=== PATIENT | female | born 1950 | race Caucasian/White ===

== ENCOUNTER 2018-07-16 13:04 | Emergency (ER) | payer MEDICARE, OTHER ==
[2018-07-16] MEDS ORDERED: HYDROCODONE/APAP 10/325 TAB ONE (13:35)
--- NOTE | 2018-07-16 14:25 | RAD REPORT ---
EXAM DESCRIPTION: RAD - Chest Single View - 07/16/2018 2:10 pm CLINICAL HISTORY: fall Chest pain. COMPARISON: Chest Pa And Lat (2 Views) dated 12/30/2016; Chest Single View dated 01/11/2016; CHEST PA A ND LAT 2 VIEW dated 01/08/2008 FINDINGS: Portable technique limits examination quality. The lungs are grossly clear. The heart is normal in size. Spiral fracture of the left humeral shaft.
--- NOTE | 2018-07-16 14:26 | RAD REPORT ---
EXAM DESCRIPTION: RAD - Humerus Left - 07/16/2018 2:10 pm CLINICAL HISTORY: DEFORMITY COMPARISON: No comparisons FINDINGS: Spiral fracture of the midshaft of the left humerus is seen with moderate angulation. No d islocation evident.
[2018-07-16] MEDS ORDERED: NA CHLORIDE 0.9% 1,000 ML ONE (14:32)
[2018-07-16] MEDS ORDERED: PROPOFOL 200 MG/20 ML VIAL IV ONE ×3 (14:32→16:12)
[2018-07-16] MEDS ORDERED: FENTANYL CITR 100 MCG/2 ML ONE ×2 (14:32→15:47)
[2018-07-16] MEDS ORDERED: PROPOFOL 1,000 MG/100 ML VIAL IV ONE (14:45)
--- NOTE | 2018-07-16 15:49 | RAD REPORT ---
EXAM DESCRIPTION: RAD - Humerus Left - 07/16/2018 3:35 pm CLINICAL HISTORY: DEFORMITY Fracture COMPARISON: Humerus Left dated 07/16/2018 FINDINGS: Oblique fracture of the shaft of the left humerus is seen with moderate angulation. Degree of angulation is unchanged. Plaster splint is in place.
--- NOTE | 2018-07-16 16:37 | RAD REPORT ---
EXAM DESCRIPTION: RAD - Humerus Left - 07/16/2018 4:30 pm CLINICAL HISTORY: DEFORMITY COMPARISON: Humerus Left dated 07/16/2018 FINDINGS: Spiral fracture involving the shaft of the left humerus is again noted within a splint. Th e degree of angulation has been moderately reduced since the comparative study.
--- NOTE | 2018-07-16 17:09 | ER ---
Nurse's Notes [facility] Name: Jeny Barraza Age: 68 yrs Sex: Female : 1950 Arrival Date: 07/16/2018 Time: 13:09 Bed 2 Private MD: Diagnosis: Closed left Midshaft spiral fracture Presentation: 07/16 13:09 Presenting complaint: EMS states: " Pt tripped on rug and fell, hit L arm on a nearby chair and reports that when she stood up she heard a pop. C/O pain to upper L arm that radiates down, deformity noted to shoulder, denies head injury or LOC, GCS 15, pulses intact. Transition of care: patient was not received from another setting of care. Onset of symptoms was July 16, 2018. Risk Assessment: Do you want to hurt yourself or someone else? Patient reports no desire to harm self or others. Initial Sepsis Screen: Does the patient meet any 2 criteria? No. Patient's initial sepsis screen is negative. Does the patient have a suspected source of infection? No. Patient's initial sepsis screen is negative. Care prior to arrival: Medication(s) given: 100 mcg Fentanyl IVP IV initiated. 18 GA, in the right antecubital area. 13:09 Method Of Arrival: EMS: [facility] 13:09 Acuity: KESHA 3 ph Historical: - Allergies: 13:15 Celexa; ph - PMHx: 13:15 Cholelithiasis; high heart rate; ph - PSHx: 13:15 Knee surgery; Tubal ligation; polyps removed from colon; ph - Immunization history:: Adult Immunizations up to date. - Social history:: Smoking status: Patient/guardian denies using tobacco. - Ebola Screening: : No symptoms or risks identified at this time. Screenin:15 Abuse screen: Denies threats or abuse. Denies injuries from another. Nutritional ph screening: No deficits noted. Tuberculosis screening: No symptoms or risk factors identified. Fall Risk Fall in past 12 months (25 points). No secondary diagnosis (0 pts). IV access (20 points). Ambulatory Aid- None/Bed Rest/Nurse Assist (0 pts). Gait- Normal/Bed Rest/Wheelchair (0 pts) Mental Status- Oriented to own ability (0 pts). Total Tatum Fall Scale indicates High Risk Score (45 or more points). Fall prevention measures have been instituted. Side Rails Up X 2 Frequent Obs/Assessments Occuring As available patient and family educated on Fall Prevention Program and Strategies. Assessment: 13:15 General: Appears in no apparent distress. uncomfortable, well groomed, Behavior is ph calm, cooperative, appropriate for age. Pain: Complains of pain in left arm and left bicep. Neuro: Level of Consciousness is awake, alert, obeys commands, Oriented to person, place, time, situation. Cardiovascular: Capillary refill < 3 seconds in bilateral fingers Patient's skin is warm and dry. Pulses are palpable in right radial artery and left radial artery. Respiratory: Airway is patent Respiratory effort is even, unlabored. Derm: Skin is intact, is healthy with good turgor, Skin is pink, warm \\T\\ dry. Musculoskeletal: Circulation, motion, and sensation intact. Range of motion: limited in left shoulder Bony deformity noted of left bicep Swelling present in left bicep. 14:45 Reassessment: Patient appears in no apparent distress at this time. Patient and/or ph family updated on plan of care and expected duration. Pain level reassessed. Patient is alert, oriented x 3, equal unlabored respirations, skin warm/dry/pink. Pt resting quietly, preparing for conscious sedation. Vital Signs: 13:12 BP 116 / 54; Pulse 75; Resp 71; Temp 97.9; Pulse Ox 96% on R/A; Weight 77.11 kg; Height ph 5 ft. 4 in. (162.56 cm); 14:00 BP 127 / 58; Pulse 76; Resp 16; Pulse Ox 99% on R/A; ph 15:00 BP 109 / 86; Pulse 83; Resp 16; Pulse Ox 99% on 100% Non-rebreather mask; ph 16:00 BP 119 / 71; Pulse 76; Resp 16; Pulse Ox 100% on 100% Non-rebreather mask; ph 17:00 BP 119 / 65; Pulse 74; Resp 18; Temp 97.8; Pulse Ox 99% on R/A; ph 13:12 Body Mass Index 29.18 (77.11 kg, 162.56 cm) ph ED Course: 13:09 Patient arrived in ED. ph 13:10 Mingo Sofia MD is Attending Physician. ps1 13:12 Triage completed. ph 13:13 Arm band placed on. ph 13:15 Patient has correct armband on for positive identification. Bed in low position. Call ph light in reach. Side rails up X 1. Pulse ox on. NIBP on. Warm blanket given. 13:25 Eunice Cedeño, RN is Primary Nurse. ph 14:10 Humerus Left XRAY In Process Unspecified. EDMS 14:10 CXR XRAY In Process Unspecified. EDMS 14:30 Consent for conscious sedation explained by staff, explained by physician, signed by ph patient. 15:00 Assist provider with fracture care of left bicep Fracture is closed. Obvious deformity ph is noted. Circulation, motor and sensation is intact. Set up for procedure. Performed by Mingo Sofia MD Reduced with physical manipulation. Immobilized with OCL splint, Post immobilization, circulation, motor and sensation remain intact. Patient tolerated well. Pt moderately sedated for procedure, see chart for flow sheet. 15:30 Orthoglass splint: Coaptation splint applied on left arm. Sling \\T\\ swathe to left arm. em1 15:34 Humerus Left XRAY In Process Unspecified. EDMS 16:10 Assist provider with fracture care of left arm Fracture is closed. Obvious deformity is ph not noted. Circulation, motor and sensation is intact. Set up for procedure. Performed by Mingo Sofia MD Reduced with physical manipulation. Immobilized with OCL splint, Post immobilization, circulation, motor and sensation remain intact. Patient tolerated well. Pt moderately sedated for procedure, see chart for sedation flow sheet. 16:28 Humerus Left XRAY In Process Unspecified. EDMS 17:07 Dax Talbot MD is Referral Physician. ps1 17:35 IV discontinued, intact, bleeding controlled, No redness/swelling at site. Pressure ph dressing applied. 18:06 Dax Talbot MD is Referral Physician. ps1 Administered Medications: 13:30 Drug: [place] 10 mg-325 mg 1 tabs Route: PO; ph 14:00 Follow up: Response: No adverse reaction sv 14:55 Drug: fentaNYL (PF) 100 mcg Route: IVP; Site: right antecubital; ph 15:15 Follow up: Response: No adverse reaction sv 14:57 Drug: Propofol 50 mg {Note: given by Dr Sofia.} Route: IVP; Site: right antecubital; ph 15:10 Follow up: Response: No adverse reaction sv 14:59 Drug: Propofol 100 mg Route: IVP; Site: right antecubital; ph 15:10 Follow up: Response: No adverse reaction sv 15:03 Drug: Propofol 50 mg {Note: given by Dr Sofia.} Route: IVP; Site: right antecubital; ph 15:15 Follow up: Response: No adverse reaction sv 15:52 Drug: fentaNYL (PF) 100 mcg Route: IVP; Site: right antecubital; ph 16:00 Follow up: Response: No adverse reaction sv 15:54 Drug: Propofol 50 mg {Note: given by Dr Sofia.} Route: IVP; Site: right antecubital; ph 16:00 Follow up: Response: No adverse reaction sv 16:00 Drug: Propofol 150 mg {Note: given slow push over approx [address] Sofia.} Route: ph IVP; Site: right antecubital; 16:10 Follow up: Response: No adverse reaction sv 16:08 Drug: Propofol 50 mg {Note: given by Dr Sofia.} Route: IVP; Site: right antecubital; ph 16:10 Follow up: Response: No adverse reaction sv Outcome: 17:09 Discharge ordered by . ps1 17:32 Patient left the ED. ph 17:32 Discharged to home with family. ph 17:32 Condition: good 17:32 Discharge instructions given to patient, family, Instructed on discharge instructions, follow up and referral plans. medication usage, Demonstrated understanding of instructions, follow-up care, medications, splint care, Prescriptions given X 2. 18:07 Discharge ordered by MD. ps1 18:07 Patient left the ED. ph Signatures: Dispatcher [employer] EDMS Estefani Slade RN RN sv Martinez, Eric em1 Eunice Cedeño RN RN ph Singer, Phillip, MD MD ps1 Corrections: (The following items were deleted from the chart) 17:50 14:57 fentaNYL (PF) 100 mcg IVP in right antecubital ph ph 17:52 15:03 Propofol 50 mg IVP in right antecubital ph ph 18:29 15:00 Assist provider with fracture care of left bicep Fracture is closed. Obvious ph deformity is noted. Circulation, motor and sensation is intact. Set up for procedure. Performed by Mingo Sofia MD Reduced with physical manipulation. Immobilized with OCL splint, Post immobilization, circulation, motor and sensation remain intact. Patient tolerated well. ph 18:29 16:10 Assist provider with fracture care of left arm Fracture is closed. Obvious ph deformity is not noted. Circulation, motor and sensation is intact. Set up for procedure. Performed by Mingo Sofia MD Reduced with physical manipulation. Immobilized with OCL splint, Post immobilization, circulation, motor and sensation remain intact. Patient tolerated well. ph
--- NOTE | 2018-07-16 17:10 | EDPHYS ---
Physician Documentation [facility] Name: Jeny Barraza Age: 68 yrs Sex: Female : 1950 Arrival Date: 07/16/2018 Time: 13:09 Bed 2 Private MD: ED Physician Mingo Sofia HPI: 07/16 13:10 This 68 yrs old Female presents to ER via Unassigned with complaints of left ps1 arm pain fall. 13:10 The patient or guardian complains of decreased range of motion, pain. The complaints ps1 affect the left bicep. Context: The problem was sustained at home. Onset: The symptoms/episode began/occurred just prior to arrival. trip and fall. No LOC. No head injury. Not on blood thinners. Pain rated moderate, worse with movememt. . Historical: - Allergies: 13:15 Celexa; ph - PMHx: 13:15 Cholelithiasis; high heart rate; ph - PSHx: 13:15 Knee surgery; Tubal ligation; polyps removed from colon; ph - Immunization history:: Adult Immunizations up to date. - Social history:: Smoking status: Patient/guardian denies using tobacco. - Ebola Screening: : No symptoms or risks identified at this time. ROS: 13:10 Constitutional: Negative for fever, chills, and weight loss, Eyes: Negative for injury, ps1 pain, redness, and discharge, ENT: Negative for injury, pain, and discharge, Cardiovascular: Negative for chest pain, palpitations, and edema, Respiratory: Negative for shortness of breath, cough, wheezing, and pleuritic chest pain, Abdomen/GI: Negative for abdominal pain, nausea, vomiting, diarrhea, and constipation, Skin: Negative for injury, rash, and discoloration, Neuro: Negative for headache, weakness, numbness, tingling, and seizure. 13:10 MS/extremity: Positive for decreased range of motion, pain. Exam: 13:10 Constitutional: This is a well developed, well nourished patient who is awake, alert, ps1 and in no acute distress. Head/Face: Normocephalic, atraumatic. Eyes: Pupils equal round and reactive to light, extra-ocular motions intact. Lids and lashes normal. Conjunctiva and sclera are non-icteric and not injected. Chest/axilla: Normal chest wall appearance and motion. Nontender with no deformity. No lesions are appreciated. Cardiovascular: Regular rate and rhythm. No gallops, murmurs, or rubs. Normal PMI, no JVD. No pulse deficits. Respiratory: Lungs have equal breath sounds bilaterally, clear to auscultation and percussion. No rales, rhonchi or wheezes noted. No increased work of breathing, no retractions or nasal flaring. Abdomen/GI: Soft, non-tender, with normal bowel sounds. No distension or tympany. No guarding or rebound. No evidence of tenderness throughout. Skin: Warm, dry with normal turgor. Normal color with no rashes, no lesions, and no evidence of cellulitis. 13:10 Musculoskeletal/extremity: Extremities: grossly normal except: noted in the left bicep: decreased ROM, pain. Vital Signs: 13:12 BP 116 / 54; Pulse 75; Resp 71; Temp 97.9; Pulse Ox 96% on R/A; Weight 77.11 kg; Height ph 5 ft. 4 in. (162.56 cm); 14:00 BP 127 / 58; Pulse 76; Resp 16; Pulse Ox 99% on R/A; ph 15:00 BP 109 / 86; Pulse 83; Resp 16; Pulse Ox 99% on 100% Non-rebreather mask; ph 16:00 BP 119 / 71; Pulse 76; Resp 16; Pulse Ox 100% on 100% Non-rebreather mask; ph 17:00 BP 119 / 65; Pulse 74; Resp 18; Temp 97.8; Pulse Ox 99% on R/A; ph 13:12 Body Mass Index 29.18 (77.11 kg, 162.56 cm) ph Procedures: 17:15 Splinting: Splint applied to left arm using Orthoglass splint, applied by myself. post ps1 reduction film - reveals improved alignment, Examined by me, post splint application: neurovascular intact, 2+ distal pulses palpable, brisk capillary refill noted, Patient tolerated well, coaptation splint. Moderate sedation: Pre-procedure assessment: ASA physical classification: I - healthy, no underlying organic disease, Airway assessment: able to hyperextend neck, able to maintain airway, can open mouth without difficulty, Mallampati classification of tongue size: II - faucial pillars and soft palate can be visualized, but uvula is masked by the base of the tongue, Monitoring during procedure: traffic monitor specialist, continuous pulse oximetry, nurse at bedside at all times, Medications employed: Fentanyl, 100 mcg(s), Propofol. See Nursing note for dosing administration. , Post-procedure assessment: the patient is not sedated, Respiratory status: even and unlabored. MDM: 13:21 Patient medically screened. ps1 17:15 Data reviewed: vital signs, nurses notes, radiologic studies, and as a result, I will ps1 discharge patient, conscious sedate, apply coaptation splint. 07/16 13:22 Order name: Humerus Left XRAY; Complete Time: 14:36 ps1 07/16 13:22 Order name: CXR XRAY; Complete Time: 14:36 ps1 07/16 15:28 Order name: Humerus Left XRAY hb 07/16 16:18 Order name: Humerus Left XRAY eb Administered Medications: 13:30 Drug: [place] 10 mg-325 mg 1 tabs Route: PO; ph 14:00 Follow up: Response: No adverse reaction sv 14:55 Drug: fentaNYL (PF) 100 mcg Route: IVP; Site: right antecubital; ph 15:15 Follow up: Response: No adverse reaction sv 14:57 Drug: Propofol 50 mg {Note: given by Dr Sofia.} Route: IVP; Site: right antecubital; ph 15:10 Follow up: Response: No adverse reaction sv 14:59 Drug: Propofol 100 mg Route: IVP; Site: right antecubital; ph 15:10 Follow up: Response: No adverse reaction sv 15:03 Drug: Propofol 50 mg {Note: given by Dr Sofia.} Route: IVP; Site: right antecubital; ph 15:15 Follow up: Response: No adverse reaction sv 15:52 Drug: fentaNYL (PF) 100 mcg Route: IVP; Site: right antecubital; ph 16:00 Follow up: Response: No adverse reaction sv 15:54 Drug: Propofol 50 mg {Note: given by Dr Sofia.} Route: IVP; Site: right antecubital; ph 16:00 Follow up: Response: No adverse reaction sv 16:00 Drug: Propofol 150 mg {Note: given slow push over approx [address] Sofia.} Route: ph IVP; Site: right antecubital; 16:10 Follow up: Response: No adverse reaction sv 16:08 Drug: Propofol 50 mg {Note: given by Dr Sofia.} Route: IVP; Site: right antecubital; ph 16:10 Follow up: Response: No adverse reaction sv Disposition: 07/16/18 18:07 Discharged to Home. Impression: Closed left Midshaft spiral fracture. - Condition is Stable. - Medication Reconciliation Form, Thank You Letter, Antibiotic Education, Prescription Opioid Use form. - Follow up: Dax Talbot MD; When: 1 week; Reason: Further diagnostic work-up, Recheck today's complaints, Re-evaluation by your physician. Follow up: Emergency Department; When: As needed; Reason: Worsening of condition, unbearable pain, cold, blue extremity. Critical care time excluding procedures: 17:54 Critical care time: Bedside Care: 30 minutes, Family Intervention: 10 minutes. Total ps1 time: 40 minutes Signatures: Dispatcher [employer] Eunice Conte RN RN Mingo Sofia MD MD [facility] Estefani Slade RN Corrections: (The following items were deleted from the chart) 17:32 17:09 07/16/2018 17:09 Discharged to Home. Impression: closed left midshaft spiral ph fracture.. Condition is Stable. Forms are Medication Reconciliation Form, Thank You Letter, Antibiotic Education, Prescription Opioid Use. Follow up: Dr. Dax Talbot; When: As needed; Reason: Further diagnostic work-up, Recheck today's complaints, Re-evaluation by your physician. Follow up: Emergency Department; When: As needed; Reason: Worsening of condition, cast pain that seems unreasonable. Discoloration of hands. Numbness. . Problem is new. Symptoms have improved. ps1 17:54 17:32 07/16/2018 17:09 Discharged to Home. Impression: closed left midshaft spiral ps1 fracture.. Condition is Stable. Discharge Instructions: Humerus Fracture Treated With Immobilization. Prescriptions for Zofran 4 mg Oral Tablet - take 1 tablet by ORAL route every 12 hours As needed; 20 tablet. and Forms are Medication Reconciliation Form, Thank You Letter, Antibiotic Education, Prescription Opioid Use. Follow up: Dr. Dax Talbot; When: As needed; Reason: Further diagnostic work-up, Recheck today's complaints, Re-evaluation by your physician. Follow up: Emergency Department; When: As needed; Reason: Worsening of condition, cast pain that seems unreasonable. Discoloration of hands. Numbness. . Problem is new. Symptoms have improved. ph 18:07 18:07 07/16/2018 18:07 Discharged to Home. Impression: Closed left Midshaft spiral ph fracture. Condition is Stable. Prescriptions for Zofran 4 mg Oral Tablet - take 1 tablet by ORAL route every 12 hours As needed; 20 tablet. and Forms are Medication Reconciliation Form, Thank You Letter, Antibiotic Education, Prescription Opioid Use. Follow up: Dr. Dax Talbot; When: 1 week; Reason: Further diagnostic work-up, Recheck today's complaints, Re-evaluation by your physician. Follow up: Emergency Department; When: As needed; Reason: Worsening of condition, unbearable pain, cold, blue extremity. ps1
[2018-07-16 17:38] VITALS: BP 116/54; TEMP 97.9; O2SAT 96
== END 2018-07-16 18:07 | disposition home or self-care (01) ==
LOC: ER 13:04
DX: S42.342A Displaced spiral fracture of shaft of humerus, left arm, initial encounter for closed fracture (principal); W01.0XXA Fall on same level from slipping, tripping and stumbling without subsequent striking against object, initial encounter; Y93.9 Activity, unspecified; Y92.019 Unspecified place in single-family (private) house as the place of occurrence of the external cause
CPT/HCPCS: 71045; 73060 ×3; 96374; 96375; 99285; J3010 ×2; J7030

== ENCOUNTER 2018-07-17 13:26 | Emergency (ER) | payer MEDICARE, OTHER ==
--- NOTE | 2018-07-17 13:48 | ER ---
Nurse's Notes [facility] Name: Jeny Barraza Age: 68 yrs Sex: Female : 1950 Arrival Date: 07/17/2018 Time: 13:31 Bed 2 Private MD: Diagnosis: Displaced oblique fracture of shaft of humerus, unspecified arm-left Presentation: 07/17 13:42 Presenting complaint: Patient states: had splint placed to left arm yesterday and iw splint is now digging into her left axilla. Transition of care: patient was not received from another setting of care. Onset of symptoms was July 16, 2018. Risk Assessment: Do you want to hurt yourself or someone else? Patient reports no desire to harm self or others. Initial Sepsis Screen: Does the patient meet any 2 criteria? No. Patient's initial sepsis screen is negative. Does the patient have a suspected source of infection? No. Patient's initial sepsis screen is negative. Care prior to arrival: Splint applied. 13:42 Method Of Arrival: Ambulatory iw 13:42 Acuity: KESHA 4 iw Triage Assessment: 16:30 Injury Description: Deformity sustained to left arm. bp Historical: - Allergies: 13:45 Celexa; iw - PMHx: 13:45 Cholelithiasis; high heart rate; iw - PSHx: 13:45 Knee surgery; Tubal ligation; polyps removed from colon; iw - Immunization history:: Adult Immunizations up to date. - Social history:: Smoking status: Patient/guardian denies using tobacco. - Family history:: not pertinent. - Ebola Screening: : Patient negative for fever greater than or equal to 101.5 degrees Fahrenheit, and additional compatible Ebola Virus Disease symptoms Patient denies exposure to infectious person Patient denies travel to an Ebola-affected area in the 21 days before illness onset No symptoms or risks identified at this time. Screenin:49 Abuse screen: Denies threats or abuse. Denies injuries from another. Nutritional bp screening: No deficits noted. Tuberculosis screening: No symptoms or risk factors identified. Fall Risk Fall in past 12 months (25 points). No secondary diagnosis (0 pts). No IV (0 pts). Ambulatory Aid- None/Bed Rest/Nurse Assist (0 pts). Assessment: 13:45 General: Appears in no apparent distress. comfortable, Behavior is calm, cooperative, bp appropriate for age. Pain: Complains of pain in left arm. Neuro: Level of Consciousness is awake, alert, obeys commands, Oriented to person, place, time, situation, Appropriate for age. Cardiovascular: No deficits noted. Respiratory: Airway is patent is compromised Respiratory effort is even, unlabored, Respiratory pattern is regular, symmetrical. GI: No signs and/or symptoms were reported involving the gastrointestinal system. : No signs and/or symptoms were reported regarding the genitourinary system. EENT: No deficits noted. Derm: No deficits noted. Musculoskeletal: LUE SPLINT IN PLACE. 15:00 Reassessment: LUE SPLINT REPLACEMENT PENDING FOR MD. bp 16:10 Reassessment: MD AT B/S FOR SPLINT PLACEMENT. bp 16:42 Reassessment: PT D/C HOME AMBULATORY WITH FAMILY, DX WITH DISPLACED HUMERUS SHAFT FX. bp Vital Signs: 13:49 BP 119 / 69; Pulse 84; Resp 14; Temp 98.1; Pulse Ox 96% ; Weight 74.84 kg; Height 5 ft. bp 4 in. (162.56 cm); 15:00 BP 106 / 63; Pulse 80; Resp 14; Pulse Ox 99% ; bp 16:31 BP 127 / 75; Pulse 85; Resp 14; Pulse Ox 100% ; bp 13:49 Body Mass Index 28.32 (74.84 kg, 162.56 cm) bp ED Course: 13:31 Patient arrived in ED. mr 13:37 Ean Hernandez MD is Attending Physician. axel 13:41 Yong Monzon, RN is Primary Nurse. bp 13:43 Triage completed. iw 13:45 Arm band placed on. iw 13:49 Patient has correct armband on for positive identification. Bed in low position. Call bp light in reach. Side rails up X2. Adult w/ patient. 16:30 Patient did not have IV access during this emergency room visit. Orthoglass splint: bp Coaptation splint applied on left arm. Sling applied to left arm. 16:30 No provider procedures requiring assistance completed. bp Administered Medications: 15:18 Drug: Demerol 75 mg Route: IM; Site: right gluteus; bp 16:29 Follow up: Response: Pain is decreased bp 15:18 Drug: Phenergan 25 mg Route: IM; Site: right deltoid; bp 16:29 Follow up: Response: Pain is decreased bp Outcome: 13:47 Discharge ordered by . axel 16:42 Discharged to home ambulatory, with family. bp 16:42 Condition: stable 16:42 Discharge instructions given to patient, Instructed on discharge instructions, follow up and referral plans. medication usage, Demonstrated understanding of instructions, follow-up care, medications, splint care, Prescriptions given X 2. 16:43 Patient left the ED. bp Signatures: Ean Hernandez MD MD cha Rivera, Mary mr Williams, Irene, ROLANDO RN Yong Heath RN RN bp
--- NOTE | 2018-07-17 13:48 | EDPHYS ---
Physician Documentation [facility] Name: Jeny Barraza Age: 68 yrs Sex: Female : 1950 Arrival Date: 07/17/2018 Time: 13:31 Bed 2 Private MD: ED Physician Ean Hernandez HPI: 07/17 13:41 This 68 yrs old Female presents to ER via Unassigned with complaints of Arm axel Injury, Splint check. 13:41 Trauma demographics: County: The injury occurred in [place]. Mechanism of injury: axel Fall:. Associated injuries: The patient sustained left bicep and left tricep, decreased range of motion. Onset: The symptoms/episode began/occurred 2 day(s) ago. The patient or guardian complains of decreased range of motion, pain. The complaints affect the left bicep and left tricep. Historical: - Allergies: 13:45 Celexa; iw - PMHx: 13:45 Cholelithiasis; high heart rate; iw - PSHx: 13:45 Knee surgery; Tubal ligation; polyps removed from colon; iw - Immunization history:: Adult Immunizations up to date. - Social history:: Smoking status: Patient/guardian denies using tobacco. - Family history:: not pertinent. - Ebola Screening: : Patient negative for fever greater than or equal to 101.5 degrees Fahrenheit, and additional compatible Ebola Virus Disease symptoms Patient denies exposure to infectious person Patient denies travel to an Ebola-affected area in the 21 days before illness onset No symptoms or risks identified at this time. ROS: 13:44 Constitutional: Negative for fever, chills, and weight loss, Eyes: Negative for injury, axel pain, redness, and discharge, ENT: Negative for injury, pain, and discharge, Neck: Negative for injury, pain, and swelling, Cardiovascular: Negative for chest pain, palpitations, and edema, Respiratory: Negative for shortness of breath, cough, wheezing, and pleuritic chest pain, Abdomen/GI: Negative for abdominal pain, nausea, vomiting, diarrhea, and constipation, Back: Negative for injury and pain, : Negative for injury, bleeding, discharge, and swelling, Skin: Negative for injury, rash, and discoloration, Neuro: Negative for headache, weakness, numbness, tingling, and seizure, Psych: Negative for depression, anxiety, suicide ideation, homicidal ideation, and hallucinations, Allergy/Immunology: Negative for hives, rash, and allergies, Endocrine: Negative for neck swelling, polydipsia, polyuria, polyphagia, and marked weight changes, Hematologic/Lymphatic: Negative for swollen nodes, abnormal bleeding, and unusual bruising. 13:44 MS/extremity: Positive for injury or acute deformity, decreased range of motion, pain, swelling, tenderness. Exam: 13:44 Constitutional: This is a well developed, well nourished patient who is awake, alert, axel and in no acute distress. Head/Face: Normocephalic, atraumatic. Eyes: Pupils equal round and reactive to light, extra-ocular motions intact. Lids and lashes normal. Conjunctiva and sclera are non-icteric and not injected. Cornea within normal limits. Periorbital areas with no swelling, redness, or edema. ENT: Nares patent. No nasal discharge, no septal abnormalities noted. Tympanic membranes are normal and external auditory canals are clear. Oropharynx with no redness, swelling, or masses, exudates, or evidence of obstruction, uvula midline. Mucous membranes moist. Neck: Trachea midline, no thyromegaly or masses palpated, and no cervical lymphadenopathy. Supple, full range of motion without nuchal rigidity, or vertebral point tenderness. No Meningismus. Chest/axilla: Normal chest wall appearance and motion. Nontender with no deformity. No lesions are appreciated. Cardiovascular: Regular rate and rhythm with a normal S1 and S2. No gallops, murmurs, or rubs. Normal PMI, no JVD. No pulse deficits. Respiratory: Lungs have equal breath sounds bilaterally, clear to auscultation and percussion. No rales, rhonchi or wheezes noted. No increased work of breathing, no retractions or nasal flaring. Abdomen/GI: Soft, non-tender, with normal bowel sounds. No distension or tympany. No guarding or rebound. No evidence of tenderness throughout. Back: No spinal tenderness. No costovertebral tenderness. Full range of motion. Skin: Warm, dry with normal turgor. Normal color with no rashes, no lesions, and no evidence of cellulitis. Neuro: Awake and alert, GCS 15, oriented to person, place, time, and situation. Cranial nerves II-XII grossly intact. Motor strength 5/5 in all extremities. Sensory grossly intact. Cerebellar exam normal. Normal gait. Psych: Awake, alert, with orientation to person, place and time. Behavior, mood, and affect are within normal limits. 13:44 Musculoskeletal/extremity: Extremities: grossly normal except: noted in the left bicep and left tricep: decreased ROM, pain. Vital Signs: 13:49 BP 119 / 69; Pulse 84; Resp 14; Temp 98.1; Pulse Ox 96% ; Weight 74.84 kg; Height 5 ft. bp 4 in. (162.56 cm); 15:00 BP 106 / 63; Pulse 80; Resp 14; Pulse Ox 99% ; bp 16:31 BP 127 / 75; Pulse 85; Resp 14; Pulse Ox 100% ; bp 13:49 Body Mass Index 28.32 (74.84 kg, 162.56 cm) bp MDM: 13:37 Patient medically screened. [facility] 07/17 13:40 Order name: Splint: coaptation; Complete Time: 16:35 [facility] 07/17 13:41 Order name: Sling; Complete Time: 16:35 [facility] Administered Medications: 15:18 Drug: Demerol 75 mg Route: IM; Site: right gluteus; bp 16:29 Follow up: Response: Pain is decreased bp 15:18 Drug: Phenergan 25 mg Route: IM; Site: right deltoid; bp 16:29 Follow up: Response: Pain is decreased bp Disposition: 07/17/18 13:47 Discharged to Home. Impression: Displaced oblique fracture of shaft of humerus, unspecified arm - left. - Condition is Stable. - Discharge Instructions: Fall Prevention in the Home, Humerus Fracture Treated With Immobilization, Humerus Fracture Treated With Immobilization, [id number], Fall Prevention in Hospitals, Adult. - Prescriptions for Tylenol- Codeine #3 300-30 mg Oral Tablet - take 2 tablet by ORAL route every 6 hours As needed; 30 tablet. Valium 2 mg Oral Tablet - take 1 tablet by ORAL route every 8 hours As needed; 20 tablet. - Medication Reconciliation Form, Thank You Letter, Antibiotic Education, Prescription Opioid Use form. - Follow up: Private Physician; When: 2 - 3 days; Reason: Recheck today's complaints, Continuance of care, Re-evaluation by your physician. - Problem is new. - Symptoms have improved. Signatures: Ean Hernandez MD MD cha Williams, Irene, RN RN iw Yong Monzon, RN RN bp Corrections: (The following items were deleted from the chart) 16:43 13:47 07/17/2018 13:47 Discharged to Home. Impression: Displaced oblique fracture of bp shaft of humerus, unspecified arm - left. Condition is Stable. Forms are Medication Reconciliation Form, Thank You Letter, Antibiotic Education, Prescription Opioid Use. Follow up: Private Physician; When: 2 - 3 days; Reason: Recheck today's complaints, Continuance of care, Re-evaluation by your physician. Problem is new. Symptoms have improved. axel
[2018-07-17] MEDS ORDERED: MEPERIDINE HCL 50 MG/ML AMP ONE (15:18)
[2018-07-17] MEDS ORDERED: PROMETHAZINE 25 MG/ML VIAL ONE (15:18)
[2018-07-17 17:14] VITALS: TEMP 98.1
[2018-07-17 17:16] VITALS: BP 127/75; O2SAT 100
== END 2018-07-17 16:43 | disposition home or self-care (01) ==
LOC: ER 13:26
DX: S42.332G Displaced oblique fracture of shaft of humerus, left arm, subsequent encounter for fracture with delayed healing (principal); W19.XXXD Unspecified fall, subsequent encounter; Z88.8 Allergy status to other drugs, medicaments and biological substances
CPT/HCPCS: 96372; 99283; J2175; J2550

== ENCOUNTER 2018-08-23 15:31 | Observation (INO) | payer OTHER ==
[2018-08-23] MEDS ORDERED: MORPHINE 4 MG/ML SYR ONE ×2 (17:27→20:30)
[2018-08-23] MEDS ORDERED: ONDANSETRON 4 MG/2 ML VIAL ONE (17:27)
[2018-08-23 18:13] LABS: Absolute Lymphocytes (CBC) 2.4 K/uL (0.7-4.9); Absolute Monocytes 1.1 K/uL (0.1-1.3); Absolute Neutrophil 10.6 K/uL (1.8-8.0); Basophils % 0.3 % (0-1.3); Eosinophils % 0.1 % (0-4.4); Hematocrit 38.8 % (36.0-45.0); Lymphocytes % 16.8 % (15.3-44.8); MCH 30.2 pg (27.0-35.0); MCV 89.5 fL (80-100); MPV 8.7 fL (7.6-11.3); Monocytes % 7.9 % (3.3-12.3); RBC Red Blood Cell Count 4.34 M/uL (3.86-4.86)
[2018-08-23 18:34] LABS: Bilirubin Direct 0.1 mg/dL (0-0.2); Bilirubin Total 0.6 mg/dL (0.2-1.0); Potassium 3.3 mmol/L (3.5-5.1); Protein, Total 7.6 g/dL (6.4-8.2)
--- NOTE | 2018-08-23 19:30 | RAD REPORT ---
EXAM DESCRIPTION: RAD - Forearm Left - 08/23/2018 7:17 pm CLINICAL HISTORY: Left forearm pain status post injury FINDINGS: No acute fracture is seen. Sideplate and screws affix an old distal radial fracture
--- NOTE | 2018-08-23 19:40 | RAD REPORT ---
EXAM DESCRIPTION: CT - Abdomen Pelvis W Contrast - 08/23/2018 7:16 pm CLINICAL HISTORY: Abdominal pain with hematochezia COMPARISON: January 2018 TECHNIQUE: Computed axial tomography of the abdomen pelvis was obtained. 100 cc Isovue-300 was admin istered intravenously. Oral contrast was not requested which limits evaluation of bowel. All CT scans are performed using dose optimization technique as appropriate and may include automated exposure control or mA/KV adjustment according to patient size. FINDINGS: The liver, spleen, pancreas, adrenal and kidneys appear unremarkable. The appendix is normal. Marked thickening of the wall of the descending colon. Moderate thickening of the wall of the sigmoid colon. Pneumatosis intestinalis is not seen IMPRESSION: Marked left colitis
[2018-08-23] MEDS ORDERED: METRONIDAZOLE 500mg IVPB 500 MG/100 ML BAG IV ONE (20:17)
[2018-08-23] MEDS ORDERED: CIPROFLOXACIN 400mg IV 400 MG/200 ML BAG IV ONE (20:17)
--- NOTE | 2018-08-23 20:21 | ER ---
Nurse's Notes [facility] Name: Jeny Barraza Age: 68 yrs Sex: Female : 1950 Arrival Date: 08/23/2018 Time: 15:37 Bed 27 Private MD: Mayur Castillo E Diagnosis: Left sided colitis Presentation: 08/23 16:02 Presenting complaint: Patient states: Bright red blood in stool since yesterday. aj Patient reports hx of colitis. Reports syncopal episode yesterday. Transition of care: patient was not received from another setting of care. Onset of symptoms was August 22, 2018. Risk Assessment: Do you want to hurt yourself or someone else? Patient reports no desire to harm self or others. Initial Sepsis Screen: Does the patient meet any 2 criteria? No. Patient's initial sepsis screen is negative. Does the patient have a suspected source of infection? No. Patient's initial sepsis screen is negative. Care prior to arrival: None. 16:02 Method Of Arrival: Ambulatory 16:02 Acuity: KESHA 3 aj Triage Assessment: 16:04 General: Appears in no apparent distress. comfortable, Behavior is calm, cooperative, aj appropriate for age. Pain: Complains of pain in right lower quadrant, left lower quadrant and left arm. Neuro: Level of Consciousness is awake, alert, obeys commands, Oriented to person, place, time, situation, Appropriate for age. Respiratory: Airway is patent Respiratory effort is even, unlabored, Respiratory pattern is regular, symmetrical. GI: Reports bloody stool. Derm: Skin is intact, is healthy with good turgor, Skin is pink, warm \T\ dry. normal. Historical: - Allergies: 16:04 Celexa; aj - Home Meds: 16:04 Lisinopril Oral [Active]; ranitidine Oral [Active]; hydrocodone-acetaminophen 7.5-325 aj mg Oral tab 1 tab every 4 hours [Active]; Atenolol Oral [Active]; Flexeril Oral [Active]; Klonopin Oral [Active]; - PMHx: 16:04 Cholelithiasis; high heart rate; colitis; aj - PSHx: 16:04 Knee surgery; Tubal ligation; polyps removed from colon; aj - Immunization history:: Adult Immunizations up to date. - Social history:: Smoking status: Patient/guardian denies using tobacco. - Ebola Screening: : Patient negative for fever greater than or equal to 101.5 degrees Fahrenheit, and additional compatible Ebola Virus Disease symptoms Patient denies exposure to infectious person Patient denies travel to an Ebola-affected area in the 21 days before illness onset No symptoms or risks identified at this time. Screenin:13 Abuse screen: Denies threats or abuse. Denies injuries from another. Nutritional mg2 screening: No deficits noted. Tuberculosis screening: No symptoms or risk factors identified. Fall Risk IV access (20 points). Assessment: 17:14 General: Appears uncomfortable. Pain: Complains of pain in left arm and abdomen and mg2 left lower quadrant and right lower quadrant Pain currently is 8 out of 10 on a pain scale. Is intermittent. Neuro: Level of Consciousness is awake, alert, obeys commands, Oriented to person, place, time, situation. Cardiovascular: Capillary refill < 3 seconds Patient's skin is warm and dry. Respiratory: Airway is patent Respiratory effort is even, unlabored, Respiratory pattern is regular, symmetrical. GI: Abdomen is non-distended, Reports lower abdominal pain. EENT: No deficits noted. Derm: Skin is intact, is healthy with good turgor, Skin is pink, warm \T\ dry. normal. Musculoskeletal: Circulation, motion, and sensation intact. Capillary refill < 3 seconds, Reports pain in left arm. 18:24 Reassessment: Patient appears in no apparent distress at this time. Patient and/or mg2 family updated on plan of care and expected duration. Pain level reassessed. Patient is alert, oriented x 3, equal unlabored respirations, skin warm/dry/pink. 21:36 Reassessment: patient agreed for admission. mg2 Vital Signs: 16:04 BP 104 / 73; Pulse 99; Resp 20; Temp 97.9; Pulse Ox 100% on R/A; Weight 72.12 kg; aj Height 5 ft. 4 in. (162.56 cm); 17:13 BP 108 / 70; Pulse 100; Resp 18; Pulse Ox 100% on R/A; Pain 8/10; mg2 18:23 BP 121 / 62; Pulse 86; Resp 18; Pulse Ox 99% on R/A; mg2 19:31 Pulse 84; Resp 18; Pulse Ox 100% on R/A; Pain 0/10; mg2 21:20 BP 110 / 59; Pulse 85; Resp 18; Temp 98.8; Pulse Ox 100% on R/A; Pain 3/10; mg2 16:04 Body Mass Index 27.29 (72.12 kg, 162.56 cm) ED Course: 15:37 Patient arrived in ED. mr 15:37 Mayur Castillo MD is Private Physician. mr 16:02 Triage completed. aj 16:04 Arm band placed on right wrist. Patient placed in waiting room. aj 16:31 Tony Russo PA is PHCP. [facility] 16:31 Oren Vidales MD is Attending Physician. jmm 16:44 Musa Haque, ROLANDO is Primary Nurse. mg2 17:13 No provider procedures requiring assistance completed. Inserted saline lock: 22 gauge mg2 in right forearm, using aseptic technique. Blood collected. 17:15 Patient has correct armband on for positive identification. Pulse ox on. NIBP on. Door mg2 closed. Warm blanket given. 18:19 Radiology exam delayed due to lab results not completed at this time. (BUN/Creatinine). 19:[address] via stretcher. nj 19:17 CT Abd/Pelvis - W/Contrast In Process Unspecified. EDMS 19:18 Forearm Left XRAY In Process Unspecified. EDMS 20:20 Lashanda Dorado MD is Hospitalizing Provider. m 21:35 Patient admitted, IV remains in place. mg2 Administered Medications: 17:25 Drug: morphine 4 mg Route: IVP; Site: right forearm; mg2 19:31 Follow up: Response: No adverse reaction; Marked relief of symptoms mg2 17:25 Drug: Zofran 4 mg Route: IVP; Site: right forearm; mg2 19:31 Follow up: Response: No adverse reaction; Marked relief of symptoms mg2 20:34 Drug: morphine 4 mg Route: IVP; Site: right forearm; mg2 21:53 Follow up: Response: No adverse reaction; Marked relief of symptoms mg2 20:35 Drug: Lactated Ringers Solution 1000 ml Route: IV; Rate: 150 ml/hr; Site: right forearm;mg2 22:08 Follow up: Response: No adverse reaction; IV Status: Completed infusion mg2 20:36 Drug: Flagyl 500 mg Volume: 100 ml; Route: IVPB; Rate: 200 ml/hr; Infused Over: 30 mg2 mins; Site: right forearm; 22:09 Follow up: Response: No adverse reaction; IV Status: Completed infusion mg2 21:22 Drug: Cipro 400 mg Volume: 200 ml; Route: IVPB; Infused Over: 60 mins; Site: right mg2 antecubital; 22:09 Follow up: Response: No adverse reaction; IV Status: Infusion continued upon admission mg2 Outcome: 20:20 Decision to Hospitalize by Provider. camryn 21:36 Admitted to Tele accompanied by nurse, family with patient, via wheelchair, room 410, mg2 with chart, Report called to ROLANDO Marcial 21:36 Condition: stable 21:36 Instructed on the need for admit, Demonstrated understanding of instructions. 22:10 Patient left the ED. mg2 Signatures: Dispatcher [employer] Amparo Murguia RN RN aj Mickail, Joel, PA PA jmm Rivera, Mary mr Pardo, Ang Russell, Musa Starr RN RN mg2 Corrections: (The following items were deleted from the chart) 16:06 16:04 Arm band placed on right wrist. Patient placed in an exam room, sarah smith
--- NOTE | 2018-08-23 20:21 | EDPHYS ---
Physician Documentation [facility] Name: Jeny Barraza Age: 68 yrs Sex: Female : 1950 Arrival Date: 08/23/2018 Time: 15:37 Bed 27 Private MD: Mayur Castillo E ED Physician Oren Vidales HPI: 08/23 17:09 This 68 yrs old Female presents to ER via Ambulatory with complaints of jmm Rectal Bleeding. 17:09 The patient presents to the emergency department with bleeding from the rectum/anus. jmm Onset: The symptoms/episode began/occurred gradually, yesterday. Context: the patient has no known special context relating to the rectal area complaint(s). Modifying factors:. This is a 68 year old female with a history of hemorrhoids, colitis, that presents to the ED with blood bowel movments beginning last night. Complains of lower abdominal pain. Patient states she collapsed last night while in the restroom landing on her left side. Patient complains of pain to her left forearm which she had fractured previously. Patient states she has had a similar episode previously. . Historical: - Allergies: 16:04 Celexa; aj - Home Meds: 16:04 Lisinopril Oral [Active]; ranitidine Oral [Active]; hydrocodone-acetaminophen 7.5-325 aj mg Oral tab 1 tab every 4 hours [Active]; Atenolol Oral [Active]; Flexeril Oral [Active]; Klonopin Oral [Active]; - PMHx: 16:04 Cholelithiasis; high heart rate; colitis; aj - PSHx: 16:04 Knee surgery; Tubal ligation; polyps removed from colon; aj - Immunization history:: Adult Immunizations up to date. - Social history:: Smoking status: Patient/guardian denies using tobacco. - Ebola Screening: : Patient negative for fever greater than or equal to 101.5 degrees Fahrenheit, and additional compatible Ebola Virus Disease symptoms Patient denies exposure to infectious person Patient denies travel to an Ebola-affected area in the 21 days before illness onset No symptoms or risks identified at this time. ROS: 17:09 Eyes: Negative for injury, pain, redness, and discharge, Cardiovascular: Negative for jmm chest pain, palpitations, and edema, Respiratory: Negative for shortness of breath, cough, wheezing, and pleuritic chest pain. 17:09 Back: Negative for injury and pain, MS/Extremity: Negative for injury and deformity, Skin: Negative for injury, rash, and discoloration, Neuro: Negative for headache, weakness, numbness, tingling, and seizure. 17:09 Constitutional: Positive for fatigue, malaise. 17:09 Abdomen/GI: Positive for abdominal pain, rectal bleeding. 17:09 All other systems are negative. Exam: 17:09 Head/Face: atraumatic. Chest/axilla: Normal chest wall appearance and motion. camryn Cardiovascular: Regular rate and rhythm. No edema appreciated 17:09 Constitutional: The patient appears in no acute distress, alert, awake. 17:09 Abdomen/GI: Inspection: abdomen appears normal, Bowel sounds: normal, Palpation: soft, moderate abdominal tenderness, in the left lower quadrant. 17:09 Back: ROM is normal. 17:09 Musculoskeletal/extremity: ROM: intact in all extremities, no deformity appreciated to the left forearm, compartments are soft, full radial pulse, NVI. 17:09 Skin: Appearance: Color: normal in color. 17:09 Neuro: Orientation: is normal, Mentation: is normal, Memory: is normal. 17:09 Psych: Behavior/mood is pleasant, cooperative. Vital Signs: 16:04 BP 104 / 73; Pulse 99; Resp 20; Temp 97.9; Pulse Ox 100% on R/A; Weight 72.12 kg; aj Height 5 ft. 4 in. (162.56 cm); 17:13 BP 108 / 70; Pulse 100; Resp 18; Pulse Ox 100% on R/A; Pain 8/10; mg2 18:23 BP 121 / 62; Pulse 86; Resp 18; Pulse Ox 99% on R/A; mg2 19:31 Pulse 84; Resp 18; Pulse Ox 100% on R/A; Pain 0/10; mg2 21:20 BP 110 / 59; Pulse 85; Resp 18; Temp 98.8; Pulse Ox 100% on R/A; Pain 3/10; mg2 16:04 Body Mass Index 27.29 (72.12 kg, 162.56 cm) aj MDM: 17:06 Patient medically screened. camryn 20:19 Data reviewed: vital signs, nurses notes. Counseling: I had a detailed discussion with camryn the patient and/or guardian regarding: the historical points, exam findings, and any diagnostic results supporting the discharge/admit diagnosis, lab results, radiology results, the need for further work-up and treatment in the hospital. ED course: i discussed the patient with Dr. Dorado and Dr. Negrete whom accepted admission and will consult. . 08/23 17:14 Order name: Type And Screen; Complete Time: 19:15 [facility] 08/23 17:58 Order name: Basic Metabolic Panel; Complete Time: 18:55 [facility] 08/23 17:58 Order name: Liver (Hepatic) Function; Complete Time: 18:55 [facility] 08/23 17:58 Order name: Lipase; Complete Time: 18:55 [facility] 08/23 17:58 Order name: Creatinine (Radiology Only); Complete Time: 18:55 [facility] 08/23 17:58 Order name: CBC with Automated Diff; Complete Time: 18:20 [facility] 08/23 18:56 Order name: Troponin (emerg Dept Use Only); Complete Time: 19:42 [facility] 08/23 20:10 Order name: Stool Culture [facility] 08/23 20:10 Order name: Rotavirus Antigen [facility] 08/23 17:14 Order name: IV Saline Lock; Complete Time: 17:16 [facility] 08/23 17:14 Order name: Labs collected and sent; Complete Time: 17:16 [facility] 08/23 17:14 Order name: CT Abd/Pelvis - W/Contrast; Complete Time: 19:42 [facility] 08/23 17:14 Order name: Forearm Left XRAY; Complete Time: 19:38 [facility] 08/23 18:56 Order name: EKG - Nurse/Tech; Complete Time: 19:31 [facility] 08/23 20:10 Order name: Ova And Parasites [facility] 08/23 20:10 Order name: Fecal Leukocyte Stain [facility] 08/23 20:10 Order name: CDIFF [facility] Administered Medications: 17:25 Drug: morphine 4 mg Route: IVP; Site: right forearm; mg2 19:31 Follow up: Response: No adverse reaction; Marked relief of symptoms mg2 17:25 Drug: Zofran 4 mg Route: IVP; Site: right forearm; mg2 19:31 Follow up: Response: No adverse reaction; Marked relief of symptoms mg2 20:34 Drug: morphine 4 mg Route: IVP; Site: right forearm; mg2 21:53 Follow up: Response: No adverse reaction; Marked relief of symptoms mg2 20:35 Drug: Lactated Ringers Solution 1000 ml Route: IV; Rate: 150 ml/hr; Site: right forearm;mg2 22:08 Follow up: Response: No adverse reaction; IV Status: Completed infusion mg2 20:36 Drug: Flagyl 500 mg Volume: 100 ml; Route: IVPB; Rate: 200 ml/hr; Infused Over: 30 mg2 mins; Site: right forearm; 22:09 Follow up: Response: No adverse reaction; IV Status: Completed infusion mg2 21:22 Drug: Cipro 400 mg Volume: 200 ml; Route: IVPB; Infused Over: 60 mins; Site: right mg2 antecubital; 22:09 Follow up: Response: No adverse reaction; IV Status: Infusion continued upon admission mg2 Disposition: 08/24 13:57 Co-signature as Attending Physician, Oren Vidales MD I agree with the assessment and kdr plan of care. Disposition: 08/23/18 20:20 Hospitalization ordered by Lashanda Dorado for Inpatient Admission. Preliminary diagnosis is Left sided colitis. - Bed requested for Telemetry/MedSurg (Inpatient). - Status is Inpatient Admission. mg2 - Condition is Stable. - Problem is an acute exacerbation. - Symptoms are unchanged. UTI on Admission? No Signatures: Dispatcher [employer] EDAmparo Lemos RN RN aj Rittger, Kevin, MD MD [facility] Tony Russo PA PA jmm Garcia, Cindy, RN RN Musa Haque RN RN mg2 Corrections: (The following items were deleted from the chart) 08/23 18:19 18:15 CBC+H.LAB.BRZ ordered. [facility] EDMS 18:21 18:15 BASIC METABOLIC PANEL+C.LAB.BRZ ordered. [facility] EDMS 18:21 18:15 Creatinine for Radiology+C.LAB.BRZ ordered. [facility] EDMS 18:21 18:15 HEPATIC FUNCTION+C.LAB.BRZ ordered. [facility] EDMS 18:21 18:15 LIPASE+C.LAB.BRZ ordered. [facility] EDMS 20:46 20:20 Hospitalization Ordered by Lashanda Dorado MD for Inpatient Admission. Preliminary cg diagnosis is Left sided colitis. Bed requested for Telemetry/MedSurg (Inpatient). Status is Inpatient Admission. Condition is Stable. Problem is an acute exacerbation. Symptoms are unchanged. UTI on Admission? No. jmm 22:10 20:46 08/23/2018 20:20 Hospitalization Ordered by Lashanda Dorado MD for Inpatient mg2 Admission. Preliminary diagnosis is Left sided colitis. Bed requested for Telemetry/MedSurg (Inpatient). Status is Inpatient Admission. Condition is Stable. Problem is an acute exacerbation. Symptoms are unchanged. UTI on Admission? No. cg
[2018-08-23] MEDS ORDERED: Ringers Lactate 1,000 ML IV ONE (20:25)
--- NOTE | 2018-08-23 20:50 | P.HP ---
Certification for Inpatient Patient admitted to: Inpatient With expected LOS: >2 Midnights Practitioner: I am a practitioner with admitting privileges, knowledge of patient current condition, hospital course, and medical plan of care. Services: Services provided to patient in accordance with Admission requirements found in Title 42 Section 412.3 of the Code of Federal Regulations Patient History Date of Service: 08/23/18 Reason for admission: Colitis History of Present Illness: Ms Barraza is a 68-year-old woman with history of hypertension, who start feeling progressively weak about 2 weeks ago. She was having poor appetite and nausea. Yesterday she start having abdominal pain, localized in left lower quadrant, constant, 10/10 of intensity, associated with bright red blood per rectum. She was also feeling dizzy, and actually had a syncopal episode last night at home. Lab work shows leukocytosis 14.2 K, no fever, CT abdomen and pelvis remarkable for sigmoid colitis. 2 years ago she had similar presentation. She had a colonoscopy done on was suspected ischemic colitis. However, subsequent CT scan of abdomen and pelvis showed diverticulosis. At my encounter the patient was in no distress. Allergies citalopram [From Celexa] Adverse Reaction (Verified 01/11/16 04:53) Itching/Hives/Rash Home medications list reviewed: Yes Home Medications: Atenolol 25 mg PO DAILY 01/11/16 Cetirizine HCl [Zyrtec] 10 mg PO DAILY 01/11/16 Cyclobenzaprine HCl [Flexeril] 10 mg PO BEDTIME 01/11/16 Furosemide [Lasix] 20 mg PO PRN PRN 01/11/16 Hydrocodone Bit/Acetaminophen [Hydrocodon-Acetaminophn 10-325] 1 tab PO TIDP PRN 01/11/16 Lidocaine 5% Patch [Lidoderm 5% Patch*] 1 patch TD DAILY 01/11/16 Lisinopril/Hydrochlorothiazide [Zestoretic 20-12.5 mg Tablet] 1 tab PO DAILY 12/23 Phentermine HCl 37.5 mg PO DAILY 01/11/16 Pregabalin [Lyrica*] 75 mg PO TID 01/11/16 Venlafaxine HCl [Effexor*] 75 mg PO DAILY 01/11/16 Amox/Clavulanate [Augmentin 875-125 Tab] 1 each PO BID #14 tab 01/15/16 Metronidazole 500 mg PO TID #21 tablet 01/15/16 - Past Medical/Surgical History Diabetic: No -: Cholelithiasis -: HTN -: Diverticulosis -: KNEE SX- RIGHT -: TUBAL LIGATION -: POLYPS REMOVED FROM COLON -: Endoscopy - Family History Father -: Heart disease, Hypertension, Diabetes, Cancer Notes: skin cancer Mother -: Heart disease, Hypertension, Diabetes - Social History Smoking Status: Former smoker Alcohol use: No CD- Drugs: No Caffeine use: Yes Place of Residence: Home Review of Systems 10-point ROS is otherwise unremarkable Physical Examination - Physical Exam General: Alert, In no apparent distress HEENT: Atraumatic, PERRLA, Mucous membr. moist/pink, EOMI, Sclerae nonicteric Neck: Supple, 2+ carotid pulse no bruit, No LAD, Without JVD or thyroid abnormality Respiratory: Clear to auscultation bilaterally, Normal air movement Cardiovascular: Regular rate/rhythm, Normal S1 S2 Gastrointestinal: Normal bowel sounds, Tenderness (Left lower quadrant) Musculoskeletal: No tenderness Integumentary: No rashes Neurological: Normal speech, Normal strength at 5/5 x4 extr, Normal tone, Normal affect Lymphatics: No axilla or inguinal lymphadenopathy - Studies Laboratory Data (last 24 hrs) 08/23/18 17:14: Creatinine Cancelled 08/23/18 17:14: WBC Cancelled, Hgb Cancelled, Hct Cancelled, Plt Count Cancelled 08/23/18 17:14: Sodium Cancelled, Potassium Cancelled, BUN Cancelled, Creatinine Cancelled, Glucose Cancelled, Total Bilirubin Cancelled, AST Cancelled, ALT Cancelled, Alkaline Phosphatase Cancelled, Lipase Cancelled 08/23/18 17:00: Creatinine 0.70 08/23/18 17:00: WBC 14.2 H, Hgb 13.1, Hct 38.8, Plt Count 352 08/23/18 17:00: Sodium 138, Potassium 3.3 L, BUN 18, Creatinine 0.80, Glucose 106, Total Bilirubin 0.6, AST 19, ALT 26, Alkaline Phosphatase 113, Lipase 112 Assessment and Plan - Problems (Diagnosis) (1) Colitis Onset Date: 01/12/16 Current Visit: No Status: Acute (2) Diverticulosis Onset Date: 01/12/16 Current Visit: No Status: Acute Qualifiers: Diverticulosis site: diverticulosis of large intestine Diverticulosis bleeding: diverticulosis with bleeding Qualified Code(s): K57.31 - Diverticulosis of large intestine without perforation or abscess with bleeding (3) Hematochezia Current Visit: No Status: Acute (4) Hypertension Onset Date: 01/12/16 Current Visit: No Status: Acute Qualifiers: Hypertension type: essential hypertension Qualified Code(s): I10 - Essential (primary) hypertension (5) Syncope Onset Date: 01/12/16 Current Visit: No Status: Acute Qualifiers: Syncope type: unspecified Qualified Code(s): R55 - Syncope and collapse - Plan The patient will be admitted to the hospital due to colitis. Differential diagnosis includes diverticulitis, ischemic colitis, inflammatory bowel disease , Infectious like C diff. Will continue with empiric treatment with Cipro and Flagyl, keep her NPO, order IV fluids, consult Dr. Negrete. The patient is hemodynamically stable, hemoglobin 13.8. - Advance Directives Does patient have a Living Will: No Does patient have a Durable POA for Healthcare: No - Code Status/Comfort Care Code Status Assessed: Yes Code Status: Full Code
[2018-08-23] MEDS ORDERED: ONDANSETRON 4 MG/2 ML VIAL IV PRN (21:58)
[2018-08-23] MEDS: CIPROFLOXACIN 400mg IV 400 MG/200 ML BAG IV SCH (21:58)
[2018-08-23] MEDS: NA CHLORIDE 0.9% 1,000 ML IV SCH (23:01)
[2018-08-24] MEDS ORDERED: POTASSIUM CL SA 10 MEQ TAB PO ONE ×2 (00:22→06:36)
[2018-08-24] MEDS: CYCLOBENZAPRINE 10 MG TAB PO SCH ×2 (00:23→20:42)
[2018-08-24] MEDS: MORPHINE 2 MG/ML SYR IV PRN ×4 (00:26→22:29)
[2018-08-24 00:52] VITALS: BMI 27.1
[2018-08-24] MEDS ORDERED: KCL 20 MEQ/100 mL IVPB 20 MEQ/100 ML BAG IV SCH (01:00)
[2018-08-24] MEDS: METRONIDAZOLE 500mg IVPB 500 MG/100 ML BAG IV SCH ×3 (02:29→17:21)
[2018-08-24 02:47] LABS: Urine Appearance CLEAR; Urine Bilirubin NEGATIVE (NEG); Urine Blood TRACE (NEG); Urine Color YELLOW; Urine Glucose NEGATIVE (NEG); Urine Microscopic Reflex ORDER UMIC; Urine Protein NEGATIVE (NEG); Urine Specific Gravity >=1.030 (1.005-1.030); Urine Urobilinogen 0.2 mg/dL (0.2-1.0)
[2018-08-24 03:00] LABS: Urine Bacteria <20 /HPF (<20); Urine Culture Reflex Order REFLEXED; Urine RBC <5 /HPF (NONE SEEN)
[2018-08-24 06:03] LABS: Absolute Lymphocytes (CBC) 3.3 K/uL (0.7-4.9); Absolute Monocytes 1.3 K/uL (0.1-1.3); Absolute Neutrophil 9.8 K/uL (1.8-8.0); Basophils % 0.3 % (0-1.3); Eosinophils % 0.7 % (0-4.4); Hematocrit 33.7 % (36.0-45.0); Lymphocytes % 22.7 % (15.3-44.8); MCH 30.7 pg (27.0-35.0); MCV 90.3 fL (80-100); MPV 7.8 fL (7.6-11.3); Monocytes % 8.9 % (3.3-12.3); RBC Red Blood Cell Count 3.74 M/uL (3.86-4.86)
[2018-08-24 06:14] LABS: Potassium 3.8 mmol/L (3.5-5.1)
[2018-08-24] MEDS: CIPROFLOXACIN 400mg IV 400 MG/200 ML BAG IV SCH ×2 (08:50→20:42)
[2018-08-24] MEDS ORDERED: FUROSEMIDE 40 MG TABLET PO PRN (10:57)
[2018-08-24] MEDS: NA CHLORIDE 0.9% 1,000 ML IV SCH ×2 (12:17→17:24)
--- NOTE | 2018-08-24 12:35 | EKG ---
Test Date: 2018-08-23 Test Time: 19:27:06 Web Development Director: MEASUREMENT RESULTS: Intervals: Rate: 89 MA: 130 QRSD: 62 QT: 330 QTc: 401 [place]: P: 72 MA: 130 QRS: 48 T: 74 INTERPRETIVE STATEMENTS: Normal sinus rhythm Normal ECG Compared to ECG 01/11/2016 00:51:45 No significant changes Electronically Signed On 08-24-18 12:32:56 WORD PROCESSING MACHINE OPERATOR by Jone Urbina
--- NOTE | 2018-08-24 14:36 | P.PN ---
Subjective Date of Service: 08/24/18 Chief Complaint: Colitis Patient seen and examined at bedside with RN. Chart reviewed. Case discussed with patient at bedside with Artemio santos. Currently patient has no complaints to offer. Abdominal pain is getting better than before Review of Systems 10-point ROS is otherwise unremarkable Physical Examination - Vital Signs Temperature: 98.3 F Blood Pressure: 109/61 Pulse: 81 Respirations: 18 Pulse Ox (%): 100 - Physical Exam General: Alert, In no apparent distress HEENT: Atraumatic, PERRLA, EOMI Neck: Supple, JVD not distended Respiratory: Clear to auscultation bilaterally, Normal air movement Cardiovascular: Regular rate/rhythm, Normal S1 S2 Gastrointestinal: Normal bowel sounds, No tenderness Musculoskeletal: No tenderness Integumentary: No rashes Neurological: Normal speech, Normal tone, Normal affect Lymphatics: No axilla or inguinal lymphadenopathy - Studies Laboratory Data (last 24 hrs) 08/23/18 17:14: Creatinine Cancelled 08/23/18 17:14: WBC Cancelled, Hgb Cancelled, Hct Cancelled, Plt Count Cancelled 08/23/18 17:14: Sodium Cancelled, Potassium Cancelled, BUN Cancelled, Creatinine Cancelled, Glucose Cancelled, Total Bilirubin Cancelled, AST Cancelled, ALT Cancelled, Alkaline Phosphatase Cancelled, Lipase Cancelled 08/23/18 17:00: Creatinine 0.70 08/23/18 17:00: WBC 14.2 H, Hgb 13.1, Hct 38.8, Plt Count 352 08/23/18 17:00: Sodium 138, Potassium 3.3 L, BUN 18, Creatinine 0.80, Glucose 106, Total Bilirubin 0.6, AST 19, ALT 26, Alkaline Phosphatase 113, Lipase 112 Medications List Reviewed: Yes Assessment And Plan - Current Problems (Diagnosis) (1) Colitis Onset Date: 08/24/18 Current Visit: Yes Status: Acute Plan: Abnormal CT scan with Colitis -IV cipro and flagyl for now -Advance diet to CLD today -GI consulted. (2) Nausea & vomiting Current Visit: No Status: Resolved Qualifiers: Vomiting type: unspecified Vomiting Intractability: non-intractable Qualified Code(s): R11.2 - Nausea with vomiting, unspecified (3) Hypertension Onset Date: 01/12/16 Current Visit: No Status: Chronic Qualifiers: Hypertension type: essential hypertension Qualified Code(s): I10 - Essential (primary) hypertension Discharge Plan: Home Plan to discharge in: 48 Hours - Code Status/Comfort Care Code Status Assessed: Yes Critical Care: No
[2018-08-25] MEDS: METRONIDAZOLE 500mg IVPB 500 MG/100 ML BAG IV SCH ×3 (00:23→17:00)
[2018-08-25] MEDS: NA CHLORIDE 0.9% 1,000 ML IV SCH ×3 (00:23→13:58)
[2018-08-25] MEDS: MORPHINE 2 MG/ML SYR IV PRN (06:02)
[2018-08-25 06:24] LABS: BUN Blood Urea Nitrogen 9 mg/dL (7-18); Bicarbonate 28 mmol/L (21-32); Glucose Level 93 mg/dL (74-106); Potassium 4.2 mmol/L (3.5-5.1); Sodium Level 144 mmol/L (136-145)
[2018-08-25] MEDS ORDERED: LISINOPRIL PO SCH (09:00)
[2018-08-25] MEDS ORDERED: HYDROCHLOROTHIAZIDE PO SCH (09:00)
[2018-08-25] MEDS: hydroCHLOROthiazide 12.5 MG CAP PO SCH (09:06)
[2018-08-25] MEDS: CIPROFLOXACIN 400mg IV 400 MG/200 ML BAG IV SCH (09:06)
[2018-08-25] MEDS: LISINOPRIL 20 MG TAB PO SCH (09:07)
[2018-08-25] MEDS: ATENOLOL 25 MG TAB PO SCH (09:31)
[2018-08-25 09:54] VITALS: O2SAT 100
--- NOTE | 2018-08-25 15:25 | P.PN ---
Subjective Date of Service: 08/25/18 Chief Complaint: Colitis Patient seen and examined at bedside with RN. Chart reviewed. Case discussed with patient at bedside. Abdominal pain is getting better but having cramps intermittently. On CLD. Review of Systems 10-point ROS is otherwise unremarkable Physical Examination - Vital Signs Temperature: 97.4 F Blood Pressure: 95/54 Pulse: 66 Respirations: 16 Pulse Ox (%): 97 - Physical Exam General: Alert, In no apparent distress HEENT: Atraumatic, PERRLA, EOMI Neck: Supple, JVD not distended Respiratory: Clear to auscultation bilaterally, Normal air movement Cardiovascular: Regular rate/rhythm, Normal S1 S2 Gastrointestinal: Normal bowel sounds, No tenderness Musculoskeletal: No tenderness Integumentary: No rashes Neurological: Normal speech, Normal tone, Normal affect Lymphatics: No axilla or inguinal lymphadenopathy - Studies Medications List Reviewed: Yes Assessment And Plan - Current Problems (Diagnosis) (1) Colitis Onset Date: 08/24/18 Current Visit: Yes Status: Acute Plan: Abnormal CT scan with Colitis -IV cipro and flagyl for now -Advance diet to GI soft today -GI consulted. Appreciate Reccs (2) Nausea & vomiting Current Visit: No Status: Resolved Qualifiers: Vomiting type: unspecified Vomiting Intractability: non-intractable Qualified Code(s): R11.2 - Nausea with vomiting, unspecified (3) Hypertension Onset Date: 01/12/16 Current Visit: No Status: Chronic Qualifiers: Hypertension type: essential hypertension Qualified Code(s): I10 - Essential (primary) hypertension Discharge Plan: Home Plan to discharge in: 48 Hours - Code Status/Comfort Care Code Status Assessed: Yes Critical Care: No
[2018-08-25] MEDS ORDERED: TRAMADOL HCL 50 MG TAB PO PRN (18:26)
[2018-08-25] MEDS: CYCLOBENZAPRINE 10 MG TAB PO SCH (21:17)
[2018-08-25] MEDS: CIPROFLOXACIN HCL 500 MG TAB PO SCH (21:23)
[2018-08-26] MEDS: metroNIDAZOLE 500 MG TABLET PO SCH ×2 (00:45→09:26)
[2018-08-26] MEDS: LISINOPRIL 20 MG TAB PO SCH (09:24)
[2018-08-26] MEDS: ATENOLOL 25 MG TAB PO SCH (09:25)
[2018-08-26] MEDS: hydroCHLOROthiazide 12.5 MG CAP PO SCH (09:25)
[2018-08-26] MEDS: CIPROFLOXACIN HCL 500 MG TAB PO SCH (09:28)
[2018-08-26 09:29] VITALS: BP 128/73
--- NOTE | 2018-08-26 10:02 | P.DS ---
Admission Date: 08/23/18 Discharge Date: 08/26/18 Disposition: ROUTINE DISCHARGE Discharge Condition: GOOD Reason for Admission: Colitis - Problems (1) Colitis Onset Date: 08/24/18 Current Visit: Yes Status: Acute (2) Nausea & vomiting Current Visit: No Status: Resolved Qualifiers: Vomiting type: unspecified Vomiting Intractability: non-intractable Qualified Code(s): R11.2 - Nausea with vomiting, unspecified (3) Hypertension Onset Date: 01/12/16 Current Visit: No Status: Chronic Qualifiers: Hypertension type: essential hypertension Qualified Code(s): I10 - Essential (primary) hypertension Brief History of Present Illness: Ms Barraza is a 68-year-old woman with history of hypertension, who start feeling progressively weak about 2 weeks ago. She was having poor appetite and nausea. Yesterday she start having abdominal pain, localized in left lower quadrant, constant, 10/10 of intensity, associated with bright red blood per rectum. She was also feeling dizzy, and actually had a syncopal episode last night at home. Lab work shows leukocytosis 14.2 K, no fever, CT abdomen and pelvis remarkable for sigmoid colitis. 2 years ago she had similar presentation. She had a colonoscopy done on was suspected ischemic colitis. However, subsequent CT scan of abdomen and pelvis showed diverticulosis. At my encounter the patient was in no distress Hospital Course: Overall during hospital stay patient stable Patient. Abdominal pain was found to have diverticulosis of the CT scan of the abdomen along with colitis. Patient had a recent colonoscopy done with the GI doctor and was found to have a possibility of ischemic colitis. Patient does have intermittent paroxysmal AFib that she is getting worked up with her landing gear mechanic. The might be the reason for her ischemic colitis. Patient was kept NPO here in the hospital with IV fluids. Patient had marked resolution in her symptoms. Patient then was discharged home under stable condition was asked to continue taking the antibiotics. She was asked to follow up with the primary care provider along with the GI doctor. She was also asked to follow up with the landing gear mechanic to assess her paroxysmal AFib with a Holter monitor. Patient at this time will be considered for he looked ashen. Right now she was not like to take a baby aspirin until she is seen in the cardiology office with GI doctors office. Patient then was discharged home under stable condition. Vital Signs/Physical Exam: Temp Pulse Resp BP Pulse Ox 98.4 F 82 16 128/73 98 08/26/18 04:00 08/26/18 09:25 08/26/18 04:00 08/26/18 09:25 08/25/18 16:00 General: Alert, In no apparent distress HEENT: Atraumatic, PERRLA, EOMI Neck: Supple, JVD not distended Respiratory: Clear to auscultation bilaterally, Normal air movement Cardiovascular: Regular rate/rhythm, Normal S1 S2 Gastrointestinal: Normal bowel sounds, No tenderness Musculoskeletal: No tenderness Integumentary: No rashes Neurological: Normal speech, Normal tone, Normal affect Lymphatics: No axilla or inguinal lymphadenopathy Laboratory Data at Discharge: WBC 14.6 K/uL (4.3-10.9) H 08/24/18 05:45 Hgb 11.5 g/dL (12.0-15.0) L 08/24/18 05:45 Hct 33.7 % (36.0-45.0) L 08/24/18 05:45 Plt Count 307 K/uL (152-406) 08/24/18 05:45 Sodium 144 mmol/L (136-145) 08/25/18 05:23 Potassium 4.2 mmol/L (3.5-5.1) 08/25/18 05:23 BUN 9 mg/dL (7-18) 08/25/18 05:23 Creatinine 0.60 mg/dL (0.55-1.3) 08/25/18 05:23 Glucose 93 mg/dL (74-106) 08/25/18 05:23 Magnesium 2.0 mg/dL (1.8-2.4) 08/24/18 05:45 Total Bilirubin Cancelled 08/23/18 17:14 AST Cancelled 08/23/18 17:14 ALT Cancelled 08/23/18 17:14 Alkaline Phosphatase Cancelled 08/23/18 17:14 Lipase Cancelled 08/23/18 17:14 Home Medications: RX: Atenolol 25 mg PO DAILY 01/11/16 RX: Cyclobenzaprine HCl [Flexeril] 10 mg PO BEDTIME 01/11/16 RX: Furosemide [Lasix] 40 mg PO DAILY PRN 01/11/16 RX: Lidocaine 5% Patch [Lidoderm 5% Patch*] 1 patch TD DAILY PRN 01/11/16 RX: Lisinopril/Hydrochlorothiazide [Zestoretic 20-12.5 mg Tablet] 1 tab PO DAILY 01/11/16 RX: Hydrocodone/Acetaminophen [Hydrocodone-Acetamin 7.5-325] 1 tab PO TID PRN Ciprofloxacin HCl [Cipro 500 MG Tablet] 500 mg PO BID #20 tab 08/26/18 RX: metroNIDAZOLE [Flagyl*] 500 mg PO Q8HR #30 tablet 08/26/18 New Medications: RX: metroNIDAZOLE [Flagyl*] 500 mg PO Q8HR #30 tablet Ciprofloxacin HCl [Cipro 500 MG Tablet] 500 mg PO BID #20 tab Patient Discharge Instructions: Please f.u with PCP and GI in 1 to 2 days post discharge. Please f.u with Cards in 1 to 2 days post discharge. New medication. Ciprofloxacin and Flagyl. You were admitted to the hospital for Ischemic colitis and are advise to take medication mentioned above and f.u with GI and cards Diet: Regular Activity: Ad anamaria Followup: Jone Urbina MD [ACTIVE - CAN ADMIT] - 1 Week Mayur Negrete MD [ASSOCIATE-ACTIVE - CAN ADMIT] - 1 Week
[2018-08-26 10:14] VITALS: TEMP 97.4
== END 2018-08-26 11:34 | disposition home or self-care (01) ==
LOC: ER 15:31 → ERHOLD 21:00 → 4TH 21:46
PROVIDERS: ADMIT Internal Medicine; ATTEND Internal Medicine
DX: K52.89 Other specified noninfective gastroenteritis and colitis (principal); I10 Essential (primary) hypertension; K57.90 Diverticulosis of intestine, part unspecified, without perforation or abscess without bleeding; I48.0 Paroxysmal atrial fibrillation
CPT/HCPCS: 36415 ×2; 73090; 74177; 80048 ×3; 80076; 83605; 83690; 83735; 84484; 85025 ×2; 86850; 86900; 86901; 87040 ×2; 87045; 87046; 87086; 87088; 87425; 87493; 89055; 93005; 99285; G0378 ×2; J0744 ×4; J2270 ×4; J2405; J7030 ×4; Q9967; 81003; 81015; 96361; 96365; 96368; 96375

== ENCOUNTER 2021-08-15 16:57 | Emergency (ER) | payer OTHER ==
--- NOTE | 2021-08-15 18:49 | RAD REPORT ---
EXAM DESCRIPTION: CT - CTFB CLINICAL HISTORY: PAIN COMPARISON: No comparisons TECHNIQUE: Axial 2 mm thick images of the face were obtained with sagittal and coronal reconstructio n images. All CT scans are performed using dose optimization technique as appropriate and may include automated exposure control or mA/KV adjustment according to patient size. FINDINGS: Bilateral nasal bone fractures identified. The right nasal bone fracture is comminuted and has some outward bowing.The mandible is intact. The globes and orbital contents are grossly unremarkable.The paranasal sinuses and mastoids are clear . IMPRESSION: Nasal bone fractures bilaterally.
--- NOTE | 2021-08-15 18:50 | RAD REPORT ---
EXAM DESCRIPTION: CT - [id number] - 08/15/2021 6:33 pm CLINICAL HISTORY: Trauma, head and neck injury. PAIN COMPARISON: Thyroid Para Parotid Gland dated 09/09/2016 TECHNIQUE: Axial 5 mm thick images of the head were obtained. Axial 2 mm thick images of the cervical spine were obtained with sagittal and coronal reconstruction images generated and reviewed. All CT scans are performed using dose optimization technique as appropriate and may include automated exposure control or mA/KV adjustment according to patient size. FINDINGS: CT HEAD WITHOUT CONTRAST: No acute hemorrhage, hydrocephalus or extra-axial collection is identified.No areas of brain edema or midline shift. The paranasal sinuses and mastoids are clear.The calvarium is intact. Nasal bone fractures. CT CERVICAL SPINE WITHOUT CONTRAST: No fracture or subluxation.No prevertebral soft tissues swelling is identified. Mild multilevel cervi aretha spondylosis including neural foraminal narrowing on the left at C5-6. Left thyroid nodule measuri ng 2.4 cm which appears cystic and solid. This nodule was previously evaluated on ultrasound from 10/2015. IMPRESSION: No acute intracranial or cervical spine findings.
--- NOTE | 2021-08-15 19:06 | ER ---
Nurse's Notes [facility] Name: Jeny Barraza Age: 71 yrs Sex: Female : 1950 Arrival Date: 08/15/2021 Time: 17:04 Bed 17 Private MD: Diagnosis: Fracture of nasal bones Presentation: 08/15 17:36 Chief complaint: Patient states: Pt states had a colitis flare up while on the toilet vg1 and states bent over and felt self fall and hit nose on tiled floor. Pt appears to have swelling to nasal bridge. States had 'a large amount of blood, it was pouring out'. States bleeding has subside and is starting to feel nauseated and headache. Coronavirus screen: Vaccine status: Patient reports receiving the 2nd dose of the covid vaccine. Client denies travel out of the [place] in the last 14 days. Ebola Screen: Patient negative for fever greater than or equal to 101.5 degrees Fahrenheit, and additional compatible Ebola Virus Disease symptoms. Initial Sepsis Screen: Does the patient meet any 2 criteria? No. Patient's initial sepsis screen is negative. Does the patient have a suspected source of infection? No. Patient's initial sepsis screen is negative. Risk Assessment: Do you want to hurt yourself or someone else? Patient reports no desire to harm self or others. Onset of symptoms was August 15, 2021. 17:36 Method Of Arrival: Ambulatory vg1 17:36 Acuity: KESHA 3 vg1 Triage Assessment: 17:44 General: Appears in no apparent distress. uncomfortable, Behavior is calm, cooperative. vg1 Pain: Complains of pain in nose Pain currently is 6 out of 10 on a pain scale. Pain began 4 hours ago. EENT: Nares are clear with deformity noted. Historical: - Allergies: 17:44 Celexa; vg1 - Home Meds: 17:44 lisinopril Oral [Active]; Flexeril Oral [Active]; hydrocodone-acetaminophen 7.5-325 mg vg1 Oral tab 1 tab every 4 hours [Active]; - PMHx: 17:44 high heart rate; Colitis; vg1 - Immunization history:: Adult Immunizations up to date, Client reports receiving the 2nd dose of the Covid vaccine. - Social history:: Smoking status: Patient denies any tobacco usage or history of. Screenin:00 Abuse screen: Denies threats or abuse. Nutritional screening: No deficits noted. sl2 Tuberculosis screening: Fall Risk Fall in past 12 months (25 points). No secondary diagnosis (0 pts). No IV (0 pts). Ambulatory Aid- None/Bed Rest/Nurse Assist (0 pts). Gait- Normal/Bed Rest/Wheelchair (0 pts) Mental Status- Oriented to own ability (0 pts). Total Tatum Fall Scale indicates Low Risk Score (25-44 pts). Fall prevention measures have been instituted. Side Rails Up X 2 Placed close to Nursing Station Frequent Obs/Assesments occuring. Assessment: 17:51 General: Appears uncomfortable, well groomed, well developed, Behavior is calm, sl2 cooperative, appropriate for age, Reports headache, facial \T\ nose pain 6 of 10. Pain: Complains of pain in face, nose, head Pain does not radiate. Pain currently is 6 out of 10 on a pain scale. Quality of pain is described as aching, Pain began suddenly, 5 hours ago Is continuous. Neuro: Level of Consciousness is awake, alert, obeys commands, Oriented to person, place, time, situation, Appropriate for age Helicopter Technician are equal bilaterally Moves all extremities. Gait is steady, Speech is normal, Facial symmetry appears normal, Pupils are PERRLA, Reports Denies weakness blurred vision paresthesias numbness photophobia. Cardiovascular: No deficits noted. Capillary refill < 3 seconds Rhythm is regular. Cardiovascular: Reports syncope. Respiratory: No deficits noted. Airway is patent Trachea midline Respiratory effort is even, unlabored, Respiratory pattern is regular, symmetrical, Breath sounds are clear. GI: Reports lower abdominal pain, upper abdominal pain, cramping, diarrhea. : No deficits noted. No signs and/or symptoms were reported regarding the genitourinary system. EENT: nasal swelling, bruising . Reports nasal pain with swelling - states fell hitting her face on the tiled floor . Derm: No deficits noted. No signs and/or symptoms reported regarding the dermatologic system. Musculoskeletal: No deficits noted. No signs and/or symptoms reported regarding the musculoskeletal system. Vital Signs: 17:36 BP 114 / 70; Pulse 94; Resp 16; Temp 99.1(TE); Pulse Ox 100% ; Weight 78.93 kg; Height vg1 5 ft. 4 in. (162.56 cm); Pain 7/10; 18:00 BP 116 / 72; Pulse 91; Resp 16; Temp 99.0(O); Pulse Ox 100% on R/A; sl2 19:10 BP 128 / 81; Pulse 81; Resp 18; Pulse Ox 98% ; Pain 3/10; dc2 17:36 Body Mass Index 29.87 (78.93 kg, 162.56 cm) vg1 Nichols Coma Score: 18:00 Eye Response: spontaneous(4). Verbal Response: oriented(5). Motor Response: obeys cp commands(6). Total: 15. ED Course: 17:04 Patient arrived in ED. ds1 17:42 Ean Pretty PA is PHCP. cp 17:42 Walter Davis MD is Attending Physician. cp 17:43 Triage completed. vg1 17:44 Arm band placed on. vg1 17:50 Anny Woo, ROLANDO is Primary Nurse. sl2 18:00 Patient has correct armband on for positive identification. Fall risk band placed. sl2 Placed in gown. Bed in low position. Call light in reach. Side rails up X 1. Side rails up X2. 18:33 CT Head C Spine In Process Unspecified. EDMS 18:33 CT Facial Bones W/O Con In Process Unspecified. EDMS 19:04 Estefani Newton MD is Referral Physician. cp 19:21 Patient did not have IV access during this emergency room visit. dc2 19:21 No provider procedures requiring assistance completed. dc2 Administered Medications: No medications were administered Outcome: 19:05 Discharge ordered by MD. cp 19:18 Discharged to home ambulatory. dc2 19:18 Condition: stable 19:18 Discharge instructions given to patient, Instructed on discharge instructions, follow up and referral plans. Demonstrated understanding of instructions, follow-up care. 19:22 Patient left the ED. dc2 Signatures: Dispatcher [employer] [facility] Mitch Aliza ds1 Ean Pretty PA PA cp Garcia, Victoria, RN RN vg1 Michaelle Avendaño RN RN dc2 Anny Woo, ROLANDO RN sl2 Corrections: (The following items were deleted from the chart) 17:46 17:44 Home Meds: Atenolol Oral; vg1 vg1 :44 Home Meds: Ranitidine Oral; vg1 vg1 :44 Home Meds: Klonopin Oral; vg1 vg1 :44 PMHx: Cholelithiasis; vg1 vg1
--- NOTE | 2021-08-15 19:06 | EDPHYS ---
Physician Documentation [facility] Name: Jeny Barraza Age: 71 yrs Sex: Female : 1950 Arrival Date: 08/15/2021 Time: 17:04 Bed 17 Private MD: ED Physician Walter Davis HPI: 08/15 18:00 This 71 yrs old Female presents to ER via Ambulatory with complaints of Nose cp Injury. 18:00 The patient or guardian reports injury, pain, swelling, tenderness. cp 18:00 The complaints affect the nose. Context of injury: resulted from a direct blow. Onset: cp The symptoms/episode began/occurred today. Patient reports she has been dealing with exacerbation of colitis and had increased pain today causing her to pass out and fall to floor striking face on ground. Patient reports history of colitis and that she is having an exacerbation. Patient declines evaluation of abdominal pain and requests evaluation for possible broken nose. Historical: - Allergies: 17:44 Celexa; vg1 - Home Meds: 17:44 lisinopril Oral [Active]; Flexeril Oral [Active]; hydrocodone-acetaminophen 7.5-325 mg vg1 Oral tab 1 tab every 4 hours [Active]; - PMHx: 17:44 high heart rate; Colitis; vg1 - Immunization history:: Adult Immunizations up to date, Client reports receiving the 2nd dose of the Covid vaccine. - Social history:: Smoking status: Patient denies any tobacco usage or history of. ROS: 18:10 ENT: Positive for of the nose, injury. cp 18:10 Eyes: Negative for injury, pain, redness, and discharge. cp 18:10 Constitutional: Negative for fever. 18:10 Neck: Negative for pain with movement, pain at rest. 18:10 Cardiovascular: Negative for chest pain. 18:10 Respiratory: Negative for cough, shortness of breath, wheezing. 18:10 Abdomen/GI: Positive for abdominal pain, diarrhea, Negative for vomiting, constipation, black/tarry stool, rectal bleeding. 18:10 Back: Negative for pain at rest, pain with movement. 18:10 Neuro: Positive for loss of consciousness, Negative for altered mental status, seizure activity, weakness. 18:10 All other systems are negative. Exam: 18:15 Constitutional: The patient appears in no acute distress, alert, awake, cp non-diaphoretic, non-toxic, well developed, well nourished. 18:15 Head/face: Noted is swelling, that is moderate, of the nose, Sinus tenderness, that is cp mild, is located over the right maxillary sinus and left maxillary sinus. 18:15 Eyes: Periorbital structures: appear normal, Pupils: equal, round, and reactive to light and accomodation, Extraocular movements: intact throughout, Conjunctiva: normal, no exudate, no injection, Sclera: no appreciated abnormality, Lids and lashes: appear normal, bilaterally. 18:15 ENT: External ear(s): are unremarkable, Ear canal(s): are normal, clear, TM's: bulging, is not appreciated, bilaterally, dullness, bilaterally, erythema, is not appreciated, bilaterally, Nose: External nose: swelling is noted, nose, Nasal septum: deviates to the right, no septal hematoma appreciated, bleeding, is not appreciated, Mouth: Lips: moist, Oral mucosa: pink and intact, moist, Posterior pharynx: Airway: no evidence of obstruction, patent, Voice: is normal. 18:15 Neck: C-spine: vertebral tenderness, is not appreciated, crepitus, is not appreciated, ROM/movement: pain, is not appreciated, limited range of motion, is not appreciated. 18:15 Chest/axilla: Inspection: normal. 18:15 Cardiovascular: Rate: normal. 18:15 Respiratory: the patient does not display signs of respiratory distress, Respirations: normal, no use of accessory muscles, no retractions, labored breathing, is not present. 18:15 Abdomen/GI: Inspection: abdomen appears normal, Bowel sounds: active, all quadrants, Palpation: soft, in all quadrants, mild abdominal tenderness, in all quadrants. 18:15 Back: pain, is absent, ROM is normal. 18:15 Neuro: Orientation: to person, place \T\ time. Mentation: is normal, Gait: is steady, at a normal pace, without difficulty. Vital Signs: 17:36 BP 114 / 70; Pulse 94; Resp 16; Temp 99.1(TE); Pulse Ox 100% ; Weight 78.93 kg; Height vg1 5 ft. 4 in. (162.56 cm); Pain 7/10; 18:00 BP 116 / 72; Pulse 91; Resp 16; Temp 99.0(O); Pulse Ox 100% on R/A; sl2 19:10 BP 128 / 81; Pulse 81; Resp 18; Pulse Ox 98% ; Pain 3/10; dc2 17:36 Body Mass Index 29.87 (78.93 kg, 162.56 cm) vg1 Ulysses Coma Score: 18:00 Eye Response: spontaneous(4). Verbal Response: oriented(5). Motor Response: obeys cp commands(6). Total: 15. MDM: 17:50 Patient medically screened. cp 18:00 Differential diagnosis: Contusion of Hematoma on Laceration of Intracranial bleed- cp Concussion cerebral contusion. 19:05 Data reviewed: vital signs, nurses notes, radiologic studies, CT scan, and as a result, cp I will discharge patient. 19:05 Counseling: I had a detailed discussion with the patient and/or guardian regarding: the cp historical points, exam findings, and any diagnostic results supporting the discharge/admit diagnosis, radiology results, the need for outpatient follow up, an ENT specialist, to return to the emergency department if symptoms worsen or persist or if there are any questions or concerns that arise at home. 19:05 Special discussion: Based on the patient's history, exam and DX evaluation, there is no cp indication for emergent intervention or inpatient TX. It is understood by the patient/guardian that if the SXs persist or worsen they need to return immediately for re-evaluation. 19:05 ED course: VSS. Will discharge to home for continued monitoring. Recommend OTC tylenol cp for pain and f/u with ENT. 08/15 17:49 Order name: CT Head C Spine; Complete Time: 18:56 cp 08/15 17:49 Order name: CT Facial Bones W/O Con; Complete Time: 18:56 cp Administered Medications: No medications were administered Disposition: 19:15 Chart complete. cp Disposition Summary: 08/15/21 19:05 Discharge Ordered Location: Home cp Problem: new cp Symptoms: have improved cp Condition: Stable cp Diagnosis - Fracture of nasal bones cp Followup: cp - With: Estefani Newton MD - When: 2 - 3 days - Reason: nasal bone fracture Discharge Instructions: - Discharge Summary Sheet cp - Nasal Fracture cp Forms: - Medication Reconciliation Form cp - Thank You Letter cp - Antibiotic Education cp - Prescription Opioid Use cp Addendum: 08/24/2021 05:27 Co-signature as Attending Physician, Walter Davis MD. m a2 Signatures: Dispatcher [employer] Ean Mcdowell PA PA cp Alzahri, Mohammad, MD MD ma2 Silvia Richardson RN RN vg1 Corrections: (The following items were deleted from the chart) 08/15 17:46 17:44 Home Meds: Atenolol Oral; vg1 vg1 17:46 17:44 Home Meds: Ranitidine Oral; vg1 vg1 17:46 17:44 Home Meds: Klonopin Oral; vg1 vg1 17:46 17:44 PMHx: Cholelithiasis; vg1 vg1
[2021-08-15 19:28] VITALS: TEMP 99
[2021-08-15 19:30] VITALS: BP 128/81; O2SAT 98
--- OUTSIDE RECORDS SUMMARY | 2021-08-22 14:41 | XMS REPORT | Continuity of Care Document ---
:1950 Author Organization [facility] t Address [address] [place] [address] Care Team Providers Name Role Phone LUIS Attending Clinician Unavailable Lance AVILA Attending Clinician Unavailable Doctor Unassigned, Name Attending Clinician Unavailable Lance Avila MD Attending Clinician Luis MATHUR Attending Clinician Eduard Lakhani DO Attending Clinician MAGDI ELMORE Attending Clinician Unavailable Dillon MATHUR Attending Clinician Rachel MATHUR, S Attending Clinician Gayatri WEATHERS S Attending Clinician Ricardo MENDIETA Attending Clinician Unavailable Brendan PRAKASH Attending Clinician Unavailable Kaitlin Gorman MD Attending Clinician Jeevan Farris MD Attending Clinician Marcello JAMES Attending Clinician Unavailable Magdi Elmore MD Attending Clinician Devi LOPEZ Attending Clinician Unavailable Gato Og DO Attending Clinician Karon Saravia MD Attending Clinician Jacey MATHUR Attending Clinician Vls-Lab Attending Clinician Unavailable , Lab Attending Clinician Unavailable Brendan PRAKASH Admitting Clinician Unavailable Magdi Elmore MD Admitting Clinician MAGDI ELMORE Admitting Clinician Unavailable Payers Payer Name Policy Type Policy Number Effective Date Expiration Date S ource MEDICARE PART A [id number] 2016 \\T\\ B 00:00:00 [place] [id number] 2015 00:00:00 [facility] [id number] 2019 PLUS 00:00:00 Problems Condition Condition Condition Status Onset Resolution Last Treating Co mments Source Name Details Category Date Date Treatment Clinician Date Arthritis Arthritis Disease Active Uni vers of right of right 07-09 ity of knee knee 00:00: [place] [id number] Medical Branch Multiple Multiple Disease Active Unive rs thyroid thyroid 03-15 ity of nodules nodules 00:00: [place] [facility] Osteoporos Osteoporos Disease Active Overview : Univers is is Formattin ity of g of this [place] note Medical might be Branch different from the original. ICD10 Diagnosis Term Marker Maker Utility Rheumatoid Rheumatoid Disease Active Overview : Univers arthritis arthritis Formattin i ty of g of this [place] note Medical might be Branch different from the original. ICD10 Diagnosis Term Marker Maker Utility Symptomati Symptomati Disease Active U nivers c c ity of [place] or female or female [facility] climacteri climacteri Br anch c states c states Headache Headache Disease Active Overview: Un anayeli Formattin ity of g of this [place] note Medical might be Branch different from the original. ICD10 Diagnosis Term Marker Maker Utility Essential Essential Disease Active Overview: Univers hypertensi hypertensi Formattin ity of on on g of this [place] note Medical might be Branch different from the original. ICD10 Diagnosis Term Marker Maker Utility Allergies, Adverse Reactions, Alerts Allergy Allergy Status Severity Reaction(s) Onset Inactive Treating Comm ents Source Name Type Date Date Clinician CITALOPR DRUG Active Other-Cmnt Univ ers AM INGREDI - ity of 00:00: Medical Branch Citalopr Propensi Active Other - See Patient Univers am ty to comments 12-07 states ity of adverse 00:00: she felt [place] reaction 00 like she Medica l s was going Branch to pass out Social History Social Habit Start Date Stop Date Quantity Comments Source Exposure to Not sure [facility] SARS-CoV-2 [place] [facility] (event) Branch Alcohol intake 2021-04-15 2021-04-15 Current University of 00:00:00 00:00:00 non-drinker of [facility] alcohol Branch (finding) Tobacco use and 2021-04-15 2021-04-15 Never used Universit y of exposure 00:00:00 00:00:00 [facility] Sex Ass[birth year] Universit y of 00:00:00 00:00:00 [facility] Smoking Status Start Date Stop Date Source Never smoker [facility] Medications Ordered Filled Start Stop Current Ordering Indication Dosage Frequency Signature Comments Components Source Medication Medication Date Date Medication? Clinician (SIG) Name Name methylPREDN 2020- No [id number] 80mg U nivers ISolone 01-14 ity of acetate 21:15: 20:08 [place] (DEPO-MEDRO 00 :00 Medical L) 80 mg/mL Branch 80 mg in lidocaine 1% (XYLOCAINE) 9 mL injection methylPREDN 2020- No [id number] 80mg 80 mg, Univers ISolone 01-14 Intramuscu ity o f acetate 21:15: 20:08 lar, ONCE, Arun as (DEPO-MEDRO 00 :00 1 dose, Medic al L) 80 mg/mL Tue01/14/21 Br anch 80 mg in at 1615, 9 lidocaine mL 1% (XYLOCAINE) 9 mL injection methylPREDN 2020- No [id number] 80mg U nivers ISolone 01-14 ity of acetate 21:15: 20:08 [place] (DEPO-MEDRO 00 :00 Medical L) 80 mg/mL Branch 80 mg in lidocaine 1% (XYLOCAINE) 9 mL injection methylPREDN 2020- No [id number] 80mg 80 mg, Univers ISolone 01-14 Intramuscu ity o f acetate 21:15: 20:08 lar, ONCE, [place]un as (DEPO-MEDRO 00 :00 1 dose, Medic al L) 80 mg/mL 01/14/21 Br anch 80 mg in at 1615, 9 lidocaine mL 1% (XYLOCAINE) 9 mL injection methylPREDN 2020- No [id number] 80mg U nivers ISolone 01-14 ity of acetate 21:15: 20:08 [place] (DEPO-MEDRO 00 :00 Medical L) 80 mg/mL Branch 80 mg in lidocaine 1% (XYLOCAINE) 9 mL injection methylPREDN 2020- No [id number] 80mg 80 mg, Univers ISolone 01-14 Intramuscu ity o f acetate 21:15: 20:08 lar, ONCE, [place] (DEPO-MEDRO 00 :00 1 dose, Medic al L) 80 mg/mL 01/14/21 Br anch 80 mg in at 1615, 9 lidocaine mL 1% (XYLOCAINE) 9 mL injection methylPREDN 2020- No [id number] 80mg U nivers ISolone 01-14 ity of acetate 21:15: 20:08 [place] (DEPO-MEDRO 00 :00 Medical L) 80 mg/mL Branch 80 mg in lidocaine 1% (XYLOCAINE) 9 mL injection methylPREDN 2020- No [id number] 80mg 80 mg, Univers ISolone 01-14 Intramuscu ity o f acetate 21:15: 20:08 lar, ONCE, [place]un as (DEPO-MEDRO 00 :00 1 dose, Medic al L) 80 mg/mL Tue01/14/21 Br anch 80 mg in at 1615, 9 lidocaine mL 1% (XYLOCAINE) 9 mL injection methylPREDN 2020- No [id number] 80mg U nivers ISolone 01-14 ity of acetate 21:15: 20:08 [place] (DEPO-MEDRO 00 :00 Medical L) 80 mg/mL Branch 80 mg in lidocaine 1% (XYLOCAINE) 9 mL injection methylPREDN 2020- No [id number] 80mg 80 mg, [facility] ISolone 01-14 Intramuscu ity o f acetate 21:15: 20:08 lar, ONCE, Arnu as (DEPO-MEDRO 00 :00 1 dose, Medic al L) 80 mg/mL Tue01/14/21 Br anch 80 mg in at 1615, 9 lidocaine mL 1% (XYLOCAINE) 9 mL injection HYDROcodone 0 Yes 1{tbl} Take 1 Un anayeli -acetaminop 3-11 tablet by ity of hen 7.5-325 17:13: mouth [place] mg per 44 every 6 Medical tablet (six) Branch hours as needed for Pain. HYDROcodone Yes 1{tbl} Take 1 Un anayeli -acetaminop 3-11 tablet by ity of hen 7.5-325 17:13: mouth [place] mg per 44 every 6 Medical tablet (six) Branch hours as needed for Pain. HYDROcodone 0 Yes 1{tbl} Take 1 Un anayeli -acetaminop 3-11 tablet by ity of hen 7.5-325 17:13: mouth [place] mg per 44 every 6 Medical tablet (six) Branch hours as needed for Pain. HYDROcodone 0 Yes 1{tbl} Take 1 Un anayeli -acetaminop 3-11 tablet by ity of hen 7.5-325 17:13: mouth [place] mg per 44 every 6 Medical tablet (six) Branch hours as needed for Pain. HYDROcodone 0 Yes 1{tbl} Take 1 Un anayeli -acetaminop 3-11 tablet by ity of hen 7.5-325 17:13: mouth [place] mg per 44 every 6 Medical tablet (six) Branch hours as needed for Pain. HYDROcodone 0 Yes 1{tbl} Take 1 Un anayeli -acetaminop 3-11 tablet by ity of hen 7.5-325 17:13: mouth [place] mg per 44 every 6 Medical tablet (six) Branch hours as needed for Pain. HYDROcodone Yes 1{tbl} Take 1 Un anayeli -acetaminop 3-11 tablet by ity of hen 7.5-325 17:13: mouth [place] mg per 44 every 6 Medical tablet (six) Branch hours as needed for Pain. HYDROcodone 0 Yes 1{tbl} Take 1 Un anayeli -acetaminop 3-11 tablet by ity of hen 7.5-325 17:13: mouth [place] mg per 44 every 6 Medical tablet (six) Branch hours as needed for Pain. HYDROcodone 2020-0 Yes 1{tbl} Take 1 Un anayeli -acetaminop 3-11 tablet by ity of hen 7.5-325 17:13: mouth [place] mg per 44 every 6 Medical tablet (six) Branch hours as needed for Pain. HYDROcodone 0 Yes 1{tbl} Take 1 Un anayeli -acetaminop 3-11 tablet by ity of hen 7.5-325 17:13: mouth [place] mg per 44 every 6 Medical tablet (six) Branch hours as needed for Pain. HYDROcodone 2020-0 Yes 1{tbl} Take 1 Un anayeli -acetaminop 3-11 tablet by ity of hen 7.5-325 17:13: mouth [place] mg per 44 every 6 Medical tablet (six) Branch hours as needed for Pain. HYDROcodone 2020-0 Yes 1{tbl} Take 1 Un anayeli -acetaminop 3-11 tablet by ity of hen 7.5-325 17:13: mouth [place] mg per 44 every 6 Medical tablet (six) Branch hours as needed for Pain. HYDROcodone 2020-0 Yes 1{tbl} Take 1 Un anayeli -acetaminop 3-11 tablet by ity of hen 7.5-325 17:13: mouth [place] mg per 44 every 6 Medical tablet (six) Branch hours as needed for Pain. HYDROcodone 2020-0 Yes 1{tbl} Take 1 Un anayeli -acetaminop 3-11 tablet by ity of hen 7.5-325 17:13: mouth [place] mg per 44 every 6 Medical tablet (six) Branch hours as needed for Pain. HYDROcodone 0 Yes 1{tbl} Take 1 Un anayeli -acetaminop 3-11 tablet by ity of hen 7.5-325 17:13: mouth [place] mg per 44 every 6 Medical tablet (six) Branch hours as needed for Pain. HYDROcodone 0 Yes 1{tbl} Take 1 Un anayeli -acetaminop 3-11 tablet by ity of hen 7.5-325 17:13: mouth [place] mg per 44 every 6 Medical tablet (six) Branch hours as needed for Pain. HYDROcodone 0 Yes 1{tbl} Take 1 Un anayeli -acetaminop 3-11 tablet by ity of hen 7.5-325 17:13: mouth [place] mg per 44 every 6 Medical tablet (six) Branch hours as needed for Pain. HYDROcodone 2020-0 Yes 1{tbl} Take 1 Un anayeli -acetaminop 3-11 tablet by ity of hen 7.5-325 17:13: mouth [place] mg per 44 every 6 Medical tablet (six) Branch hours as needed for Pain. HYDROcodone 2020-0 Yes 1{tbl} Take 1 Un anayeli -acetaminop 3-11 tablet by ity of hen 7.5-325 17:13: mouth [place] mg per 44 every 6 Medical tablet (six) Branch hours as needed for Pain. HYDROcodone Yes 1{tbl} Take 1 Un anayeli -acetaminop 3-11 tablet by ity of hen 7.5-325 17:13: mouth [place] mg per 44 every 6 Medical tablet (six) Branch hours as needed for Pain. tc 2020- No [id number] 43.1mCi 43.1 Unive rs 99m-tetrofo 3-11 -11 millicurie i ty of smin 16:30: 16:25 , [place] ([facility]) 00 :00 Intravenou Medi aretha injection s, ONCE, 1 Bran ch 43.1 dose, Katie millicurie 12/18/20 at 1030, Routine tc 2020- No [id number] 16.1mCi 16.1 Unive rs 99m-tetrofo 3-11 - millicurie i ty of smin 15:00: 14:57 , [place] ([facility]) 00 :00 Intravenou Medi aretha injection s, ONCE, 1 Bran ch 16.1 dose, Katie millicurie 12/18/20 at 0900, Routine potassium Yes Univers chloride 10 2-24 ity of mEq CR 21:21: [place] tablet [facility] potassium Yes Univers chloride 10 2-24 ity of mEq CR 21:21: [place] tablet 02 [facility] potassium Yes Univers chloride 10 2-24 ity of mEq CR 21:21: [place] tablet [facility] potassium Yes Univers chloride 10 2-24 ity of mEq CR 21:21: [place] tablet [facility] potassium Yes Univers chloride 10 2-24 ity of mEq CR 21:21: [place] tablet [facility] Branch potassium Yes Univers chloride 10 2-24 ity of mEq CR 21:21: [place] tablet [facility] Branch potassium Yes Univers chloride 10 2-24 ity of mEq CR 21:21: [place] tablet 02 [facility] potassium Yes Univers chloride 10 2-24 ity of mEq CR 21:21: [place] tablet [facility] potassium Yes Univers chloride 10 2-24 ity of mEq CR 21:21: [place] tablet 02 [facility] Branch potassium Yes Univers chloride 10 2-24 ity of mEq CR 21:21: [place] tablet 02 [facility] Branch potassium Yes Univers chloride 10 2-24 ity of mEq CR 21:21: [place] tablet 02 [facility] Branch potassium Yes Univers chloride 10 2-24 ity of mEq CR 21:21: [place] tablet 02 [facility] Branch potassium Yes Univers chloride 10 2-24 ity of mEq CR 21:21: [place] tablet 02 [facility] Branch potassium Yes Univers chloride 10 2-24 ity of mEq CR 21:21: [place] tablet 02 [facility] Branch potassium Yes Univers chloride 10 2-24 ity of mEq CR 21:21: [place] tablet 02 [facility] Branch potassium Yes Univers chloride 10 2-24 ity of mEq CR 21:21: [place] tablet 02 [facility] potassium Yes Univers chloride 10 2-24 ity of mEq CR 21:21: [place] tablet 02 [facility] potassium Yes Univers chloride 10 2-24 ity of mEq CR 21:21: [place] tablet 02 [facility] potassium Yes Univers chloride 10 2-24 ity of mEq CR 21:21: [place] tablet 02 [facility] Branch potassium Yes Univers chloride 10 2-24 ity of mEq CR 21:21: [place] tablet 02 [facility] Branch potassium Yes Univers chloride 10 2-24 ity of mEq CR 21:21: [place] tablet 02 [facility] potassium Yes Univers chloride 10 2-24 ity of mEq CR 21:21: [place] tablet 02 [facility] Branch potassium Yes Univers chloride 10 2-24 ity of mEq CR 21:21: [place] tablet 02 [facility] Branch ibuprofen Yes 800mg Take 800 Uni vers 800 mg 2-24 mg by ity of tablet 21:19: mouth [place] 47 every 6 Medical (six) Branch hours as needed. ibuprofen Yes 800mg Take 800 Uni vers 800 mg 2-24 mg by ity of tablet 21:19: mouth [place] 47 every 6 Medical (six) Branch hours as needed. ibuprofen Yes 800mg Take 800 Uni vers 800 mg 2-24 mg by ity of tablet 21:19: mouth [place] 47 every 6 Medical (six) Branch hours as needed. ibuprofen 2021-0 Yes 800mg Take 800 Uni vers 800 mg 2-24 mg by ity of tablet 21:19: mouth [place] 47 every 6 Medical (six) Branch hours as needed. ibuprofen 2021-0 Yes 800mg Take 800 Uni vers 800 mg 2-24 mg by ity of tablet 21:19: mouth [place] 47 every 6 Medical (six) Branch hours as needed. ibuprofen 2021-0 Yes 800mg Take 800 Uni vers 800 mg 2-24 mg by ity of tablet 21:19: mouth [place] 47 every 6 Medical (six) Branch hours as needed. ibuprofen 2021-0 Yes 800mg Take 800 Uni vers 800 mg 2-24 mg by ity of tablet 21:19: mouth [place] 47 every 6 Medical (six) Branch hours as needed. ibuprofen 2021-0 Yes 800mg Take 800 Uni vers 800 mg 2-24 mg by ity of tablet 21:19: mouth [place] 47 every 6 Medical (six) Branch hours as needed. ibuprofen 2021-0 Yes 800mg Take 800 Uni vers 800 mg 2-24 mg by ity of tablet 21:19: mouth [place] 47 every 6 Medical (six) Branch hours as needed. ibuprofen 2021-0 Yes 800mg Take 800 Uni vers 800 mg 2-24 mg by ity of tablet 21:19: mouth [place] 47 every 6 Medical (six) Branch hours as needed. ibuprofen 2021-0 Yes 800mg Take 800 Uni vers 800 mg 2-24 mg by ity of tablet 21:19: mouth [place] 47 every 6 Medical (six) Branch hours as needed. ibuprofen 2021-0 Yes 800mg Take 800 Uni vers 800 mg 2-24 mg by ity of tablet 21:19: mouth [place] 47 every 6 Medical (six) Branch hours as needed. ibuprofen 2021-0 Yes 800mg Take 800 Uni vers 800 mg 2-24 mg by ity of tablet 21:19: mouth [place] 47 every 6 Medical (six) Branch hours as needed. ibuprofen 2021-0 Yes 800mg Take 800 Uni vers 800 mg 2-24 mg by ity of tablet 21:19: mouth [place] 47 every 6 Medical (six) Branch hours as needed. ibuprofen 2021-0 Yes 800mg Take 800 Uni vers 800 mg 2-24 mg by ity of tablet 21:19: mouth [place] 47 every 6 Medical (six) Branch hours as needed. ibuprofen 2021-0 Yes 800mg Take 800 Uni vers 800 mg 2-24 mg by ity of tablet 21:19: mouth [place] 47 every 6 Medical (six) Branch hours as needed. ibuprofen 2021-0 Yes 800mg Take 800 Uni vers 800 mg 2-24 mg by ity of tablet 21:19: mouth [place] 47 every 6 Medical (six) Branch hours as needed. ibuprofen 2021-0 Yes 800mg Take 800 Uni vers 800 mg 2-24 mg by ity of tablet 21:19: mouth [place] 47 every 6 Medical (six) Branch hours as needed. ibuprofen 2021-0 Yes 800mg Take 800 Uni vers 800 mg 2-24 mg by ity of tablet 21:19: mouth [place] 47 every 6 Medical (six) Branch hours as needed. ibuprofen 2021-0 Yes 800mg Take 800 Uni vers 800 mg 2-24 mg by ity of tablet 21:19: mouth [place] 47 every 6 Medical (six) Branch hours as needed. ibuprofen 2021-0 Yes 800mg Take 800 Uni vers 800 mg 2-24 mg by ity of tablet 21:19: mouth [place] 47 every 6 Medical (six) Branch hours as needed. ibuprofen 2021-0 Yes 800mg Take 800 Uni vers 800 mg 2-24 mg by ity of tablet 21:19: mouth [place] 47 every 6 Medical (six) Branch hours as needed. ibuprofen 2021-0 Yes 800mg Take 800 Uni vers 800 mg 2-24 mg by ity of tablet 21:19: mouth [place] 47 every 6 Medical (six) Branch hours as needed. HYDROcodone 2021-0 Yes 1{tbl} Take 1 Un anayeli -acetaminop 2-24 tablet by ity of hen 7.5-325 21:18: mouth [place] mg per 15 every 6 Medical tablet (six) Branch hours as needed for Pain. HYDROcodone 2021-0 Yes 1{tbl} Take 1 Un anayeli -acetaminop 2-24 tablet by ity of hen 7.5-325 21:18: mouth [place] mg per 15 every 6 Medical tablet (six) Branch hours as needed for Pain. HYDROcodone 2021-0 Yes 1{tbl} Take 1 Un anayeli -acetaminop 2-24 tablet by ity of hen 7.5-325 21:18: mouth [place] mg per 15 every 6 Medical tablet (six) Branch hours as needed for Pain. docosahexan 2021-0 Yes Take by Un anayeli oic 2-24 mouth. ity of acid/epa 21:07: [place] (FISH OIL 16 Medical ORAL) Branch Ascorbic 0 Yes Take by Unive rs Acid 2-24 mouth. ity of (VITAMIN C) 21:07: [place] 1,000 mg 16 Medical TbSR Branch MULTIVITAMI 0 Yes Take by Un anayeli N ORAL 2-24 mouth. ity of 21:07: [place] 16 Medical Branch docosahexan 0 Yes Take by Un anayeli oic 2-24 mouth. ity of acid/epa 21:07: [place] (FISH OIL 16 Medical ORAL) Branch Ascorbic 0 Yes Take by Unive rs Acid 2-24 mouth. ity of (VITAMIN C) 21:07: [place] 1,000 mg 16 Medical TbSR Branch MULTIVITAMI 0 Yes Take by Un anayeli N ORAL 2-24 mouth. ity of 21:07: [place] 16 Medical Branch docosahexan 0 Yes Take by Un anayeli oic 2-24 mouth. ity of acid/epa 21:07: [place] (FISH OIL 16 Medical ORAL) Branch Ascorbic 0 Yes Take by Unive rs Acid 2-24 mouth. ity of (VITAMIN C) 21:07: [place] 1,000 mg 16 Medical TbSR Branch MULTIVITAMI 0 Yes Take by Un anayeli N ORAL 2-24 mouth. ity of 21:07: [place] 16 Medical Branch docosahexan 0 Yes Take by Un anayeli oic 2-24 mouth. ity of acid/epa 21:07: [place] (FISH OIL 16 Medical ORAL) Branch Ascorbic 0 Yes Take by Unive rs Acid 2-24 mouth. ity of (VITAMIN C) 21:07: [place] 1,000 mg 16 Medical TbSR Branch MULTIVITAMI 0 Yes Take by Un anayeli N ORAL 2-24 mouth. ity of 21:07: [place] 16 Medical Branch docosahexan 0 Yes Take by Un anayeli oic 2-24 mouth. ity of acid/epa 21:07: [place] (FISH OIL 16 Medical ORAL) Branch Ascorbic 0 Yes Take by Unive rs Acid 2-24 mouth. ity of (VITAMIN C) 21:07: [place] 1,000 mg 16 Medical TbSR Branch MULTIVITAMI Yes Take by Un anayeli N ORAL 2-24 mouth. ity of 21:07: [place] 16 Medical Branch docosahexan Yes Take by Un anayeli oic 2-24 mouth. ity of acid/epa 21:07: [place] (FISH OIL 16 Medical ORAL) Branch Ascorbic Yes Take by Unive rs Acid 2-24 mouth. ity of (VITAMIN C) 21:07: [place] 1,000 mg 16 Medical TbSR Branch MULTIVITAMI Yes Take by Un anayeli N ORAL 2-24 mouth. ity of 21:07: [place] 16 Medical Branch docosahexan Yes Take by Un anayeli oic 2-24 mouth. ity of acid/epa 21:07: [place] (FISH OIL 16 Medical ORAL) Branch Ascorbic Yes Take by Unive rs Acid 2-24 mouth. ity of (VITAMIN C) 21:07: [place] 1,000 mg 16 Medical TbSR Branch MULTIVITAMI Yes Take by Un anayeli N ORAL 2-24 mouth. ity of 21:07: [place] 16 Medical Branch docosahexan Yes Take by Un anayeli oic 2-24 mouth. ity of acid/epa 21:07: [place] (FISH OIL 16 Medical ORAL) Branch Ascorbic Yes Take by Unive rs Acid 2-24 mouth. ity of (VITAMIN C) 21:07: [place] 1,000 mg 16 Medical TbSR Branch MULTIVITAMI Yes Take by Un anayeli N ORAL 2-24 mouth. ity of 21:07: [place] 16 Medical Branch docosahexan Yes Take by Un anayeli oic 2-24 mouth. ity of acid/epa 21:07: [place] (FISH OIL 16 Medical ORAL) Branch Ascorbic Yes Take by Unive rs Acid 2-24 mouth. ity of (VITAMIN C) 21:07: [place] 1,000 mg 16 Medical TbSR Branch MULTIVITAMI Yes Take by Un anayeli N ORAL 2-24 mouth. ity of 21:07: [place] 16 Medical Branch docosahexan Yes Take by Un anayeli oic 2-24 mouth. ity of acid/epa 21:07: [place] (FISH OIL 16 Medical ORAL) Branch Ascorbic Yes Take by Unive rs Acid 2-24 mouth. ity of (VITAMIN C) 21:07: [place] 1,000 mg 16 Medical TbSR Branch MULTIVITAMI Yes Take by Un anayeli N ORAL 2-24 mouth. ity of 21:07: [place] 16 Medical Branch docosahexan Yes Take by Un anayeli oic 2-24 mouth. ity of acid/epa 21:07: [place] (FISH OIL 16 Medical ORAL) Branch Ascorbic Yes Take by Unive rs Acid 2-24 mouth. ity of (VITAMIN C) 21:07: [place] 1,000 mg 16 Medical TbSR Branch MULTIVITAMI Yes Take by Un anayeli N ORAL 2-24 mouth. ity of 21:07: [place] 16 Medical Branch docosahexan Yes Take by Un anayeli oic 2-24 mouth. ity of acid/epa 21:07: [place] (FISH OIL 16 Medical ORAL) Branch Ascorbic Yes Take by Unive rs Acid 2-24 mouth. ity of (VITAMIN C) 21:07: [place] 1,000 mg 16 Medical TbSR Branch MULTIVITAMI Yes Take by Un anayeli N ORAL 2-24 mouth. ity of 21:07: [place] 16 Medical Branch docosahexan Yes Take by Un anayeli oic 2-24 mouth. ity of acid/epa 21:07: [place] (FISH OIL 16 Medical ORAL) Branch Ascorbic Yes Take by Unive rs Acid 2-24 mouth. ity of (VITAMIN C) 21:07: [place] 1,000 mg 16 Medical TbSR Branch MULTIVITAMI Yes Take by Un anayeli N ORAL 2-24 mouth. ity of 21:07: [place] 16 Medical Branch docosahexan Yes Take by Un anayeli oic 2-24 mouth. ity of acid/epa 21:07: [place] (FISH OIL 16 Medical ORAL) Branch Ascorbic Yes Take by Unive rs Acid 2-24 mouth. ity of (VITAMIN C) 21:07: [place] 1,000 mg 16 Medical TbSR Branch MULTIVITAMI Yes Take by Un anayeli N ORAL 2-24 mouth. ity of 21:07: [place] 16 Medical Branch docosahexan 0 Yes Take by Un anayeli oic 2-24 mouth. ity of acid/epa 21:07: [place] (FISH OIL 16 Medical ORAL) Branch Ascorbic 0 Yes Take by Unive rs Acid 2-24 mouth. ity of (VITAMIN C) 21:07: [place] 1,000 mg 16 Medical TbSR Branch MULTIVITAMI 0 Yes Take by Un anayeli N ORAL 2-24 mouth. ity of 21:07: [place] 16 Medical Branch docosahexan 0 Yes Take by Un anayeli oic 2-24 mouth. ity of acid/epa 21:07: [place] (FISH OIL 16 Medical ORAL) Branch Ascorbic Yes Take by Unive rs Acid 2-24 mouth. ity of (VITAMIN C) 21:07: [place] 1,000 mg 16 Medical TbSR Branch MULTIVITAMI Yes Take by Un anayeli N ORAL 2-24 mouth. ity of 21:07: [place] 16 Medical Branch docosahexan 0 Yes Take by Un anayeli oic 2-24 mouth. ity of acid/epa 21:07: [place] (FISH OIL 16 Medical ORAL) Branch Ascorbic Yes Take by Unive rs Acid 2-24 mouth. ity of (VITAMIN C) 21:07: [place] 1,000 mg 16 Medical TbSR Branch MULTIVITAMI 0 Yes Take by Un anayeli N ORAL 2-24 mouth. ity of 21:07: [place] 16 Medical Branch docosahexan 0 Yes Take by Un anayeli oic 2-24 mouth. ity of acid/epa 21:07: [place] (FISH OIL 16 Medical ORAL) Branch Ascorbic Yes Take by Unive rs Acid 2-24 mouth. ity of (VITAMIN C) 21:07: [place] 1,000 mg 16 Medical TbSR Branch MULTIVITAMI 0 Yes Take by Un anayeli N ORAL 2-24 mouth. ity of 21:07: [place] 16 Medical Branch docosahexan 0 Yes Take by Un anayeli oic 2-24 mouth. ity of acid/epa 21:07: [place] (FISH OIL 16 Medical ORAL) Branch Ascorbic 0 Yes Take by Unive rs Acid 2-24 mouth. ity of (VITAMIN C) 21:07: [place] 1,000 mg 16 Medical TbSR Branch MULTIVITAMI 0 Yes Take by Un anayeli N ORAL 2-24 mouth. ity of 21:07: [place] 16 Medical Branch docosahexan 0 Yes Take by Un anayeli oic 2-24 mouth. ity of acid/epa 21:07: [place] (FISH OIL 16 Medical ORAL) Branch Ascorbic Yes Take by Unive rs Acid 2-24 mouth. ity of (VITAMIN C) 21:07: [place] 1,000 mg 16 Medical TbSR Branch MULTIVITAMI 0 Yes Take by Un anayeli N ORAL 2-24 mouth. ity of 21:07: [place] 16 Medical Branch docosahexan Yes Take by Un anayeli oic 2-24 mouth. ity of acid/epa 21:07: [place] (FISH OIL 16 Medical ORAL) Branch Ascorbic Yes Take by Unive rs Acid 2-24 mouth. ity of (VITAMIN C) 21:07: [place] 1,000 mg 16 Medical TbSR Branch MULTIVITAMI 0 Yes Take by Un anayeli N ORAL 2-24 mouth. ity of 21:07: [place] [address] Medical Branch docosahexan Yes Take by Un anayeli oic 2-24 mouth. ity of acid/epa 21:07: [place] (FISH OIL 16 Medical ORAL) Branch Ascorbic Yes Take by Unive rs Acid 2-24 mouth. ity of (VITAMIN C) 21:07: [place] 1,000 mg 16 Medical TbSR Branch MULTIVITAMI 0 Yes Take by Un anayeli N ORAL 2-24 mouth. ity of 21:07: [place] 16 Medical Branch docosahexan 0 Yes Take by Un anayeli oic 2-24 mouth. ity of acid/epa 21:07: [place] (FISH OIL 16 Medical ORAL) Branch Ascorbic 0 Yes Take by Unive rs Acid 2-24 mouth. ity of (VITAMIN C) 21:07: [place] 1,000 mg 16 Medical TbSR Branch MULTIVITAMI 0 Yes Take by Un anayeli N ORAL 2-24 mouth. ity of 21:07: [place] 16 Medical Branch methylPREDN 2020-0 No 80mg Unive rs [facility] 10-16 ity of acetate 03:15: 02:07 [place] (DEPO-MEDRO 00 :00 Medical L) 80 mg/mL Branch 80 mg, lidocaine 1% (PF) (XYLOCAINE) 9 mL 10 mL injection methylPREDN 2021-0 2021- No 80mg [facility] [facility] 10-16 cular, ity of acetate 03:15: 02:07 ONCE, 1 [place] (DEPO-MEDRO 00 :00 dose, Wed Med ical L) 80 mg/mL 10/15/20 at [facility] 80 mg, 2114, 10 lidocaine mL 1% (PF) (XYLOCAINE) 9 mL 10 mL injection methylPREDN 2021-0 2021- No 80mg Unive [facility] 10-16 ity of acetate 03:15: 02:07 [place] (DEPO-MEDRO 00 :00 Medical L) 80 mg/mL Branch 80 mg, lidocaine 1% (PF) (XYLOCAINE) 9 mL 10 mL injection methylPREDN 2021-0 2021- No 80mg [facility] [facility]:15: 02:07 ONCE, 1 [place] (DEPO-MEDRO 00 :00 dose, Wed Med ical L) 80 mg/mL 10/15/20 at [facility] 80 mg, 2114, 10 lidocaine mL 1% (PF) (XYLOCAINE) 9 mL 10 mL injection methylPREDN 2021-0 2021- No 80mg Unive [facility] 10-16 ity of acetate 03:15: 02:07 [place] (DEPO-MEDRO 00 :00 Medical L) 80 mg/mL Branch 80 mg, lidocaine 1% (PF) (XYLOCAINE) 9 mL 10 mL injection methylPREDN 2021-0 2021- No 80mg [facility] [facility] 10-16 cular, ity of acetate 03:15: 02:07 ONCE, 1 [place] (DEPO-MEDRO 00 :00 dose, Wed Med ical L) 80 mg/mL 10/15/20 at [facility] 80 mg, 2114, 10 lidocaine mL 1% (PF) (XYLOCAINE) 9 mL 10 mL injection methylPREDN 2021-0 2021- No 80mg Unive ISolone 10-16 ity of acetate 03:15: 02:07 [place] (DEPO-MEDRO 00 :00 Medical L) 80 mg/mL Branch 80 mg, lidocaine 1% (PF) (XYLOCAINE) 9 mL 10 mL injection methylPREDN 2021-0 2021- [facility], ity of acetate 03:15: 02:07 ONCE, 1 [place] (DEPO-MEDRO 00 :00 dose, Wed Med ical L) 80 mg/mL 10/15/20 at [facility] 80 mg, 2115, 10 lidocaine mL 1% (PF) (XYLOCAINE) 9 mL 10 mL injection methylPREDN 2021-0 2021- No 80mg Unive [facility] 10-15 ity of acetate 21:00: 02:07 [place] (DEPO-MEDRO 00 :00 Medical L) 80 mg/mL Branch 80 mg, lidocaine 1% (PF) (XYLOCAINE) 9 mL 10 mL injection methylPREDN 2021-0 2021- No 80mg [facility] [facility] 10-15 cular, ity of acetate 21:00: 02:07 ONCE, 1 [place] (DEPO-MEDRO 00 :00 dose, Wed Med ical L) 80 mg/mL 10/15/20 at [facility] 80 mg, 1500, 10 lidocaine mL 1% (PF) (XYLOCAINE) 9 mL 10 mL injection methylPREDN 2021-0 2021- No 80mg Unive [facility] 10-15 ity of acetate 21:00: 02:07 [place] (DEPO-MEDRO 00 :00 Medical L) 80 mg/mL Branch 80 mg, lidocaine 1% (PF) (XYLOCAINE) 9 mL 10 mL injection methylPREDN 2021-0 2021- No 80mg [facility] [facility] 10-15 cular, ity of acetate 21:00: 02:07 ONCE, 1 [place] (DEPO-MEDRO 00 :00 dose, Wed Med ical L) 80 mg/mL 10/15/20 at [facility] 80 mg, 1500, 10 lidocaine mL 1% (PF) (XYLOCAINE) 9 mL 10 mL injection methylPREDN 2021-0 2021- No 80mg Unive rs ISolone 10-15 ity of acetate 21:00: 02:07 [place] (DEPO-MEDRO 00 :00 Medical L) 80 mg/mL Branch 80 mg, lidocaine 1% (PF) (XYLOCAINE) 9 mL 10 mL injection methylPREDN 2021-0 2021- No 80mg [facility] ISolone 10-15 cular, ity of acetate 21:00: 02:07 ONCE, 1 [place] (DEPO-MEDRO 00 :00 dose, Wed Med ical L) 80 mg/mL 10/15/20 at [facility] 80 mg, 1500, 10 lidocaine mL 1% (PF) (XYLOCAINE) 9 mL 10 mL injection methylPREDN 2021-0 2021- No 80mg Unive rs ISolone 10-15 ity of acetate 21:00: 02:07 [place] (DEPO-MEDRO 00 :00 Medical L) 80 mg/mL Branch 80 mg, lidocaine 1% (PF) (XYLOCAINE) 9 mL 10 mL injection methylPREDN 2021-0 2021- No 80mg Intra-[facility] ISolone 10-15 cular, ity of acetate 21:00: 02:07 ONCE, 1 [place] (DEPO-MEDRO 00 :00 dose, Wed Med ical L) 80 mg/mL 10/15/20 at [facility] 80 mg, 1500, 10 lidocaine mL 1% (PF) (XYLOCAINE) 9 mL 10 mL injection methylPREDN 2020-0 2020- No 80mg Unive rs ISolone 07-09 ity of acetate 20:30: 19:32 [place] (DEPO-MEDRO 00 :00 Medical L) 80 mg/mL Branch 80 mg in lidocaine 1% (XYLOCAINE) 9 mL injection methylPREDN 2020-0 2020- No 80mg 80 mg, Uni vers ISolone 07-09 Intramuscu ity o f acetate 20:30: 19:32 lar, ONCE, [place] (DEPO-MEDRO 00 :00 1 dose, Medic al L) 80 mg/mL Wed Branch 80 mg in 07/09/20 at lidocaine 1530, 9 mL 1% (XYLOCAINE) 9 mL injection methylPREDN 2020-0 2020- No 80mg Unive rs ISolone 07-09 ity of acetate 20:30: 19:32 [place] (DEPO-MEDRO 00 :00 Medical L) 80 mg/mL Branch 80 mg in lidocaine 1% (XYLOCAINE) 9 mL injection methylPREDN 2020-0 2020- No 80mg 80 mg, Uni vers ISolone 07-09 Intramuscu ity o f acetate 20:30: 19:32 [place], ONCE, [place] (DEPO-MEDRO 00 :00 1 dose, Medic al L) 80 mg/mL Wed Branch 80 mg in 07/09/20 at lidocaine 1530, 9 mL 1% (XYLOCAINE) 9 mL injection methylPREDN 2020-0 2020- No 80mg Unive rs ISolone 07-09 ity of acetate 20:30: 19:32 [place] (DEPO-MEDRO 00 :00 Medical L) 80 mg/mL Branch 80 mg in lidocaine 1% (XYLOCAINE) 9 mL injection methylPREDN 2020-0 2020- No 80mg 80 mg, Uni vers ISolone 07-09 Intramuscu ity o f acetate 20:30: 19:32 [place], ONCE, [place] (DEPO-MEDRO 00 :00 1 dose, Medic al L) 80 mg/mL Wed Branch 80 mg in 07/09/20 at lidocaine 1530, 9 mL 1% (XYLOCAINE) 9 mL injection iohexol 2020-0 2020- No 120mL 120 mL, Unive rs (OMNIPAQUE 8-10 08-10 Intravenou it y of 350 20:00: 19:36 s, ONCE, 1 [place] BULK-150 00 :00 dose, Mon Medica l mL) 05/19/20 at Branch injection 1500, 120 mL Routine ondansetron 2020-0 Yes [id number] 4mg Take 1 [facility] (ZOFRAN) 4 8-10 tablet by ity of mg tablet 00:00: mouth 00 every 8 Medical (eight) Branch hours as needed for Nausea and Vomiting (N/V). ondansetron 2020-0 Yes [id number] 4mg Take 1 [facility] (ZOFRAN) 4 8-10 tablet by ity of mg tablet 00:00: mouth 00 every 8 Medical (eight) Branch hours as needed for Nausea and Vomiting (N/V). ondansetron 2020-0 Yes [id number] 4mg Take 1 [facility] (ZOFRAN) 4 8-10 tablet by ity of mg tablet 00:00: mouth [place] 00 every 8 Medical (eight) Branch hours as needed for Nausea and Vomiting (N/V). ondansetron 2020-0 Yes [id number] 4mg Take 1 [facility] (ZOFRAN) 4 8-10 tablet by ity of mg tablet 00:00: mouth [place] 00 every 8 Medical (eight) Branch hours as needed for Nausea and Vomiting (N/V). ondansetron 2020-0 Yes [id number] 4mg Take 1 [facility] (ZOFRAN) 4 8-10 tablet by ity of mg tablet 00:00: mouth [place] 00 every 8 Medical (eight) Branch hours as needed for Nausea and Vomiting (N/V). ondansetron 2020-0 Yes [id number] 4mg Take 1 [facility] (ZOFRAN) 4 8-10 tablet by ity of mg tablet 00:00: mouth [place] 00 every 8 Medical (eight) Branch hours as needed for Nausea and Vomiting (N/V). ondansetron 2020-0 Yes [id number] 4mg Take 1 [facility] (ZOFRAN) 4 8-10 tablet by ity of mg tablet 00:00: mouth [place] 00 every 8 Medical (eight) Branch hours as needed for Nausea and Vomiting (N/V). ondansetron 2020-0 Yes [id number] 4mg Take 1 [facility] (ZOFRAN) 4 8-10 tablet by ity of mg tablet 00:00: mouth [place] 00 every 8 Medical (eight) Branch hours as needed for Nausea and Vomiting (N/V). ondansetron 2020-0 Yes [id number] 4mg Take 1 [facility] (ZOFRAN) 4 8-10 tablet by ity of mg tablet 00:00: mouth [place] 00 every 8 Medical (eight) Branch hours as needed for Nausea and Vomiting (N/V). ondansetron 2020-0 Yes [id number] 4mg Take 1 [facility] (ZOFRAN) 4 8-10 tablet by ity of mg tablet 00:00: mouth [place] 00 every 8 Medical (eight) Branch hours as needed for Nausea and Vomiting (N/V). ondansetron 2020-0 Yes [id number] 4mg Take 1 [facility] (ZOFRAN) 4 8-10 tablet by ity of mg tablet 00:00: mouth [place] 00 every 8 Medical (eight) Branch hours as needed for Nausea and Vomiting (N/V). ondansetron 2020-0 Yes [id number] 4mg Take 1 [facility] (ZOFRAN) 4 8-10 tablet by ity of mg tablet 00:00: mouth [place] 00 every 8 Medical (eight) Branch hours as needed for Nausea and Vomiting (N/V). ondansetron 2020-0 Yes [id number] 4mg Take 1 Univers (ZOFRAN) 4 8-10 tablet by ity of mg tablet 00:00: mouth [place] 00 every 8 Medical (eight) Branch hours as needed for Nausea and Vomiting (N/V). ondansetron 2020-0 Yes [id number] 4mg Take 1 [facility] (ZOFRAN) 4 8-10 tablet by ity of mg tablet 00:00: mouth [place] 00 every 8 Medical (eight) Branch hours as needed for Nausea and Vomiting (N/V). ondansetron 2020-0 Yes [id number] 4mg Take 1 [facility] (ZOFRAN) 4 8-10 tablet by ity of mg tablet 00:00: mouth [place] 00 every 8 Medical (eight) Branch hours as needed for Nausea and Vomiting (N/V). ondansetron 2020-0 Yes [id number] 4mg Take 1 [facility] (ZOFRAN) 4 8-10 tablet by ity of mg tablet 00:00: mouth [place] 00 every 8 Medical (eight) Branch hours as needed for Nausea and Vomiting (N/V). ondansetron 2020-0 Yes [id number] 4mg Take 1 [facility] (ZOFRAN) 4 8-10 tablet by ity of mg tablet 00:00: mouth [place] 00 every 8 Medical (eight) Branch hours as needed for Nausea and Vomiting (N/V). ondansetron 2020-0 Yes [id number] 4mg Take 1 [facility] (ZOFRAN) 4 8-10 tablet by ity of mg tablet 00:00: mouth [place] 00 every 8 Medical (eight) Branch hours as needed for Nausea and Vomiting (N/V). ondansetron 2020-0 Yes [id number] 4mg Take 1 [facility] (ZOFRAN) 4 8-10 tablet by ity of mg tablet 00:00: mouth [place] 00 every 8 Medical (eight) Branch hours as needed for Nausea and Vomiting (N/V). ondansetron 2020-0 Yes [id number] 4mg Take 1 [facility] (ZOFRAN) 4 8-10 tablet by ity of mg tablet 00:00: mouth [place] 00 every 8 Medical (eight) Branch hours as needed for Nausea and Vomiting (N/V). ondansetron 2020-0 Yes [id number] 4mg Take 1 Univers (ZOFRAN) 4 8-10 tablet by ity of mg tablet 00:00: mouth [place] 00 every 8 Medical (eight) Branch hours as needed for Nausea and Vomiting (N/V). ondansetron 2020-0 Yes [id number] 4mg Take 1 [facility] (ZOFRAN) 4 8-10 tablet by ity of mg tablet 00:00: mouth [place] 00 every 8 Medical (eight) Branch hours as needed for Nausea and Vomiting (N/V). ondansetron 2020-0 Yes [id number] 4mg Take 1 [facility] (ZOFRAN) 4 8-10 tablet by ity of mg tablet 00:00: mouth [place] 00 every 8 Medical (eight) Branch hours as needed for Nausea and Vomiting (N/V). ondansetron 2020-0 Yes [id number] 4mg Take 1 [facility] (ZOFRAN) 4 8-10 tablet by ity of mg tablet 00:00: mouth [place] 00 every 8 Medical (eight) Branch hours as needed for Nausea and Vomiting (N/V). ondansetron 2020-0 Yes [id number] 4mg Take 1 [facility] (ZOFRAN) 4 8-10 tablet by ity of mg tablet 00:00: mouth [place] 00 every 8 Medical (eight) Branch hours as needed for Nausea and Vomiting (N/V). ondansetron 2020-0 Yes [id number] 4mg Take 1 [facility] (ZOFRAN) 4 8-10 tablet by ity of mg tablet 00:00: mouth [place] 00 every 8 Medical (eight) Branch hours as needed for Nausea and Vomiting (N/V). ondansetron 2020-0 Yes [id number] 4mg Take 1 Univers (ZOFRAN) 4 8-10 tablet by ity of mg tablet 00:00: mouth [place] 00 every 8 Medical (eight) Branch hours as needed for Nausea and Vomiting (N/V). ondansetron 2020-0 Yes [id number] 4mg Take 1 [facility] (ZOFRAN) 4 8-10 tablet by ity of mg tablet 00:00: mouth [place] 00 every 8 Medical (eight) Branch hours as needed for Nausea and Vomiting (N/V). ondansetron 2020-0 Yes [id number] 4mg Take 1 [facility] (ZOFRAN) 4 8-10 tablet by ity of mg tablet 00:00: mouth [place] 00 every 8 Medical (eight) Branch hours as needed for Nausea and Vomiting (N/V). ondansetron 2020-0 Yes [id number] 4mg Take 1 [facility] (ZOFRAN) 4 8-10 tablet by ity of mg tablet 00:00: mouth [place] 00 every 8 Medical (eight) Branch hours as needed for Nausea and Vomiting (N/V). ondansetron 2020-0 Yes [id number] 4mg Take 1 [facility] (ZOFRAN) 4 8-10 tablet by ity of mg tablet 00:00: mouth [place] 00 every 8 Medical (eight) Branch hours as needed for Nausea and Vomiting (N/V). ondansetron 2020-0 Yes [id number] 4mg Take 1 [facility] (ZOFRAN) 4 8-10 tablet by ity of mg tablet 00:00: mouth [place] 00 every 8 Medical (eight) Branch hours as needed for Nausea and Vomiting (N/V). ondansetron 2020-0 Yes [id number] 4mg Take 1 [facility] (ZOFRAN) 4 8-10 tablet by ity of mg tablet 00:00: mouth [place] 00 every 8 Medical (eight) Branch hours as needed for Nausea and Vomiting (N/V). triamcinolo 2020-0 2020- No 80mg Unive rs ne 02-12 ity of acetonide 20:30: 19:28 [place] (KENALOG) 00 :00 Medical injection Branch 80 mg triamcinolo 2020-0 2020- No 80mg 80 mg, Uni vers ne 02-12 Intra-[facility] ity of acetonide 20:30: 19:28 [facility] [place] [facility] :00 ONCE, 1 Medical injection dose, Wed Bran h 80 mg 02/13/20 at 1530, Routine triamcinolo 2020-0 2020- No 80mg Unive rs ne 5-06 05-06 ity of acetonide 20:30: 19:28 [place] (KENALOG) 00 :00 Medical injection Branch 80 mg triamcinolo 2020-0 2020- No 80mg 80 mg, Uni vers ne 02-12 05-06 Intra-[facility] ity of acetonide 20:30: 19:28 [place] (KENALOG) 00 :00 ONCE, 1 Medical injection dose, Wed Branc h 80 mg 02/13/20 at 1530, Routine docosahexan 2020-0 Yes Take by Un anayeli oic 1-06 mouth. ity of acid/epa 19:07: [place] (FISH OIL 59 Medical ORAL) Branch Ascorbic 2020-0 Yes Take by Unive rs Acid 1-06 mouth. ity of (VITAMIN C) 19:07: [place] 1,000 mg 59 Medical TbSR Branch MULTIVITAMI 2020-0 Yes Take by Un anayeli N ORAL 1-06 mouth. ity of 19:07: [place] 59 Medical Branch docosahexan 2020-0 Yes Take by Un anayeli oic 1-06 mouth. ity of acid/epa 19:07: [place] (FISH OIL 59 Medical ORAL) Branch Ascorbic 2020-0 Yes Take by Unive rs Acid 1-06 mouth. ity of (VITAMIN C) 19:07: [place] 1,000 mg 59 Medical TbSR Branch MULTIVITAMI 2020-0 Yes Take by Un anayeli N ORAL 1-06 mouth. ity of 19:07: [place] 59 Medical Branch docosahexan 2020-0 Yes Take by Un anayeli oic 1-06 mouth. ity of acid/epa 19:07: [place] (FISH OIL 59 Medical ORAL) Branch Ascorbic 2020-0 Yes Take by Unive rs Acid 1-06 mouth. ity of (VITAMIN C) 19:07: [place] 1,000 mg 59 Medical TbSR Branch MULTIVITAMI 2020-0 Yes Take by Un anayeli N ORAL 1-06 mouth. ity of 19:07: [place] 59 Medical Branch docosahexan 2020-0 Yes Take by Un anayeli oic 1-06 mouth. ity of acid/epa 19:07: [place] (FISH OIL 59 Medical ORAL) Branch Ascorbic 2020-0 Yes Take by Unive rs Acid 1-06 mouth. ity of (VITAMIN C) 19:07: [place] 1,000 mg 59 Medical TbSR Branch MULTIVITAMI 2020-0 Yes Take by Un anayeli N ORAL 1-06 mouth. ity of 19:07: [place] 59 Medical Branch docosahexan 2020-0 Yes Take by Un anayeli oic 1-06 mouth. ity of acid/epa 19:07: [place] (FISH OIL 59 Medical ORAL) Branch Ascorbic 2020-0 Yes Take by Unive rs Acid 1-06 mouth. ity of (VITAMIN C) 19:07: [place] 1,000 mg 59 Medical TbSR Branch MULTIVITAMI 2020-0 Yes Take by Un anayeli N ORAL 1-06 mouth. ity of 19:07: [place] 59 Medical Branch docosahexan 2020-0 Yes Take by Un anayeli oic 1-06 mouth. ity of acid/epa 19:07: [place] (FISH OIL 59 Medical ORAL) Branch Ascorbic 2020-0 Yes Take by Unive rs Acid 1-06 mouth. ity of (VITAMIN C) 19:07: [place] 1,000 mg 59 Medical TbSR Branch MULTIVITAMI 2020-0 Yes Take by Un anayeli N ORAL 1-06 mouth. ity of 19:07: [place] 59 Medical Branch docosahexan 2020-0 Yes Take by Un anayeli oic 1-06 mouth. ity of acid/epa 19:07: [place] (FISH OIL 59 Medical ORAL) Branch Ascorbic 2020-0 Yes Take by Unive rs Acid 1-06 mouth. ity of (VITAMIN C) 19:07: [place] 1,000 mg 59 Medical TbSR Branch MULTIVITAMI 2020-0 Yes Take by Un anayeli N ORAL 1-06 mouth. ity of 19:07: [place] 59 Medical Branch docosahexan 2020-0 Yes Take by Un anayeli oic 1-06 mouth. ity of acid/epa 19:07: [place] (FISH OIL 59 Medical ORAL) Branch Ascorbic 2020-0 Yes Take by Unive rs Acid 1-06 mouth. ity of (VITAMIN C) 19:07: [place] 1,000 mg 59 Medical TbSR Branch MULTIVITAMI 2020-0 Yes Take by Un anayeli N ORAL 1-06 mouth. ity of 19:07: [place] 59 Medical Branch docosahexan 2020-0 Yes Take by Un anayeli oic 1-06 mouth. ity of acid/epa 19:07: [place] (FISH OIL 59 Medical ORAL) Branch Ascorbic 2020-0 Yes Take by Unive rs Acid 1-06 mouth. ity of (VITAMIN C) 19:07: [place] 1,000 mg 59 Medical TbSR Branch MULTIVITAMI 2020-0 Yes Take by Un anayeli N ORAL 1-06 mouth. ity of 19:07: [place] 59 Medical Branch docosahexan 2020-0 Yes Take by Un anayeli oic 1-06 mouth. ity of acid/epa 19:07: [place] (FISH OIL 59 Medical ORAL) Branch Ascorbic 2020-0 Yes Take by Unive rs Acid 1-06 mouth. ity of (VITAMIN C) 19:07: [place] 1,000 mg 59 Medical TbSR Branch MULTIVITAMI 2020-0 Yes Take by Un anayeli N ORAL 1-06 mouth. ity of 19:07: [place] 59 Medical Branch docosahexan 2020-0 Yes Take by Un anayeli oic 1-06 mouth. ity of acid/epa 19:07: [place] (FISH OIL 59 Medical ORAL) Branch Ascorbic 2020-0 Yes Take by Unive rs Acid 1-06 mouth. ity of (VITAMIN C) 19:07: [place] 1,000 mg 59 Medical TbSR Branch MULTIVITAMI 2020-0 Yes Take by Un anayeli N ORAL 1-06 mouth. ity of 19:07: [place] 59 Medical Branch docosahexan 2020-0 Yes Take by Un anayeli oic 1-06 mouth. ity of acid/epa 19:07: [place] (FISH OIL 59 Medical ORAL) Branch Ascorbic 2020-0 Yes Take by Unive rs Acid 1-06 mouth. ity of (VITAMIN C) 19:07: [place] 1,000 mg 59 Medical TbSR Branch MULTIVITAMI 2020-0 Yes Take by Un anayeli N ORAL 1-06 mouth. ity of 19:07: [place] 59 Medical Branch docosahexan 2020-0 Yes Take by Un anayeli oic 1-06 mouth. ity of acid/epa 19:07: [place] (FISH OIL 59 Medical ORAL) Branch Ascorbic 2020-0 Yes Take by Unive rs Acid 1-06 mouth. ity of (VITAMIN C) 19:07: [place] 1,000 mg 59 Medical TbSR Branch MULTIVITAMI 2020-0 Yes Take by Un anayeli N ORAL 1-06 mouth. ity of 19:07: [place] 59 Medical Branch docosahexan 2020-0 Yes Take by Un anayeli oic 1-06 mouth. ity of acid/epa 19:07: [place] (FISH OIL 59 Medical ORAL) Branch Ascorbic 2020-0 Yes Take by Unive rs Acid 1-06 mouth. ity of (VITAMIN C) 19:07: [place] 1,000 mg 59 Medical TbSR Branch MULTIVITAMI 2020-0 Yes Take by Un anayeli N ORAL 1-06 mouth. ity of 19:07: [place] 59 Medical Branch docosahexan 2020-0 Yes Take by Un anayeli oic 1-06 mouth. ity of acid/epa 19:07: [place] (FISH OIL 59 Medical ORAL) Branch Ascorbic 2020-0 Yes Take by Unive rs Acid 1-06 mouth. ity of (VITAMIN C) 19:07: [place] 1,000 mg 59 Medical TbSR Branch MULTIVITAMI 2020-0 Yes Take by Un anayeli N ORAL 1-06 mouth. ity of 19:07: [place] 59 Medical Branch docosahexan 2020-0 Yes Take by Un anayeli oic 1-06 mouth. ity of acid/epa 19:07: [place] (FISH OIL 59 Medical ORAL) Branch Ascorbic 2020-0 Yes Take by Unive rs Acid 1-06 mouth. ity of (VITAMIN C) 19:07: [place] 1,000 mg 59 Medical TbSR Branch MULTIVITAMI 2020-0 Yes Take by Un anayeli N ORAL 1-06 mouth. ity of 19:07: [place] 59 Medical Branch docosahexan 2019-0 Yes Take by Un anayeli oic 9-05 mouth. ity of acid/epa 00:18: [place] (FISH OIL 16 Medical ORAL) Branch Ascorbic 2019-0 Yes Take by Unive rs Acid 9-05 mouth. ity of (VITAMIN C) 00:18: [place] 1,000 mg 16 Medical TbSR Branch MULTIVITAMI 2019-0 Yes Take by Un anayeli N ORAL 9-05 mouth. ity of 00:18: [place] 16 Medical Branch docosahexan 2019-0 Yes Take by Un anayeli oic 9-05 mouth. ity of acid/epa 00:18: [place] (FISH OIL 16 Medical ORAL) Branch Ascorbic 2019-0 Yes Take by Unive rs Acid 9-05 mouth. ity of (VITAMIN C) 00:18: [place] 1,000 mg 16 Medical TbSR Branch MULTIVITAMI 2019-0 Yes Take by Un anayeli N ORAL 9-05 mouth. ity of 00:18: [place] 16 Medical Branch docosahexan Yes Take by Un anayeli oic 9-05 mouth. ity of acid/epa 00:18: [place] (FISH OIL 16 Medical ORAL) Branch Ascorbic Yes [facility] by [facility] rs Acid 9-05 mouth. ity of (VITAMIN C) 00:18: [place] 1,000 mg 16 Medical TbSR Branch MULTIVITAMI Yes Take by Un anayeli N ORAL 9-05 mouth. ity of 00:18: [place] [address] Medical Branch docosahexan Yes Take by Un anayeli oic 9-05 mouth. ity of acid/epa 00:18: [place] (FISH OIL 16 Medical ORAL) Branch Ascorbic Yes Take by [facility] rs Acid 9-05 mouth. ity of (VITAMIN C) 00:18: [place] 1,000 mg 16 Medical TbSR Branch MULTIVITAMI Yes Take by Un anayeli N ORAL 9-05 mouth. ity of 00:18: [place] [address] Medical Branch lidocaine-e Yes PRN, [facility] pinephrine 06-13 Starting ity o f (XYLOCAINE 21:49: Tue06/13/19 [place] 00 at 1649, Medical EPINEPHRINE Until Branch ) 1 Discontinu %-1:100,000 ed, injection Routine, Intra-op bupivacaine Yes Incisional [facility] 0.125% 06-13 Site ity of Infiltratio 20:00: Infiltrati [place] n for On-Q 00 on, Medical Painbuster CONTINUOUS [facility] , Starting 550 mL Tue06/13/19 at 1500, Until Discontinu ed, 550 mL, at 4 mL/hr, Routine HYDROcodone Yes [id number] 1{tbl} Take 1 Univers -acetaminop 9-04 tablet by ity of hen 5-325 00:00: mouth [place] mg tablet 00 every 6 Medical (six) Branch hours as needed for Pain (scale 4-6) or Pain (scale 7-10). HYDROcodone Yes [id number] 1{tbl} Take 1 Univers -acetaminop 9-04 tablet by ity of hen 5-325 00:00: mouth [place] mg tablet 00 every 6 Medical (six) Branch hours as needed for Pain (scale 4-6) or Pain (scale 7-10). HYDROcodone Yes [id number] 1{tbl} Take 1 Univers -acetaminop 9-04 tablet by ity of hen 5-325 00:00: mouth [place] mg tablet 00 every 6 Medical (six) Branch hours as needed for Pain (scale 4-6) or Pain (scale 7-10). HYDROcodone Yes [id number] 1{tbl} Take 1 Univers -acetaminop 9-04 tablet by ity of hen 5-325 00:00: mouth [place] mg tablet 00 every 6 Medical (six) Branch hours as needed for Pain (scale 4-6) or Pain (scale 7-10). HYDROcodone Yes [id number] 1{tbl} Take 1 Univers -acetaminop 9-04 tablet by ity of hen 5-325 00:00: mouth [place] mg tablet 00 every 6 Medical (six) Branch hours as needed for Pain (scale 4-6) or Pain (scale 7-10). HYDROcodone Yes [id number] 1{tbl} Take 1 Univers -acetaminop 9-04 tablet by ity of hen 5-325 00:00: mouth [place] mg tablet 00 every 6 Medical (six) Branch hours as needed for Pain (scale 4-6) or Pain (scale 7-10). HYDROcodone Yes [id number] 1{tbl} Take 1 Univers -acetaminop 9-04 tablet by ity of hen 5-325 00:00: mouth [place] mg tablet 00 every 6 Medical (six) Branch hours as needed for Pain (scale 4-6) or Pain (scale 7-10). HYDROcodone Yes [id number] 1{tbl} Take 1 [facility] -acetaminop 9-04 tablet by ity of hen 5-325 00:00: mouth [place] mg tablet 00 every 6 Medical (six) Branch hours as needed for Pain (scale 4-6) or Pain (scale 7-10). HYDROcodone Yes [id number] 1{tbl} Take 1 Univers -acetaminop 9-04 tablet by ity of hen 5-325 00:00: mouth [place] mg tablet 00 every 6 Medical (six) Branch hours as needed for Pain (scale 4-6) or Pain (scale 7-10). HYDROcodone Yes [id number] 1{tbl} Take 1 Univers -acetaminop 9-04 tablet by ity of hen 5-325 00:00: mouth [place] mg tablet 00 every 6 Medical (six) Branch hours as needed for Pain (scale 4-6) or Pain (scale 7-10). HYDROcodone Yes [id number] 1{tbl} Take 1 Univers -acetaminop 9-04 tablet by ity of hen 5-325 00:00: mouth [place] mg tablet 00 every 6 Medical (six) Branch hours as needed for Pain (scale 4-6) or Pain (scale 7-10). HYDROcodone Yes [id number] 1{tbl} Take 1 Univers -acetaminop 9-04 tablet by ity of hen 5-325 00:00: mouth [place] mg tablet 00 every 6 Medical (six) Branch hours as needed for Pain (scale 4-6) or Pain (scale 7-10). HYDROcodone Yes [id number] 1{tbl} Take 1 Univers -acetaminop 9-04 tablet by ity of hen 5-325 00:00: mouth [place] mg tablet 00 every 6 Medical (six) Branch hours as needed for Pain (scale 4-6) or Pain (scale 7-10). HYDROcodone Yes [id number] 1{tbl} Take 1 Univers -acetaminop 9-04 tablet by ity of hen 5-325 00:00: mouth [place] mg tablet 00 every 6 Medical (six) Branch hours as needed for Pain (scale 4-6) or Pain (scale 7-10). HYDROcodone Yes [id number] 1{tbl} Take 1 Univers -acetaminop 9-04 tablet by ity of hen 5-325 00:00: mouth [place] mg tablet 00 every 6 Medical (six) Branch hours as needed for Pain (scale 4-6) or Pain (scale 7-10). HYDROcodone Yes [id number] 1{tbl} Take 1 Univers -acetaminop 9-04 tablet by ity of hen 5-325 00:00: mouth [place] mg tablet 00 every 6 Medical (six) Branch hours as needed for Pain (scale 4-6) or Pain (scale 7-10). HYDROcodone Yes [id number] 1{tbl} Take 1 [facility] -acetaminop 9-04 tablet by ity of hen 5-325 00:00: mouth [place] mg tablet 00 every 6 Medical (six) Branch hours as needed for Pain (scale 4-6) or Pain (scale 7-10). HYDROcodone Yes [id number] 1{tbl} Take 1 Univers -acetaminop 9-04 tablet by ity of hen 5-325 00:00: mouth [place] mg tablet 00 every 6 Medical (six) Branch hours as needed for Pain (scale 4-6) or Pain (scale 7-10). HYDROcodone Yes [id number] 1{tbl} Take 1 [facility] -acetaminop 9-04 tablet by ity of hen 5-325 00:00: mouth [place] mg tablet 00 every 6 Medical (six) Branch hours as needed for Pain (scale 4-6) or Pain (scale 7-10). HYDROcodone Yes [id number] 1{tbl} Take 1 [facility] -acetaminop 9-04 tablet by ity of hen 5-325 00:00: mouth [place] mg tablet 00 every 6 Medical (six) Branch hours as needed for Pain (scale 4-6) or Pain (scale 7-10). HYDROcodone 2020- No [id number] 1{tbl} Take 1 [facility] -acetaminop 9-04 02-24 tablet by it y of hen 5-325 00:00: 00:00 mouth [place] mg tablet 00 :00 every 6 Medical (six) Branch hours as needed for Pain (scale 4-6) or Pain (scale 7-10). HYDROcodone 2020- No [id number] 1{tbl} Take 1 [facility] -acetaminop 9-04 02-24 tablet by it y of hen 5-325 00:00: 00:00 mouth [place] mg tablet 00 :00 every 6 Medical (six) Branch hours as needed for Pain (scale 4-6) or Pain (scale 7-10). HYDROcodone 2020- No [id number] 1{tbl} Take 1 [facility] -acetaminop 9-04 02-24 tablet by it y of hen 5-325 00:00: 00:00 mouth [place] mg tablet 00 :00 every 6 Medical (six) Branch hours as needed for Pain (scale 4-6) or Pain (scale 7-10). MULTIVITAMI Yes Take by [facility]ay[facility] N ORAL 8-28 mouth. ity of 19:05: [address] Branch MULTIVITAMI Yes Take by [facility] N ORAL 8-28 mouth. ity of 19:05: [address] Branch docosahexan Yes Take by Un anayeli oic 8-28 mouth. ity of acid/epa 19:05: [place] (FISH OIL 37 Medical ORAL) Branch Ascorbic Yes Take by Unive rs Acid 8- mouth. ity of (VITAMIN C) 19:05: [place] 1,000 mg 37 Medical TbSR Branch docosahexan Yes Take by Un anayeli oic 8- mouth. ity of acid/epa 19:05: [place] (FISH OIL 37 Medical ORAL) Branch Ascorbic Yes Take by Unive rs Acid 8- mouth. ity of (VITAMIN C) 19:05: [place] 1,000 mg 37 Medical TbSR Branch gadobenate 2019- No .2mL/kg 0.2 mL/kg, [facility] dimeglumine 05-24 Intravenou i ty of (MULTIHANCE 20:30: 20:30 s, ONCE, 1 [place] -20 mL) 00 :00 dose, [facility] injection 05/24/19 at Bran ch 0.2 mL/kg 1530, Routine iohexol 2019- No 150mL 150 mL, Unive rs (OMNIPAQUE 05-16 Intravenou it y of 350 17:15: 17:02 s, ONCE, 1 [place] BULK-150 00 :00 dose, Wed Medica l mL) 05/16/19 at Branch injection 1215, 150 mL Routine clonazePAM 2017-10 Yes TAKE ONE [facility] vers 1 mg tablet - (1) ity of 00:00: TABLET(S) BY MOUTH Medical TWICE A Branch DAY NEEDED FOR ANXIETY. clonazePAM 2017-10 Yes TAKE ONE [facility] vers 1 mg tablet 2- (1) ity of 00:00: TABLET(S) BY MOUTH Medical TWICE A Branch DAY NEEDED FOR ANXIETY. clonazePAM 2017-10 Yes TAKE ONE [facility] vers 1 mg tablet 2-11 (1) ity of 00:00: TABLET(S) BY MOUTH Medical TWICE A Branch DAY NEEDED FOR ANXIETY. clonazePAM 2017-10 Yes TAKE ONE [facility] vers 1 mg tablet 2-11 (1) ity of 00:00: TABLET(S) [place] 00 BY MOUTH Medical TWICE A Branch DAY NEEDED FOR ANXIETY. clonazePAM 2017-10 Yes TAKE ONE [facility] vers 1 mg tablet 2-11 (1) ity of 00:00: TABLET(S) [place] 00 BY MOUTH Medical TWICE A Branch DAY NEEDED FOR ANXIETY. clonazePAM 2017-10 Yes TAKE ONE [facility] vers 1 mg tablet 2-11 (1) ity of 00:00: TABLET(S) [place] 00 BY MOUTH Medical TWICE A Branch DAY NEEDED FOR ANXIETY. clonazePAM 2017-10 Yes TAKE ONE [facility] vers 1 mg tablet 2-11 (1) ity of 00:00: TABLET(S) [place] 00 BY MOUTH Medical TWICE A Branch DAY NEEDED FOR ANXIETY. clonazePAM 2017-10 Yes TAKE ONE [facility] vers 1 mg tablet 2-11 (1) ity of 00:00: TABLET(S) [place] 00 BY MOUTH Medical TWICE A Branch DAY NEEDED FOR ANXIETY. clonazePAM 2017-10 Yes TAKE ONE [facility] vers 1 mg tablet 2-11 (1) ity of 00:00: TABLET(S) [place] 00 BY MOUTH Medical TWICE A Branch DAY NEEDED FOR ANXIETY. clonazePAM 2017-10 Yes TAKE ONE [facility] vers 1 mg tablet 2-11 (1) ity of 00:00: TABLET(S) [place] 00 BY MOUTH Medical TWICE A Branch DAY NEEDED FOR ANXIETY. clonazePAM 2017-10 Yes TAKE ONE [facility] vers 1 mg tablet 2-11 (1) ity of 00:00: TABLET(S) [place] 00 BY MOUTH Medical TWICE A Branch DAY NEEDED FOR ANXIETY. clonazePAM 2017-10 Yes TAKE ONE [facility] vers 1 mg tablet 2-11 (1) ity of 00:00: TABLET(S) [place] 00 BY MOUTH Medical TWICE A Branch DAY NEEDED FOR ANXIETY. clonazePAM 2017-10 Yes TAKE ONE [facility] vers 1 mg tablet 2-11 (1) ity of 00:00: TABLET(S) [place] 00 BY MOUTH Medical TWICE A Branch DAY NEEDED FOR ANXIETY. clonazePAM 2017-10 Yes TAKE ONE [facility] vers 1 mg tablet 2-11 (1) ity of 00:00: TABLET(S) [place] 00 BY MOUTH Medical TWICE A Branch DAY NEEDED FOR ANXIETY. clonazePAM 2017-10 Yes TAKE ONE [facility] vers 1 mg tablet 2-11 (1) ity of 00:00: TABLET(S) [place] 00 BY MOUTH Medical TWICE A Branch DAY NEEDED FOR ANXIETY. clonazePAM 2017-10 Yes TAKE ONE [facility] vers 1 mg tablet 2-11 (1) ity of 00:00: TABLET(S) [place] 00 BY MOUTH Medical TWICE A Branch DAY NEEDED FOR ANXIETY. clonazePAM 2017-10 Yes TAKE ONE [facility] vers 1 mg tablet 2-11 (1) ity of 00:00: TABLET(S) [place] 00 BY MOUTH Medical TWICE A Branch DAY NEEDED FOR ANXIETY. clonazePAM 2017-10 Yes TAKE ONE [facility] vers 1 mg tablet 2-11 (1) ity of 00:00: TABLET(S) [place] 00 BY MOUTH Medical TWICE A Branch DAY NEEDED FOR ANXIETY. clonazePAM 2017-10 Yes TAKE ONE [facility] vers 1 mg tablet 2-11 (1) ity of 00:00: TABLET(S) [place] 00 BY MOUTH Medical TWICE A Branch DAY NEEDED FOR ANXIETY. clonazePAM 2017-10 Yes TAKE ONE [facility] vers 1 mg tablet 2-11 (1) ity of 00:00: TABLET(S) [place] 00 BY MOUTH Medical TWICE A Branch DAY NEEDED FOR ANXIETY. clonazePAM 2017-10 Yes TAKE ONE [facility] vers 1 mg tablet 2-11 (1) ity of 00:00: TABLET(S) [place] 00 BY MOUTH Medical TWICE A Branch DAY NEEDED FOR ANXIETY. clonazePAM 2017-10 Yes TAKE ONE [facility] vers 1 mg tablet 2-11 (1) ity of 00:00: TABLET(S) [place] 00 BY MOUTH Medical TWICE A Branch DAY NEEDED FOR ANXIETY. clonazePAM 2017-10 Yes TAKE ONE [facility] vers 1 mg tablet 2-11 (1) ity of 00:00: TABLET(S) [place] 00 BY MOUTH Medical TWICE A Branch DAY NEEDED FOR ANXIETY. clonazePAM 2017-10 Yes TAKE ONE [facility] vers 1 mg tablet 2-11 (1) ity of 00:00: TABLET(S) [place] 00 BY MOUTH Medical TWICE A Branch DAY NEEDED FOR ANXIETY. clonazePAM 2017-10 Yes TAKE ONE [facility] vers 1 mg tablet 2-11 (1) ity of 00:00: TABLET(S) [place] 00 BY MOUTH Medical TWICE A Branch DAY NEEDED FOR ANXIETY. clonazePAM 2017-10 Yes TAKE ONE [facility] vers 1 mg tablet 2-11 (1) ity of 00:00: TABLET(S) [place] 00 BY MOUTH Medical TWICE A Branch DAY NEEDED FOR ANXIETY. clonazePAM 2017-10 Yes TAKE ONE [facility] vers 1 mg tablet 2-11 (1) ity of 00:00: TABLET(S) [place] 00 BY MOUTH Medical TWICE A Branch DAY NEEDED FOR ANXIETY. clonazePAM 2017-10 Yes TAKE ONE [facility] vers 1 mg tablet 2-11 (1) ity of 00:00: TABLET(S) [place] 00 BY MOUTH Medical TWICE A Branch DAY NEEDED FOR ANXIETY. clonazePAM 2017-10 Yes TAKE ONE [facility] vers 1 mg tablet 2-11 (1) ity of 00:00: TABLET(S) [place] 00 BY MOUTH Medical TWICE A Branch DAY NEEDED FOR ANXIETY. clonazePAM 2017-10 Yes TAKE ONE [facility] vers 1 mg tablet 2-11 (1) ity of 00:00: TABLET(S) [place] 00 BY MOUTH Medical TWICE A Branch DAY NEEDED FOR ANXIETY. clonazePAM 2017-10 Yes TAKE ONE [facility] vers 1 mg tablet 2-11 (1) ity of 00:00: TABLET(S) [place] 00 BY MOUTH Medical TWICE A Branch DAY NEEDED FOR ANXIETY. clonazePAM 2017-10 Yes TAKE ONE [facility] vers 1 mg tablet 2-11 (1) ity of 00:00: TABLET(S) [place] 00 BY MOUTH Medical TWICE A Branch DAY NEEDED FOR ANXIETY. clonazePAM 2017-10 Yes TAKE ONE [facility] vers 1 mg tablet 2-11 (1) ity of 00:00: TABLET(S) [place] 00 BY MOUTH Medical TWICE A Branch DAY NEEDED FOR ANXIETY. clonazePAM 2017-10 Yes TAKE ONE [facility] vers 1 mg tablet 2-11 (1) ity of 00:00: TABLET(S) [place] 00 BY MOUTH Medical TWICE A Branch DAY NEEDED FOR ANXIETY. clonazePAM 2017-10 Yes TAKE ONE [facility] vers 1 mg tablet 2-11 (1) ity of 00:00: TABLET(S) [place] 00 BY MOUTH Medical TWICE A Branch DAY NEEDED FOR ANXIETY. clonazePAM 2017-10 Yes TAKE ONE [facility] vers 1 mg tablet 2-11 (1) ity of 00:00: TABLET(S) [place] 00 BY MOUTH Medical TWICE A Branch DAY NEEDED FOR ANXIETY. clonazePAM 2017-10 Yes TAKE ONE [facility] vers 1 mg tablet 2-11 (1) ity of 00:00: TABLET(S) [place] 00 BY MOUTH Medical TWICE A Branch DAY NEEDED FOR ANXIETY. clonazePAM 2017-10 Yes TAKE ONE [facility] vers 1 mg tablet 2-11 (1) ity of 00:00: TABLET(S) [place] 00 BY MOUTH Medical TWICE A Branch DAY NEEDED FOR ANXIETY. clonazePAM 2017-10 Yes TAKE ONE [facility] vers 1 mg tablet 2-11 (1) ity of 00:00: TABLET(S) [place] 00 BY MOUTH Medical TWICE A Branch DAY NEEDED FOR ANXIETY. clonazePAM 2017-10 Yes TAKE ONE [facility] vers 1 mg tablet 2-11 (1) ity of 00:00: TABLET(S) [place] 00 BY MOUTH Medical TWICE A Branch DAY NEEDED FOR ANXIETY. clonazePAM 2017-10 Yes TAKE ONE [facility] vers 1 mg tablet 2-11 (1) ity of 00:00: TABLET(S) [place] 00 BY MOUTH Medical TWICE A Branch DAY NEEDED FOR ANXIETY. clonazePAM 2017-10 Yes TAKE ONE [facility] vers 1 mg tablet 2-11 (1) ity of 00:00: TABLET(S) [place] 00 BY MOUTH Medical TWICE A Branch DAY NEEDED FOR ANXIETY. clonazePAM 2017-10 Yes TAKE ONE [facility] vers 1 mg tablet 2-11 (1) ity of 00:00: TABLET(S) [place] 00 BY MOUTH Medical TWICE A Branch DAY NEEDED FOR ANXIETY. clonazePAM 2017-10 Yes TAKE ONE [facility] vers 1 mg tablet 2-11 (1) ity of 00:00: TABLET(S) [place] 00 BY MOUTH Medical TWICE A Branch DAY NEEDED FOR ANXIETY. clonazePAM 2017-10 Yes TAKE ONE [facility] vers 1 mg tablet 2-11 (1) ity of 00:00: TABLET(S) [place] 00 BY MOUTH Medical TWICE A Branch DAY NEEDED FOR ANXIETY. clonazePAM 2017-10 Yes TAKE ONE [facility] vers 1 mg tablet 2-11 (1) ity of 00:00: TABLET(S) [place] 00 BY MOUTH Medical TWICE A Branch DAY NEEDED FOR ANXIETY. clonazePAM 2017-10 Yes TAKE ONE [facility] vers 1 mg tablet 2-11 (1) ity of 00:00: TABLET(S) [place] 00 BY MOUTH Medical TWICE A Branch DAY NEEDED FOR ANXIETY. clonazePAM 2017-10 Yes TAKE ONE [facility] vers 1 mg tablet 2-11 (1) ity of 00:00: TABLET(S) [place] 00 BY MOUTH Medical TWICE A Branch DAY NEEDED FOR ANXIETY. clonazePAM 2017-10 Yes TAKE ONE [facility] vers 1 mg tablet 2-11 (1) ity of 00:00: TABLET(S) [place] 00 BY MOUTH Medical TWICE A Branch DAY NEEDED FOR ANXIETY. clonazePAM 2017-10 Yes TAKE ONE [facility] vers 1 mg tablet 2-11 (1) ity of 00:00: TABLET(S) [place] 00 BY MOUTH Medical TWICE A Branch DAY NEEDED FOR ANXIETY. clonazePAM 2017-10 Yes TAKE ONE [facility] vers 1 mg tablet 2-11 (1) ity of 00:00: TABLET(S) [place] 00 BY MOUTH Medical TWICE A Branch DAY NEEDED FOR ANXIETY. clonazePAM 2017-10 Yes TAKE ONE [facility] vers 1 mg tablet 2-11 (1) ity of 00:00: TABLET(S) [place] 00 BY MOUTH Medical TWICE A Branch DAY NEEDED FOR ANXIETY. clonazePAM 2017-10 Yes TAKE ONE [facility] vers 1 mg tablet 2-11 (1) ity of 00:00: TABLET(S) [place] 00 BY MOUTH Medical TWICE A Branch DAY NEEDED FOR ANXIETY. clonazePAM 2017-10 Yes TAKE ONE [facility] vers 1 mg tablet 2-11 (1) ity of 00:00: TABLET(S) [place] 00 BY MOUTH Medical TWICE A Branch DAY NEEDED FOR ANXIETY. clonazePAM 2017-10 Yes TAKE ONE [facility] vers 1 mg tablet 2-11 (1) ity of 00:00: TABLET(S) [place] 00 BY MOUTH Medical TWICE A Branch DAY NEEDED FOR ANXIETY. clonazePAM 2017-10 Yes TAKE ONE [facility] vers 1 mg tablet 2-11 (1) ity of 00:00: TABLET(S) [place] 00 BY MOUTH Medical TWICE A Branch DAY NEEDED FOR ANXIETY. clonazePAM 2017-10 Yes TAKE ONE [facility] vers 1 mg tablet 2-11 (1) ity of 00:00: TABLET(S) [place] 00 BY MOUTH Medical TWICE A Branch DAY NEEDED FOR ANXIETY. clonazePAM 2017-10 Yes TAKE ONE [facility] vers 1 mg tablet 2-11 (1) ity of 00:00: TABLET(S) [place] 00 BY MOUTH Medical TWICE A Branch DAY NEEDED FOR ANXIETY. clonazePAM 2017-10 Yes TAKE ONE [facility] vers 1 mg tablet 2-11 (1) ity of 00:00: TABLET(S) [place] 00 BY MOUTH Medical TWICE A Branch DAY NEEDED FOR ANXIETY. clonazePAM 2017-10 Yes TAKE ONE [facility] vers 1 mg tablet 2-11 (1) ity of 00:00: TABLET(S) [place] 00 BY MOUTH Medical TWICE A Branch DAY NEEDED FOR ANXIETY. clonazePAM 2017-10 Yes TAKE ONE [facility] vers 1 mg tablet 2-11 (1) ity of 00:00: TABLET(S) [place] 00 BY MOUTH Medical TWICE A Branch DAY NEEDED FOR ANXIETY. clonazePAM 2017-10 Yes TAKE ONE [facility] vers 1 mg tablet 2-11 (1) ity of 00:00: TABLET(S) [place] 00 BY MOUTH Medical TWICE A Branch DAY NEEDED FOR ANXIETY. clonazePAM 2017-10 Yes TAKE ONE [facility] vers 1 mg tablet 2-11 (1) ity of 00:00: TABLET(S) [place] 00 BY MOUTH Medical TWICE A Branch DAY NEEDED FOR ANXIETY. clonazePAM 2017-10 Yes TAKE ONE [facility] vers 1 mg tablet 2-11 (1) ity of 00:00: TABLET(S) [place] 00 BY MOUTH Medical TWICE A Branch DAY NEEDED FOR ANXIETY. clonazePAM 2017-10 Yes TAKE ONE [facility] vers 1 mg tablet 2-11 (1) ity of 00:00: TABLET(S) [place] 00 BY MOUTH Medical TWICE A Branch DAY NEEDED FOR ANXIETY. ranitidine 2017-10 Yes TAKE ONE [facility] vers 150 mg 1-28 (1) ity of tablet 00:00: CAPSULE(S) [place] 00 BY MOUTH Medical TWICE A Branch DAY FOR 30 DAYS. ranitidine 2017-10 Yes TAKE ONE [facility] vers 150 mg 1-28 (1) ity of tablet 00:00: CAPSULE(S) [place] 00 BY MOUTH Medical TWICE A Branch DAY FOR 30 DAYS. ranitidine 2017-10 Yes TAKE ONE [facility] vers 150 mg 1-28 (1) ity of tablet 00:00: CAPSULE(S) [place] 00 BY MOUTH Medical TWICE A Branch DAY FOR 30 DAYS. ranitidine 2017-10 Yes TAKE ONE [facility] vers 150 mg 1-28 (1) ity of tablet 00:00: CAPSULE(S) [place] 00 BY MOUTH Medical TWICE A Branch DAY FOR 30 DAYS. ranitidine 2017-10 Yes TAKE ONE [facility] vers 150 mg 1-28 (1) ity of tablet 00:00: CAPSULE(S) [place] 00 BY MOUTH Medical TWICE A Branch DAY FOR 30 DAYS. ranitidine 2017-10 Yes TAKE ONE [facility] vers 150 mg 1-28 (1) ity of tablet 00:00: CAPSULE(S) [place] 00 BY MOUTH Medical TWICE A Branch DAY FOR 30 DAYS. ranitidine 2017-10 Yes TAKE ONE [facility] vers 150 mg 1-28 (1) ity of tablet 00:00: CAPSULE(S) [place] 00 BY MOUTH Medical TWICE A Branch DAY FOR 30 DAYS. ranitidine 2017-10 Yes TAKE ONE [facility] vers 150 mg 1-28 (1) ity of tablet 00:00: CAPSULE(S) [place] 00 BY MOUTH Medical TWICE A Branch DAY FOR 30 DAYS. ranitidine 2017-10 Yes TAKE ONE [facility] vers 150 mg 1-28 (1) ity of tablet 00:00: CAPSULE(S) [place] 00 BY MOUTH Medical TWICE A Branch DAY FOR 30 DAYS. ranitidine 2017-10 Yes TAKE ONE [facility] vers 150 mg 1-28 (1) ity of tablet 00:00: CAPSULE(S) [place] 00 BY MOUTH Medical TWICE A Branch DAY FOR 30 DAYS. ranitidine 2017-10 Yes TAKE ONE [facility] vers 150 mg 1-28 (1) ity of tablet 00:00: CAPSULE(S) [place] 00 BY MOUTH Medical TWICE A Branch DAY FOR 30 DAYS. ranitidine 2017-10 Yes TAKE ONE [facility] vers 150 mg 1-28 (1) ity of tablet 00:00: CAPSULE(S) [place] 00 BY MOUTH Medical TWICE A Branch DAY FOR 30 DAYS. ranitidine 2017-10 Yes TAKE ONE [facility] vers 150 mg 1-28 (1) ity of tablet 00:00: CAPSULE(S) [place] 00 BY MOUTH Medical TWICE A Branch DAY FOR 30 DAYS. ranitidine 2017-10 Yes TAKE ONE [facility] vers 150 mg 1-28 (1) ity of tablet 00:00: CAPSULE(S) [place] 00 BY MOUTH Medical TWICE A Branch DAY FOR 30 DAYS. ranitidine 2017-10 Yes TAKE ONE [facility] vers 150 mg 1-28 (1) ity of tablet 00:00: CAPSULE(S) [place] 00 BY MOUTH Medical TWICE A Branch DAY FOR 30 DAYS. ranitidine 2017-10 Yes TAKE ONE [facility] vers 150 mg 1-28 (1) ity of tablet 00:00: CAPSULE(S) [place] 00 BY MOUTH Medical TWICE A Branch DAY FOR 30 DAYS. ranitidine 2017-10 Yes TAKE ONE [facility] vers 150 mg 1-28 (1) ity of tablet 00:00: CAPSULE(S) [place] 00 BY MOUTH Medical TWICE A Branch DAY FOR 30 DAYS. ranitidine 2017-10 Yes TAKE ONE [facility] vers 150 mg 1-28 (1) ity of tablet 00:00: CAPSULE(S) [place] 00 BY MOUTH Medical TWICE A Branch DAY FOR 30 DAYS. ranitidine 2017-10 Yes TAKE ONE [facility] vers 150 mg 1-28 (1) ity of tablet 00:00: CAPSULE(S) [place] 00 BY MOUTH Medical TWICE A Branch DAY FOR 30 DAYS. ranitidine 2017-10 Yes TAKE ONE [facility] vers 150 mg 1-28 (1) ity of tablet 00:00: CAPSULE(S) [place] 00 BY MOUTH Medical TWICE A Branch DAY FOR 30 DAYS. ranitidine 2017-10 Yes TAKE ONE [facility] vers 150 mg 1-28 (1) ity of tablet 00:00: CAPSULE(S) [place] 00 BY MOUTH Medical TWICE A Branch DAY FOR 30 DAYS. ranitidine 2017-10 Yes TAKE ONE [facility] vers 150 mg 1-28 (1) ity of tablet 00:00: CAPSULE(S) [place] 00 BY MOUTH Medical TWICE A Branch DAY FOR 30 DAYS. ranitidine 2017-10 Yes TAKE ONE [facility] vers 150 mg 1-28 (1) ity of tablet 00:00: CAPSULE(S) [place] 00 BY MOUTH Medical TWICE A Branch DAY FOR 30 DAYS. ranitidine 2017-10 Yes TAKE ONE [facility] vers 150 mg 1-28 (1) ity of tablet 00:00: CAPSULE(S) [place] 00 BY MOUTH Medical TWICE A Branch DAY FOR 30 DAYS. ranitidine 2017-10 Yes TAKE ONE [facility] vers 150 mg 1-28 (1) ity of tablet 00:00: CAPSULE(S) [place] 00 BY MOUTH Medical TWICE A Branch DAY FOR 30 DAYS. ranitidine 2017-10 Yes TAKE ONE [facility] vers 150 mg 1-28 (1) ity of tablet 00:00: CAPSULE(S) [place] 00 BY MOUTH Medical TWICE A Branch DAY FOR 30 DAYS. HYDROcodone 2017-10 Yes TAKE 1 [facility] -acetaminop 1-27 TABLET BY ity of hen 7.5-325 00:00: MOUTH 3 [place] mg per 00 TIMES Medical tablet DAILY Branch HYDROcodone 2017-10 Yes TAKE 1 [facility] -acetaminop 1-27 TABLET BY ity of hen 7.5-325 00:00: MOUTH 3 [place] mg per 00 TIMES Medical tablet DAILY Branch HYDROcodone 2017-10 Yes TAKE 1 [facility] -acetaminop 1-27 TABLET BY ity of hen 7.5-325 00:00: MOUTH 3 [place] mg per 00 TIMES Medical tablet DAILY Branch HYDROcodone 2017-10 Yes TAKE 1 [facility] -acetaminop 1-27 TABLET BY ity of hen 7.5-325 00:00: MOUTH 3 [place] mg per 00 TIMES Medical tablet DAILY Branch HYDROcodone 2017-10 Yes TAKE 1 [facility] -acetaminop 1-27 TABLET BY ity of hen 7.5-325 00:00: MOUTH 3 [place] mg per 00 TIMES Medical tablet DAILY Branch HYDROcodone 2017-10 Yes TAKE 1 [facility] -acetaminop 1-27 TABLET BY ity of hen 7.5-325 00:00: MOUTH 3 [place] mg per 00 TIMES Medical tablet DAILY Branch HYDROcodone 2017-10 Yes TAKE 1 [facility] -acetaminop 1-27 TABLET BY ity of hen 7.5-325 00:00: MOUTH 3 [place] mg per 00 TIMES Medical tablet DAILY Branch HYDROcodone 2017-10 Yes TAKE 1 [facility] -acetaminop 1-27 TABLET BY ity of hen 7.5-325 00:00: MOUTH 3 [place] mg per 00 TIMES Medical tablet DAILY Branch HYDROcodone 2017-10 Yes TAKE 1 [facility] -acetaminop 1-27 TABLET BY ity of hen 7.5-325 00:00: MOUTH 3 [place] mg per 00 TIMES Medical tablet DAILY Branch HYDROcodone 2017-10 Yes TAKE 1 [facility] -acetaminop 1-27 TABLET BY ity of hen 7.5-325 00:00: MOUTH 3 [place] mg per 00 TIMES Medical tablet DAILY Branch HYDROcodone 2017-10 Yes TAKE 1 [facility] -acetaminop 1-27 TABLET BY ity of hen 7.5-325 00:00: MOUTH 3 [place] mg per 00 TIMES Medical tablet DAILY Branch HYDROcodone 2017-10 Yes TAKE 1 [facility] -acetaminop 1-27 TABLET BY ity of hen 7.5-325 00:00: MOUTH 3 [place] mg per 00 TIMES Medical tablet DAILY Branch HYDROcodone 2017-10 Yes TAKE 1 [facility] -acetaminop 1-27 TABLET BY ity of hen 7.5-325 00:00: MOUTH 3 [place] mg per 00 TIMES Medical tablet DAILY Branch HYDROcodone 2017-10 Yes TAKE 1 [facility] -acetaminop 1-27 TABLET BY ity of hen 7.5-325 00:00: MOUTH 3 [place] mg per 00 TIMES Medical tablet DAILY Branch HYDROcodone 2017-10 Yes TAKE 1 [facility] -acetaminop 1-27 TABLET BY ity of hen 7.5-325 00:00: MOUTH 3 [place] mg per 00 TIMES Medical tablet DAILY Branch HYDROcodone 2017-10 Yes TAKE 1 [facility] -acetaminop 1-27 TABLET BY ity of hen 7.5-325 00:00: MOUTH 3 [place] mg per 00 TIMES Medical tablet DAILY Branch HYDROcodone 2017-10 Yes TAKE 1 [facility] -acetaminop 1-27 TABLET BY ity of hen 7.5-325 00:00: MOUTH 3 [place] mg per 00 TIMES Medical tablet DAILY Branch HYDROcodone 2017-10 Yes TAKE 1 [facility] -acetaminop 1-27 TABLET BY ity of hen 7.5-325 00:00: MOUTH 3 [place] mg per 00 TIMES Medical tablet DAILY Branch HYDROcodone 2017-10 Yes TAKE 1 [facility] -acetaminop 1-27 TABLET BY ity of hen 7.5-325 00:00: MOUTH 3 [place] mg per 00 TIMES Medical tablet DAILY Branch HYDROcodone 2017-10 Yes TAKE 1 [facility] -acetaminop 1-27 TABLET BY ity of hen 7.5-325 00:00: MOUTH 3 [place] mg per 00 TIMES Medical tablet DAILY Branch HYDROcodone 2017-10 Yes TAKE 1 [facility] -acetaminop 1-27 TABLET BY ity of hen 7.5-325 00:00: MOUTH 3 [place] mg per 00 TIMES Medical tablet DAILY Branch HYDROcodone 2017-10 Yes TAKE 1 [facility] -acetaminop 1-27 TABLET BY ity of hen 7.5-325 00:00: MOUTH 3 [place] mg per 00 TIMES Medical tablet DAILY Branch HYDROcodone 2017-10 2019- No TAKE 1 [facility] -acetaminop 1-27 -04 TABLET BY it y of hen 7.5-325 00:00: 00:00 MOUTH 3 [place] per 00 :00 TIMES Medical tablet DAILY Branch furosemide 2017-10 Yes TAKE ONE [facility] 40 mg 0-23 (1) ity of tablet 00:00: TABLET(S) BY MOUTH Medical ONCE A Branch DAY. furosemide 2017-10 Yes TAKE ONE [facility] 40 mg 0-23 (1) ity of tablet 00:00: TABLET(S) BY MOUTH Medical ONCE A Branch DAY. furosemide 2017-10 Yes TAKE ONE [facility] 40 mg 0-23 (1) ity of tablet 00:00: TABLET(S) BY MOUTH Medical ONCE A Branch DAY. furosemide 2017-10 Yes TAKE ONE [facility] 40 mg 0-23 (1) ity of tablet 00:00: TABLET(S) [place] 00 BY MOUTH Medical ONCE A Branch DAY. furosemide 2017-10 Yes TAKE ONE [facility] 40 mg 0-23 (1) ity of tablet 00:00: TABLET(S) [place] 00 BY MOUTH Medical ONCE A Branch DAY. furosemide 2017-10 Yes TAKE ONE [facility] 40 mg 0-23 (1) ity of tablet 00:00: TABLET(S) [place] 00 BY MOUTH Medical ONCE A Branch DAY. furosemide 2017-10 Yes TAKE ONE [facility] 40 mg 0-23 (1) ity of tablet 00:00: TABLET(S) [place] 00 BY MOUTH Medical ONCE A Branch DAY. furosemide 2017-10 Yes TAKE ONE [facility] 40 mg 0-23 (1) ity of tablet 00:00: TABLET(S) [place] 00 BY MOUTH Medical ONCE A Branch DAY. furosemide 2017-10 Yes TAKE ONE [facility] 40 mg 0-23 (1) ity of tablet 00:00: TABLET(S) [place] 00 BY MOUTH Medical ONCE A Branch DAY. furosemide 2017-10 Yes TAKE ONE [facility] 40 mg 0-23 (1) ity of tablet 00:00: TABLET(S) [place] 00 BY MOUTH Medical ONCE A Branch DAY. furosemide 2017-10 Yes TAKE ONE [facility] 40 mg 0-23 (1) ity of tablet 00:00: TABLET(S) [place] 00 BY MOUTH Medical ONCE A Branch DAY. furosemide 2017-10 Yes TAKE ONE [facility] 40 mg 0-23 (1) ity of tablet 00:00: TABLET(S) [place] 00 BY MOUTH Medical ONCE A Branch DAY. furosemide 2017-10 Yes TAKE ONE [facility] 40 mg 0-23 (1) ity of tablet 00:00: TABLET(S) [place] 00 BY MOUTH Medical ONCE A Branch DAY. furosemide 2017-10 Yes TAKE ONE [facility] 40 mg 0-23 (1) ity of tablet 00:00: TABLET(S) [place] 00 BY MOUTH Medical ONCE A Branch DAY. furosemide 2017-10 Yes TAKE ONE [facility] 40 mg 0-23 (1) ity of tablet 00:00: TABLET(S) [place] 00 BY MOUTH Medical ONCE A Branch DAY. furosemide 2017-10 Yes TAKE ONE [facility] 40 mg 0-23 (1) ity of tablet 00:00: TABLET(S) [place] 00 BY MOUTH Medical ONCE A Branch DAY. furosemide 2017-10 Yes TAKE ONE [facility] 40 mg 0-23 (1) ity of tablet 00:00: TABLET(S) [place] 00 BY MOUTH Medical ONCE A Branch DAY. furosemide 2017-10 Yes TAKE ONE [facility] 40 mg 0-23 (1) ity of tablet 00:00: TABLET(S) [place] 00 BY MOUTH Medical ONCE A Branch DAY. furosemide 2017-10 Yes TAKE ONE [facility] 40 mg 0-23 (1) ity of tablet 00:00: TABLET(S) [place] 00 BY MOUTH Medical ONCE A Branch DAY. furosemide 2017-10 Yes TAKE ONE [facility] 40 mg 0-23 (1) ity of tablet 00:00: TABLET(S) [place] 00 BY MOUTH Medical ONCE A Branch DAY. furosemide 2017-10 Yes TAKE ONE [facility] 40 mg 0-23 (1) ity of tablet 00:00: TABLET(S) [place] 00 BY MOUTH Medical ONCE A Branch DAY. furosemide 2017-10 Yes TAKE ONE [facility] 40 mg 0-23 (1) ity of tablet 00:00: TABLET(S) [place] 00 BY MOUTH Medical ONCE A Branch DAY. furosemide 2017-10 Yes TAKE ONE [facility] 40 mg 0-23 (1) ity of tablet 00:00: TABLET(S) [place] 00 BY MOUTH Medical ONCE A Branch DAY. furosemide 2017-10 Yes TAKE ONE [facility] 40 mg 0-23 (1) ity of tablet 00:00: TABLET(S) [place] 00 BY MOUTH Medical ONCE A Branch DAY. furosemide 2017-10 Yes TAKE ONE [facility] 40 mg 0-23 (1) ity of tablet 00:00: TABLET(S) [place] 00 BY MOUTH Medical ONCE A Branch DAY. furosemide 2017-10 Yes TAKE ONE [facility] 40 mg 0-23 (1) ity of tablet 00:00: TABLET(S) [place] 00 BY MOUTH [facility] ONCE A Branch DAY. furosemide 2017-10 Yes TAKE ONE [facility] 40 mg 0-23 (1) ity of tablet 00:00: TABLET(S) [place] 00 BY MOUTH [facility] ONCE A Branch DAY. furosemide 2017-10 Yes TAKE ONE [facility] 40 mg 0-23 (1) ity of tablet 00:00: TABLET(S) [place] 00 BY MOUTH [facility] ONCE A Branch DAY. furosemide 2017-10 Yes TAKE ONE [facility] 40 mg 0-23 (1) ity of tablet 00:00: TABLET(S) [place] 00 BY MOUTH [facility] ONCE A Branch DAY. furosemide 2017-10 Yes TAKE ONE [facility] vers 40 mg 0-23 (1) ity of tablet 00:00: TABLET(S) [place] 00 BY MOUTH [facility] ONCE A Branch DAY. furosemide 2017-10 Yes TAKE ONE [facility] 40 mg 0-23 (1) ity of tablet 00:00: TABLET(S) [place] 00 BY MOUTH [facility] ONCE A Branch DAY. furosemide 2017-10 Yes TAKE ONE [facility] vers 40 mg 0-23 (1) ity of tablet 00:00: TABLET(S) [place] 00 BY MOUTH [facility] ONCE A Branch DAY. furosemide 2017-10 Yes TAKE ONE [facility] vers 40 mg 0-23 (1) ity of tablet 00:00: TABLET(S) [place] 00 BY MOUTH [facility] ONCE A Branch DAY. furosemide 2017-10 Yes TAKE ONE [facility] vers 40 mg 0-23 (1) ity of tablet 00:00: TABLET(S) [place] 00 BY MOUTH [facility] ONCE A Branch DAY. furosemide 2017-10 Yes TAKE ONE [facility] 40 mg 0-23 (1) ity of tablet 00:00: TABLET(S) [place] 00 BY MOUTH Medical ONCE A Branch DAY. furosemide 2017-10 Yes TAKE ONE [facility] 40 mg 0-23 (1) ity of tablet 00:00: TABLET(S) [place] 00 BY MOUTH Medical ONCE A Branch DAY. furosemide 2017-10 Yes TAKE ONE [facility] 40 mg 0-23 (1) ity of tablet 00:00: TABLET(S) [place] 00 BY MOUTH Medical ONCE A Branch DAY. furosemide 2017-10 Yes TAKE ONE [facility] 40 mg 0-23 (1) ity of tablet 00:00: TABLET(S) [place] 00 BY MOUTH Medical ONCE A Branch DAY. furosemide 2017-10 Yes TAKE ONE [facility] 40 mg 0-23 (1) ity of tablet 00:00: TABLET(S) [place] 00 BY MOUTH Medical ONCE A Branch DAY. furosemide 2017-10 Yes TAKE ONE [facility] 40 mg 0-23 (1) ity of tablet 00:00: TABLET(S) [place] 00 BY MOUTH Medical ONCE A Branch DAY. furosemide 2017-10 Yes TAKE ONE [facility] 40 mg 0-23 (1) ity of tablet 00:00: TABLET(S) [place] 00 BY MOUTH Medical ONCE A Branch DAY. furosemide 2017-10 Yes TAKE ONE [facility] 40 mg 0-23 (1) ity of tablet 00:00: TABLET(S) [place] 00 BY MOUTH Medical ONCE A Branch DAY. furosemide 2017-10 Yes TAKE ONE [facility] 40 mg 0-23 (1) ity of tablet 00:00: TABLET(S) [place] 00 BY MOUTH Medical ONCE A Branch DAY. furosemide 2017-10 Yes TAKE ONE [facility] vers 40 mg 0-23 (1) ity of tablet 00:00: TABLET(S) [place] 00 BY MOUTH Medical ONCE A Branch DAY. furosemide 2017-10 Yes TAKE ONE [facility] 40 mg 0-23 (1) ity of tablet 00:00: TABLET(S) [place] 00 BY MOUTH Medical ONCE A Branch DAY. furosemide 2017-10 Yes TAKE ONE [facility] 40 mg 0-23 (1) ity of tablet 00:00: TABLET(S) [place] 00 BY MOUTH Medical ONCE A Branch DAY. furosemide 2017-10 Yes TAKE ONE [facility] 40 mg 0-23 (1) ity of tablet 00:00: TABLET(S) [place] 00 BY MOUTH Medical ONCE A Branch DAY. furosemide 2017-10 Yes TAKE ONE [facility] 40 mg 0-23 (1) ity of tablet 00:00: TABLET(S) [place] 00 BY MOUTH Medical ONCE A Branch DAY. furosemide 2017-10 Yes TAKE ONE [facility] 40 mg 0-23 (1) ity of tablet 00:00: TABLET(S) [place] 00 BY MOUTH Medical ONCE A Branch DAY. furosemide 2017-10 Yes TAKE ONE [facility] 40 mg 0-23 (1) ity of tablet 00:00: TABLET(S) [place] 00 BY MOUTH Medical ONCE A Branch DAY. furosemide 2017-10 Yes TAKE ONE [facility] 40 mg 0-23 (1) ity of tablet 00:00: TABLET(S) [place] 00 BY MOUTH Medical ONCE A Branch DAY. furosemide 2017-10 Yes TAKE ONE [facility] 40 mg 0-23 (1) ity of tablet 00:00: TABLET(S) [place] 00 BY MOUTH Medical ONCE A Branch DAY. furosemide 2017-10 Yes TAKE ONE [facility] vers 40 mg 0-23 (1) ity of tablet 00:00: TABLET(S) [place] 00 BY MOUTH Medical ONCE A Branch DAY. furosemide 2017-10 Yes TAKE ONE [facility] 40 mg 0-23 (1) ity of tablet 00:00: TABLET(S) [place] 00 BY MOUTH Medical ONCE A Branch DAY. furosemide 2017-10 Yes TAKE ONE [facility] 40 mg 0-23 (1) ity of tablet 00:00: TABLET(S) [place] 00 BY MOUTH Medical ONCE A Branch DAY. furosemide 2017-10 Yes TAKE ONE [facility] 40 mg 0-23 (1) ity of tablet 00:00: TABLET(S) [place] 00 BY MOUTH Medical ONCE A Branch DAY. furosemide 2017-10 Yes TAKE ONE [facility] 40 mg 0-23 (1) ity of tablet 00:00: TABLET(S) [place] 00 BY MOUTH Medical ONCE A Branch DAY. furosemide 2017-10 Yes TAKE ONE [facility] 40 mg 0-23 (1) ity of tablet 00:00: TABLET(S) [place] 00 BY MOUTH Medical ONCE A Branch DAY. furosemide 2017-10 Yes TAKE ONE [facility] 40 mg 0-23 (1) ity of tablet 00:00: TABLET(S) [place] 00 BY MOUTH Medical ONCE A Branch DAY. furosemide 2017-10 Yes TAKE ONE [facility] 40 mg 0-23 (1) ity of tablet 00:00: TABLET(S) [place] 00 BY MOUTH Medical ONCE A Branch DAY. furosemide 2017-10 Yes TAKE ONE [facility] 40 mg 0-23 (1) ity of tablet 00:00: TABLET(S) [place] 00 BY MOUTH Medical ONCE A Branch DAY. furosemide 2017-10 Yes TAKE ONE [facility] 40 mg 0-23 (1) ity of tablet 00:00: TABLET(S) [place] 00 BY MOUTH Medical ONCE A Branch DAY. furosemide 2017-10 Yes TAKE ONE [facility] 40 mg 0-23 (1) ity of tablet 00:00: TABLET(S) [place] 00 BY MOUTH Medical ONCE A Branch DAY. furosemide 2017-10 Yes TAKE ONE [facility] 40 mg 0-23 (1) ity of tablet 00:00: TABLET(S) [place] 00 BY MOUTH Medical ONCE A Branch DAY. furosemide 2017-10 Yes TAKE ONE [facility] 40 mg 0-23 (1) ity of tablet 00:00: TABLET(S) [place] 00 BY MOUTH Medical ONCE A Branch DAY. lidocaine 5 Yes APPLY 1 [facility] % (700 2-14 PATCH D. ity of mg/patch) 00:00: LEAVE ON [place] patch 00 FOR 12 H Medical AND OFF Branch FOR 12 H. lidocaine 5 Yes APPLY 1 [facility] % (700 2-14 PATCH D. ity of mg/patch) 00:00: LEAVE ON [place] patch 00 FOR 12 H [facility] AND OFF Branch FOR 12 H. lidocaine 5 Yes APPLY 1 [facility] % (700 2-14 PATCH D. ity of mg/patch) 00:00: LEAVE ON [place] patch 00 FOR 12 H Medical AND OFF Branch FOR 12 H. lidocaine 5 Yes APPLY 1 [facility] % (700 2-14 PATCH D. ity of mg/patch) 00:00: LEAVE ON [place] patch 00 FOR 12 H Medical AND OFF Branch FOR 12 H. lidocaine 5 Yes APPLY 1 [facility] % (700 2-14 PATCH D. ity of mg/patch) 00:00: LEAVE ON [place] patch 00 FOR 12 H Medical AND OFF Branch FOR 12 H. lidocaine 5 Yes APPLY 1 [facility] % (700 2-14 PATCH D. ity of mg/patch) 00:00: LEAVE ON [place] patch 00 FOR 12 H Medical AND OFF Branch FOR 12 H. lidocaine 5 Yes APPLY 1 [facility] % (700 2-14 PATCH D. ity of mg/patch) 00:00: LEAVE ON [place] patch 00 FOR 12 H Medical AND OFF Branch FOR 12 H. lidocaine 5 Yes APPLY 1 [facility] % (700 2-14 PATCH D. ity of mg/patch) 00:00: LEAVE ON [place] patch 00 FOR 12 H Medical AND OFF Branch FOR 12 H. lidocaine 5 Yes APPLY 1 [facility] % (700 2-14 PATCH D. ity of mg/patch) 00:00: LEAVE ON [place] patch 00 FOR 12 H Medical AND OFF Branch FOR 12 H. lidocaine 5 Yes APPLY 1 [facility] % (700 2-14 PATCH D. ity of mg/patch) 00:00: LEAVE ON [place] patch 00 FOR 12 H Medical AND OFF Branch FOR 12 H. lidocaine 5 Yes APPLY 1 [facility] % (700 2-14 PATCH D. ity of mg/patch) 00:00: LEAVE ON [place] patch 00 FOR 12 H Medical AND OFF Branch FOR 12 H. lidocaine 5 Yes APPLY 1 [facility] % (700 2-14 PATCH D. ity of mg/patch) 00:00: LEAVE ON [place] patch 00 FOR 12 H Medical AND OFF Branch FOR 12 H. lidocaine 5 Yes APPLY 1 [facility] % (700 2-14 PATCH D. ity of mg/patch) 00:00: LEAVE ON [place] patch 00 FOR 12 H Medical AND OFF Branch FOR 12 H. lidocaine 5 Yes APPLY 1 [facility] % (700 2-14 PATCH D. ity of mg/patch) 00:00: LEAVE ON [place] patch 00 FOR 12 H Medical AND OFF Branch FOR 12 H. lidocaine 5 Yes APPLY 1 [facility] % (700 2-14 PATCH D. ity of mg/patch) 00:00: LEAVE ON [place] patch 00 FOR 12 H Medical AND OFF Branch FOR 12 H. lidocaine 5 Yes APPLY 1 [facility] % (700 2-14 PATCH D. ity of mg/patch) 00:00: LEAVE ON [place] patch 00 FOR 12 H [facility] AND OFF Branch FOR 12 H. lidocaine 5 Yes APPLY 1 [facility] % (700 2-14 PATCH D. ity of mg/patch) 00:00: LEAVE ON [place] patch 00 FOR 12 H Medical AND OFF Branch FOR 12 H. lidocaine 5 Yes APPLY 1 [facility] % (700 2-14 PATCH D. ity of mg/patch) 00:00: LEAVE ON [place] patch 00 FOR 12 H Medical AND OFF Branch FOR 12 H. lidocaine 5 Yes APPLY 1 [facility] % (700 2-14 PATCH D. ity of mg/patch) 00:00: LEAVE ON [place] patch 00 FOR 12 H Medical AND OFF Branch FOR 12 H. lidocaine 5 Yes APPLY 1 [facility] % (700 2-14 PATCH D. ity of mg/patch) 00:00: LEAVE ON [place] patch 00 FOR 12 H Medical AND OFF Branch FOR 12 H. lidocaine 5 Yes APPLY 1 [facility] % (700 2-14 PATCH D. ity of mg/patch) 00:00: LEAVE ON [place] patch 00 FOR 12 H Medical AND OFF Branch FOR 12 H. lidocaine 5 Yes APPLY 1 [facility] % (700 2-14 PATCH D. ity of mg/patch) 00:00: LEAVE ON [place] patch 00 FOR 12 H Medical AND OFF Branch FOR 12 H. lidocaine 5 Yes APPLY 1 [facility] % (700 2-14 PATCH D. ity of mg/patch) 00:00: LEAVE ON [place] patch 00 FOR 12 H Medical AND OFF Branch FOR 12 H. lidocaine 5 Yes APPLY 1 [facility] % (700 2-14 PATCH D. ity of mg/patch) 00:00: LEAVE ON [place] patch 00 FOR 12 H Medical AND OFF Branch FOR 12 H. lidocaine 5 Yes APPLY 1 [facility] % (700 2-14 PATCH D. ity of mg/patch) 00:00: LEAVE ON [place] patch 00 FOR 12 H Medical AND OFF Branch FOR 12 H. lidocaine 5 Yes APPLY 1 [facility] % (700 2-14 PATCH D. ity of mg/patch) 00:00: LEAVE ON [place] patch 00 FOR 12 H Medical AND OFF Branch FOR 12 H. lidocaine 5 Yes APPLY 1 [facility] % (700 2-14 PATCH D. ity of mg/patch) 00:00: LEAVE ON [place] patch 00 FOR 12 H Medical AND OFF Branch FOR 12 H. lidocaine 5 Yes APPLY 1 [facility] % (700 2-14 PATCH D. ity of mg/patch) 00:00: LEAVE ON [place] patch 00 FOR 12 H Medical AND OFF Branch FOR 12 H. lidocaine 5 Yes APPLY 1 [facility] % (700 2-14 PATCH D. ity of mg/patch) 00:00: LEAVE ON [place] patch 00 FOR 12 H Medical AND OFF Branch FOR 12 H. lidocaine 5 Yes APPLY 1 [facility] % (700 2-14 PATCH D. ity of mg/patch) 00:00: LEAVE ON [place] patch 00 FOR 12 H Medical AND OFF Branch FOR 12 H. lidocaine 5 Yes APPLY 1 [facility] % (700 2-14 PATCH D. ity of mg/patch) 00:00: LEAVE ON [place] patch 00 FOR 12 H Medical AND OFF Branch FOR 12 H. lidocaine 5 Yes APPLY 1 [facility] % (700 2-14 PATCH D. ity of mg/patch) 00:00: LEAVE ON [place] patch 00 FOR 12 H Medical AND OFF Branch FOR 12 H. lidocaine 5 Yes APPLY 1 [facility] % (700 2-14 PATCH D. ity of mg/patch) 00:00: LEAVE ON [place] patch 00 FOR 12 H Medical AND OFF Branch FOR 12 H. lidocaine 5 Yes APPLY 1 [facility] % (700 2-14 PATCH D. ity of mg/patch) 00:00: LEAVE ON [place] patch 00 FOR 12 H Medical AND OFF Branch FOR 12 H. lidocaine 5 Yes APPLY 1 [facility] % (700 2-14 PATCH D. ity of mg/patch) 00:00: LEAVE ON [place] patch 00 FOR 12 H Medical AND OFF Branch FOR 12 H. lidocaine 5 Yes APPLY 1 [facility] % (700 2-14 PATCH D. ity of mg/patch) 00:00: LEAVE ON [place] patch 00 FOR 12 H Medical AND OFF Branch FOR 12 H. lidocaine 5 Yes APPLY 1 [facility] % (700 2-14 PATCH D. ity of mg/patch) 00:00: LEAVE ON [place] patch 00 FOR 12 H Medical AND OFF Branch FOR 12 H. lidocaine 5 Yes APPLY 1 [facility] % (700 2-14 PATCH D. ity of mg/patch) 00:00: LEAVE ON [place] patch 00 FOR 12 H Medical AND OFF Branch FOR 12 H. lidocaine 5 Yes APPLY 1 [facility] % (700 2-14 PATCH D. ity of mg/patch) 00:00: LEAVE ON [place] patch 00 FOR 12 H Medical AND OFF Branch FOR 12 H. lidocaine 5 Yes APPLY 1 [facility] % (700 2-14 PATCH D. ity of mg/patch) 00:00: LEAVE ON [place] patch 00 FOR 12 H Medical AND OFF Branch FOR 12 H. lidocaine 5 Yes APPLY 1 [facility] % (700 2-14 PATCH D. ity of mg/patch) 00:00: LEAVE ON [place] patch 00 FOR 12 H Medical AND OFF Branch FOR 12 H. lidocaine 5 Yes APPLY 1 [facility] % (700 2-14 PATCH D. ity of mg/patch) 00:00: LEAVE ON [place] patch 00 FOR 12 H Medical AND OFF Branch FOR 12 H. lidocaine 5 Yes APPLY 1 [facility] % (700 2-14 PATCH D. ity of mg/patch) 00:00: LEAVE ON [place] patch 00 FOR 12 H Medical AND OFF Branch FOR 12 H. lidocaine 5 Yes APPLY 1 [facility] % (700 2-14 PATCH D. ity of mg/patch) 00:00: LEAVE ON [place] patch 00 FOR 12 H Medical AND OFF Branch FOR 12 H. lidocaine 5 Yes APPLY 1 [facility] % (700 2-14 PATCH D. ity of mg/patch) 00:00: LEAVE ON [place] patch 00 FOR 12 H Medical AND OFF Branch FOR 12 H. lidocaine 5 Yes APPLY 1 [facility] % (700 2-14 PATCH D. ity of mg/patch) 00:00: LEAVE ON [place] patch 00 FOR 12 H Medical AND OFF Branch FOR 12 H. lidocaine 5 Yes APPLY 1 [facility] % (700 2-14 PATCH D. ity of mg/patch) 00:00: LEAVE ON [place] patch 00 FOR 12 H Medical AND OFF Branch FOR 12 H. lidocaine 5 Yes APPLY 1 [facility] % (700 2-14 PATCH D. ity of mg/patch) 00:00: LEAVE ON [place] patch 00 FOR 12 H Medical AND OFF Branch FOR 12 H. lidocaine 5 Yes APPLY 1 [facility] % (700 2-14 PATCH D. ity of mg/patch) 00:00: LEAVE ON [place] patch 00 FOR 12 H Medical AND OFF Branch FOR 12 H. lidocaine 5 Yes APPLY 1 [facility] % (700 2-14 PATCH D. ity of mg/patch) 00:00: LEAVE ON [place] patch 00 FOR 12 H Medical AND OFF Branch FOR 12 H. lidocaine 5 Yes APPLY 1 [facility] % (700 2-14 PATCH D. ity of mg/patch) 00:00: LEAVE ON [place] patch 00 FOR 12 H Medical AND OFF Branch FOR 12 H. lidocaine 5 Yes APPLY 1 [facility] % (700 2-14 PATCH D. ity of mg/patch) 00:00: LEAVE ON [place] patch 00 FOR 12 H Medical AND OFF Branch FOR 12 H. lidocaine 5 Yes APPLY 1 [facility] % (700 2-14 PATCH D. ity of mg/patch) 00:00: LEAVE ON [place] patch 00 FOR 12 H Medical AND OFF Branch FOR 12 H. lidocaine 5 Yes APPLY 1 [facility] % (700 2-14 PATCH D. ity of mg/patch) 00:00: LEAVE ON [place] patch 00 FOR 12 H Medical AND OFF Branch FOR 12 H. lidocaine 5 Yes APPLY 1 [facility] % (700 2-14 PATCH D. ity of mg/patch) 00:00: LEAVE ON [place] patch 00 FOR 12 H Medical AND OFF Branch FOR 12 H. lidocaine 5 Yes APPLY 1 [facility] % (700 2-14 PATCH D. ity of mg/patch) 00:00: LEAVE ON [place] patch 00 FOR 12 H Medical AND OFF Branch FOR 12 H. lidocaine 5 Yes APPLY 1 [facility] % (700 2-14 PATCH D. ity of mg/patch) 00:00: LEAVE ON [place] patch 00 FOR 12 H Medical AND OFF Branch FOR 12 H. lidocaine 5 Yes APPLY 1 [facility] % (700 2-14 PATCH D. ity of mg/patch) 00:00: LEAVE ON [place] patch 00 FOR 12 H Medical AND OFF Branch FOR 12 H. lidocaine 5 Yes APPLY 1 [facility] % (700 2-14 PATCH D. ity of mg/patch) 00:00: LEAVE ON [place] patch 00 FOR 12 H Medical AND OFF Branch FOR 12 H. lidocaine 5 Yes APPLY 1 [facility] % (700 2-14 PATCH D. ity of mg/patch) 00:00: LEAVE ON [place] patch 00 FOR 12 H Medical AND OFF Branch FOR 12 H. lidocaine 5 Yes APPLY 1 [facility] % (700 2-14 PATCH D. ity of mg/patch) 00:00: LEAVE ON [place] patch 00 FOR 12 H Medical AND OFF Branch FOR 12 H. lidocaine 5 Yes APPLY 1 [facility] % (700 2-14 PATCH D. ity of mg/patch) 00:00: LEAVE ON [place] patch 00 FOR 12 H Medical AND OFF Branch FOR 12 H. lidocaine 5 Yes APPLY 1 [facility] % (700 2-14 PATCH D. ity of mg/patch) 00:00: LEAVE ON [place] patch 00 FOR 12 H Medical AND OFF Branch FOR 12 H. lidocaine 5 Yes APPLY 1 [facility] % (700 2-14 PATCH D. ity of mg/patch) 00:00: LEAVE ON [place] patch 00 FOR 12 H Medical AND OFF Branch FOR 12 H. lidocaine 5 Yes APPLY 1 [facility] % (700 2-14 PATCH D. ity of mg/patch) 00:00: LEAVE ON [place] patch 00 FOR 12 H Medical AND OFF Branch FOR 12 H. lidocaine 5 2017-0 Yes APPLY 1 [facility] % (700 2-14 PATCH D. ity of mg/patch) 00:00: LEAVE ON [place] patch 00 FOR 12 H Medical AND OFF Branch FOR 12 H. KCL 10 mEq Yes TK 1 T PO [facility] tablet 2-01 D ity of 00:00: [place] [facility] KCL 10 mEq Yes TK 1 T PO Un [facility] tablet 2-01 D ity of 00:00: [place] [facility] KCL 10 mEq Yes TK 1 T PO Un [facility] tablet 2-01 D ity of 00:00: [place] [facility] KCL 10 mEq Yes TK 1 T PO Un [facility] tablet 2-01 D ity of 00:00: [place] [facility] KCL 10 mEq Yes TK 1 T PO Un [facility] tablet 2-01 D ity of 00:00: [place] [facility] KCL 10 mEq Yes TK 1 T PO Un [facility] tablet 2-01 D ity of 00:00: [place] [facility] KCL 10 mEq Yes TK 1 T PO Un [facility] tablet 2-01 D ity of 00:00: [place] [facility] KCL 10 mEq 2016- Yes TK 1 T PO Un [facility] tablet 2-01 D ity of 00:00: [place] [facility] KCL 10 mEq 2016- Yes TK 1 T PO Un [facility] tablet 2-01 D ity of 00:00: [place] [facility] KCL 10 mEq Yes TK 1 T PO Un [facility] tablet 2-01 D ity of 00:00: [place] [facility] KCL 10 mEq Yes TK 1 T PO Un [facility] tablet 2-01 D ity of 00:00: [place] [facility] KCL 10 mEq Yes TK 1 T PO Un [facility] tablet 2-01 D ity of 00:00: [place] [facility] KCL 10 mEq Yes TK 1 T PO Un [facility] tablet 2-01 D ity of 00:00: [place] [facility] KCL 10 mEq Yes TK 1 T PO Un [facility] tablet 2-01 D ity of 00:00: [place] [facility] KCL 10 mEq Yes TK 1 T PO Un [facility] tablet 2-01 D ity of 00:00: [place] [facility] KCL 10 mEq Yes TK 1 T PO Un [facility] tablet 2- D ity of 00:00: [place] [facility] KCL 10 mEq Yes TK 1 T PO Un [facility] tablet 2- D ity of 00:00: [place] [facility] KCL 10 mEq Yes TK 1 T PO Un [facility] tablet 2- D ity of 00:00: [place] [facility] KCL 10 mEq Yes TK 1 T PO Un [facility] tablet 2- D ity of 00:00: [place] [facility] KCL 10 mEq Yes TK 1 T PO Un [facility] tablet 2- D ity of 00:00: [place] [facility] KCL 10 mEq Yes TK 1 T PO Un [facility] tablet 2- D ity of 00:00: [place] [facility] KCL 10 mEq 2019- No TK 1 T PO U nivers tablet 2 08- D ity of 00:00: 00:00 [place] 00 :00 [facility] Branch lisinopril- Yes TK 1 T PO U nivers hydrochloro 1-27 QAM. ity of thiazide 00:00: [place] 20-12.5 mg 00 Medical per tablet Branch lisinopril- Yes TK 1 T PO U nivers hydrochloro 1-27 QAM. ity of thiazide 00:00: [place] 20-12.5 mg 00 Medical per tablet Branch lisinopril- Yes TK 1 T PO U nivers hydrochloro 1-27 QAM. ity of thiazide 00:00: [place] 20-12.5 mg 00 Medical per tablet Branch lisinopril- Yes TK 1 T PO U nivers hydrochloro 1-27 QAM. ity of thiazide 00:00: [place] 20-12.5 mg 00 Medical per tablet Branch lisinopril- Yes TK 1 T PO U nivers hydrochloro 1-27 QAM. ity of thiazide 00:00: [place] 20-12.5 mg 00 Medical per tablet Branch lisinopril- Yes TK 1 T PO U nivers hydrochloro 1-27 QAM. ity of thiazide 00:00: [place] 20-12.5 mg 00 Medical per tablet Branch lisinopril- Yes TK 1 T PO U nivers hydrochloro 1-27 QAM. ity of thiazide 00:00: [place] 20-12.5 mg 00 Medical per tablet Branch lisinopril- Yes TK 1 T PO U nivers hydrochloro 1-27 QAM. ity of thiazide 00:00: [place] 20-12.5 mg 00 Medical per tablet Branch lisinopril- Yes TK 1 T PO U nivers hydrochloro 1-27 QAM. ity of thiazide 00:00: [place] 20-12.5 mg 00 Medical per tablet Branch lisinopril- Yes TK 1 T PO U nivers hydrochloro 1-27 QAM. ity of thiazide 00:00: [place] 20-12.5 mg 00 Medical per tablet Branch lisinopril- Yes TK 1 T PO U nivers hydrochloro 1-27 QAM. ity of thiazide 00:00: [place] 20-12.5 mg 00 Medical per tablet Branch lisinopril- Yes TK 1 T PO U nivers hydrochloro 1-27 QAM. ity of thiazide 00:00: [place] 20-12.5 mg 00 Medical per tablet Branch lisinopril- Yes TK 1 T PO U nivers hydrochloro 1-27 QAM. ity of thiazide 00:00: [place] 20-12.5 mg 00 Medical per tablet Branch lisinopril- Yes TK 1 T PO U nivers hydrochloro 1-27 QAM. ity of thiazide 00:00: [place] 20-12.5 mg 00 Medical per tablet Branch lisinopril- Yes TK 1 T PO U nivers hydrochloro 1-27 QAM. ity of thiazide 00:00: [place] 20-12.5 mg 00 Medical per tablet Branch lisinopril- Yes TK 1 T PO U nivers hydrochloro 1-27 QAM. ity of thiazide 00:00: [place] 20-12.5 mg 00 Medical per tablet Branch lisinopril- Yes TK 1 T PO U nivers hydrochloro 1-27 QAM. ity of thiazide 00:00: [place] 20-12.5 mg 00 Medical per tablet Branch lisinopril- Yes TK 1 T PO U nivers hydrochloro 1-27 QAM. ity of thiazide 00:00: [place] 20-12.5 mg 00 Medical per tablet Branch lisinopril- Yes TK 1 T PO U nivers hydrochloro 1-27 QAM. ity of thiazide 00:00: [place] 20-12.5 mg 00 Medical per tablet Branch lisinopril- Yes TK 1 T PO U nivers hydrochloro 1-27 QAM. ity of thiazide 00:00: [place] 20-12.5 mg 00 Medical per tablet Branch lisinopril- Yes TK 1 T PO U nivers hydrochloro 1-27 QAM. ity of thiazide 00:00: [place] 20-12.5 mg 00 Medical per tablet Branch lisinopril- Yes TK 1 T PO U nivers hydrochloro 1-27 QAM. ity of thiazide 00:00: [place] 20-12.5 mg 00 Medical per tablet Branch lisinopril- Yes TK 1 T PO U nivers hydrochloro 1-27 QAM. ity of thiazide 00:00: [place] 20-12.5 mg 00 Medical per tablet Branch lisinopril- Yes TK 1 T PO U nivers hydrochloro 1-27 QAM. ity of thiazide 00:00: [place] 20-12.5 mg 00 Medical per tablet Branch lisinopril- Yes TK 1 T PO U nivers hydrochloro 1-27 QAM. ity of thiazide 00:00: [place] 20-12.5 mg 00 Medical per tablet Branch lisinopril- Yes TK 1 T PO U nivers hydrochloro 1-27 QAM. ity of thiazide 00:00: [place] 20-12.5 mg 00 Medical per tablet Branch lisinopril- Yes TK 1 T PO U nivers hydrochloro 1-27 QAM. ity of thiazide 00:00: [place] 20-12.5 mg 00 Medical per tablet Branch lisinopril- Yes TK 1 T PO U nivers hydrochloro 1-27 QAM. ity of thiazide 00:00: [place] 20-12.5 mg 00 Medical per tablet Branch lisinopril- Yes TK 1 T PO U nivers hydrochloro 1-27 QAM. ity of thiazide 00:00: [place] 20-12.5 mg 00 Medical per tablet Branch lisinopril- Yes TK 1 T PO U nivers hydrochloro 1-27 QAM. ity of thiazide 00:00: [place] 20-12.5 mg 00 Medical per tablet Branch lisinopril- Yes TK 1 T PO U nivers hydrochloro 1-27 QAM. ity of thiazide 00:00: [place] 20-12.5 mg 00 Medical per tablet Branch lisinopril- Yes TK 1 T PO U nivers hydrochloro 1-27 QAM. ity of thiazide 00:00: [place] 20-12.5 mg 00 Medical per tablet Branch lisinopril- Yes TK 1 T PO U nivers hydrochloro 1-27 QAM. ity of thiazide 00:00: [place] 20-12.5 mg 00 Medical per tablet Branch lisinopril- Yes TK 1 T PO U nivers hydrochloro 1-27 QAM. ity of thiazide 00:00: [place] 20-12.5 mg 00 Medical per tablet Branch lisinopril- Yes TK 1 T PO U nivers hydrochloro 1-27 QAM. ity of thiazide 00:00: [place] 20-12.5 mg 00 Medical per tablet Branch lisinopril- Yes TK 1 T PO U nivers hydrochloro 1-27 QAM. ity of thiazide 00:00: [place] 20-12.5 mg 00 Medical per tablet Branch lisinopril- Yes TK 1 T PO U nivers hydrochloro 1-27 QAM. ity of thiazide 00:00: [place] 20-12.5 mg 00 Medical per tablet Branch lisinopril- Yes TK 1 T PO U nivers hydrochloro 1-27 QAM. ity of thiazide 00:00: [place] 20-12.5 mg 00 Medical per tablet Branch lisinopril- Yes TK 1 T PO U nivers hydrochloro 1-27 QAM. ity of thiazide 00:00: [place] 20-12.5 mg 00 Medical per tablet Branch lisinopril- Yes TK 1 T PO U nivers hydrochloro 1-27 QAM. ity of thiazide 00:00: [place] 20-12.5 mg 00 Medical per tablet Branch lisinopril- Yes TK 1 T PO U nivers hydrochloro 1-27 QAM. ity of thiazide 00:00: [place] 20-12.5 mg 00 Medical per tablet Branch lisinopril- Yes TK 1 T PO U nivers hydrochloro 1-27 QAM. ity of thiazide 00:00: [place] 20-12.5 mg 00 Medical per tablet Branch lisinopril- Yes TK 1 T PO U nivers hydrochloro 1-27 QAM. ity of thiazide 00:00: [place] 20-12.5 mg 00 Medical per tablet Branch lisinopril- Yes TK 1 T PO U nivers hydrochloro 1-27 QAM. ity of thiazide 00:00: [place] 20-12.5 mg 00 Medical per tablet Branch lisinopril- Yes TK 1 T PO U nivers hydrochloro 1-27 QAM. ity of thiazide 00:00: [place] 20-12.5 mg 00 Medical per tablet Branch lisinopril Yes TK 1 T PO U nivers hydrochloro 1-27 QAM. ity of thiazide 00:00: [place] 20-12.5 mg 00 Medical per tablet Branch lisinopril- Yes TK 1 T PO U nivers hydrochloro 1-27 QAM. ity of thiazide 00:00: [place] 20-12.5 mg 00 Medical per tablet Branch lisinopril- Yes TK 1 T PO U nivers hydrochloro 1-27 QAM. ity of thiazide 00:00: [place] 20-12.5 mg 00 Medical per tablet Branch lisinopril- Yes TK 1 T PO U nivers hydrochloro 1-27 QAM. ity of thiazide 00:00: [place] 20-12.5 mg 00 Medical per tablet Branch lisinopril- Yes TK 1 T PO U nivers hydrochloro 1-27 QAM. ity of thiazide 00:00: [place] 20-12.5 mg 00 Medical per tablet Branch lisinopril- Yes TK 1 T PO U nivers hydrochloro 1-27 QAM. ity of thiazide 00:00: [place] 20-12.5 mg 00 Medical per tablet Branch lisinopril- Yes TK 1 T PO U nivers hydrochloro 1-27 QAM. ity of thiazide 00:00: [place] 20-12.5 mg 00 Medical per tablet Branch lisinopril- Yes TK 1 T PO U nivers hydrochloro 1-27 QAM. ity of thiazide 00:00: [place] 20-12.5 mg 00 Medical per tablet Branch lisinopril- Yes TK 1 T PO U nivers hydrochloro 1-27 QAM. ity of thiazide 00:00: [place] 20-12.5 mg 00 Medical per tablet Branch lisinopril- Yes TK 1 T PO U nivers hydrochloro 1-27 QAM. ity of thiazide 00:00: [place] 20-12.5 mg 00 Medical per tablet Branch lisinopril- Yes TK 1 T PO U nivers hydrochloro 1-27 QAM. ity of thiazide 00:00: [place] 20-12.5 mg 00 Medical per tablet Branch lisinopril Yes TK 1 T PO U nivers hydrochloro 1-27 QAM. ity of thiazide 00:00: [place] 20-12.5 mg 00 Medical per tablet Branch lisinopril Yes TK 1 T PO U nivers hydrochloro 1-27 QAM. ity of thiazide 00:00: [place] 20-12.5 mg 00 Medical per tablet Branch lisinopril Yes TK 1 T PO U nivers hydrochloro 1-27 QAM. ity of thiazide 00:00: [place] 20-12.5 mg 00 Medical per tablet Branch lisinopril Yes TK 1 T PO U nivers hydrochloro 1-27 QAM. ity of thiazide 00:00: [place] 20-12.5 mg 00 Medical per tablet Branch lisinopril- Yes TK 1 T PO U nivers hydrochloro 1-27 QAM. ity of thiazide 00:00: [place] 20-12.5 mg 00 Medical per tablet Branch lisinopril0 Yes TK 1 T PO U nivers hydrochloro 1-27 QAM. ity of thiazide 00:00: [place] 20-12.5 mg 00 Medical per tablet Branch lisinopril- Yes TK 1 T PO U nivers hydrochloro 1-27 QAM. ity of thiazide 00:00: [place] 20-12.5 mg 00 Medical per tablet Branch lisinopril- Yes TK 1 T PO U nivers hydrochloro 1-27 QAM. ity of thiazide 00:00: [place] 20-12.5 mg 00 Medical per tablet Branch lisinopril- Yes TK 1 T PO U nivers hydrochloro 1-27 QAM. ity of thiazide 00:00: [place] 20-12.5 mg 00 Medical per tablet Branch lisinopril- Yes TK 1 T PO U nivers hydrochloro 1-27 QAM. ity of thiazide 00:00: [place] 20-12.5 mg 00 Medical per tablet Branch cyclobenzap Yes TK 1 T PO U nivers rine 10 mg 1-17 BID ity of tablet 00:00: [place] [facility] cyclobenzap Yes TK 1 T PO U nivers rine 10 mg 1-17 BID ity of tablet 00:00: [place] [facility] cyclobenzap Yes TK 1 T PO U nivers rine 10 mg 1-17 BID ity of tablet 00:00: [place] [facility] cyclobenzap Yes TK 1 T PO U nivers rine 10 mg 1-17 BID ity of tablet 00:00: [place] [facility] cyclobenzap Yes TK 1 T PO U nivers rine 10 mg 1-17 BID ity of tablet 00:00: [place] [facility] cyclobenzap Yes TK 1 T PO U nivers rine 10 mg 1-17 BID ity of tablet 00:00: [place] [facility] cyclobenzap Yes TK 1 T PO U nivers rine 10 mg 1-17 BID ity of tablet 00:00: [place] [facility] cyclobenzap Yes TK 1 T PO U nivers rine 10 mg 1-17 BID ity of tablet 00:00: [place] [facility] cyclobenzap Yes TK 1 T PO U nivers rine 10 mg 1-17 BID ity of tablet 00:00: [place] [facility] cyclobenzap Yes TK 1 T PO U nivers rine 10 mg 1-17 BID ity of tablet 00:00: [place] [facility] cyclobenzap Yes TK 1 T PO U nivers rine 10 mg 1-17 BID ity of tablet 00:00: [place] [facility] cyclobenzap Yes TK 1 T PO U nivers rine 10 mg 1-17 BID ity of tablet 00:00: [place] [facility] cyclobenzap Yes TK 1 T PO U nivers rine 10 mg 1-17 BID ity of tablet 00:00: [place] [facility] cyclobenzap Yes TK 1 T PO U nivers rine 10 mg 1-17 BID ity of tablet 00:00: [address] cyclobenzap Yes TK 1 T PO U nivers rine 10 mg 1-17 BID ity of tablet 00:00: [place] [facility] cyclobenzap Yes TK 1 T PO U nivers rine 10 mg 1-17 BID ity of tablet 00:00: [place] [facility] cyclobenzap Yes TK 1 T PO U nivers rine 10 mg 1-17 BID ity of tablet 00:00: [place] [facility] cyclobenzap Yes TK 1 T PO U nivers rine 10 mg 1-17 BID ity of tablet 00:00: [place] [facility] cyclobenzap Yes TK 1 T PO U nivers rine 10 mg 1-17 BID ity of tablet 00:00: [place] [facility] cyclobenzap Yes TK 1 T PO U nivers rine 10 mg 1-17 BID ity of tablet 00:00: [place] [facility] cyclobenzap Yes TK 1 T PO U nivers rine 10 mg 1-17 BID ity of tablet 00:00: [place] [facility] cyclobenzap Yes TK 1 T PO U nivers rine 10 mg 1-17 BID ity of tablet 00:00: [place] [facility] cyclobenzap Yes TK 1 T PO U nivers rine 10 mg 1-17 BID ity of tablet 00:00: [place] [facility] cyclobenzap 2017 Yes TK 1 T PO U nivers rine 10 mg 1-17 BID ity of tablet 00:00: [place] [facility] cyclobenzap Yes TK 1 T PO U nivers rine 10 mg 1-17 BID ity of tablet 00:00: [place] [facility] cyclobenzap Yes TK 1 T PO U nivers rine 10 mg 1-17 BID ity of tablet 00:00: [place] [facility] cyclobenzap Yes TK 1 T PO U nivers rine 10 mg 1-17 BID ity of tablet 00:00: [place] [facility] cyclobenzap Yes TK 1 T PO U nivers rine 10 mg 1-17 BID ity of tablet 00:00: [place] [facility] cyclobenzap Yes TK 1 T PO U nivers rine 10 mg 1-17 BID ity of tablet 00:00: [place] [facility] cyclobenzap Yes TK 1 T PO U nivers rine 10 mg 1-17 BID ity of tablet 00:00: [place] [facility] cyclobenzap Yes TK 1 T PO U nivers rine 10 mg 1-17 BID ity of tablet 00:00: [place] [facility] cyclobenzap Yes TK 1 T PO U nivers rine 10 mg 1-17 BID ity of tablet 00:00: [place] [facility] cyclobenzap Yes TK 1 T PO U nivers rine 10 mg 1-17 BID ity of tablet 00:00: [place] [facility] cyclobenzap Yes TK 1 T PO U nivers rine 10 mg 1-17 BID ity of tablet 00:00: [place] [facility] cyclobenzap Yes TK 1 T PO U nivers rine 10 mg 1-17 BID ity of tablet 00:00: [place] [facility] cyclobenzap Yes TK 1 T PO U nivers rine 10 mg 1-17 BID ity of tablet 00:00: [place] [facility] cyclobenzap Yes TK 1 T PO U nivers rine 10 mg 1-17 BID ity of tablet 00:00: [place] [facility] cyclobenzap Yes TK 1 T PO U nivers rine 10 mg 1-17 BID ity of tablet 00:00: [place] [facility] cyclobenzap 2017 Yes TK 1 T PO U nivers rine 10 mg 1-17 BID ity of tablet 00:00: [place] [facility] cyclobenzap 2017 Yes TK 1 T PO U nivers rine 10 mg 1-17 BID ity of tablet 00:00: [place] [facility] cyclobenzap 2017 Yes TK 1 T PO U nivers rine 10 mg 1-17 BID ity of tablet 00:00: [place] [facility] cyclobenzap 2017 Yes TK 1 T PO U nivers rine 10 mg 1-17 BID ity of tablet 00:00: [place] [facility] cyclobenzap Yes TK 1 T PO U nivers rine 10 mg 1-17 BID ity of tablet 00:00: [place] [facility] cyclobenzap Yes TK 1 T PO U nivers rine 10 mg 1-17 BID ity of tablet 00:00: [place] [facility] cyclobenzap 2017 Yes TK 1 T PO U nivers rine 10 mg 1-17 BID ity of tablet 00:00: [place] [facility] cyclobenzap Yes TK 1 T PO U nivers rine 10 mg 1-17 BID ity of tablet 00:00: [place] [facility] cyclobenzap Yes TK 1 T PO U nivers rine 10 mg 1-17 BID ity of tablet 00:00: [place] [facility] cyclobenzap Yes TK 1 T PO U nivers rine 10 mg 1-17 BID ity of tablet 00:00: [place] [facility] cyclobenzap 2017 Yes TK 1 T PO U nivers rine 10 mg 1-17 BID ity of tablet 00:00: [place] [facility] cyclobenzap Yes TK 1 T PO U nivers rine 10 mg 1-17 BID ity of tablet 00:00: [place] [facility] cyclobenzap Yes TK 1 T PO U nivers rine 10 mg 1-17 BID ity of tablet 00:00: [address] cyclobenzap Yes TK 1 T PO U nivers rine 10 mg 1-17 BID ity of tablet 00:00: [place] [facility] cyclobenzap 2017-0 Yes TK 1 T PO U nivers rine 10 mg 1-17 BID ity of tablet 00:00: [place] [facility] cyclobenzap 2017 Yes TK 1 T PO U nivers rine 10 mg 1-17 BID ity of tablet 00:00: [place] [facility] cyclobenzap Yes TK 1 T PO U nivers rine 10 mg 1-17 BID ity of tablet 00:00: [place] [facility] cyclobenzap Yes TK 1 T PO U nivers rine 10 mg 1-17 BID ity of tablet 00:00: [place] [facility] cyclobenzap Yes TK 1 T PO U nivers rine 10 mg 1-17 BID ity of tablet 00:00: [place] [facility] cyclobenzap Yes TK 1 T PO U nivers rine 10 mg 1-17 BID ity of tablet 00:00: [place] [facility] cyclobenzap Yes TK 1 T PO U nivers rine 10 mg 1-17 BID ity of tablet 00:00: [place] [facility] cyclobenzap Yes TK 1 T PO U nivers rine 10 mg 1-17 BID ity of tablet 00:00: [place] [facility] cyclobenzap Yes TK 1 T PO U nivers rine 10 mg 1-17 BID ity of tablet 00:00: [place] [facility] cyclobenzap Yes TK 1 T PO U nivers rine 10 mg 1-17 BID ity of tablet 00:00: [place] [facility] cyclobenzap Yes TK 1 T PO U nivers rine 10 mg 1-17 BID ity of tablet 00:00: [place] [facility] cyclobenzap Yes TK 1 T PO U nivers rine 10 mg 1-17 BID ity of tablet 00:00: [place] [facility] cyclobenzap Yes TK 1 T PO U nivers rine 10 mg 1-17 BID ity of tablet 00:00: [place] [facility] cyclobenzap Yes TK 1 T PO U nivers rine 10 mg 1-17 BID ity of tablet 00:00: [address] Immunizations Ordered Filled Immunization Date Status Comments Sour e Immunization Name Name Influenza High Dose 2020-07-05 Completed [facility] 00:00:00 [facility] Influenza High Dose 2020-07-05 Completed [facility] 00:00:00 [facility] Influenza High Dose 2020-07-05 Completed [facility] 00:00:00 [facility] Influenza High Dose 2020-07-05 Completed [facility] 00:00:00 [facility] Influenza High Dose 2020-07-05 Completed [facility] 00:00:00 [facility] Influenza High Dose 2020-07-05 Completed [facility] 00:00:00 [facility] Influenza High Dose 2020-07-05 Completed [facility] 00:00:00 [facility] Influenza High Dose 2020-07-05 Completed [facility] 00:00:00 [facility] Influenza High Dose 2020-07-05 Completed [facility] 00:00:00 [facility] Influenza High Dose 2020-07-05 Completed [facility] 00:00:00 [facility] Influenza High Dose 2020-07-05 Completed [facility] 00:00:00 [facility] Influenza High Dose 2020-07-05 Completed [facility] 00:00:00 [facility] Influenza High Dose 2020-07-05 Completed [facility] 00:00:00 [facility] Influenza High Dose 2020-07-05 Completed [facility] 00:00:00 [facility] Influenza High Dose 2020-07-05 Completed [facility] of [facility] 00:00:00 [facility] Influenza High Dose 2020-07-05 Completed [facility]ive [facility] of [facility] 00:00:00 [facility] Influenza High Dose 2020-07-05 Completed [facility]ive [facility] of [facility] 00:00:00 [facility] Influenza High Dose 2020-07-05 Completed [facility]ive [facility] of [facility] 00:00:00 [facility] Influenza High Dose 2020-07-05 Completed [facility] 00:00:00 [facility] Influenza High Dose 2020-07-05 Completed [facility] of [facility] 00:00:00 [facility] Influenza High Dose 2020-07-05 Completed [facility] of [facility] 00:00:00 [facility] Influenza High Dose 2020-07-05 Completed [facility] 00:00:00 [facility] Influenza High Dose 2020-07-05 Completed [facility] 00:00:00 [facility] Vital Signs Vital Name Observation Time Observation Value Comments Source Body temperature 2021-04-15 18:00:00 36.61 Mona [facility] [place] [facility] Body height 2021-04-15 18:00:00 162.6 cm [facility] [place] [facility] Body weight 2021-04-15 18:00:00 77.111 kg [facility] BMI 2021-04-15 18:00:00 29.18 kg/m2 [facility] Body temperature 2021-04-01 20:11:00 35.83 Mona [facility] [place] [facility] Body height 2021-04-01 20:11:00 162.6 cm [facility] [place] [facility] Body weight 2021-04-01 20:11:00 77.111 kg [facility] [place] [facility] BMI 2021-04-01 20:11:00 29.18 kg/m2 [facility] Body temperature 2021-01-14 19:38:00 36.17 Mona [facility] Body height 2021-01-14 19:38:00 162.6 cm [facility] [place] [facility] Body weight 2021-01-14 19:38:00 75.751 kg [facility] [place] [facility] BMI 2021-01-14 19:38:00 28.67 kg/m2 [facility] [place] [facility] Systolic blood 2020-12-03 21:14:00 115 mm[Hg] Univer sity of pressure [facility] Diastolic blood 2020-12-03 21:14:00 75 mm[facility]Hg[facility] Heart rate 2020-12-03 21:14:00 83 /min [facility] [place] [facility] Respiratory rate 2020-12-03 21:14:00 19 /min [facility] [place] [facility] Body height 2020-12-03 21:14:00 162.6 cm [facility] [place] [facility] Body weight 2020-12-03 21:14:00 75.751 kg [facility] [place] [facility] BMI 2020-12-03 21:14:00 28.67 kg/m2 [facility] [place] [facility] Oxygen saturation in 2020-12-03 21:14:00 97 /min [facility] of Arterial blood by [facility] aretha P[facility] oxim[facility] Branch Body temperature 2020-10-15 21:43:00 36.83 Mona [facility] [place] [facility] Body height 2020-10-15 21:43:00 162.6 cm [facility] [place] [facility] Body weight 2020-10-15 21:43:00 77.656 kg [facility] [place] [facility] BMI 2020-10-15 21:43:00 29.39 kg/m2 [facility] [place] [facility] Systolic blood 2020-07-09 18:15:00 116 mm[Hg] [facility] [place] [facility] Diastolic blood 2020-07-09 18:15:00 73 mm[Hg] [facility]ive [facility] [place] [facility] Heart rate 2020-07-09 18:15:00 83 /min [facility] [place] [facility] Body temperature 2020-07-09 18:15:00 36.61 Mona [facility] [place] [facility] Body height 2020-07-09 18:15:00 162.6 cm [facility] [place] [facility] Body weight 2020-07-09 18:15:00 76.476 kg [facility] [place] [facility] BMI 2020-07-09 18:15:00 28.94 kg/m2 [facility] [place] [facility] Systolic blood 2020-05-19 21:00:00 135 mm[Hg] [facility] Diastolic blood 2020-05-19 21:00:00 76 mm[Hg] [facility] [place] [facility] Heart rate 2020-05-19 21:00:00 78 /min [facility] [place] [facility] Respiratory rate 2020-05-19 21:00:00 18 /min [facility] [place] [facility] Oxygen saturation in 2020-05-19 21:00:00 98 /min [facility] Arterial blood by [facility] Branch Body temperature 2020-05-19 17:46:00 36.89 Mona [facility] [place] [facility] Body weight 2020-05-19 17:45:00 76.204 kg [facility] [place] [facility] BMI 2020-05-19 17:45:00 28.84 kg/m2 [facility] [place] [facility] Systolic blood 2020-02-13 19:11:00 143 mm[Hg] Univer [facility]ity of [facility] [place] [facility] Diastolic blood 2020-02-13 19:11:00 79 mm[Hg] Unive rsity of pressure [facility] Heart rate 2020-02-13 19:11:00 93 /min Universi ty of [facility] Body height 2020-02-13 19:11:00 162.6 cm Universi ty of [facility] Body weight 2020-02-13 19:11:00 78.019 kg Universi [facility] of [facility] BMI 2020-02-13 19:11:00 29.52 kg/m2 [facility] Systolic blood 2020-02-13 19:11:00 143 mm[Hg] Univer sity of pressure [facility] Diastolic blood 2020-02-13 19:11:00 79 mm[Hg] Unive rsity of pressure [facility] Heart rate 2020-02-13 19:11:00 93 /min Universi ty of [facility] Body height 2020-02-13 19:11:00 162.6 cm Universi ty of [facility] Body weight 2020-02-13 19:11:00 78.019 kg Universi [facility] of [facility] BMI 2020-02-13 19:11:00 29.52 kg/m2 Univers[facility] of [facility] Systolic blood 2020-01-03 16:15:00 133 mm[Hg] Univer sity of pressure [facility] Diastolic blood 2020-01-03 16:15:00 65 mm[Hg] Unive rsity of pressure [facility] Heart rate 2020-01-03 16:15:00 81 /min Universi ty of [facility] Body temperature 2020-01-03 16:15:00 36.94 Mona [facility] Respiratory rate 2020-01-03 16:15:00 18 /min Univ ersity of [facility] Body weight 2020-01-03 16:15:00 75.751 kg Universi ty of [facility] BMI 2020-01-03 16:15:00 28.67 kg/m2 Universi ty of [facility] Oxygen saturation in 2020-01-03 16:15:00 99 /min University Arterial blood by [facility] Branch Body temperature 2019-06-25 18:20:00 36.67 Mona [facility] Body weight 2019-06-25 18:20:00 75.161 kg Universi ty of [facility] BMI 2019-06-25 18:20:00 28.44 kg/m2 [facility] [place] [facility] Systolic blood 2019-06-14 00:00:00 105 mm[Hg] [facility] Diastolic blood 2019-06-14 00:00:00 86 mm[Hg] [facility] Heart rate 2019-06-13 23:30:00 92 /min [facility] [place] [facility] Respiratory rate 2019-06-13 23:30:00 22 /min [facility] [place] [facility] Oxygen saturation in 2019-06-13 23:30:00 96 /min [facility] Arterial blood by [address] aretha [facility] Branch Body temperature 2019-06-13 22:30:00 36.89 Mona [facility] [place] [facility] Body height 2019-06-13 16:48:00 162.6 cm [facility] [place] [facility] Body weight 2019-06-13 16:48:00 72.576 kg [facility] [place] [facility] BMI 2019-06-13 16:48:00 27.46 kg/m2 [facility] [place] [facility] Systolic blood 2019-05-08 19:16:00 118 mm[Hg] [facility] Diastolic blood 2019-05-08 19:16:00 87 mm[Hg] [facility] Heart rate 2019-05-08 19:16:00 83 /min [facility] [place] [facility] Body temperature 2019-05-08 19:16:00 36.61 Mona [facility] [place] [facility] Respiratory rate 2019-05-08 19:16:00 17 /min [facility] [place] [facility] Body height 2019-05-08 19:16:00 162.6 cm [facility] [place] [facility] Body weight 2019-05-08 19:16:00 72.576 kg [facility] [place] [facility] BMI 2019-05-08 19:16:00 27.46 kg/m2 [facility] [place] [facility] Oxygen saturation in 2019-05-08 19:16:00 95 /min [facility] Arterial blood by [address] aretha [facility] Branch Procedures Procedure Date / Time Performing Clinician Source Performed MEDICAL 2021-04-28 05:01:00 [facility] FORMS Name Medical Branch XR HIPS 3 VW RIGHT 2021-04-15 18:41:24 Miryam Paulino [facility] MR LUMBAR SPINE WO 2021-04-09 19:31:03 Helio Chavez [facility] CONTRAST Medical Branch NM MYOCARDIUM PERFUSION 2020-12-18 17:16:00 Luis, [facility] STRESS AND REST Medical Branch NM MYOCARDIUM PERFUSION 2020-12-18 17:16:00 Luis, [facility] STRESS AND REST Medical Branch NM MYOCARDIUM PERFUSION 2020-12-18 17:16:00 Luis, [facility] STRESS AND REST Medical Branch NM MYOCARDIUM PERFUSION 2020-12-18 17:16:00 Luis, [facility] STRESS AND REST Medical Branch IA ELECTROCARDIOGRAM, 2020-12-03 21:22:23 [facility] COMPLETE [facility] CONSENT/REFUSAL FOR 2020-12-03 20:38:29 Doctor Unassigned, No Un [facility] DIAGNOSIS AND TREATMENT Name Medical Branch XR KNEE 3 VW RIGHT 2020-07-09 18:46:00 Scottie Avila [facility] CT ABDOMEN PELVIS W WO 2020-05-19 19:55:59 Melvin Carranza [facility] HB ABO GROUPING 2020-05-19 18:45:00 Dillon Melvin [facility] TROPONIN I 2020-05-19 18:43:00 Dillon Melvin [facility] HEPATIC FUNCTION PANEL 2020-05-19 18:43:00 Melvin Carranza [facility] ([id number]) (ALB,T.PRO,BILI Medical Branch T,BU/BC,ALT,AST,ALK PHOS) BASIC METABOLIC PANEL 2020-05-19 18:43:00 Melvin Carranza [facility] (NA, K, CL, CO2, Medical Branch GLUCOSE, BUN, CREATININE, CA) CBC WITH DIFF 2020-05-19 18:43:00 Melvin Carranza [facility] PROTHROMBIN TIME / INR 2020-05-19 18:43:[address] [facility] ACTIVATED PARTIAL 2020-05-19 18:43:00 Melvin Carranza [facility] THRMPLAS [facility] N-TERMINAL PRO-BNP 2020-05-19 18:43:00 Melvin Carranza [facility] LACTIC ACID WHOLE BLOOD 2020-05-19 18:43:[address] [facility] CONSENT/REFUSAL FOR 2020-05-19 17:30:06 [facility] Name [facility] Branch CONSENT/REFUSAL FOR 2020-05-19 17:30:05 [facility] Name Medical Branch EXTERNAL PROVIDER 2020-04-30 05:01:00 Doctor Unassigned, No [facility] RECORDS Name [facility] XR ABDOMEN ACUTE SERIES 2020-01-03 17:11:[address] [facility] LIPASE 2020-01-03 16:56:[address] [facility] HEPATIC FUNCTION PANEL 2020-01-03 16:56:00 Petr Gorman [facility] ([id number]) (ALB,T.PRO,BILI [facility] T,BU/BC,ALT,AST,ALK PHOS) BASIC METABOLIC PANEL 2020-01-03 16:56:00 Petr Gorman [facility] (NA, K, CL, CO2, [facility] [place] GLUCOSE, BUN, CREATININE, CA) CBC WITH DIFFERENTIAL 2020-01-03 16:56:00 Petr Gorman [facility] POCT GLUCOSE 2019-06-13 23:27:00 Stephen Elmore [facility] (AUTOMATED) [facility] FL TIME OR 2019-06-13 21:29:30 Alphonso [facility] (NON-REPORTABLE) [facility] VBG+VCOOX+[id number]+[id number]+[id number]+ 2019-06-13 20:23:00 Stephen [facility] TYPE AND SCREEN 2019-06-13 17:35:00 [facility]ENTIAL 2019-06-13 17:34:00 Alphonso Chika [facility] ABORH CONFIRMATION 2019-06-13 17:30:00 Stephen Elmore [facility] POCT GLUCOSE 2019-06-13 16:58:00 Stephen Elmore [facility] (AUTOMATED) [facility] ASSIGNMENT OF BENEFITS 2019-06-13 15:03:09 Doctor Unassigned, No [facility] [place] MR ABDOMEN W WO 2019-05-24 21:03:45 Santi Saravia [facility] CONTRAST Medical Branch ASSIGNMENT OF BENEFITS 2019-05-24 19:53:26 Doctor Unassigned, No [facility] CT ANGIOGRAM 2019-05-16 17:08:36 Santi Saravia [facility] ABDOMEN/PELVIS Medical Branch NOTICE OF PRIVACY 2019-05-16 15:51:31 Doctor Unassigned, No [facility] PRACTICES [facility] Medical Branch CONSENT/REFUSAL FOR 2019-05-16 15:50:51 Doctor [facility]igned, [facility] [place] ASSIGNMENT OF BENEFITS 2019-05-16 15:50:35 Doctor Unassigned, No [facility] EXTERNAL PROVIDER 2019-05-08 05:01:00 Doctor Unassigned, No [facility] EXTERNAL PROVIDER 2018-08-23 06:01:00 Doctor Unassigned, No [facility] [place] Encounters Start End Encounter Admission Attending Care Care Encounter Source Date/Time Date/Time Type Type Clinicians Facility Department ID 2021-08-[address] [facility] [id number] Univers 11:33:25 ity [facility] 2021-08-[address] [facility] [id number] [facility]-12-08 2021-12-08 Outpatient R LUIS, [facility] [id number] Univers 13:20:00 13:20:00 NORMA [id number] alondray o f [facility] 2021-05-20 2021-05-20 Outpatient R MARGARITA, [facility] [id number] Univers 13:30:00 13:30:00 SCOTTIE [id number] ity [facility] 2021-04-28 2021-04-28 Outpatient LUIS, [facility] [id number] Univers 15:20:00 15:20:00 NORMA [id number] ity o f [facility] 2021-04-28 2021-04-28 Outpatient R LUIS [facility] [id number] Univers 15:20:00 15:20:00 NORMA ity o f [facility] 2021-04-28 2021-04-28 Orders Doctor RYANNE [id number] Univers 00:00:00 00:00:00 Only Unassigned, SABRINA [id number] ity of [facility] [id number] Arun as [id number] [facility] [address] [place] 2021-04-23 2021-04-23 Patient Doctor RYANNE [id number] Univers 00:00:00 00:00:00 Secure Msg Unassigned, SABRINA [id number] [facility] [id number] Arun as [phone] [facility] 019 [place] 2021-04-15 2021-04-15 Hospital [facility] 1.2.840.114 [id number] Univers 13:26:09 23:59:00 Encounter Scottie Lucas SPECIALTY 350.1.13.10 [phone] [place] VELASCO 809 [facility] 2021-04-15 2021-04-15 Office [facility] 1.2.840.114 [id number] Univers 12:58:36 14:13:33 Visit Scottie W SPECIALTY 350.1.13.10 it[place] [phone] [place] VELASCO 198 [facility] 2021-04-15 2021-04-15 Out[facility] [id number] -20 Univers 13:10:00 13:10:00 SCOTTIE [id number] [place] [facility] 2021-04-15 2021-04-15 Outpatient [facility] [id number] Univers 13:10:00 13:10:00 SCOTTIE coleman [facility] 2021-04-09 2021-04-09 [facility] 1.2.840.114 [id number] Univers 12:49:16 23:59:00 Encounter Scottie Lopez 350.1.13.10 ity [facility] 4.2.7.2.686 [facility] [phone] [facility] [address] [place] 2021-04-09 2021-04-09 Outpatient [facility] [id number] -20 Univers 13:15:00 13:15:00 SCOTTIE [id number] [facility] 2021-04-09 2021-04-09 Outpatient [facility] [id number] Univers 00:00:00 00:00:00 SCOTTIE [facility] 2021-04-01 2021-04-01 [facility] 1.2.840.114 [id number] Univers 13:55:52 15:54:17 Visit Scottie VENTURA 350.1.13.10 ity of CARE 4.2.7.2.686 [facility] AT [phone] [place] faith VELASCO [address] [place] [address] 2021-04-01 2021-04-01 Outpatient [facility] [id number] -20 Univers 14:40:00 14:40:00 SCOTTIE [id number] [facility] 2021-04-01 2021-04-01 Outpatient [facility] [id number] Univers 14:40:00 14:40:00 SCOTTIE [facility] 2021-03-18 2021-03-18 Outpatient [facility] [id number] -[id number] Univers 13:20:00 13:20:00 SCOTTIE [id number] [facility] 2021-03-18 2021-03-18 Outpatient [facility] [id number] Univers 13:20:00 13:20:00 SCOTTIE [facility] 2021-01-14 2021-01-14 Office [facility] 1.2.840.114 [id number] Univers 14:07:41 15:08:56 Visit Scottie VENTURA 350.1.13.10 ity of CARE 4.2.7.2.686 [facility] AT [phone] [place] faith VELASCO [address] [place] [address] 2021-01-14 2021-01-14 Outpatient R MARGARITA, [facility] [id number] -[id number] Univers 14:40:00 14:40:00 SCOTTIE [id number] ity [facility] 2021-01-14 2021-01-14 Outpatient R MARGARITA, [facility] [id number] Univers 14:40:00 14:40:00 SCOTTIE ity [facility] 2021-01-09 2021-01-09 Outpatient MARGARITA, [facility] [id number] -[id number] Univers 10:30:00 10:30:00 SCOTTIE [id number] ity [facility] 2021-01-09 2021-01-09 Outpatient R MARGARITA, [facility] [id number] Univers 10:30:00 10:30:00 SCOTTIE [facility] 2020-12-18 2020-12-18 [facility] 1.2.840.114 [id number] Univers 08:32:15 23:59:00 Encounter Norma Lopez 350.1.13.10 ity of [place] 4.2.7.2.[address] [place] [address] [phone] [facility] [address] [place] [address] 2020-12-18 2020-12-18 Outpatient [facility] [id number] Univers 09:00:00 09:00:00 NORMA coleman o f [facility] 2020-12-18 2020-12-18 [facility] 1.2.840.114 [id number] Univers 08:32:00 08:32:00 Encounter Norma Lopez 350.1.13.10 ity of [place] 4.2.7.[address] [place] [address] [phone] [facility] [address] 2020-12-18 2020-12-18 [facility] 1.2.840.114 [id number] Univers 08:31:42 08:31:42 Encounter Norma [place] 350.1.13.10 ity of [place] 4.2.7.2.686 [facility] [place] [facility] [id number] [facility] [address] 2020-12-18 2020-12-18 [facility] 1.2.840.114 [id number] Univers 08:31:26 08:31:26 Encounter Norma Lopez 350.1.13.10 [place] [phone] [facility] [address] 2020-12-18 2020-12-18 Outpatient R [facility] [id number] -[id number] Univers 08:00:00 08:00:00 [id number] ity of [facility] 2020-12-18 2020-12-18 Outpatient [facility] [id number] Univers 00:00:00 00:00:[address] [facility] 2020-12-16 2020-12-16 Outpatient R [facility] [id number] Univers 08:30:00 08:30:00 [id number] ity [facility] 2020-12-08 2020-12-08 [facility] 1.2.840.114 [id number] Univers 00:00:00 00:00:00 Outreach Parmjit [facility] 350.1.13.10 i ty of [facility] 4.2.7.2.[place] [phone] [place] dical [address] 2020-12-03 2020-12-03 Office [facility] [employer] [facility] 1.2.840.114 [id number] Univers 14:38:38 15:40:37 Visit Norma [place] 350.1.13.10 it[place].2.[place].2.[place] [phone] [place] dical nal 059 [facility] 2020-12-03 2020-12-03 Outpatient R [facility] [id number] -[id number] Univers 15:00:00 15:00:00 [facility] [id number] it[facility] o [facility] 2020-12-03 2020-12-03 Outpatient R [facility] [id number] Univers 15:00:00 15:00:[address] coleman o [facility] 2020-12-03 2020-12-03 Orders Doctor PEARL 1.2.840.114 [id number] Univers 00:00:00 00:00:00 Only Unassigned, SABRINA 350.1.13.10 ity of [place] [facility] 4.2.7.2.686 Arun as [phone] [address] 2020-11-10 2020-11-10 Outpatient LUIS, [facility] [id number] -[id number] Univers 15:20:00 15:20:[address]MA [id number] ity o [facility] 2020-11-10 2020-11-10 Outpatient R LUIS, [facility] [id number] Univers 15:20:00 15:20:00 NORMA [facility] 2020-11-04 2020-11-04 Outpatient LUIS, [facility] [id number] -[id number] Univers 14:40:00 14:40:00 ELSADARCY [id number] [facility] 2020-10-15 2020-10-15 Office [facility] 1.2.840.114 [id number] Univers 15:10:25 16:25:25 Visit Scottie Lucas SPECIALTY 350.1.13.10 it[place] [phone] [place] faith [address] 2020-10-15 2020-10-15 Outpatient R LUIS, [facility] [id number] -[id number] Univers 13:00:00 13:00:00 ELSADARCY [id number] [facility] 2020-10-15 2020-10-15 Outpatient R LUIS, [facility] [id number] Univers 13:00:00 13:00:00 NORMA [facility] 2020-10-08 2020-10-08 [facility] [id number] -20 Univers 14:00:00 14:00:00 SCOTTIE [id number] ity [facility] 2020-10-08 2020-10-08 Out[facility] [id number] Univers 14:00:00 14:00:00 SCOTTIE [facility] 2020-07-09 2020-07-09 Hospital [facility] 1.2.840.114 [id number] Univers 13:21:48 23:59:00 Encounter Scottie Lucas SPECIALTY 350.1.13.10 it[place] [phone] [place] faith VELASCO 809 [facility] 2020-07-09 2020-07-09 Office [facility] 1.2.840.114 [id number] Univers 13:09:54 17:36:54 Visit Scottie VENTURA 350.1.13.10 ity of [facility] 4.2.7.2.686 [facility] AT [phone] [place] faith VELASCO 198 [facility] 2020-07-09 2020-07-09 Outpatient [facility] [id number] -20 Univers 14:00:00 14:00:00 SCOTTIE [id number] ity [facility] 2020-07-09 2020-07-09 Outpatient [facility] [id number] Univers 14:00:00 14:00:00 [facility] 2020-06-03 2020-06-03 Outpatient [facility] [id number] Univers 15:30:00 15:30:00 STEPHEN [id number] ity [facility] 2020-05-19 2020-05-19 Emergency Melvin Carranza R[place] 1.2.840. 114 [id number] Univers 12:48:00 16:14:00 Alphonso Ramos [place] 350.1.13.10 ity of [place] 4.2.7.2.686 [facility] [phone] [facility] [address] 2020-05-19 2020-05-19 Orders Doctor PEARL 1.2.840.114 [id number] Univers 00:00:00 00:00:00 Only Unassigned, SABRINA 350.1.13.10 ity [place] [facility] 4.2.7.2.686 [facility] [phone] [facility] [address] 2020-05-06 2020-05-06 Outpatient R [facility] [id number]-20 Univers 14:15:00 14:15:00 STEPHEN [id number] ity [facility] 2020-05-06 2020-05-06 Outpatient R [facility] [id number] Univers 14:15:00 14:15:00 STEPHEN coleman [facility] 2020-04-30 2020-04-30 Orders Doctor PEARL 1.2.840.114 [id number] Univers 00:00:00 00:00:00 Only Unassigned, SABRINA 350.1.13.10 it[place] [facility] 4.2.7.2.686 Arun as [phone] [address] 2020-02-13 2020-02-13 Office Gayatri [facility] 1.2.840.114 [id number] 14:05:00 14:38:26 Visit [facility] 350.1.13.10 Surgical 4.2.7.2.686 Specialti [phone] es [address] [place] [address] 2020-02-13 2020-02-13 Office [facility] 1.2.840.114 [id number] Univers 14:05:00 14:38:26 Visit [facility] 350.1.13.10 it y of Surgical 4.2.7.2.686 Arun as Specialti [phone] Me faith es [address] [place] [address] 2020-02-13 2020-02-13 Outpatient Hortensia MENDIETA [facility] [id number] -[id number] Univers 14:30:00 14:30:00 KENZIE ity [facility] 2020-02-13 2020-02-13 Outpatient [facility] [id number] Univers 14:30:00 14:30:00 KENZIE [facility] 2020-02-12 2020-02-12 Outpatient R OLINDA [facility] [id number] Univers 14:15:00 14:15:00 COLLEEN [facility] 2020-01-03 2020-01-03 Emergency Sherif [facility] 1.2.473.730 [id number] Univers 11:17:06 14:12:00 [facility] 350.1.13.10 it y of [place] 4.2.7.2.686 [facility] s [place] [phone] [address] ([facility]) 2019-12-31 2019-12-31 Telephone Kaleigh R[place] 1.2.920.925 [id number] Univers 00:00:00 00:00:00 Karlos Chew SPECIALTY 350.1.13.10 ity of CARE 4.2.7.2.686 [facility] AT [phone] Me faith VELASCO 072 [facility] 2019-10-25 2019-10-25 Outpatient R LUIS, [facility] [id number] Univers 00:00:00 00:00:00 NORMA coleman o f [facility] 2019-10-01 2019-10-01 Outpatient R OLINDA, [facility] [id number] Univers 14:16:06 14:33:00 COLLEEN ity [facility] 2019-09-18 2019-09-18 Outpatient R ERIKA, [facility] [id number] Univers 14:30:00 16:10:17 NARESH ity [facility] 2019-09-02 2019-09-02 Outpatient [facility] [id number]-20 Univers 13:15:00 13:15:00 STEPHEN [id number] ity [facility] 2019-06-25 2019-06-25 Office [facility] 1.2.805.191 [id number] Univers 13:15:00 13:48:46 Visit Stepehn [facility] 350.1.13.10 it y of Magdi [facility] 4.2.7.2.686 [facility] [phone] [address] 2019-06-14 2019-06-14 Telephone [facility] 1.2.840.114 [id number] Univers 00:00:00 00:00:00 Stephen SPECIALTY 350.1.13.10 ity of [facility] 4.2.7.2.686 [facility] AT [phone] [place] faith VELASCO 198 [facility] 2019-06-13 2019-06-13 Hospital [facility] 1.2.840.114 [id number] Univers 10:03:00 19:18:00 Encounter Stephen [facility] 350.1.13.10 ity of [facility] 4.2.7.2.[address] [facility] [phone] [address] ([facility]) 2019-06-13 2019-06-13 Orders Doctor PEARL 1.2.840.114 [id number] Univers 00:00:00 00:00:00 Only Unassigned, SABRINA 350.1.13.10 ity [place] [facility] 4.2.7.2.686 Arun as [phone] [facility] [address] 2019-06-08 2019-06-08 Case Odilia Quinonez [facility] 1.2.840.114 [id number] Univers 00:00:00 00:00:00 Management Jessica 350.1.13.10 it[place].2.[place] [facility] [phone] [place] dical nal 179 [facility] 2019-05-24 2019-05-24 [facility] 1.2.840.114 [id number] Univers 14:55:19 23:59:00 Encounter Tonny Lopez 350.1.13.10 ity of [place] 4.2.7.2.686 [place] [phone] [facility] [address] 2019-05-24 2019-05-24 Case Rani, [facility] 1.2.840.114 [id number] Univers 00:00:00 00:00:00 Management [place] SPECIALTY 350.1.13.10 ity of [facility] 4.2.7.2.686 [place] AT [phone] N[place] darci[address] 2019-05-24 2019-05-24 Orders Doctor RYANNE 1.2.840.114 [id number] Univers 00:00:00 00:00:00 Only Unassigned, SABRINA 350.1.13.10 ity of [place] [facility] 4.2.7.2.686 Arun as [phone] [facility] [address] 2019-05-23 2019-05-23 Telephone Kaleigh [facility] [id number] [id number] Univers 00:00:00 00:00:00 Karlos Chew SPECIALTY 350.1.13.10 it[place] of [place] 4[place]2.[place].2.[place] [phone] [place] faith VELASCO [address] [place] [address] 2019-05-23 2019-05-23 Telephone Ramírez [facility] 1.2.840.114 [id number] Univers 00:00:00 00:00:00 Stephen LEONE 350.1.13.10 it y of [facility] 4.2.7.2.686 [place] [facility] [phone] [facility] [address] 2019-05-18 2019-05-18 Telephone Jacey [place] 1.2.755.382 [id number] Univers 00:00:00 00:00:00 Carlton SPECIALTY 350.1.13.10 ity of C[place] 4.2.7.2.[place] [phone] [place] faith VELASCO 072 [facility] 2019-05-16 2019-05-16 Hospital Kaleigh [facility] 1.2.840.114 [id number] Univers 10:30:00 23:59:00 Encounter Karlos Lopez 350.1.13.10 ity of [place] 4.2.7.2.686 [place] [id number] [facility] [address] 2019-05-08 2019-05-15 Conference Center Coordinator [facility] 1.2.840.114 [id number] Univers 15:18:19 14:53:40 Visit Karlos Farris 350.1.13.1 0 ity of C[place] 4.2.7.2.686 [place] [phone] [place] faith VELASCO 353 [facility] 2019-05-15 2019-05-15 Conference Center Coordinator 1, Adc Lab [place] 1.2.840.114 [id number] Univers 09:45:25 10:00:25 Visit Karlos Farris 350.1.13.10 ity of [place] 4.2.7.2.686 [facility] s [place] [phone] [facility] [address] 2019-05-08 2019-05-08 Office Kaleigh R[facility] 1.2.840.114 [id number] Univers 14:02:11 15:07:43 Visit Karlos Chew SPECIALTY 350.1.13.10 ity of [place] 4.2.7.2.686 [place] AT [phone] [place] faith VELASCO [address] [place] [address] 2019-05-08 2019-05-08 Orders Doctor PEARL 1.2.840.114 [id number] Univers 00:00:00 00:00:00 Only Unassigned, SABRINA 350.1.13.10 ity of [place] [facility] 4.2.7.2.686 Arun as [phone] [address] 2019-05-08 2019-05-08 Telephone [facility] [id number] [id number] Univers 00:00:00 00:00:00 Karlos Jeevan SPECIALTY 350.1.13.10 ity of [place] 4.2.7.2.686 [place] AT [phone] [place] faith VELASCO 072 [facility] 2019-05-04 2019-05-04 Telephone [employer] 1.2.866.132 [id number] Univers 00:00:00 00:00:00 Jessicabri [place] 350.1.13.10 ity of [place] 4.2.7.2.686 [place] [phone] [place] faith orozco 059 [facility] 2019-05-04 2019-05-04 [facility] 1.2.840.114 [id number] Univers 00:00:00 00:00:00 Stephen SPECIALTY 350.1.13.10 ity of [place] CARE 4.2.7.2.[place] AT [phone] [place] faith VELASCO 198 [facility] 2019-05-03 2019-05-03 Telephone [facility] 1.2.840.114 [id number] Univers 00:00:00 00:00:00 Stephen SPECIALTY 350.1.13.10 ity of [place] CARE 4.2.7.2.686 [place] [phone] [place] faith VELASCO 198 [facility] 2019-02-20 2019-02-20 Outpatient [facility]ortensia [facility] [id number] Univers 15:41:05 23:59:00 STEPHEN coleman [facility] 2019-01-23 2019-01-23 Outpatient Hortensia [facility] [id number] Univers 13:05:16 13:28:00 STEPHEN coleman [facility] 2019-01-11 2019-01-11 Outpatient [facility] [id number] Univers 10:14:20 23:59:00 NARESH coleman [facility] 2018-08-23 2018-08-23 Orders Doctor PEARL 1.2.840.114 [id number] Univers 00:00:00 00:00:00 Only Unassigned, SABRINA 350.1.13.10 ity [place] [facility]ITAL 4.2.7.2.686 Arun as [phone] [facility] 009 Branch Results Test Test Test Results Result Source Description Time Comments Comments XR HIPS 3 VW 2021-04- ?No fracture. Universi ty of RIGHT 07 Constipation. RL: 1105 [facility] 19:15:35 end of report Branch PELVIS, RIGHT HIP, 2 VIEWS TOTAL. Ordering Physician: ?SCOTTIE AVILA pain Please include AP pelvis Comparison: none No acute fracture. Large body habitus with stool filling the entire colon. [facility], Radiant Results Inft User - 04/15/2021 2:16 PM CDT PELVIS, RIGHT HIP, 2 VIEWS TOTAL.Ordering Physician: SCOTTIE Chung Please include AP pelvisComparison: noneNo acute fracture. Large body habitus with stool filling the entire colon.IMPRESSION No fracture. Constipation.RL: 1105end of report LUMBAR SPINE 2021-04- Mild multilevel Uni versity of WO CONTRAST 01 spondylosis and [place] Me dical 19:41:31 ligamentum flavum Branch thickening withoutcausing high-grade spinal canal stenosis at any level.EXAM: MR LUMBAR SPINE WO CONTRAST HISTORY: Spinal stenosis, lumbosacral TECHNIQUE: MRI of lumbar spine was performed on 1.5 [place] withoutintravenous contrast. COMPARISON: None. FINDINGS: The vertebral bodies are normal in height and alignment. The background bone marrow signal is unremarkable. The conus medullaris terminates at L1-L2 and is normal. Cauda equina nerveroots are unremarkable. Mild disc desiccation is noted throughout the lumbar spine. At L1-L2, mild diffuse disc bulge. No high-grade spinal canal stenosis orsignificant neural foraminal narrowing. At L2-L3, mild diffuse disc bulge and ligamentum flavum thickening. Nohigh-grade spinal canal stenosis or significant neural foraminal narrowing. At L3-L4, mild diffuse disc bulge and ligamentum flavum thickening resultin mild bilateral neural foraminal narrowing. No high-grade spinal canalstenosis. At L4-L5, diffuse disc bulge with ligamentum flavum thickening result inmild spinal canal stenosis. No significant neural foraminal narrowing. At L5-S1, mild diffuse disc bulge results in mild bilateral neuralforaminal narrowing. No high-grade spinal canal stenosis. The paraspinal soft tissues are unremarkable. [facility], Radiant Results Inft User - 04/09/2021 2:42 PM CDT EXAM: MR LUMBAR SPINE WO CONTRASTHISTORY: Spinal stenosis, lumbosacral TECHNIQUE: MRI of lumbar spine was performed on 1.5 [place] withoutintravenous contrast.COMPARISON: None.FINDINGS: The vertebral bodies are normal in height and alignment.The background bone marrow signal is unremarkable.The conus medullaris terminates at L1-L2 and is normal. Cauda equina nerveroots are unremarkable.Mild disc desiccation is noted throughout the lumbar spine.At L1-L2, mild diffuse disc bulge. No high-grade spinal canal stenosis orsignificant neural foraminal narrowing.At L2-L3, mild diffuse disc bulge and ligamentum flavum thickening. Nohigh-grade spinal canal stenosis or significant neural foraminal narrowing.At L3-L4, mild diffuse disc bulge and ligamentum flavum thickening resultin mild bilateral neural foraminal narrowing. No high-grade spinal canalstenosis.At L4-L5, diffuse disc bulge with ligamentum flavum thickening result inmild spinal canal stenosis. No significant neural foraminal narrowing.At L5-S1, mild diffuse disc bulge results in mild bilateral neuralforaminal narrowing. No high-grade spinal canal stenosis.The paraspinal soft tissues are unremarkable.IMPRESSIONM ild multilevel spondylosis and ligamentum flavum thickening withoutcausing high-grade spinal canal stenosis at any level. NM MYOCARDIUM 2020-12- 1. ?The patient's Univ ersity of PERFUSION 11 [place] STRESS AND REST 23:15:15 nonischemic.2. ?The Branch patient's clinical response is asymptomatic for angina. 3. ?Overall left ventricular systolic function is normal.4. ?SPECT imaging reveals normal uptake of radiopharmaceutical agents inall of wall segments in both stress and rest images. 5. ?No reversible defect noted. I was present for the stress portion of the study. [facility] Lexiscan Stress Test Report PROCEDURE:After obtaining witnessed informed consent, patient underwent a Regadenosonnuclear stress test using a one-day protocol. The patient was administered0.4 mg. Regadenoson over 10 seconds intravenously. Myocardial perfusionSPECT imaging was performed at rest after the intravenous injection of 16.1mCi of Technetium 99m Tetrofosmin. During the stress portion of the test43.1 mCi of Technetium 99m Tetrofosmin was injected intravenously at 10seconds after the Regadenoson infusion at peak pharmacologic effect. Thestress gated SPECT study was acquired. Both stress and rest images wereacquired with patient being supine. Images were processed according to [employer]. Short, horizontal long, long axis slices, raw data cines, polarplot, and wall motion analysis were reviewed. FINDINGS:* ?During the Regadenoson administration, no symptoms were noted. * ?Please refer ECG report for full details. * ?The overall technical quality of the study is good. ?* ?Raw cine data reveals no significant abnormality. * ?SPECT imaging reveals normal uptake of radiopharmaceutical agents in allof wall segments in both stress and rest images. * ?Post-stress LV end-diastolic volume is 32 ml and LV end-systolic volumeis 4 ml. * ?The left ventricle ejection fraction is calculated to be 86 % at stressand 78 % at rest. * ?Regional wall motion analysis of the left ventricle is normal. * ?TID: 0.96 [facility], Radiant Results Inft User - 12/18/2020 5:16 [address] [facility] Lexiscan Stress Test ReportPROCEDURE:After obtaining witnessed informed consent, patient underwent a Regadenosonnuclear stress test using a one-day protocol. The patient was administered0.4 mg. Regadenoson over 10 seconds intravenously. Myocardial perfusionSPECT imaging was performed at rest after the intravenous injection of 16.1mCi of Technetium 99m Tetrofosmin. During the stress portion of the test43.1 mCi of Technetium 99m Tetrofosmin was injected intravenously at 10seconds after the Regadenoson infusion at peak pharmacologic effect. Thestress gated SPECT study was acquired. Both stress and rest images wereacquired with patient being supine. Images were processed according to ASNCguidelines. Short, horizontal long, long axis slices, raw data cines, polarplot, and wall motion analysis were reviewed. FINDINGS:* During the Regadenoson administration, no symptoms were noted. * Please refer ECG report for full details. * The overall technical quality of the study is good. * Raw cine data reveals no significant abnormality. * SPECT imaging reveals normal uptake of radiopharmaceutical agents in allof wall segments in both stress and rest images. * Post-stress LV end-diastolic volume is 32 ml and LV end-systolic volumeis 4 ml. * The left ventricle ejection fraction is calculated to be 86 % at stressand 78 % at rest. * Regional wall motion analysis of the left ventricle is normal. * TID: [id number]. The patient's electrocardiogram is nonischemic.2. The patient's clinical response is asymptomatic for angina. 3. Overall left ventricular systolic function is normal.4. SPECT imaging reveals normal uptake of radiopharmaceutical agents inall of wall segments in both stress and rest images. 5. No reversible defect noted. I was present for the stress portion of the study. XR KNEE 3 VW 2020-06- No acute bony Universi ty of RIGHT 30 abnormality. Moderate [facility]un [facility] 19:38:18 knee osteoarthrosis. Bran ch Preliminary Report Dictated by Resident: Cori Tate MD., have reviewed this study and agree with the abovereport. EXAM: XR KNEE 3 VW RIGHT HISTORY: Right knee pain, unspecified chronicity. COMPARISON: 09/11/2019 FINDINGS: Images of the right knee demonstrate no fracture or dislocation. Moderatemedial compartment joint space narrowing, subchondral sclerosis andosteophytosis is demonstrated, with milder osteoarthritic changes affectingthe remainder of the knee joint. Mild spurring of the tibial spine is seen.A small suprapatellar joint effusion is present. The soft tissues areunremarkable. Chronic posttraumatic remodeling of the patella is suspected. [facility], Radiant Results Inft User - 07/09/2020 2:39 PM CDTEXAM: XR KNEE 3 VW RIGHTHISTORY: Right knee pain, unspecified chronicity.COMPARISON: 09/11/2019FINDINGS:Images of the right knee demonstrate no fracture or dislocation. Moderatemedial compartment joint space narrowing, subchondral sclerosis andosteophytosis is demonstrated, with milder osteoarthritic changes affectingthe remainder of the knee joint. Mild spurring of the tibial spine is seen.A small suprapatellar joint effusion is present. The soft tissues areunremarkable. Chronic posttraumatic remodeling of the patella is suspected.IMPRESSIONNo acute bony abnormality.Moderate knee osteoarthrosis.Prelimina ry Report Dictated by Resident: Cori Everett MD., have reviewed this study and agree with the abovereport. Type and Screen - ONCE STAT 2020-05-19 19:50:38 Test Item Value Reference Range Interpretation Comme nts ABO & RH (test code = 20) A Negative Pe rformed at [facility] Blood [address] [place] [address] Free: [phone] A No. [id number] IAT (test code = 1185) Negative Perfo rmed at [facility] Blood [address] [place] [address] Free: [phone] A No. [id number] [facility] [id number] 19:29:00 Test Item Value Reference Range Interpretation Comments TROPONIN I (test <0.012 See_Comment [Automated code = 7946735017) message] The system which generated this result transmitted reference range : <=0.034 ng/mL. The reference range was not used to interpr et this result as normal/abnormal . MAYLIN (test code = Equal or Less than MAYLIN) 0.034 ng/ml---Normal ?Note: Cardiac troponin begins to rise 3-4 hours after the onset of ischemia. Repeat in 4-6 hours if the sample was drawn within 3-4 hours of the onset of the symptom and found normal. Between 0.035 and 0.120 ng/mL--- Borderline. Questionable myocardial injury or necrosis ? ?Note: Serial measurement may be necessary to confirm or exclude the diagnosis of myocardial injury or necrosis; Clinical correlation (symptoms, EKGs, imaging studies, and others) required; Repeat in 4-6 hours if clinically indicated. ? Equal or Higher than 0.121 ng/mL---Abnormal. Myocardial Injury or Necrosis Likely ? Biotin has been reported to cause a negative bias, interpret results relative to patient's use of biotin. ? Lab Interpretation Normal (test code = 76287-4) [facility]PTT2020-08-10 19:29:00 Test Item Value Reference Range Interpretation Comments APTT Patient (test See_Comment [Automat ed code = 3173-2) message] The system which generated this result transmitted reference range : 23 - 38 Seconds . The reference range was not used to interpr et this result as normal/abnormal . MAYLIN (test code = MAYLIN) The [facility] patient population mean normal value for aPTT is 30 seconds. Lab Interpretation Normal (test code = 23549-7) [facility] HospitalProthrombin Time (PT) / [id number] 19:27:00 Test Item Value Reference Range Interpretation Comments PROTIME PATIENT (test See_Comment [Auto mated message] code = 5964-2) The system wh ich generated this result transmitted ref erence range: 12.0 - 1 4.7 Seconds. The re ference range was not u sed to interpret this result as normal/abnor mal. INR (test code = 6301-6) Nor mal INR <1.1; Warfarin Therap eutic range 2.0 to 3. 0 or 2.5 to 3.5, dep ending upon the indica tions. Lab Interpretation (test Normal code = 34387-9) [facility] HospitalN-TERMINAL [id number] 19:24:00 Test Item Value Reference Range Interpretation Comments NT-proBNP (test code 44 pg/mL See_Comment [Autom ated = 1114626951) message] The system which generated this result transmitted reference range : <=125. The reference range was not used to interpret this result as normal/abnormal . MAYLIN (test code = MAYLIN) Biotin has been reported to cause a negative bias, interpret results relative to patient's use of biotin. Lab Interpretation Normal (test code = 36044-2) [facility] Hospital[facility] Metabolic Panel (NA, K, CL, CO2, GLUCOSE, BUN, CREATININE, CA)2020-05-19 19:18:00 Test Item Value Reference Range Interpretation Comments NA (test code = 135 mmol/L 135-145 6366178441) K (test code = 3.6 mmol/L 3.5-5 0851746165) CL (test code = 99 mmol/L 98-108 4365935445) CO2 TOTAL (test code = 26 mmol/L 23-31 8262617849) AGAP (test code = 2-16 4948847581) BUN (test code = 18 mg/dL 7-23 4477734393) GLUCOSE (test code = 102 mg/dL 70-110 3480386443) CREATININE (test code 0.77 mg/dL 0.5-1.04 = 2819644597) CALCIUM (test code = 9.7 mg/dL 8.6-10.6 7948153202) eGFR Calculation mL/min/1.73m2 (Non-) (test code = 2973354293) eGFR Calculation mL/min/1.73m2 () (test code = 7101810119) MAYLIN (test code = MAYLIN) Association of Glomerular Filtration Rate (GFR) and Staging of Kidney Disease* + -+ + ---+| GFR (mL/min/1.73 m2) ?| With Kidney Damage ?| ?Without Kidney Damage+ -------+ ------+ ---------+| ?>90 ?| ?Stage one ?| ? Normal ?+ --+ -+ ----+| ?60-89 ?| ?Stage two ?| ? Decreased GFR ? + -+ + ---+| ?30-59 ?| ?Stage three ?| ? Stage three ? + -+ + ---+| ?15-29 ?| ?Stage four ? | ? Stage four ?+ --+ -+ ----+| ?<15 (or dialysis) ? ?| ?Stage five ? | ? Stage five ?+ --+ -+ ----+ *Each stage assumes the associated GFR level has been in effect for at least three months. ?Stages 1 to 5, with or without kidney disease, indicate chronic kidney disease. Notes: Determination of stages one and two (with eGFR >59mL/min/1.73 m2) requires estimation of kidney damage for at least three months as defined by structural or functional abnormalities of the kidney, manifested by either:Pathological abnormalities or Markers of kidney damage (including abnormalities in the composition of the blood or urine or abnormalities in imaging tests). [facility] Panel (ALB, T.PRO, BILI T, BU/BC, ALT, AST, ALK PHOS)2020-05-19 19:18:00 Test Item Value Reference Range Interpretation Comments TOTAL BILI (test code = 9863784950) 0.6 mg/dL 0.1-1.1 BILI UNCON (test code = 5958353169) 0.8 mg/dL 0.1-1.1 BILI CONJ (test code = 8674483921) 0.0 mg/dL 0-0.3 T PROTEIN (test code = 5602576698) 8.0 g/dL 6.3-8.2 ALBUMIN (test code = 4590614451) 4.7 g/dL 3.5-5 ALK PHOS (test code = 0491283807) 98 U/L 34-122 ALTv (test code = 1742-6) 17 U/L 5-35 AST(SGOT) (test code = 6984116373) 26 U/L 13-40 Lab Interpretation (test code = Normal 84939-0) [facility] HospitalCB with [id number] 19:02:00 Test Item Value Reference Range Interpretation Comments WBC (test code = See_Comment [Automated 6055-2) message] The sy stem which generated this result transmitted reference range : 4.30 - 11.10 10*3/?L. The reference range was not used to interpret this result as normal/abnormal . RBC (test code = See_Comment [Automated 234-8) message] The sy stem which generated this result transmitted reference range : 3.93 - 5.25 10*6/?L. The reference range was not used to interpret this result as normal/abnormal . HGB (test code = 12.9 g/dL 11.6-15 718-7) HCT (test code = 38.2 % 35.7-45.2 4544-3) MCV (test code = 89.0 fL 80.6-95.5 787-2) MCH (test code = 30.1 pg 25.9-32.8 785-6) MCHC (test code = 33.8 g/dL 31.6-35.1 786-4) RDW-SD (test code = 44.2 fL 39-49.9 11746-1) RDW-CV (test code = 13.6 % 12-15.5 788-0) PLT (test code = See_Comment [Automated 777-3) message] The sy stem which generated this result transmitted reference range : 166 - 358 10*3/ ?L. The reference r clyde was not used to interpret this result as normal/abnormal . MPV (test code = 9.5 fL 9.5-12.9 18940-3) NRBC/100 WBC (test See_Comment [Automat ed code = 5210266188) message] The system which generated this result transmitted reference range : 0.0 - 10.0 /100 WBCs. The refer ence range was not u sed to interpret th is result as normal/abnormal . NRBC x10^3 (test code <0.01 See_Comment [Auto mated = 6527563095) message] The s ystem which generated this result transmitted reference range : 10*3/?L. The reference range was not used to interpret this result as normal/abnormal . GRAN MAT (NEUT) % 58.5 % (test code = 770-8) IMM GRAN % (test code 0.30 % = 8914397591) LYMPH % (test code = 30.9 % 736-9) MONO % (test code = 8.7 % 5905-5) EOS % (test code = 0.9 % 713-8) BASO % (test code = 0.7 % 706-2) GRAN MAT x10^3(ANC) 6.29 10*3/uL 1.88-7.09 (test code = 8595578596) IMM GRAN x10^3 (test 0.03 10*3/uL 0-0.06 code = 3345059358) LYMPH x10^3 (test code 3.32 10*3/uL 1.32-3.29 H = 731-0) MONO x10^3 (test code 0.93 10*3/uL 0.33-0.92 H = 742-7) EOS x10^3 (test code = 0.10 10*3/uL 0.03-0.39 711-2) BASO x10^3 (test code 0.07 10*3/uL 0.01-0.07 = 704-7) Lab Interpretation Abnormal (test code = 47015-9) [facility] HospitalLactic Acid Whole [id number] 18:56:00 Test Item Value Reference Range Interpretation Comments LACTIC ACID (test code = 1.17 mmol/L 1512427043) [facility] Metabolic Panel (NA, K, CL, CO2, GLUCOSE, BUN, CREATININE, CA)2020-01-03 17:40:00 Test Item Value Reference Range Interpretation Comments NA (test code = 138 mmol/L 135-145 1129418877) K (test code = 4.3 mmol/L 3.5-5 6998870345) CL (test code = 101 mmol/L 98-108 1182340127) CO2 TOTAL (test code = 28 mmol/L 23-31 8113853138) AGAP (test code = 2-16 9643218833) BUN (test code = 21 mg/dL 7-23 2967641355) GLUCOSE (test code = 97 mg/dL 70-110 0090198757) CREATININE (test code 0.62 mg/dL 0.5-1.04 = 1719015374) CALCIUM (test code = 9.7 mg/dL 8.6-10.6 8488956894) eGFR Calculation mL/min/1.73m2 (Non-) (test code = 0934361347) eGFR Calculation mL/min/1.73m2 () (test code = 3123514209) MAYLIN (test code = MAYLIN) Association of Glomerular Filtration Rate (GFR) and Staging of Kidney Disease* + -+ + ---+| GFR (mL/min/1.73 m2) ?| With Kidney Damage ?| ?Without Kidney Damage+ -------+ ------+ ---------+| ?>90 ?| ?Stage one ?| ? Normal ?+ --+ -+ ----+| ?60-89 ?| ?Stage two ?| ? Decreased GFR ? + -+ + ---+| ?30-59 ?| ?Stage three ?| ? Stage three ? + -+ + ---+| ?15-29 ?| ?Stage four ? | ? Stage four ?+ --+ -+ ----+| ?<15 (or dialysis) ? ?| ?Stage five ? | ? Stage five ?+ --+ -+ ----+ *Each stage assumes the associated GFR level has been in effect for at least three months. ?Stages 1 to 5, with or without kidney disease, indicate chronic kidney disease. Notes: Determination of stages one and two (with eGFR >59mL/min/1.73 m2) requires estimation of kidney damage for at least three months as defined by structural or functional abnormalities of the kidney, manifested by either:Pathological abnormalities or Markers of kidney damage (including abnormalities in the composition of the blood or urine or abnormalities in imaging tests). [facility] (ALB, T.PRO, BILI T, BU/BC, ALT, AST, ALK PHOS)2020-01-03 17:40:00 Test Item Value Reference Range Interpretation Comments TOTAL BILI (test code = 1401733525) 0.4 mg/dL 0.1-1.1 BILI UNCON (test code = 4618926153) 0.4 mg/dL 0.1-1.1 BILI CONJ (test code = 7214874027) 0.0 mg/dL 0-0.3 T PROTEIN (test code = 0365085460) 7.6 g/dL 6.3-8.2 ALBUMIN (test code = 3529831017) 4.5 g/dL 3.5-5 ALK PHOS (test code = 4959066210) 85 U/L 34-122 ALTv (test code = 1742-6) 16 U/L 5-35 AST(SGOT) (test code = 7578485962) 25 U/L 13-40 Lab Interpretation (test code = Normal 92221-4) [facility] HospitalLipase [id number] 17:40:00 Test Item Value Reference Range Interpretation Comments LIPASE (test code = 5578245914) 123 U/L 0-220 Lab Interpretation (test code = Normal 72573-7) [facility] HospitalAcute Abdomen [id number] 17:27:36 No acute cardiopulmonary abnormality. Nonobstructive bowel gas pattern. Suspected constipation Preliminary Report Dictated by Resident: Amrit Medina MD., have reviewed this study and agree with the abovereport.EXAM: XR ABDOMEN ACUTE SERIES HISTORY: 69 years-old Female presenting with abdominal pain COMPARISON: 09/05/2019, 05/16/2000 FINDINGS: The lungs are clear. No pleural effusion or pneumothorax is present. Theheart is normal in size. No subdiaphragmatic free air is appreciated.Bilateral breast prostheses are seen. Moderate fecal burden seen throughout the colon. The bowel gas pattern isnonobstructive. The oval opacity measuring 1.0 cm is over the right lowerquadrant, likelyrepresent ingested material. No abnormal masses are seen. No acute osseous abnormality. Scattered pelvicphleboliths are noted. Mild levoscoliosis is noted. Hardware fixation of the proximal left humerus is seen [facility], Radiant Results Inft User - 01/03/2020 12:28 PM CDTEXAM: XR ABDOMEN ACUTE SERIESHISTORY: 69 years-old Female presenting with abdominal pain COMPARISON: 09/05/2019, 05/16/2000FINDINGS:The lungs are clear. No pleural effusion or pneumothorax is present. Theheart is normal in size. No subdiaphragmatic free air is appreciated.Bilateral breast prostheses are seen.Moderate fecal burden seen throughout the colon. The bowel gas pattern isnonobstructive. The oval opacity measuring 1.0 cm is overthe right lowerquadrant, likely represent ingested material.No abnormal masses are seen. No acute osseous abnormality. Scattered pelvicphleboliths are noted. Mild levoscoliosis is noted.Hardware fixation of the proximal left humerus is seenIMPRESSIONNo acute cardiopulmonary abnormality. Nonobstructivebowel gas pattern.Suspected constipationPreliminary Report Dictated by Resident: Amrit Robertson MD., have reviewed this study and agree with the abovereport.[facility] WITH [id number] 17:06:00 Test Item Value Reference Range Interpretation Comments WBC (test code = See_Comment [Automated 6690-2) message] The sy stem which generated this result transmitted reference range : 4.30 - 11.10 10*3/?L. The reference range was not used to interpret this result as normal/abnormal . RBC (test code = See_Comment [Automated 789-8) message] The sy stem which generated this result transmitted reference range : 3.93 - 5.25 10*6/?L. The reference range was not used to interpret this result as normal/abnormal . HGB (test code = 13.5 g/dL 11.6-15 718-7) HCT (test code = 40.3 % 35.7-45.2 4544-3) MCV (test code = 89.4 fL 80.6-95.5 787-2) MCH (test code = 29.9 pg 25.9-32.8 785-6) MCHC (test code = 33.5 g/dL 31.6-35.1 786-4) RDW-SD (test code = 43.1 fL 39-49.9 91056-8) RDW-CV (test code = 13.2 % 12-15.5 788-0) PLT (test code = See_Comment [Automated 777-3) message] The sy stem which generated this result transmitted reference range : 166 - 358 10*3/ ?L. The reference r clyde was not used to interpret this result as normal/abnormal . MPV (test code = 9.3 fL 9.5-12.9 L 53879-8) NRBC/100 WBC (test See_Comment [Automat ed code = 8267358693) message] The system which generated this result transmitted reference range : 0.0 - 10.0 /100 WBCs. The refer ence range was not u sed to interpret th is result as normal/abnormal . NRBC x10^3 (test code <0.01 See_Comment [Auto mated = 6761730407) message] The s ystem which generated this result transmitted reference range : 10*3/?L. The reference range was not used to interpret this result as normal/abnormal . GRAN MAT (NEUT) % 46.1 % (test code = 770-8) IMM GRAN % (test code 0.10 % = 9392560362) LYMPH % (test code = 42.2 % 736-9) MONO % (test code = 8.6 % 5905-5) EOS % (test code = 2.1 % 713-8) BASO % (test code = 0.9 % 706-2) GRAN MAT x10^3(ANC) 3.54 10*3/uL 1.88-7.09 (test code = 2071118694) IMM GRAN x10^3 (test <0.03 0-0.06 code = 0578904611) LYMPH x10^3 (test code 3.24 10*3/uL 1.32-3.29 = 731-0) MONO x10^3 (test code 0.66 10*3/uL 0.33-0.92 = 742-7) EOS x10^3 (test code = 0.16 10*3/uL 0.03-0.39 711-2) BASO x10^3 (test code 0.07 10*3/uL 0.01-0.07 = 704-7) Lab Interpretation Abnormal (test code = 37337-0) [facility] HospitalPOCT GLUCOSE (AUTOMATED)2019-06-13 23:29:00 Test Item Value Reference Range Interpretation Comments POCT GLU (test code = 9241555963) 113 mg/dL 70-110 H Lab Interpretation (test code = Abnormal 08051-1) [facility] HospitalFL TIME OR (NON-REPORTABLE)2019-06-13 21:30:19 These images do not require a Radiology diagnostic report.[facility] HospitalVBG+VCOOX+NA+K+GLU+CA2+2019-06-13 20:41:00 Test Item Value Reference Range Interpretation Comments PH (test code = 7.32-7.42 L 4896705531) PCO2 MELA (test code = See_Comment [Auto mated message] 6632373291) The system Hopper generated this result transmit darline reference range : 41 - 51 mmHg. The reference range was not used to interpret this result as normal/abnormal . PO2 MELA (test code = See_Comment H [Autom ated message] 8168755052) The system Hopper generated this result transmit darline reference range : 25 - 40 mmHg. The reference range was not used to interpret this result as normal/abnormal . HCO3 MELA (test code = See_Comment L [Auto mated message] 7601213375) The system Hopper generated this result transmit darline reference range : 24 - 28 mEq/L. The reference range was not used to interpret this result as normal/abnormal . AC VBE(BEAKER) (test mEq/L code = 2051448802) THB MELA (test code = 7.4 g/dL 12-16 LL 9116065299) %O2HB MELA (test code = 73.0 % 52-63 H 1397221977) %COHB MELA (test code = 1.2 % 0-1.5 5305601813) %METHB MELA (test code = 0.9 % 0.4-1.5 0791829210) VOL%O2 MELA (test code = 7.7 % 6-12 5332358870) NA (test code = 137 mmol/L 135-145 0851110839) K+ (test code = 3.6 mmol/L 3.5-5 9351450809) AC CA IONZ (test code = 4.50 mg/dL 4.5-5.3 8445594436) GLUCOSE (test code = 82 mg/dL 70-110 0016266208) Lab Interpretation Abnormal (test code = 95405-1) [facility] HospitalType and Screen - ONCE [id number] 18:32:23 Test Item Value Reference Range Interpretation Comments ABO & RH (test code A Negative Performe d at [facility] = 20) Laboratory [facility] [place] [address]Psom Free: [phone] A No. [id number] IAT (test code = Negative Performed a t [facility] 1185) Laboratory [facility] Blood [address] [address]Zffv Free: [phone] A No. [id number] [facility] HospitalABORH [id number] 18:18:54 Test Item Value Reference Range Interpretation Comments ABO & RH (test code A Negative Performe d at [facility] = 20) Laboratory [facility] [place] [address]Ehle Free: [phone] A No. [id number] [facility] HospitalCB WITH [id number] 17:44:00 Test Item Value Reference Range Interpretation Comments WBC (test code = See_Comment [Automated 6690-2) message] The sy stem which generated this result transmitted reference range : 4.30 - 11.10 10*3/?L. The reference range was not used to interpret this result as normal/abnormal . RBC (test code = See_Comment L [Automated 789-8) message] The sy stem which generated this result transmitted reference range : 3.93 - 5.25 10*6/?L. The reference range was not used to interpret this result as normal/abnormal . HGB (test code = 10.9 g/dL 11.6-15 L 718-7) HCT (test code = 34.4 % 35.7-45.2 L 4544-3) MCV (test code = 92.2 fL 80.6-95.5 787-2) MCH (test code = 29.2 pg 25.9-32.8 785-6) MCHC (test code = 31.7 g/dL 31.6-35.1 786-4) RDW-SD (test code = 46.2 fL 39-49.9 11259-3) RDW-CV (test code = 13.7 % 12-15.5 788-0) PLT (test code = See_Comment [Automated 777-3) message] The sy stem which generated this result transmitted reference range : 166 - 358 10*3/ ?L. The reference r clyde was not used to interpret this result as normal/abnormal . MPV (test code = 9.5 fL 9.5-12.9 72271-6) NRBC/100 WBC (test See_Comment [Automat ed code = 2599097838) message] The system which generated this result transmitted reference range : 0.0 - 10.0 /100 WBCs. The refer ence range was not u sed to interpret th is result as normal/abnormal . NRBC x10^3 (test code <0.01 See_Comment [Auto mated = 0196933999) message] The s ystem which generated this result transmitted reference range : 10*3/?L. The reference range was not used to interpret this result as normal/abnormal . GRAN MAT (NEUT) % 65.6 % (test code = 770-8) IMM GRAN % (test code 0.30 % = 8726294263) LYMPH % (test code = 22.5 % 736-9) MONO % (test code = 9.0 % 5905-5) EOS % (test code = 1.9 % 713-8) BASO % (test code = 0.7 % 706-2) GRAN MAT x10^3(ANC) 5.78 10*3/uL 1.88-7.09 (test code = 1707336707) IMM GRAN x10^3 (test 0.03 10*3/uL 0-0.06 code = 8513611788) LYMPH x10^3 (test code 1.98 10*3/uL 1.32-3.29 = 731-0) MONO x10^3 (test code 0.79 10*3/uL 0.33-0.92 = 742-7) EOS x10^3 (test code = 0.17 10*3/uL 0.03-0.39 711-2) BASO x10^3 (test code 0.06 10*3/uL 0.01-0.07 = 704-7) Lab Interpretation Abnormal (test code = 42127-9) [facility]PO[facility] (AUT[facility]ATED)2019-06-13 17:00:00 Test Item Value Reference Range Interpretation Comments POCT GLU (test code = 8209763330) 85 mg/dL 70-110 Lab Interpretation (test code = Normal 10087-6) [facility] HospitalMR ABDOMEN W WO [id number] 21:12:49 HISTORY: Abnormal CT scan findings of possible tumor in the head of thepancreas. TECHNIQUE: MRI studies of the abdomen were obtained, using pancreasprotocol, using T2 SSFSE, dual echo FSPGR, coronal VIBE/T2 HASTE, axialDWI, axial LAVA/T2 HASTE sequences. MRCP study also has been obtained. Contrast enhanced multiphase lower imaging was completed after intravenousinjection of 16 mL of MultiHance. FINDINGS: Comparison has been made with CT scan of 05/16/2019. Liver: Approximately 15 cm in size with minimal suppression of signal inthe out of phase SPGR images, indicating mild hepatic steatosis. Bile ductsand gallbladder appear normal. No focal enhancing lesions detected in theliver. Hepatic/portal venous systems appear patent. Spleen: Spleen is 8.5 x 4 cm in size and appears normal. Pancreas: Pancreas is of normal size. No pancreatic lesions are visualized.Contrast enhanced evaluation showed no abnormal area of pancreaticenhancement. Pancreatic duct is of normal size. Adrenal glands: Mild left adrenal gland hypertrophy noted. No tumor seen inthe right or the left adrenal gland. Kidneys: Normal. Retroperitoneum: No abdominal aortic aneurysm or enlarged lymph nodes. Visualized lower lungs are clear. No pleural effusion or pericardialeffusion. No hiatal hernia. Bilateral silicone type breast augmentat ionnoted. Constipation noted. Visualized bones do not show any suspicious bonemarrow lesions. CONCLUSIONS: Essentially normal study. No pancreatic lesion confirmed. [facility], Radiant Results Inft User - 05/24/2019 4:14 PM CDTHISTORY: Abnormal CT scan findings of possible tumor in the head of thepancreas. TECHNIQUE: MRI studies of the abdomen were obtained, using pancreasprotocol, using T2 SSFSE, dual echo FSPGR, coronal VIBE/T2 HASTE, axialDWI, axial LAVA/T2 HASTE sequences. MRCP study also has been obtained.Contrast enhanced multiphase lower imaging was completed after intravenousinjection of 16 mL of MultiHance.FINDINGS: Comparison has been made with CT scan of 05/16/2019.Liver: Approximately 15 cm in size with minimal suppression of signal inthe out of phase SPGR images, indicating mild hepatic steatosis. Bile ductsand gallbladder appear normal. No focal enhancing lesions detected in theliver. Hepatic/portal venous systems appear patent.Spleen: Spleen is 8.5 x 4 cm in size and appears normal.Pancreas: Pancreas is of normal size. No pancreatic lesions are visualized.Contrast enhanced evaluation showed no abnormal area of pancreaticenhancement. Pancreatic duct is of normal size.Adrenal glands: Mild left adrenal gland hypertrophy noted. No tumor seen inthe right or the left adrenal gland.Kidneys:Normal.Retroperitoneum: No abdominal aortic aneurysm or enlarged lymph nodes.Visualized lower lungs are clear. No pleural effusion or pericardialeffusion. No hiatal hernia. Bilateral silicone type breast augmentationnoted. Constipation noted. Visualized bones do not show any suspicious bonemarrow lesions.CONCLUSIONS: Essentially normal study. No pancreatic lesion confirmed.[facility][id number] 18:11:141. No acute intra-abdominal or intrapelvic pathology2. A central area of low attenuation in the headof the pancreas mayrepresent fatty interdigitation, however consider MRI of the pancreas usingpancreatic protocol for evaluation * * * * * * * * ORIGINAL REPORT * * * * * * * *EXAM: CT SCAN OF THE ABDOMEN AND PELVIS WITHOUT AND WITH CONTRAST HISTORY: Abdominal pain, evaluate for ischemic colitis; TECHNIQUE:3 mm axial images are obtained from diaphragmatic domes tosymphysis pubis before and after intravenous administration of 150 mL ofOmnipaque 350. Sagittal and coronal reformation the carried out. COMPARISON: None FINDINGS: The visualized lung bases are clear. Heart size is normal. The liver is inthe upper limits of normal for size. No focal abnormalenhancement of the liver is seen. Gallbladder is removed. No biliary tree dilation is appreciated. Approximately 1.4 cm area of low attenuation is seen in the head of thepancreas. Pancreas is otherwise normal. No ductal dilation is seen. Spleen is normal. Left adrenal gland is uniformly thickened without nodularity. Right adrenalgland is normal. Kidneys are normal in size shape and appearance. No renal stone is noted.No hydronephrosis is seen. Abdominal aorta is normal in caliber. No significant atheroscleroticcalcification is seen involving theaorta. No aneurysmal dilation is seen.The celiac artery, superior mesenteric artery, renal arteries and inferiormesenteric artery are patent. No free fluid or free air is seen in theabdomen. Nonenlarged lymph nodes are seen. No suspicious bony abnormality is seen. Bowel loops are normal in caliber. Appendix is normal. A few scattereddiverticula are seen in the colon. There is no evidence of diverticul itis. The uterus and urinary bladder grossly normal. Prominent left parametrialvessels are seen withdilated gonadal vein. [facility], Radiant Results Inft User - 05/16/2019 1:13 PM CDT* * * * * * * * ORIGINAL REPORT * * * * * * * *EXAM: CT SCAN OF THE ABDOMEN AND PELVIS WITHOUT AND WITH CONTRASTHISTORY: A bdominal pain, evaluate for ischemic colitis;TECHNIQUE:3 mm axial images are obtained from diaphragmatic domes tosymphysis pubis before and after intravenous administration of 150 mL ofOmnipaque 350. Sagittal and coronal reformation the carried out.COMPARISON: NoneFINDINGS:The visualized lung bases are clear. Heart size is normal.The liver is in the upper limits of normal for size. No focal abnormalenhancement of the liver is seen.Gallbladder is removed. No biliary tree dilation is appreciated.Approximately 1.4 cm area of low attenuation is seen in the head of thepancreas. Pancreas is otherwise normal. No ductal dilation is seen.Spleen is normal.Left adrenal gland is uniformly thickened without nod ularity. Right adrenalgland is normal.Kidneys are normal in size shape and appearance. No renal stone is noted.No hydronephrosis is seen.Abdominal aorta is normal in caliber. No significant atheroscleroticcalcification is seen involving the aorta. No aneurysmal dilation is seen.The celiac artery, superior mesenteric artery, renal arteries and inferiormesenteric artery are patent. No free fluid or free air is seen in theabdomen.Nonenlarged lymph nodes are seen.No suspicious bony abnormality is seen.Bowel loops are normal in caliber. Appendix is normal. A few scattereddiverticula are seen in the colon. There is no evidence of diverticulitis.The uterus and urinary bladder grossly normal. Prominent left parametrialvessels are seen with dilated gonadal vein. IMPRESSION1. No acute intra-abdominal or intrapelvic pathology2. A central area of low attenuation in the head of the pancreas mayrepresent fatty interdigitation, however consider MRI of the pancreas usingpancreatic protocol for evaluationCH[facility]"
== END 2021-08-15 19:22 | disposition home or self-care (01) ==
LOC: ER 16:57
DX: S02.2XXA Fracture of nasal bones, initial encounter for closed fracture (principal); W18.11XA Fall from or off toilet without subsequent striking against object, initial encounter; Z88.8 Allergy status to other drugs, medicaments and biological substances
CPT/HCPCS: 70450; 70486; 72125; 76377; 99283

== ENCOUNTER → 2021-08-31 | Day surgery (SDC) | payer OTHER ==
[~2021-08-31] MED LIST: ACETAMINOPHEN 500 MG TAB ONE; CODEINE 30MG/APAP 300MG TAB ONE; CODEINE 30MG/APAP 300MG TAB PO ONE; EPHEDRINE SULF 50 MG/ML VIAL ONE; FENTANYL CITR 100 MCG/2 ML ONE; GLYCOPYRROLATE 0.2 MG/ML SYR ONE; LIDOCAINE 1% W/EPI 1:100,000 MDV 20 ML VIAL ONE; LIDOCAINE 2% MPF 5 ML VIAL ONE; MIDAZOLAM HCL 2 MG/2 ML INJ ONE; Mastisol Adhesive Liq ONE; NA CHLORIDE 0.9% 0 ML ONE; NA CHLORIDE 0.9% 1,000 ML ONE; NEOSTIGMINE 1 MG/ML -5 ML ONE; ONDANSETRON 4 MG/2 ML VIAL ONE; OXYMETAZOLINE HCL 0.05% 15ML NAS ONE; Phenylephrine HCl 10 MG/ML 1 ML VIAL ONE; ROCURONIUM 50 MG/5 ML VIAL IV ONE; dexAMETHasone 10 MG/ML VIAL ONE; propofoL 200 MG/20 ML VIAL IV ONE
[2021-08-31 14:40] VITALS: BP 104/49; TEMP 97.8; O2SAT 100
--- NOTE | 2021-09-01 11:19 | OP ---
Date of Procedure: 08/31/2021 Surgeon: ESTRADA CHERRY Preoperative Diagnoses: 1. Comminuted nasal bone fracture - closed. 2. Septal fracture. 3. Right nasal cavity synechiae. Postoperative Diagnoses: 1. Comminuted nasal bone fracture - closed. 2. Septal fracture. 3. Right nasal cavity synechiae. Procedures: 1. Closed reduction of nasal bone fracture and stabilization with thermoplast cast. 2. Bilateral nasal endoscopy with division of the right nasal cavity synechiae and reduction of nasal septal fracture and stabilization with Damon splints. Anesthesia: General endotracheal anesthesia was administered. I also infiltrated approximately 12-14 mL of 1% lidocaine with 1:100,000 epinephrine into external nasal tissue as well as bilateral nasal septal mucosa. Specimens: None. Estimated Blood Loss: Scant, less than 2 mL. Findings: Right nasal bone comminuted fracture and mild displacement of left nasal bone fracture. Bilateral nasal septal deviation with several bony and cartilaginous spurs detected and large right caudal intranasal synechiae involving right nasal cavity. Subluxation of nasal septum of the maxillary crest, left nasal cavity. Complications: None. Disposition: Stable. The patient tolerated the procedure well. Indication For Procedure: This very pleasant 71-year-old lady presented to my outpatient clinic after falling face forward onto a tiled floor, thereby fracturing her nasal bones and septum. There was obvious external nasal deformity, but also bilateral nasal obstruction secondary to septal fracture. The patient also had right intranasal synechiae. These were indications to bring the patient to proceed for the above-mentioned procedure. She understood, all questions were answered. Risks versus benefits and complications were explained in detail and consent form signed, which was placed in the chart. Description Of Procedure: The patient was transferred from the preoperative holding area to the operative suite by Department of Anesthesia, placed on the operating table supine, sedated and intubated in normal fashion. I infiltrated approximately 12-14 mL of 1% lidocaine with 1:100,000 epinephrine into the external nasal epidermis tissue as well as bilateral nasal septal mucosa. Afrin-soaked nasal pledgets were introduced into bilateral nasal cavities for vasoconstriction and decongestion. The patient was then prepped and draped. The pledgets were removed from bilateral nasal cavities and a 0-degree rigid nasal endoscope was introduced into bilateral nasal cavities long before. There was significant posterosuperior obstruction secondary to cartilaginous spur contacting the right lateral nasal wall. The patient also had a left inferior septal spur contacting the left inferior turbinate mucosa. Also, visualized enlarged right intranasal cavity synechiae. Division of the synechiae was performed with a #15 blade scalpel and a Dexter elevator. I was then able to remove the cartilaginous spur for the right posterosuperior nasal cavity and a left inferior septal spur by utilizing a #15 blade scalpel to elevate the mucosa and then a Dexter elevator to remove the cartilage and bone. Once these were removed, then I introduced an Asche forceps to place the septum into the midline. Once repositioned into the midline, I then placed my attention to the nasal bones. A Boies elevator was used to place the nasal bones into its proper anatomic structure. Once stabilized, I then introduced bilateral Damon splints coated in antibiotic ointment into bilateral nasal cavities and the splints were sutured to the caudal septum with a 3-0 Ethilon suture. I then placed Mastisol and half-inch Steri-Strips over the external nasal dorsum and sidewalls and then placed a thermoplast cast over the Steri-Strips and secured to the cheeks with silk tape. A mustache dressing was placed. The patient tolerated procedure well and will be discharged home on antibiotics and analgesic medication, and will follow up in 1-2 weeks or sooner if needed. MIKIE/PAIGE Voice ID: [id number] Report ID: [id number] [facility]
== END ==
LOC: OR 10:38
PROVIDERS: ATTEND Otolaryngology Facial Plastic Surgery
PROC: 0NSBXZZ Reposition Nasal Bone, External Approach (ICD-10-PCS; 2021-08-31)
PROC: 2W3 Placement, Anatomical Regions, Immobilization (ICD-10-PCS; principal; 2021-08-31 11:00)
DX: S02.2XXA Fracture of nasal bones, initial encounter for closed fracture (principal); J34.2 Deviated nasal septum; S03.1XXA Dislocation of septal cartilage of nose, initial encounter; Z20.822 Contact with and (suspected) exposure to COVID-19
CPT/HCPCS: 82947; 21337; 21320; U0003; J2704; J2370; J2250; J3010; J1100; J2710; J7030; J2405; J7040

== ENCOUNTER 2022-02-16 13:31 | Emergency (ER) | payer OTHER ==
--- OUTSIDE RECORDS SUMMARY | 2022-02-16 13:34 | XMS REPORT | Continuity of Care Document ---
:[address] [facility] t Address [address] [place] [address] Care Team Providers Name Role Phone DIDI Mendy Primary Care Physician Unavailable Lance SIMMONS Attending Clinician Unavailable Lance Simmons MD Attending Clinician LENNY Attending Clinician Unavailable Doctor Unassigned, Name Attending Clinician Unavailable Lenny MATHUR Attending Clinician Ricardo Funez Attending Clinician Payers Payer Name Policy Type Policy Number Effective Date Expiration Date S ource Problems Condition Condition Condition Status Onset Resolution Last Treating Co mments Source Name Details Category Date Date Treatment Clinician Date Arthritis Arthritis Disease Active NPI :183 of right of right 07-09 [id number] 1 knee knee 00:00: 00 Multiple Multiple Disease Active NPI:1 83 thyroid thyroid 6-06 [id number] nodules nodules 00:00: 00 Osteoporos Osteoporos Disease Active Overview : NPI:183 is is Formattin [id number] g of this note might be different from the original. ICD10 Diagnosis Term Radiation Technician Utility Rheumatoid Rheumatoid Disease Active Overview : NPI:183 arthritis arthritis Formattin 1 [id number] g of this note might be different from the original. 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 ICD10 Diagnosis Term Radiation Technician Utility Essential Essential Disease Active Overview: NPI:183 hypertensi hypertensi Formattin [id number] on on g of this note might be different from the original. ICD10 Diagnosis Term Radiation Technician Utility Allergies, Adverse Reactions, Alerts Allergy Allergy Status Severity Reaction(s) Onset Inactive Treating Comm ents Source Name Type Date Date Clinician CITALOPR DRUG Active Other-Cmnt NPI: 183 AM INGREDI 12-07 [id number] 00:00: 00 Citalopr Propensi Active Other - See Patient NPI:183 am ty to comments 12-07 states [id number] adverse 00:00: she felt reaction 00 like she s was going to pass out Social History Social Habit Start Date Stop Date Quantity Comments Source Exposure to Not sure NPI:[id number] 1 SARS-CoV-2 (event) Alcohol intake 2021-04-15 2021-04-15 0 /d NPI:[id number] 00:00:00 00:00:00 Tobacco use and 2016-12-07 2016-12-07 Never used NPI:[id number] 41395 exposure 00:00:00 00:00:00 [birth year] NPI:[id number] 00:00:00 00:00:00 Smoking Status Start Date Stop Date Source Never smoker Medications Ordered Filled Start Stop Current Ordering Indication Dosage Frequency Signature Comments Components Source Medication Medication Date Date Medication? Clinician (SIG) Name Name docosahexan Yes Take by STULL INSTALLER I:183 oic 3-01 mouth. [id number] acid/epa 13:19: (FISH OIL 59 ORAL) Ascorbic Yes Take by NPI:1 83 Acid 3-01 mouth. [id number] (VITAMIN C) 13:19: 1,000 mg 59 TbSR MULTIVITAMI Yes Take by STULL INSTALLER I:183 N ORAL 3-01 mouth. [id number] 13:19: 59 HYDROcodone Yes 1{tbl} Take 1 STULL INSTALLER I:183 -acetaminop 3-01 tablet by 131 8781 hen 7.5-325 13:19: mouth mg per 59 every 6 tablet (six) hours as needed for Pain. ibuprofen Yes 800mg Take 800 NPI :183 800 mg 3-01 mg by [id number] tablet 13:19: mouth 59 every 6 (six) hours as needed. potassium Yes NPI:183 chloride 10 3-01 [id number] mEq CR 13:19: tablet 59 docosahexan Yes Take by STULL INSTALLER I:183 oic 3-01 mouth. [id number] acid/epa 13:19: (FISH OIL 59 ORAL) Ascorbic Yes Take by NPI:1 83 Acid 3-01 mouth. [id number] (VITAMIN C) 13:19: 1,000 mg 59 TbSR MULTIVITAMI Yes Take by STULL INSTALLER I:183 N ORAL 3-01 mouth. [id number] 13:19: 59 HYDROcodone Yes 1{tbl} Take 1 STULL INSTALLER I:183 -acetaminop 3-01 tablet by 131 8781 hen 7.5-325 13:19: mouth mg per 59 every 6 tablet (six) hours as needed for Pain. ibuprofen Yes 800mg Take 800 NPI :183 800 mg 3-01 mg by [id number] tablet 13:19: mouth 59 every 6 (six) hours as needed. potassium Yes NPI:183 chloride 10 12-08 [id number] mEq CR 13:19: tablet 59 docosahexan Yes Take by STULL INSTALLER I:183 oic 3-01 mouth. [id number] acid/epa 13:19: (FISH OIL 59 ORAL) Ascorbic Yes Take by NPI:1 83 Acid 3-01 mouth. [id number] (VITAMIN C) 13:19: 1,000 mg 59 TbSR MULTIVITAMI Yes Take by STULL INSTALLER I:183 N ORAL 3-01 mouth. [id number] 13:19: 59 HYDROcodone Yes 1{tbl} Take 1 STULL INSTALLER I:183 -acetaminop 3-01 tablet by 131 8781 hen 7.5-325 13:19: mouth mg per 59 every 6 tablet (six) hours as needed for Pain. ibuprofen Yes 800mg Take 800 NPI :183 800 mg 3-01 mg by [id number] tablet 13:19: mouth 59 every 6 (six) hours as needed. potassium 0 Yes NPI:183 chloride 10 3- 1937023 mEq CR 13:19: tablet 59 ondansetron 2019-0 Yes [id number] 4mg Take 1 NPI:183 (ZOFRAN) 4 8-10 tablet by 1318 781 mg tablet 00:00: mouth 00 every 8 (eight) hours as needed for Nausea and Vomiting (N/V). ondansetron 2020-0 Yes [id number] 4mg Take 1 NPI:183 (ZOFRAN) 4 8-10 tablet by 1318 781 mg tablet 00:00: mouth 00 every 8 (eight) hours as needed for Nausea and Vomiting (N/V). ondansetron 2020-0 Yes [id number] 4mg Take 1 NPI:183 (ZOFRAN) 4 8-10 tablet by 1318 781 mg tablet 00:00: mouth 00 every 8 (eight) hours as needed for Nausea and Vomiting (N/V). clonazePAM 2017-10 Yes TAKE ONE NPI :183 1 mg tablet 2-11 (1) [id number] 00:00: TABLET(S) 00 BY MOUTH TWICE A DAY NEEDED FOR ANXIETY. clonazePAM 2017-10 Yes TAKE ONE NPI :183 1 mg tablet 2-11 (1) [id number] 00:00: TABLET(S) 00 BY MOUTH TWICE A DAY NEEDED FOR ANXIETY. clonazePAM 2017-10 Yes TAKE ONE NPI :183 1 mg tablet 2-11 (1) [id number] 00:00: TABLET(S) 00 BY MOUTH TWICE A DAY NEEDED FOR ANXIETY. furosemide 2017-10 Yes TAKE ONE NPI :183 40 mg 0-23 (1) [id number] tablet 00:00: TABLET(S) 00 BY MOUTH ONCE A DAY. furosemide 2017-10 Yes TAKE ONE NPI :183 40 mg 0-23 (1) [id number] tablet 00:00: TABLET(S) 00 BY MOUTH ONCE A DAY. furosemide 2017-10 Yes TAKE ONE NPI :183 40 mg 0-23 (1) [id number] tablet 00:00: TABLET(S) 00 BY MOUTH ONCE A DAY. lidocaine 5 Yes APPLY 1 NPI :183 % (700 2-14 PATCH D. [id number] mg/patch) 00:00: LEAVE ON patch 00 FOR 12 H AND OFF FOR 12 H. lidocaine 5 Yes APPLY 1 NPI :183 % (700 2-14 PATCH D. [id number] mg/patch) 00:00: LEAVE ON patch 00 FOR 12 H AND OFF FOR 12 H. lidocaine 5 Yes APPLY 1 NPI :183 % (700 2-14 PATCH D. [id number] mg/patch) 00:00: LEAVE ON patch 00 FOR 12 H AND OFF FOR 12 H. lisinopril- 2016- Yes TK 1 T PO N PI:183 hydrochloro 1-27 QAM. [id number] thiazide 00:00: 20-12.5 mg 00 per tablet lisinopril- Yes TK 1 T PO N PI:183 hydrochloro 1-27 QAM. [id number] thiazide 00:00: 20-12.5 mg 00 per tablet lisinopril- Yes TK 1 T PO N PI:183 hydrochloro 1-27 QAM. [id number] thiazide 00:00: 20-12.5 mg 00 per tablet cyclobenzap Yes TK 1 T PO N PI:183 rine 10 mg 1-17 BID [id number] tablet 00:00: 00 cyclobenzap Yes TK 1 T PO N PI:183 rine 10 mg 1-17 BID [id number] tablet 00:00: 00 cyclobenzap Yes TK 1 T PO N PI:183 rine 10 mg 1-17 BID [id number] tablet 00:00: 00 Immunizations Ordered Immunization Filled Immunization Date Status Commen ts Source Name Name Influenza High Dose 2020-07-05 Completed NPI:1 [id number] Quad 00:00:00 Influenza High Dose 2020-07-05 Completed NPI:1 [id number] Quad 00:00:00 Influenza High Dose 2020-07-05 Completed NPI:1 [id number] Quad 00:00:00 Vital Signs Vital Name Observation Time Observation Value Comments Source Systolic blood pressure 2021-12-08 19:17:00 128 mm[Hg] Diastolic blood 2021-12-08 19:17:00 85 mm[Hg] NPI:1 [id number] pressure Heart rate 2021-12-08 19:17:00 79 /min NPI:1831 [id number] Body weight 2021-12-08 19:17:00 83.263 kg NPI:1831 [id number] BMI 2021-12-08 19:17:00 31.51 kg/m2 NPI:1831 [id number] Oxygen saturation in 2021-12-08 19:17:00 99 /min Arterial blood by Pulse oximetry Procedures Procedure Date / Time Performed Performing Clinician [facility] e CONSENT/REFUSAL FOR 2021-12-14 18:47:31 Doctor Unassigned, No 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 INSTALLER I:[id number] DIAGNOSIS AND TREATMENT Name Encounters Start End Encounter Admission Attending Care Care Encounter Source Date/Time Date/Time Type Type Clinicians Facility Department ID 2022-01-27 2022-01-27 Outpatient [facility] [id number] NPI:183 14:30:00 14:30:00 SCOTTIE [id number] 2022-01-06 2022-01-06 Outpatient [facility] [id number] -[id number] NPI:183 14:20:00 14:20:00 SCOTTIE [id number] 2021-12-24 2021-12-24 [facility] [id number] NPI:183 00:00:00 00:00:00 Scottie VENTURA [id number] [facility] [id number] [place] AT [id number] KRISTA 198 [facility] 2021-12-17 2021-12-[address] [facility] [id number] NPI:183 15:00:00 15:00:00 NORMA [id number] 2021-12-14 2021-12-[address] [facility] [id number] NPI:183 12:47:50 12:47:50 NORMA [id number] 2021-12-14 2021-12-14 Orders Doctor PEARL [id number] NPI:183 00:00:00 00:00:00 Only Unassigned, SABRINA [id number] [facility] [id number] [id number] 2021-12-08 2021-12-08 Office [facility] [id number] NPI:183 13:20:00 13:44:44 Visit Norma GARNICA [id number] [id number] ANNMARIE 4.2.7.2.686 MAUDE [id number] [facility] 2021-12-08 2021-12-08 Outpatient Hortensia GALVEZ, [facility] [id number] NPI:183 13:20:00 13:44:44 NORMA [id number] 2021-04-15 2021-04-15 [id number] NPI:183 13:10:00 14:13:33 SCOTTIE [id number] 2021-04-01 2021-04-01 [facility] [id number] NPI:183 14:40:00 15:54:17 SCOTTIE [id number] 2021-01-14 2021-01-14 [facility] [id number] NPI:183 14:40:00 15:08:56 SCOTTIE [id number] 2021-01-09 2021-01-09 [facility] [id number] NPI:183 10:30:00 10:30:00 SCOTTIE [id number] 1 2020-02-13 2020-02-13 [email or web address] [id number] 14:05:00 14:38:26 Visit [facility] [id number] Surgical 4.2.7.2.686 Specialti [id number] [address] Results This patient has no known results.
[2022-02-16] MEDS ORDERED: ONDANSETRON 4 MG/2 ML VIAL ONE (15:20)
[2022-02-16] MEDS ORDERED: NA CHLORIDE 0.9% 500 ML ONE (15:20)
[2022-02-16] MEDS ORDERED: FAMOTIDINE 20 MG/2 ML VIAL IV ONE (15:21)
[2022-02-16 15:34] LABS: Absolute Lymphocytes (CBC) 3.3 K/uL (0.7-4.9); Lymphocytes % 33.3 % (15.3-44.8); MPV 7.6 fL (7.6-11.3); RBC Red Blood Cell Count 4.34 M/uL (3.86-4.86)
[2022-02-16] MEDS ORDERED: CIPROFLOXACIN 400mg IV 400 MG/200 ML BAG IV ONE (15:36)
[2022-02-16] MEDS ORDERED: METRONIDAZOLE 500mg IVPB 500 MG/100 ML BAG IV ONE (15:36)
[2022-02-16 15:51] LABS: Albumin 3.9 g/dL (3.4-5.0); Bilirubin Total 0.3 mg/dL (0.2-1.0); Potassium 3.4 mmol/L (3.5-5.1); Protein, Total 7.4 g/dL (6.4-8.2)
--- NOTE | 2022-02-16 16:21 | RAD REPORT ---
EXAM DESCRIPTION: CTAbdomen Pelvis W Contrast - 02/16/2022 4:13 pm CLINICAL HISTORY: Abdominal pain. Abdominal pain, acute, nonlocalized COMPARISON: Abdomen Pelvis W Contrast dated 08/23/2018; Abdomen Pelvis W Contrast dated 8; Abdomen Pelvis W Contrast dated 01/11/2016; CT ABD PELVIS W CONTRAST dated 07/23/2015; Head C Spin e Mpr Wo Con dated 08/15/2021 TECHNIQUE: Biphasic CT imaging of the abdomen and pelvis was performed with 100 ml non-ionic IV cont rast. All CT scans are performed using dose optimization technique as appropriate and may include automated exposure control or mA/KV adjustment according to patient size. FINDINGS: The lung bases are clear. The liver, spleen, pancreas, adrenal glands and kidneys are within normal limits. No bowel obstruction, free air, free fluid or abscess. Prominent stool retention throughout the colon . Sigmoid diverticulosis is present without diverticulitis. The appendix is normal. No evidence of s ignificant lymphadenopathy. No suspicious bony findings. IMPRESSION: Sigmoid diverticulosis coli without diverticulitis. Moderate stool retention.
--- NOTE | 2022-02-16 16:37 | EDPHYS ---
Physician Documentation [facility] Name: Jeny Barraza Age: 71 yrs Sex: Female : 1950 Arrival Date: 02/16/2022 Time: 13:38 Bed 17 Private MD: ED Physician Oren Vidales HPI: 02/16 18:04 This 71 yrs old Female presents to ER via Ambulatory with complaints of Abdominal Pain, kdr Diarrhea. 18:04 The patient presents to the emergency department with nausea, that is mild, vomiting, kdr that is intermittent, diarrhea, that is intermittent, abdominal pain, of the left upper quadrant and left lower quadrant. 18:06 Patient presents to the ED complaining of left lower quadrant abdominal pain and kdr diarrhea for about 4 days. She has a history of colitis and she feels that this episode is evolving similar to her prior episodes of colitis where she is required hospitalization. She did start taking Flagyl on Tuesday and has taken that intermittently and took some Cipro yesterday. She is concerned again that this may be escalating to a serious condition that will require inpatient treatment. She does not appear acutely ill or toxic on initial exam. Historical: - Allergies: 14:27 Celexa; jl7 - Home Meds: 14:27 lisinopril Oral [Active]; hydrocodone-acetaminophen 7.5-325 mg Oral tab 1 tab every 4 jl7 hours [Active]; Lasix Oral [Active]; - PMHx: 14:27 Colitis; high heart rate; Hypertensive disorder; jl7 - PSHx: 14:27 Right knee; Ligation of fallopian tube; jl7 - Immunization history:: Client reports receiving the 2nd dose of the Covid vaccine. - Social history:: Smoking status: Patient denies any tobacco usage or history of. ROS: 18:06 Constitutional: Negative for fever, chills, and weight loss, Eyes: Negative for injury, kdr pain, redness, and discharge, ENT: Negative for injury, pain, and discharge, Neck: Negative for injury, pain, and swelling, Cardiovascular: Negative for chest pain, palpitations, and edema, Respiratory: Negative for shortness of breath, cough, wheezing, and pleuritic chest pain, Back: Negative for injury and pain, : Negative for injury, bleeding, discharge, and swelling, MS/Extremity: Negative for injury and deformity, Skin: Negative for injury, rash, and discoloration, Neuro: Negative for headache, weakness, numbness, tingling, and seizure activity. Psych: Negative for depression, anxiety, suicide ideation, homicidal ideation, and hallucinations, Allergy/Immunology: Negative for hives, rash, and allergies, Endocrine: Negative for neck swelling, polydipsia, polyuria, polyphagia, and marked weight changes, Hematologic/Lymphatic: Negative for swollen nodes, abnormal bleeding, and unusual bruising. 18:06 Abdomen/GI: Positive for abdominal pain, nausea, diarrhea, abdominal cramps, of the left upper quadrant and left lower quadrant. Exam: 18:06 Constitutional: This is a well developed, well nourished patient who is awake, alert, kdr and in no acute distress. Head/Face: Normocephalic, atraumatic. Eyes: Pupils equal round and reactive to light, extra-ocular motions intact. Lids and lashes normal. Conjunctiva and sclera are non-icteric and not injected. Cornea within normal limits. Periorbital areas with no swelling, redness, or edema. Neck: Trachea midline, no thyromegaly or masses palpated, and no cervical lymphadenopathy. Supple, full range of motion without nuchal rigidity, or vertebral point tenderness. No Meningismus. Chest/axilla: Normal chest wall appearance and motion. Nontender with no deformity. No lesions are appreciated. Cardiovascular: Regular rate and rhythm with a normal S1 and S2. No gallops, murmurs, or rubs. Normal PMI, no JVD. No pulse deficits. Respiratory: Lungs have equal breath sounds bilaterally, clear to auscultation and percussion. No rales, rhonchi or wheezes noted. No increased work of breathing, no retractions or nasal flaring. Back: No spinal tenderness. No costovertebral tenderness. Full range of motion. Skin: Warm, dry with normal turgor. Normal color with no rashes, no lesions, and no evidence of cellulitis. MS/ Extremity: Pulses equal, no cyanosis. Neurovascular intact. Full, normal range of motion. Neuro: Awake and alert, GCS 15, oriented to person, place, time, and situation. Cranial nerves II-XII grossly intact. Motor strength 5/5 in all extremities. Sensory grossly intact. Cerebellar exam normal. Normal gait. Psych: Awake, alert, with orientation to person, place and time. Behavior, mood, and affect are within normal limits. 18:06 Abdomen/GI: Inspection: obese Bowel sounds: diminished, in all quadrants, Palpation: soft, mild abdominal tenderness, in the left upper quadrant and left lower quadrant. Vital Signs: 14:26 BP 138 / 78; Pulse 85; Resp 15; Temp 97.7; Pulse Ox 98% on R/A; Weight 81.65 kg; Height jl7 5 ft. 4 in. (162.56 cm); Pain 6/10; 14:26 Body Mass Index 30.90 (81.65 kg, 162.56 cm) jl7 MDM: 16:36 Patient medically screened. kdr 18:06 Data reviewed: vital signs, nurses notes, lab test result(s), radiologic studies. kdr Counseling: I had a detailed discussion with the patient and/or guardian regarding: the historical points, exam findings, and any diagnostic results supporting the discharge/admit diagnosis, lab results, radiology results, the need for outpatient follow up. 02/16 15:00 Order name: CBC with Diff; Complete Time: 16:26 kdr 02/16 15:00 Order name: CMP; Complete Time: 16:26 kdr 02/16 15:00 Order name: Lipase; Complete Time: 16:26 [facility] 02/16 15:05 Order name: CT Abd/Pelvis - IV Contrast Only; Complete Time: 16:26 kdr 02/16 15:00 Order name: IV Saline Lock; Complete Time: 16:29 [facility] 02/16 15:00 Order name: Labs collected and sent; Complete Time: 16:29 kdr Administered Medications: 15:30 Drug: Cipro (ciprofloxacin) 400 mg Volume: 200 ml; Route: IVPB; Infused Over: 60 mins; harman Site: left antecubital; 16:29 Drug: Flagyl (metroNIDAZOLE) 500 mg Volume: 100 ml; Route: IVPB; Rate: 200 ml/hr; harman Infused Over: 30 mins; Site: left antecubital; Disposition Summary: 02/16/22 16:36 Discharge Ordered Location: Home kdr Problem: an ongoing problem kdr Symptoms: have improved kdr Condition: Stable kdr Diagnosis - Abdominal pain, Generalized kdr - Lower abdominal pain, unspecified kdr - Constipation kdr - Diverticulosis of intestine, part unspecified, without perforation or abscess with kdr bleeding Followup: kdr - With: Private Physician - When: 2 - 3 days - Reason: If symptoms return, Further diagnostic work-up, Recheck today's complaints, Continuance of care, Re-evaluation by your physician Discharge Instructions: - Discharge Summary Sheet kdr - Diverticulosis kdr - Abdominal Pain, Adult, [id number] kdr - Diarrhea, Adult, [id number] kdr Forms: - Medication Reconciliation Form kdr - Thank You Letter kdr Prescriptions: - Miralax 17 gram Oral powder in packet - take 0.5 packet by ORAL route Twice daily for constipation As needed; 2 box; kdr Refills: 0, Product Selection Permitted Signatures: Dispatcher [employer] EDMS Oren Vidales MD MD kdr Leal, Jahala RN RN jl7 Amira Mcnally RN RN harman Corrections: (The following items were deleted from the chart) 14:29 14:27 PSHx: Right knee; jl7 jl7
--- NOTE | 2022-02-16 16:37 | ER ---
Nurse's Notes [facility] Name: Jeny Barraza Age: 71 yrs Sex: Female : 1950 Arrival Date: 02/16/2022 Time: 13:38 Bed 17 Private MD: Diagnosis: Abdominal pain, Generalized;Lower abdominal pain, unspecified;Constipation;Diverticulosis of intestine, part unspecified, without perforation or abscess with bleeding Presentation: 02/16 14:26 Chief complaint: Patient states: LLQ abdominal pain and diarrhea x 4 days, hx of jl7 colitis. Coronavirus screen: At this time, the client does not indicate any symptoms associated with coronavirus-19. Ebola Screen: No symptoms or risks identified at this time. Initial Sepsis Screen: Does the patient meet any 2 criteria? No. Patient's initial sepsis screen is negative. Does the patient have a suspected source of infection? No. Patient's initial sepsis screen is negative. Risk Assessment: Do you want to hurt yourself or someone else? Patient reports no desire to harm self or others. Onset of symptoms was February 12, 2022. 14:26 Method Of Arrival: Ambulatory [facility] 14:26 Acuity: KESHA 3 jl7 Triage Assessment: 14:27 General: Appears in no apparent distress. uncomfortable, Behavior is calm, cooperative, jl7 appropriate for age. Pain: Complains of pain in left lower quadrant. Neuro: Level of Consciousness is awake, alert, obeys commands, Oriented to person, place, time, situation. GI: Reports diarrhea. Historical: - Allergies: 14:27 Celexa; jl7 - Home Meds: 14:27 lisinopril Oral [Active]; hydrocodone-acetaminophen 7.5-325 mg Oral tab 1 tab every 4 jl7 hours [Active]; Lasix Oral [Active]; - PMHx: 14:27 Colitis; high heart rate; Hypertensive disorder; jl7 - PSHx: 14:27 Right knee; Ligation of fallopian tube; jl7 - Immunization history:: Client reports receiving the 2nd dose of the Covid vaccine. - Social history:: Smoking status: Patient denies any tobacco usage or history of. Screenin:55 Abuse screen: Denies threats or abuse. Denies injuries from another. Nutritional harman screening: No deficits noted. Tuberculosis screening: No symptoms or risk factors identified. Fall Risk None identified. Assessment: 14:55 General: Appears in no apparent distress. Behavior is calm, cooperative. Pain: harman Complains of pain in left lower quadrant. GI: Bowel sounds present X 4 quads. Abd is soft and non tender Reports diarrhea, Pain is 7 out of 10 on a pain scale. Vital Signs: 14:26 BP 138 / 78; Pulse 85; Resp 15; Temp 97.7; Pulse Ox 98% on R/A; Weight 81.65 kg; Height jl7 5 ft. 4 in. (162.56 cm); Pain 6/10; 14:26 Body Mass Index 30.90 (81.65 kg, 162.56 cm) jl7 ED Course: 13:38 Patient arrived in ED. ds1 13:52 Oren Vidales MD is Attending Physician. kdr 14:27 Triage completed. jl7 14:27 Arm band placed on right wrist. 7 14:54 Amira Mcanlly, ROLANDO is Primary Nurse. harman 14:55 Patient has correct armband on for positive identification. Bed in low position. harman 14:55 No provider procedures requiring assistance completed. harman 16:15 CT Abd/Pelvis - IV Contrast Only In Process Unspecified. EDMS 17:20 IV discontinued, intact, Pressure dressing applied. harman Administered Medications: 15:30 Drug: Cipro (ciprofloxacin) 400 mg Volume: 200 ml; Route: IVPB; Infused Over: 60 mins; harman Site: left antecubital; 16:29 Drug: Flagyl (metroNIDAZOLE) 500 mg Volume: 100 ml; Route: IVPB; Rate: 200 ml/hr; harman Infused Over: 30 mins; Site: left antecubital; Outcome: 16:36 Discharge ordered by . kdr 17:20 Discharged to home harman 17:20 Condition: good 17:20 Discharge instructions given to patient, Prescriptions given X 1. 17:21 Patient left the ED. harman Signatures: Dispatcher [employer] EDMS Oren Vidales MD MD kdr Sanford, Demi ds1 Josiane Benítez RN RN [facility] Amira Mcnally RN RN harman Corrections: (The following items were deleted from the chart) 14:29 14:27 PSHx: Right knee; jl7 jl7
[2022-02-16 17:39] VITALS: BP 138/78; TEMP 97.7; O2SAT 98
== END 2022-02-16 17:21 | disposition home or self-care (01) ==
LOC: ER 13:31
DX: K57.30 Diverticulosis of large intestine without perforation or abscess without bleeding (principal); K59.00 Constipation, unspecified; R10.84 Generalized abdominal pain; K52.9 Noninfective gastroenteritis and colitis, unspecified; I10 Essential (primary) hypertension; Z88.8 Allergy status to other drugs, medicaments and biological substances
CPT/HCPCS: 85025; 36415; 83690; 80053; 74177; Q9967; J7040; J3490 ×2; J2405; J0744; 96374; 96375; 99283

== ENCOUNTER 2022-09-16 13:01 | Emergency (ER) | payer OTHER ==
--- OUTSIDE RECORDS SUMMARY | 2022-09-16 13:06 | XMS REPORT | Continuity of Care Document ---
:1950 Author Organization [facility] t Address [address] [place] [address] Care Team Providers Name Role Phone SERGEI TOLBERT Primary Care Physician Unavailable KENZIE MENDIETA Attending Clinician Unavailable Scottie Avila MD Attending Clinician NORMA GALVEZ Attending Clinician Unavailable Doctor Unassigned, [place] Attending Clinician Unavailable Norma Galvez MD Attending Clinician SCOTTIE AVILA Attending Clinician Unavailable Parmjit Lakhani DO Attending Clinician Melvin Carranza MD Attending Clinician Alphonso Ramos MD Attending Clinician STEPHEN ELMORE Attending Clinician Unavailable Kenzie Funez Attending Clinician PETR GORMAN Attending Clinician Unavailable Petr Gorman MD Attending Clinician Karlos Farris MD Attending Clinician COLLEEN PRAKASH Attending Clinician Unavailable NARESH JAMES Attending Clinician Unavailable Stephen Elmore MD Attending Clinician [phone] Odilia Quinonez PT Attending Clinician Unavailable Tonny Og DO Attending Clinician Rani MATHUR, [facility] Karon Attending Clinician Carlton Mari MD Attending Clinician Vls-Lab Attending Clinician Unavailable 1, Adc Lab Attending Clinician Unavailable PETR GORMAN Admitting Clinician Unavailable OLINDA, COLLEEN Cardona Admitting Clinician Unavailable Ramírez MATHUR, Stephen Shoemaker Admitting Clinician [phone] STEPHEN ELMORE Admitting Clinician Unavailable Payers Payer Name Policy Type Policy Number Effective Date Expiration Date Ricardo vargas MEDICARE PART A [id number] 2016 \T\ B 00:00:00 [place] [id number] 2015 00:00:00 [facility] [id number] 2019 PLUS 00:00:00 Problems Condition Condition Condition Status Onset Resolution Last Treating Co mments Source Name Details Category Date Date Treatment Clinician Date Arthritis Arthritis Disease Active Uni vers of right of right 9 ity of knee knee 00:00: [place] [address] Medical Branch Multiple Multiple Disease Active Unive rs thyroid thyroid 6 ity of nodules nodules 00:00: [place] [address] Medical Branch Osteoporos Osteoporos Disease Active Overview : Univers is is Formattin ity of g of this [place] note Medical might be Branch different from the original. ICD10 Diagnosis Term Tafe Registrar Utility Rheumatoid Rheumatoid Disease Active Overview : Univers arthritis arthritis Formattin i ty of g of this [place] note Medical might be Branch different from the original. ICD10 Diagnosis Term Tafe Registrar Utility Symptomati Symptomati Disease Active U nivers c c ity of menopausal [place]opausal [place] or female or female Medi aretha climacteri climacteri Br anch c states c states Headache Headache Disease Active Overview: Un anayeli Formattin ity of g of this [place] note Medical might be Branch different from the original. ICD10 Diagnosis Term Tafe Registrar Utility Essential Essential Disease Active Overview: Univers hypertensi hypertensi Formattin ity of on on g of this [place] note Medical might be Branch different from the original. ICD10 Diagnosis Term Tafe Registrar Utility Allergies, Adverse Reactions, Alerts Allergy Allergy Status Severity Reaction(s) Onset Inactive Treating Comm ents Source Name Type Date Date Clinician CITALOPR DRUG Active Other-Cmnt Univ ers AM INGREDI 12-07 ity of 00:00: [place] [address] Medical Branch Citalopr Propensi Active Other - See Patient Univers am ty to comments 12-07 states ity of adverse 00:00: she felt [place] reaction 00 like she Yuriy cm was going Branch to pass out Social History Social Habit Start Date Stop Date Quantity Comments Source Exposure to Not sure [facility] SARS-CoV-2 (event) Medica l Branch Alcohol intake 2021-04-15 2021-04-15 0 /d [facility] 00:00:00 00:00:00 Medical Branch Tobacco use and 2016-12-07 2016-12-07 Never used [facility] exposure 00:00:00 00:00:00 Medical Branch Sex [birth year] [facility] 00:00:00 00:00:00 Medical Branch Smoking Status Start Date Stop Date Source Never smoker [facility] Medications Ordered Filled Start Stop Current Ordering Indication Dosage Frequency Signature Comments Components Source Medication Medication Date Date Medication? Clinician (SIG) Name Name docosahexan Yes Take by Uni vers oic 3-01 mouth. ity of acid/epa 13:19: [place] (FISH OIL 59 Medical ORAL) Branch Ascorbic Yes Take by Skadoiter s Acid 3-01 mouth. ity of (VITAMIN C) 13:19: [place] 1,000 mg 59 Medical TbSR Branch MULTIVITAMI Yes Take by Uni vers N ORAL 3- mouth. ity of 13:19: [place] 59 Medical Branch HYDROcodone Yes 1{tbl} Take 1 Un anayeli -acetaminop - tablet by ity of hen 7.5-325 13:19: mouth [place] mg per 59 every 6 Medical tablet (six) Branch hours as needed for Pain. ibuprofen Yes 800mg Take 800 Uni vers 800 mg 3-01 mg by ity of tablet 13:19: mouth [place] 59 every 6 Medical (six) Branch hours as needed. potassium Yes Univers chloride 10 3 ity of mEq CR 13:19: [place] tablet 59 Medical Branch docosahexan Yes Take by Uni vers oic 3-01 mouth. ity of acid/epa 13:19: [place] (FISH OIL 59 Medical ORAL) Branch Ascorbic Yes Take by Univer s Acid 3-01 mouth. ity of (VITAMIN C) 13:19: [place] 1,000 mg 59 Medical TbSR Branch MULTIVITAMI Yes Take by Uni vers N ORAL 3-01 mouth. ity of 13:19: [place] 59 Medical Branch HYDROcodone Yes 1{tbl} Take 1 Un anayeli -acetaminop 3-01 tablet by ity of hen 7.5-325 13:19: mouth [place] mg per 59 every 6 Medical tablet (six) Branch hours as needed for Pain. ibuprofen Yes 800mg Take 800 Uni vers 800 mg 3-01 mg by ity of tablet 13:19: mouth [place] 59 every 6 Medical (six) Branch hours as needed. potassium Yes Univers chloride 10 3-01 ity of mEq CR 13:19: [place] tablet 59 Medical Branch docosahexan Yes Take by Uni vers oic 3-01 mouth. ity of acid/epa 13:19: [place] (FISH OIL 59 Medical ORAL) Branch Ascorbic Yes Take by Univer s Acid 3-01 mouth. ity of (VITAMIN C) 13:19: [place] 1,000 mg 59 Medical TbSR Branch MULTIVITAMI Yes Take by Uni vers N ORAL 3-01 mouth. ity of 13:19: [place] 59 Medical Branch HYDROcodone Yes 1{tbl} Take 1 Un anayeli -acetaminop 3-01 tablet by ity of hen 7.5-325 13:19: mouth [place] mg per 59 every 6 Medical tablet (six) Branch hours as needed for Pain. ibuprofen Yes 800mg Take 800 Uni vers 800 mg 3-01 mg by ity of tablet 13:19: mouth [place] 59 every 6 Medical (six) Branch hours as needed. potassium Yes Univers chloride 10 3-01 ity of mEq CR 13:19: [place] tablet 59 Medical Branch ondansetron Yes [id number] 4mg Take 1 Univers (ZOFRAN) 4 8-10 tablet by ity of mg tablet 00:00: mouth [place] 00 every 8 Medical (eight) Branch hours as needed for Nausea and Vomiting (N/V). ondansetron Yes [id number] 4mg Take 1 Univers (ZOFRAN) 4 8-10 tablet by ity of mg tablet 00:00: mouth [place] 00 every 8 Medical (eight) Branch hours as needed for Nausea and Vomiting (N/V). ondansetron Yes [id number] 4mg Take 1 Univers (ZOFRAN) 4 8-10 tablet by ity of mg tablet 00:00: mouth [place] 00 every 8 Medical (eight) Branch hours as needed for Nausea and Vomiting (N/V). clonazePAM 2017-10 Yes TAKE ONE Uni vers [...] TWICE A Branch DAY NEEDED FOR ANXIETY. furosemide 2017-10 Yes TAKE ONE Uni vers [...] Medical AND OFF Branch FOR 12 H. lisinopril- Yes TK 1 T PO U nivers hydrochloro 1-27 QAM. ity of thiazide 00:00: [place] 20-12.5 mg 00 Medical per tablet Branch lisinopril- Yes TK 1 T PO U nivers hydrochloro 1-27 QAM. ity of thiazide 00:00: [place] 20-12.5 mg 00 Medical per tablet Branch lisinopril- Yes TK 1 T PO U nivers hydrochloro 1-27 QAM. ity of thiazide 00:00: [place] 20-12.5 mg 00 Medical per tablet Branch cyclobenzap Yes TK 1 T PO U nivers rine 10 mg 1-17 BID ity of tablet 00:00: [place] Medical Branch cyclobenzap Yes TK 1 T PO U nivers rine 10 mg 1-17 BID ity of tablet 00:00: [place] Medical Branch cyclobenzap Yes TK 1 T PO U nivers rine 10 mg 1-17 BID ity of tablet 00:00: [place] [facility] Immunizations Ordered Filled Immunization Date Status Comments Sourc e Immunization Name Name Influenza High Dose 2020-07-05 Completed Unive rsity of [place] 00:00:00 [facility] Influenza High Dose 2020-07-05 Completed Unive rsity of [place] 00:00:00 [facility] Influenza High Dose 2020-07-05 Completed Unive rsity of [place] 00:00:00 [facility] Vital Signs Vital Name Observation Time Observation Value Comments Source Systolic blood 2021-12-08 19:17:00 128 mm[Hg] Univer sity of [place] pressure [facility] Diastolic blood 2021-12-08 19:17:00 85 mm[Hg] Unive rsity of [place] pressure [facility] Heart rate 2021-12-08 19:17:00 79 /min [facility] Body weight 2021-12-08 19:17:00 83.263 kg [facility] BMI 2021-12-08 19:17:00 31.51 kg/m2 [facility] Oxygen saturation 2021-12-08 19:17:00 99 /min [facility] blood Medical Br anch by Pulse oximetry Procedures Procedure Date / Time Performed Performing Clinician Sourc e CONSENT/REFUSAL FOR 2021-12-14 18:47:31 Doctor Unassigned, No Un [facility] DIAGNOSIS AND Name Medical Branch TREATMENT Encounters Start End Encounter Admission Attending Care Care Encounter Source Date/Time Date/Time Type Type Clinicians Facility Department ID 2021-08-07 Emergency [facility] [id number] Univers 11:33:25 ity [facility] [place] [facility] 2022-07-01 2022-07-01 Outpatient Hortensia MENDIETA [facility] [id number] Univers 13:45:00 13:45:00 KENZIE ity [facility] [place] [facility] 2021-12-24 2021-12-24 [facility] [id number] Univers 00:00:00 00:00:00 Scottie Lucas SPECIALTY [id number] ity of [facility] [id number] [facility] AT [phone] Md darci[address] 2021-12-17 2021-12-17 [facility] [id number] Univers 15:00:00 15:00:00 [facility] 2021-12-17 2021-12-17 [facility] [id number] Univers 15:00:00 15:00:00 [facility] cantuy o [facility] 2021-12-14 2021-12-14 Outpatient R LENNY, [facility] [id number] Univers 15:00:00 15:00:00 [facility] alondray o [facility] 2021-12-14 2021-12-14 Outpatient R LENNY, [facility] [id number] Univers 12:47:50 12:47:50 [facility] 2021-12-14 2021-12-14 Orders Doctor PEARL [id number] Univers 00:00:00 00:00:00 Only Unassigned, SABRINA [id number] ity of [place] [facility] 4.2.7.2.686 Arun [phone] [address] 2021-12-08 2021-12-08 [facility] [id number] Univers 13:20:00 13:44:44 [facility] virginia o [facility] 2021-12-08 2021-12-08 Office [facility] [id number] Univers 13:20:00 13:44:44 Visit Jessicamaria estheropal GARNICA [id number] ity of [place].2.7.2.686 [place] [phone] Md dical NAL 059 [facility] 2021-12-08 2021-12-08 [facility] [id number] Univers 13:20:00 13:44:44 NORMA [place] [facility] 2021-04-28 2021-04-28 Outpatient [facility] [id number] Univers 15:20:00 15:20:00 NORMA [place] [facility] 2021-04-28 2021-04-28 Orders Doctor RYANNE 1.2.840.114 [id number] Univers 00:00:00 00:00:00 Only Unassigned, SABRINA [id number] ity of [place] [facility] 4.2.7.2.686 Arun as [phone] [facility] [address] [place] 2021-04-23 2021-04-23 Patient Doctor RYANNE [id number] Univers 00:00:00 00:00:00 Secure Msg Unassigned, SABRINA [id number] ity of [place] [facility] 4.2.7.2.686 Arun as [phone] [facility] [address] [place] 2021-04-15 2021-04-15 [facility] [id number] Univers 13:26:09 23:59:00 Encounter Scottie Lucas SPECIALTY [id number] ity of [id number] [phone] Md darciadriana VELASCO 809 [facility] 2021-04-15 2021-04-15 Out[facility] [id number] Univers 13:10:00 14:13:33 SCOTTIE coleman of [facility] 2021-04-15 2021-04-15 Office [facility] 1.2.840.114 [id number] Univers 12:58:36 14:13:33 Visit Scottie Lucas SPECIALTY [id number] ity [id number] [phone] Md dicadriana VELASCO 198 [facility] 2021-04-15 2021-04-15 Outpatient R MARGARITA [facility] [id number] Univers 13:10:00 13:10:00 SCOTTIE fredy [facility] [place] [facility] 2021-04-09 2021-04-09 Hospital [facility] [id number] Univers 12:49:16 23:59:00 Encounter Scottie Garnica [id number] ity [facility] 4.2.7.2.686 [facility] [id number] [facility] [address] [place] 2021-04-09 2021-04-09 Outpatient Hortensia AVILA [facility] [id number] Univers 00:00:00 00:00:00 SCOTTIE fredy [facility] 2021-04-01 2021-04-01 Outpatient [facility] [id number] Univers 14:40:00 15:54:17 SCOTTIE fredy [facility] [place] [facility] 2021-04-01 2021-04-01 Office [facility] [id number] Univers 13:55:52 15:54:17 Visit Scottie VENTURA [id number] ity of CARE 4.2.7.2.686 [facility] AT [phone] Md faith VELASCO 198 [facility] 2021-04-01 2021-04-01 Outpatient [facility]ens[facility] [id number] Univers 14:40:00 14:40:00 SCOTTIE fredy [facility] [place] [facility] 2021-03-18 2021-03-18 Outpatient R MARGARITA [facility] [id number] Univers 13:20:00 13:20:00 SCOTTIE fredy [facility] 2021-01-14 2021-01-14 Outpatient [facility]ens[facility] [id number] Univers 14:40:00 15:08:56 SCOTTIE [facility] 2021-01-14 2021-01-14 Office [facility] 1.2.840.114 [id number] Univers 14:07:41 15:08:56 Visit Scottie VENTURA [id number] ity of CARE 4.2.7.2.686 [facility] AT [phone] Md faith VELASCO [address] [place] [address] 2021-01-14 2021-01-14 [facility] [id number] Univers 14:40:00 14:40:00 SCOTTIE [facility] 2021-01-09 2021-01-09 Outpatient [facility] [id number] Univers 10:30:00 10:30:00 SCOTTIE y [facility] 2021-01-09 2021-01-09 Outpatient [facility] [id number] Univers 10:30:00 10:30:00 [facility] 2020-12-18 2020-12-18 [facility] 1.2.840.114 [id number] Univers 08:32:15 23:59:00 Encounter Qiamadan [place] [id number] ity of [place] 4.2.7.2.686 [facility] [id number] [address] 2020-12-18 2020-12-18 [facility] 1.2.840.114 [id number] Univers 08:32:00 08:32:00 Encounter Qiamadan [place] [id number] ity of [place] 4.2.7.2.686 [facility] [id number] [address] 2020-12-18 2020-12-18 [facility] 1.2.840.114 [id number] Univers 08:31:42 08:31:42 Encounter Qiangjun [place] [id number] ity of [place] 4.2.7.2.686 [facility] [id number] [address] 2020-12-18 2020-12-18 Outpatient R [facility] [id number] Univers 08:31:26 08:31:26 NORMA cantuy o f [facility] 2020-12-18 2020-12-18 [facility] 1.2.840.114 [id number] Univers 08:31:26 08:31:26 Encounter Qiamaria estherjun [place] [id number] ity of [place] 4.2.7.2.686 [place] [id number] [facility] [address] 2020-12-18 2020-12-18 Outpatient [facility] [id number] Univers 00:00:00 00:00:00 NORMA cantuy o f [facility] 2020-12-08 2020-12-08 [facility] 1.2.840.114 [id number] Univers 00:00:00 00:00:00 Outreach Parmjit PRIMARY [id number] i ty of [facility] 4.2.7.2.[place] [facility] [phone] Me dical [address] [place] 2020-12-03 2020-12-03 Office [facility] 1.2.840.114 [id number] Univers 14:38:38 15:40:37 Visit Norma Garnica 350.1.13.10 ity [facility] 4.2.7.2.[place] [facility] [phone] Md dical nal 059 [facility] 2020-12-03 2020-12-03 Outpatient R [facility] [id number] Univers 15:00:00 15:00:00 NORMA cope [facility] 2020-12-03 2020-12-03 Orders Doctor RYANNE 1.2.840.114 [id number] Univers 00:00:00 00:00:00 Only Unassigned, SABRINA [id number] ity of [place] [facility] 4.2.7.2.686 Arun as [phone] [facility] [address] [place] 2020-11-10 2020-11-10 Outpatient R [facility] [id number] Univers 15:20:00 15:20:00 ELSAOPAL [place] f [facility] 2020-10-15 2020-10-15 Office [facility] 1.2.840.114 [id number] Univers 15:10:25 16:25:25 Visit Scottie VENTURA [id number] ity of [place] 4.2.7.2.[place] [phone] Md dical VICTORY 198 [facility] 2020-10-15 2020-10-15 Outpatient R LENNY [facility] [id number] Univers 13:00:00 13:00:00 NORMA coleman o f [facility] 2020-10-08 2020-10-08 [facility] [id number] Univers 14:00:00 14:00:00 SCOTTIE coleman [facility] 2020-07-09 2020-07-09 Hospital [facility] 1.2.840.114 [id number] Univers 13:21:48 23:59:00 Encounter Scottie Lucas SPECIALTY [id number] ity of CARE 4.2.7.2.686 [facility] [place] AT [phone] Md faith VELASCO 809 [facility] 2020-07-09 2020-07-09 Office [facility] 1.2.840.114 [id number] Univers 13:09:54 17:36:54 Visit Scottie Lucas SPECIALTY [id number] ity of CARE 4.2.7.2.686 [facility] [place] AT [id number] Md faith VELASCO 198 [facility] 2020-07-09 2020-07-09 [facility] [id number] Univers 14:00:00 14:00:00 SCOTTIE coleman [facility] 2020-05-19 2020-05-19 Emergency Melvin Carranza [facility] 1.2.840. 114 [id number] Univers 12:48:00 16:14:00 Alphonso Ramos [id number] ity of [place] 4.2.7.2.686 [facility] [id number] [facility] [address] [place] 2020-05-19 2020-05-19 Orders Doctor RYANNE 1.2.840.114 [id number] Univers 00:00:00 00:00:00 Only Unassigned, SABRINA 350.1.13.10 ity of [place] [facility] 4.2.7.2.686 Arun [id number] [facility] [address] [place] 2020-05-06 2020-05-06 Outpatient R RAMÍREZ [facility] [id number] Univers 14:15:00 14:15:00 STEPHEN coleman [facility] 2020-04-30 2020-04-30 Orders Doctor RYANNE 1.2.840.114 [id number] Univers 00:00:00 00:00:00 Only Unassigned, SABRINA 350.1.13.10 ity of [place] [facility] 4.2.7.2.686 Arun as [id number] [address] 2020-02-13 2020-02-13 Office Gayatri [facility] 1.2.840.114 [id number] 14:05:00 14:38:26 Visit [facility] [id number] Surgical 4.2.7.2.686 Specialti [phone] es [address] [place] [address] 2020-02-13 2020-02-13 Office [facility] 1.2.840.114 [id number] Univers 14:05:00 14:38:26 Visit [facility] [id number] it y of Surgical 4.2.7.2.686 Arun as Specialti [phone] Me dical es 198 [facility] 2020-02-13 2020-02-13 Outpatient R GAYATRI [facility] [id number] Univers 14:30:00 14:30:00 [facility] 2020-01-03 2020-01-03 Emergency [facility] ERT [id number] Univers 11:17:06 14:12:00 [facility] 2020-01-03 2020-01-03 Emergency [facility] [id number] Univers 11:17:06 14:12:00 [facility] [id number] it y [place].2.686 [place] [id number] [address] ([facility]) 2019-12-31 2019-12-31 Telephone Kaleigh [facility] [id number] Univers 00:00:00 00:00:00 Karlos Chew SPECIALTY 350.1.13.10 ity [place]2.[place].2.[place] [phone] Me faith VELASCO 072 [facility] 2019-10-25 2019-10-25 Outpatient R LENNY [facility] [id number] Univers 00:00:00 00:00:00 NORMA coleman o f [facility] 2019-10-01 2019-10-01 Outpatient R OLINDA, [facility] [id number] Univers 14:16:06 14:33:00 COLLEEN itfredy [facility] 2019-09-18 2019-09-18 Outpatient R ERIKA, [facility] [id number] Univers 14:30:00 16:10:17 NARESH ity [facility] 2019-06-25 2019-06-25 Office [facility] [id number] Univers 13:15:00 13:48:46 Visit Stephen LEONE 350.1.13.10 it y of [facility] 4.2.7.2.686 [facility] [phone] [address] 2019-06-14 2019-06-14 Telephone [facility] 1.2.840.114 [id number] Univers 00:00:00 00:00:00 Stephen SPECIALTY 350.1.13.10 ity of [facility] 4.2.7.2.686 [facility] AT [id number] [address] 2019-06-13 2019-06-13 Hospital [facility] 1.2.840.114 [id number] Univers 10:03:00 19:18:00 Encounter Stephen [facility] 350.1.13.10 ity of [facility] 4.2.7.2.686 [facility] [phone] [address] ([facility]) 2019-06-13 2019-06-13 Orders Doctor RYANNE 1.2.840.114 [id number] Univers 00:00:00 00:00:00 Only Unassigned, SABRINA 350.1.13.10 ity of [place] [facility] 4.2.7.2.686 [facility] [phone] [facility] [address] 2019-06-08 2019-06-08 Case Odilia Quinonez [facility] 1.2.840.114 [id number] Univers 00:00:00 00:00:00 Management Jessica 350.1.13.10 ity of [place].2.[place] [facility] [phone] Md faith orozco 179 [facility] 2019-05-24 2019-05-24 Hospital [facility] 1.2.840.114 [id number] Univers 14:55:19 23:59:00 Encounter Tonny Hoskins Jessica [id number] ity of [place] 4.2.7.2.686 [place] [phone] [facility] [address] [place] 2019-05-24 2019-05-24 Case [facility] 1.2.840.114 [id number] Univers 00:00:00 00:00:00 Management [place] SPECIALTY 350.1.13.10 ity of [place] 4.2.7.2.[place] AT [id number] Md faith RUDOL[address] 2019-05-24 2019-05-24 Orders Doctor RYANNE 1.2.840.114 [id number] Univers 00:00:00 00:00:00 Only Unassigned, SABRINA 350.1.13.10 ity of [place] [facility] 4.2.7.2.686 Arun as [phone] [facility] [address] [place] 2019-05-23 2019-05-23 Telephone [facility] [id number] Univers 00:00:00 00:00:00 Karlos Chew SPECIALTY [id number] ity of [place] 4[place]2.7.2.[place] [phone] Md faith [address] 2019-05-23 2019-05-23 Telephone Ramírez [facility] 1.2.840.114 [id number] Univers 00:00:00 00:00:00 Stephen LEONE [id number] it y of Navid [facility] [id number] [place] [phone] [facility] [address] 2019-05-18 2019-05-18 Telephone [facility] [id number] Univers 00:00:00 00:00:00 [place] SPECIAL[facility] [id number] it[id number] [phone] Md faith VELASCO 072 [facility] 2019-05-16 2019-05-16 Hospital Kaleigh [facility] [id number] Univers 10:30:00 23:59:00 Encounter Karlos Garnica [id number] ity of [place] [id number] [facility] s [place] [phone] [facility] [address] [place] 2019-05-08 2019-05-15 Varnisher Plasticoater Vls-Lab [facility] [id number] Univers 15:18:19 14:53:40 Visit Karlos Farris 350.1.13.1 0 it[id number] [phone] Md faith VELASCO [address] [place] [address] 2019-05-15 2019-05-15 Varnisher Plasticoater 1, Adc Lab [facility] [id number] Univers 09:45:25 10:00:25 Visit Karlos Farris [id number] ity of [place] [id number] [facility] [phone] [facility] [address] [place] 2019-05-08 2019-05-08 Office Kaleigh [facility] [id number] Univers 14:02:11 15:07:43 Visit Karlos VENTURA [id number] it[id number] [phone] Md faith VELASCO [address] [place] [address] 2019-05-08 2019-05-08 Orders Doctor RYANNE [id number] Univers 00:00:00 00:00:00 Only Unassigned, SABRINA [id number] ity of [place] [facility] 4.2.7.2.686 Arun as [phone] [facility] [address] [place] 2019-05-08 2019-05-08 Telephone Kaleigh WYSUZY [id number] Univers 00:00:00 00:00:00 Karlos VENTURA [id number] it[id number] [phone] Md faith VELASCO 072 [facility] 2019-05-04 2019-05-04 Telephone [facility] [id number] Univers 00:00:00 00:00:00 Norma Garnica [id number] [place] of [place]2.[place].2.[place] [phone] Md faith nal 059 [facility] 2019-05-04 2019-05-04 [facility]phone [facility] 1.2.840.114 [id number] Univers 00:00:00 00:00:00 Stephen SPECIALTY [id number] ity of [facility] [id number] [phone] Md faith VELASCO 198 [facility] 2019-05-03 2019-05-03 Telephone [facility] [id number] Univers 00:00:00 00:00:00 Stephen SPECIALTY [id number] ity of [facility] [id number] [phone] Md faith VELASCO 198 [facility] 2019-02-20 2019-02-20 Outpatient [facility] [id number] Univers 15:41:05 23:59:00 STEPHEN cantufredy [facility] 2019-01-23 2019-01-23 Outpatient [facility]ens[facility] [id number] Univers 13:05:16 13:28:00 STEPHEN coleman [facility] 2019-01-11 2019-01-11 [facility] [id number] Univers 10:14:20 23:59:00 NARESH coleman [facility] 2018-08-23 2018-08-23 Orders Doctor RYANNE [id number] Univers 00:00:00 00:00:00 Only Unassigned, SABRINA [id number] ity of [place] [facility] [id number] Arun as [phone] [place] [address] [place] Results This patient has no known results.
[2022-09-16] MEDS ORDERED: HYDROCODONE/APAP 5/325 MG TAB ONE (14:36)
--- NOTE | 2022-09-16 14:40 | ER ---
Nurse's Notes [facility] Name: Jeny Barraza Age: 72 yrs Sex: Female : 1950 Arrival Date: 09/16/2022 Time: 13:04 Bed 16 Private MD: Diagnosis: Displaced fracture of fifth metatarsal bone, left foot Presentation: 09/16 13:18 Chief complaint: Patient states: she fell approx one week ago, and injured her left ap3 foot. patient reports continued pain to the left foot, and states "I came here because I need a boot, I have a lot to do and my foot hurts so bad". Patients left foot has purple and yellow bruising present. Coronavirus screen: At this time, the client does not indicate any symptoms associated with coronavirus-19. Ebola Screen: No symptoms or risks identified at this time. Initial Sepsis Screen: Does the patient meet any 2 criteria? HR > 90 bpm. Does the patient have a suspected source of infection? No. Patient's initial sepsis screen is negative. Risk Assessment: Do you want to hurt yourself or someone else? Patient reports no desire to harm self or others. Onset of symptoms was September 09, 2022. 13:18 Method Of Arrival: Ambulatory ap3 13:18 Acuity: KESHA 4 ap3 Triage Assessment: 13:21 General: Appears in no apparent distress. Behavior is cooperative, appropriate for age. ap3 Pain: Complains of pain in left foot. Neuro: Level of Consciousness is awake, alert, obeys commands, Oriented to person, place, time, Speech is normal. Cardiovascular: Patient's skin is warm and dry. Respiratory: Airway is patent Respiratory effort is even, unlabored, Respiratory pattern is regular, symmetrical. Derm: Bruising that is dark purple, yellow, on dorsum of left foot, left second toe, left third toe and left fourth toe. Musculoskeletal: Swelling present in left foot. Injury Description: fall. Historical: - Allergies: 13:20 Celexa; ap3 - PMHx: 13:20 Colitis; high heart rate; Hypertensive disorder; ap3 - PSHx: 13:20 Ligation of fallopian tube; right knee; ap3 - Immunization history:: Client reports receiving the 2nd dose of the Covid vaccine, Flu vaccine is not up to date. - Social history:: Smoking status: Patient/guardian denies using tobacco. Screenin:20 Fall Risk Fall in past 12 months (25 points). ko1 13:22 Abuse screen: Denies threats or abuse. Nutritional screening: No deficits noted. ap3 Tuberculosis screening: No symptoms or risk factors identified. Assessment: 13:20 General: Appears in no apparent distress. uncomfortable, Behavior is calm, cooperative, ko1 appropriate for age. Pain: Complains of pain in lateral aspect of left foot Alleviated by rest, Aggravated by weight bearing. Neuro: No deficits noted. Cardiovascular: No deficits noted. Respiratory: No deficits noted. GI: No deficits noted. : No deficits noted. EENT: No deficits noted. Derm: No deficits noted. Musculoskeletal: Circulation, motion, and sensation intact. Capillary refill < 3 seconds, Range of motion: intact in all extremities, Swelling bruising to top of left foot by toes. Injury Description: Bruise sustained to dorsum of left foot. Vital Signs: 13:18 BP 123 / 83; Pulse 100; Resp 17; Temp 98.8(O); Pulse Ox 96% ; Weight 66.68 kg; Height 5 ap3 ft. 4 in. (162.56 cm); 15:00 BP 134 / 81; Pulse 99; Pulse Ox 99% on R/A; ko1 13:18 Body Mass Index 25.23 (66.68 kg, 162.56 cm) ap3 ED Course: 13:04 Patient arrived in ED. as 13:09 Renetta Barahona FNP-C [facility]. snw 13:09 Lloyd Lozada MD is Attending Physician. snw 13:17 Kati Cast, ROLANDO is Primary Nurse. ko1 13:20 Triage completed. ap3 13:22 Arm band placed on right wrist. ap3 13:22 Patient has correct armband on for positive identification. Bed in low position. Call ap3 light in reach. Pulse ox on. NIBP on. 14:38 Richmond Can MD is Referral Physician. snw 14:46 Foot Left 3 View XRAY In Process Unspecified. EDMS 15:00 walking boot to left foot. ko1 15:00 No provider procedures requiring assistance completed. Patient did not have IV access ko1 during this emergency room visit. Administered Medications: 14:39 Drug: [place] (HYDROcodone-acetaminophen) 5 mg-325 mg 1 tabs Route: PO; ko1 Medication: 15:00 VIS not applicable for this client. ko1 Outcome: 14:39 Discharge ordered by MD. rubio 15:00 Discharged to home ambulatory, with family. ko1 15:00 Condition: stable 15:00 Discharge instructions given to patient, Instructed on discharge instructions, follow up and referral plans. Demonstrated understanding of instructions, follow-up care. 15:03 Patient left the ED. ko1 Signatures: Dispatcher [employer] EDMS Renetta Barahona, GLASS TECHNOLOGIST-C GLASS TECHNOLOGIST-Carolina Olson Amanda RN RN ap3 Kati Cast RN RN ko1
--- NOTE | 2022-09-16 14:40 | EDPHYS ---
Physician Documentation [facility] Name: Jeny Barraza Age: 72 yrs Sex: Female : 1950 Arrival Date: 09/16/2022 Time: 13:04 Bed 16 Private MD: ED Physician Lloyd Lozada HPI: 09/16 13:42 This 72 yrs old Female presents to ER via Ambulatory with complaints of Foot Injury. snw 13:42 The patient presents with a contusion, pain, that is acute. The complaints affect the snw dorsum of left foot. Context: The problem was sustained. 13:42 Associated signs and symptoms: Pertinent positives: pain and ecchymosis. Treatment snw prior to arrival includes: jina wrap. Severity of symptoms: At their worst the symptoms were moderate, in the emergency department the symptoms are unchanged. The patient has not experienced similar symptoms in the past. The patient has not recently seen a physician. Historical: - Allergies: 13:20 Celexa; ap3 - PMHx: 13:20 Colitis; high heart rate; Hypertensive disorder; ap3 - PSHx: 13:20 Ligation of fallopian tube; right knee; ap3 - Immunization history:: Client reports receiving the 2nd dose of the Covid vaccine, Flu vaccine is not up to date. - Social history:: Smoking status: Patient/guardian denies using tobacco. ROS: 13:41 Constitutional: Negative for fever, chills, and weight loss, Eyes: Negative for injury, snw pain, redness, and discharge, ENT: Negative for injury, pain, and discharge, Neck: Negative for injury, pain, and swelling, Cardiovascular: Negative for chest pain, palpitations, and edema, Respiratory: Negative for shortness of breath, cough, wheezing, and pleuritic chest pain, Abdomen/GI: Negative for abdominal pain, nausea, vomiting, diarrhea, and constipation, Back: Negative for injury and pain, : Negative for injury, bleeding, discharge, and swelling, MS/Extremity: Negative for injury and deformity, Neuro: Negative for headache, weakness, numbness, tingling, and seizure, Psych: Negative for depression, anxiety, suicide ideation, homicidal ideation, and hallucinations. 13:41 Skin: Positive for ecchymosis, of the dorsum of left foot. Exam: 13:40 Constitutional: This is a well developed, well nourished patient who is awake, alert, snw and in no acute distress. Head/Face: Normocephalic, atraumatic. Eyes: Pupils equal round and reactive to light, extra-ocular motions intact. Lids and lashes normal. Conjunctiva and sclera are non-icteric and not injected. Cornea within normal limits. Periorbital areas with no swelling, redness, or edema. Neck: Trachea midline, no thyromegaly or masses palpated, and no cervical lymphadenopathy. Supple, full range of motion without nuchal rigidity, or vertebral point tenderness. No Meningismus. Chest/axilla: Normal chest wall appearance and motion. Nontender with no deformity. No lesions are appreciated. Cardiovascular: Regular rate and rhythm with a normal S1 and S2. No gallops, murmurs, or rubs. Normal PMI, no JVD. No pulse deficits. Respiratory: Lungs have equal breath sounds bilaterally, clear to auscultation and percussion. No rales, rhonchi or wheezes noted. No increased work of breathing, no retractions or nasal flaring. Abdomen/GI: Soft, non-tender, with normal bowel sounds. No distension or tympany. No guarding or rebound. No evidence of tenderness throughout. Back: No spinal tenderness. No costovertebral tenderness. Full range of motion. Neuro: Awake and alert, GCS 15, oriented to person, place, time, and situation. Cranial nerves II-XII grossly intact. Motor strength 5/5 in all extremities. Sensory grossly intact. Cerebellar exam normal. Normal gait. 13:40 Musculoskeletal/extremity: ROM: no acute changes, Pulses: are normal with no appreciated deficits, Sensation intact. Weight bearing: can bear weight with assistance only, splinting. 13:40 Skin: Appearance: normal except for affected area, injury, contusion(s), that are deep, of the left second toe, left third toe and left fourth toe. Vital Signs: 13:18 BP 123 / 83; Pulse 100; Resp 17; Temp 98.8(O); Pulse Ox 96% ; Weight 66.68 kg; Height 5 ap3 ft. 4 in. (162.56 cm); 15:00 BP 134 / 81; Pulse 99; Pulse Ox 99% on R/A; ko1 13:18 Body Mass Index 25.23 (66.68 kg, 162.56 cm) ap3 MDM: 13:09 Patient medically screened. snw 14:40 Data reviewed: vital signs, nurses notes. Data interpreted: Pulse oximetry: on room air snw is 96 %. Interpretation: acceptable. Counseling: I had a detailed discussion with the patient and/or guardian regarding: the historical points, exam findings, and any diagnostic results supporting the discharge/admit diagnosis, radiology results, the need for outpatient follow up, to return to the emergency department if symptoms worsen or persist or if there are any questions or concerns that arise at home. Special discussion: Based on the history and exam findings, there is no indication for further emergent testing or inpatient evaluation. I discussed with the patient/guardian the need to see the orthopedic surgeon for further evaluation of the symptoms. 09/16 13:33 Order name: Foot Left 3 View XRAY; Complete Time: 14:56 snw 09/16 14:29 Order name: Walking boot; Complete Time: 14:54 snw Administered Medications: 14:39 Drug: [place] (HYDROcodone-acetaminophen) 5 mg-325 mg 1 tabs Route: PO; ko1 Disposition: 16:56 Co-signature as Attending Physician, Lloyd Lozada MD. rn Disposition Summary: 09/16/22 14:39 Discharge Ordered Location: Home snw Condition: Stable snw Diagnosis - Displaced fracture of fifth metatarsal bone, left foot snw Followup: snw - With: Emergency Department - When: As needed - Reason: Worsening of condition Followup: snw - With: Richmond Can MD - When: 2 - 3 days - Reason: Recheck today's complaints, Continuance of care Discharge Instructions: - Discharge Summary Sheet snw - Metatarsal Fracture snw - Walking Boot, Adult snw - Foot Pain snw Forms: - Medication Reconciliation Form snw - Thank You Letter snw - Antibiotic Education snw - Prescription Opioid Use snw Signatures: Dispatcher [employer] EDMS Renetta Barahona FNP-C POCKET ASSEMBLER-Csnw Lloyd Lozada MD MD rn Prokisch, Amanda, RN RN ap3 Kati Cast RN RN ko1
--- NOTE | 2022-09-16 14:52 | RAD REPORT ---
EXAM DESCRIPTION: RAD - Foot Left 3 View - 09/16/2022 2:44 pm CLINICAL HISTORY: PAIN COMPARISON: Foot Left 3 View dated 05/14/2015 FINDINGS: Mildly displaced fracture of the distal fifth metatarsal. Moderate adjacent soft tissue sw elling. Small posterior and plantar calcaneal spurs.
[2022-09-16 16:53] VITALS: TEMP 98.8
[2022-09-16 16:54] VITALS: BP 134/81; O2SAT 99
== END 2022-09-16 15:03 | disposition home or self-care (01) ==
LOC: ER 13:01
DX: S92.352A Displaced fracture of fifth metatarsal bone, left foot, initial encounter for closed fracture (principal); I10 Essential (primary) hypertension; Z88.8 Allergy status to other drugs, medicaments and biological substances
CPT/HCPCS: 99284

== ENCOUNTER 2024-04-18 17:06 | Emergency (ER) | payer OTHER ==
--- OUTSIDE RECORDS SUMMARY | 2024-04-18 17:09 | XMS REPORT | Continuity of Care Document ---
Author Name Unknown Address [address] [facility] [place] [address] [facility] Address [address] [facility] [place] [address] Care Team Providers Care Life Specialist Name Role Phone SERGEI TOLBERT Primary Care Physician UnavailNARESH Varghese Attending Clinician UnavailNARESH Mack Attending Clinician UnavailNaresh Mack MD Attending Clinician [phone] Baldev Flanagan PTA Attending Clinician Unavaila maricruz Lab, Ang - Db Attending Clinician Unavailable NORMA GALVEZ Attending Clinician Unavailable Norma Galvez MD Attending Clinician [phone] Doctor Unassigned, [place] Attending Clinician U jasmin Shannon Attending Clinician Unavaila KENZIE Kline Attending Clinician Unavailable Scottie Avila MD Attending Clinician [phone] SCOTTIE AVILA Attending Clinician Unavailable Parmjit Lakhani DO Attending Clinician [phone] Melvin Carranza MD Attending Clinician [phone] Alphonso Ramos MD Attending Clinician [phone] STEPHEN ELMORE Attending Clinician Unav Kenzie Lerma Attending Clinician [phone] PETR GORMAN Attending Clinician Unavailable Petr Gorman MD Attending Clinician [phone] Karlos Farris MD Attending Clinician [phone] COLLEEN PRAKASH Attending Clinician Unavaila maricruz Hoffmannon MD, Stephen Shoemaker Attending Clinician + Odilia Quinonez PT Attending Clinician Unavailable Tonny Og DO Attending Clinician [phone] Rani MATHUR, [facility] Attending Clinician Jacey MATHUR, [place] Attending Clinician [phone] Vls-Lab Attending Clinician Unavailable 1, Ad[facility] Attending Clinician Unavailable RANJITH_Woo_Baldev_ Admitting Clinician UnavailPETR Plunkett Admitting Clinician Unavailable OLINDA, COLLEEN Cardona Admitting Clinician Unavailafrica Elmore MD, Stephen Shoemaker Admitting Clinician + STEPHEN ELMORE Admitting Clinician Unav ailable Payers Payer Name Policy Type Policy Number Effective Date Expirati on Date Source MEDICARE PART A \\T\\ B [id number] 2016 00:00:00 [place] [id number] 2015 00:00:00 [facility] PL[facility] [id number] 00:00:00 [facility] [id number] 2023 00:00:00 [place] [employer] [id number] 2016 00:00:00 [facility] [place] [id number] Problems Condition Name Condition Details Condition Category Status Onset Date Resolution Date Last Treatment Date Treating Clinician Comments Source Preop cardiovasc ular exam Preop cardiovasc ular exam Disease Active 2022-10 00:00: 00 [facility] Venous insufficie ncy Venous insufficie ncy Disease Active 2022-10 00:00: 00 [facility] Obesity (BMI 30-39.9) Obesity (BMI 30-39.9) Disease Active 2022-10 00:00: 00 [facility] Arthritis of right knee Arthritis of right knee Disease Active 07-09 00:00: 00 [facility] Multiple thyroid nodules Multiple thyroid nodules Disease Active 03-15 00:00: 00 [facility] Osteoporos is Osteoporos is Disease Active Overview: Formattin g of this note might be different from the original. ICD10 Diagnosis Term [employer] Utility [facility] Rheumatoid arthritis Rheumatoid arthritis Disease Active Overview: Formattin g of this note might be different from the original. ICD10 Diagnosis Term [employer] [facility] Symptomati c menopausal or female climacteri c states Symptomati c menopausal or female climacteri c states Disease Active [facility] Headache Headache Disease Active Overv iew: Formattin g of this note might be different from the original. ICD10 Diagnosis Term [employer] [facility] Essential hypertensi on Essential hypertensi on Disease Active Overview: Formattin g of this note might be different from the original. ICD10 Diagnosis Term [employer] [facility] Allergies, Adverse Reactions, Alerts Allergy Name Allergy Type Status Severity Reaction(s) Onset Date Inactive Date Treating Clinician Comments Source CITALOPR AM DRUG INGREDI Active Other-Cmnt 12-07 00:00: 00 [facility] Citalopr am Propensi ty to adverse reaction s Active Other - See comments 12-07 00:00: 00 Patient states she felt like she was going to pass out [facility] Social History Social Habit Start Date Stop Date Quantity Comments Source Gender identity [facility] Sexual orientation [facility] Alcohol intake 2023-10-12 00:00:00 2023-10-12 00:00:00 0 /d [facility] History of Social function 2023-09-28 00:00:00 2023-09-28 00:00:00 [facility] Exposure to SARS-CoV-2 (event) 2022-10-18 00:00:00 2022-10-28 11:20:00 Not sure [facility] Tobacco use and exposure 2022-10-28 00:00:00 2022-10-28 00:00:00 Smokeless tobacco non-user [facility] Sex Assigned At 1950 00:00:00 1950 00:00:00 [facility] Smoking Status Start Date Stop Date Source Never smoked tobacco [facility] Medications Ordered Medication Name Filled Medication Name Start Date Stop Date Current Medication? Ordering Clinician Indication Dosage Frequency Signature (SIG) Comments Components Source HYDROcodone -acetaminop hen (NORCO) 10-325 mg tablet 2022-10 00:00: 00 10-13 05:59 :00 No [id number] 1{tbl} Take 1 tablet by mouth every 6 (six) hours as needed for Pain (scale 4-6) for up to 7 days. Indication s: acute pain [facility] ibuprofen 800 mg tablet 2022-10 08:58: 42 Yes 800mg Take 1 tablet by mouth every 6 (six) hours as needed. [facility] MULTIVITAMI N ORAL 2022-10 14:45: 16 09-13 00:00 :00 No Take by mouth. [facility] docosahexan oic acid/epa (FISH OIL ORAL) 2022-10 14:44: 57 09-13 00:00 :00 No Take by mouth. [facility] Ascorbic Acid (VITAMIN C) 1,000 mg [facility] [place] 2022-10 14:44: 38 09-13 00:00 :00 No Take by mouth. [facility] docosahexan oic acid/epa (FISH OIL ORAL) 12-08 13:19: 59 Yes Take by mouth. [facility] Ascorbic [facility] 13:19: 59 Yes Take by mouth. [facility] HYDROcodone -acetaminop hen 7.5-325 mg per tablet 12-08 13:19: 59 Yes 1{tbl} Take 1 tablet by mouth every 6 (six) hours as needed for Pain. [facility] ibuprofen 800 mg tablet 12-08 13:19: 59 Yes 800mg Take 800 mg by mouth every 6 (six) hours as needed. [facility] potassium chloride 10 mEq CR tablet 12-08 13:19: 59 Yes [facility] ondansetron (ZOFRAN) 4 mg tablet 8-10 00:00: 00 Yes [id number] 4mg Take 1 tablet by mouth every 8 (eight) hours as needed for Nausea and Vomiting (N/V). [facility] clonazePAM 1 mg tablet 2017-10 2-11 00:00: 00 09-13 00:00 :00 No TAKE ONE (1) TABLET(S) BY MOUTH TWICE A DAY NEEDED FOR ANXIETY. [facility] furosemide 40 mg tablet 2017-10 0 00:00: 00 Yes TAKE ONE (1) TABLET(S) BY MOUTH ONCE A DAY. [facility] lidocaine 5 % (700 mg/patch) patch 11-23 00:00: 00 09-13 00:00 :00 No APPLY 1 PATCH D. LEAVE ON FOR 12 H AND OFF FOR 12 H. [facility] lisinopril- hydrochloro thiazide 20-12.5 mg per tablet 11-05 00:00: 00 Yes TK 1 T PO QAM. [facility] cyclobenzap rine 10 mg tablet 10-26 00:00: 00 Yes TK 1 T PO BID [facility] Immunizations Ordered Immunization Name Filled Immunization Name Date Status Comments Source Influenza High Dose Quad 2020-07-05 00:00:00 Completed [facility] Influenza High Dose Quad 2020-07-05 00:00:00 Completed [facility] Influenza High Dose Quad 2020-07-05 00:00:00 Completed [facility] Influenza High Dose Quad 2020-07-05 00:00:00 Completed [facility] Influenza High Dose Quad 2020-07-05 00:00:00 Completed [facility] Influenza High Dose Quad 2020-07-05 00:00:00 Completed [facility] Influenza High Dose Quad 2020-07-05 00:00:00 Completed [facility] Influenza High Dose Quad 2020-07-05 00:00:00 Completed [facility] Influenza High Dose Quad Unknown Completed [facility] Influenza High Dose Quad Unknown Completed [facility] Influenza High Dose Quad Unknown Completed [facility] Influenza High Dose Quad Unknown Completed [facility] Influenza High Dose Quad Unknown Completed [facility] SARS-COV-2 COVID-19 MODERNA 12+ YRS VACCINE Unknown Completed [facility] SARS-COV-2 COVID-19 MODERNA 12+ YRS VACCINE Unknown Completed [facility] Influenza High Dose Quad Unknown Completed [facility] SARS-COV-2 COVID-19 MODERNA 12+ YRS VACCINE Unknown Completed [facility] SARS-COV-2 COVID-19 MODERNA 12+ YRS VACCINE Unknown Completed [facility] Influenza High Dose Quad Unknown Completed [facility] SARS-COV-2 COVID-19 MODERNA 12+ YRS VACCINE Unknown Completed [facility] SARS-COV-2 COVID-19 MODERNA 12+ YRS VACCINE Unknown Completed [facility] Influenza High Dose Quad Unknown Completed [facility] SARS-COV-2 COVID-19 MODERNA 12+ YRS VACCINE Unknown Completed [facility] SARS-COV-2 COVID-19 MODERNA 12+ YRS VACCINE Unknown Completed [facility] Influenza High Dose Quad Unknown Completed [facility] SARS-COV-2 COVID-19 MODERNA 12+ YRS VACCINE Unknown Completed [facility] SARS-COV-2 COVID-19 MODERNA 12+ YRS VACCINE Unknown Completed [facility] Influenza High Dose Quad Unknown Completed [facility] SARS-COV-2 COVID-19 MODERNA 12+ YRS VACCINE Unknown Completed [facility] SARS-COV-2 COVID-19 MODERNA 12+ YRS VACCINE Unknown Completed [facility] Influenza High Dose Quad Unknown Completed [facility] SARS-COV-2 COVID-19 MODERNA 12+ YRS VACCINE Unknown Completed [facility] SARS-COV-2 COVID-19 MODERNA 12+ YRS VACCINE Unknown Completed [facility] Influenza High Dose Quad Unknown Completed [facility] SARS-COV-2 COVID-19 MODERNA 12+ YRS VACCINE Unknown Completed [facility] SARS-COV-2 COVID-19 MODERNA 12+ YRS VACCINE Unknown Completed [facility] Influenza High Dose Quad Unknown Completed [facility] SARS-COV-2 COVID-19 MODERNA 12+ YRS VACCINE Unknown Completed [facility] SARS-COV-2 COVID-19 MODERNA 12+ YRS VACCINE Unknown Completed [facility] Influenza High Dose Quad Unknown Completed [facility] SARS-COV-2 COVID-19 MODERNA 12+ YRS VACCINE Unknown Completed [facility] SARS-COV-2 COVID-19 MODERNA 12+ YRS VACCINE Unknown Completed [facility] Influenza High Dose Quad Unknown Completed [facility] SARS-COV-2 COVID-19 MODERNA 12+ YRS VACCINE Unknown Completed [facility] SARS-COV-2 COVID-19 MODERNA 12+ YRS VACCINE Unknown Completed [facility] Influenza High Dose Quad Unknown Completed [facility] SARS-COV-2 COVID-19 MODERNA 12+ YRS VACCINE Unknown Completed [facility] SARS-COV-2 COVID-19 MODERNA 12+ YRS VACCINE Unknown Completed [facility] Influenza High Dose Quad Unknown Completed [facility] SARS-COV-2 COVID-19 MODERNA 12+ YRS VACCINE Unknown Completed [facility] SARS-COV-2 COVID-19 MODERNA 12+ YRS VACCINE Unknown Completed [facility] Influenza High Dose Quad Unknown Completed [facility] SARS-COV-2 COVID-19 MODERNA 12+ YRS VACCINE Unknown Completed [facility] SARS-COV-2 COVID-19 MODERNA 12+ YRS VACCINE Unknown Completed [facility] Influenza High Dose Quad Unknown Completed [facility] SARS-COV-2 COVID-19 MODERNA 12+ YRS VACCINE Unknown Completed [facility] SARS-COV-2 COVID-19 MODERNA 12+ YRS VACCINE Unknown Completed [facility] Influenza High Dose Quad Unknown Completed [facility] SARS-COV-2 COVID-19 MODERNA 12+ YRS VACCINE Unknown Completed [facility] SARS-COV-2 COVID-19 MODERNA 12+ YRS VACCINE Unknown Completed [facility] Influenza High Dose Quad Unknown Completed [facility] SARS-COV-2 COVID-19 MODERNA 12+ YRS VACCINE Unknown Completed [facility] SARS-COV-2 COVID-19 MODERNA 12+ YRS VACCINE Unknown Completed [facility] Influenza High Dose Quad Unknown Completed [facility] SARS-COV-2 COVID-19 MODERNA 12+ YRS VACCINE Unknown Completed [facility] SARS-COV-2 COVID-19 MODERNA 12+ YRS VACCINE Unknown Completed [facility] Influenza High Dose Quad Unknown Completed [facility] SARS-COV-2 COVID-19 MODERNA 12+ YRS VACCINE Unknown Completed [facility] SARS-COV-2 COVID-19 MODERNA 12+ YRS VACCINE Unknown Completed [facility] Influenza High Dose Quad Unknown Completed [facility] SARS-COV-2 COVID-19 MODERNA 12+ YRS VACCINE Unknown Completed [facility] SARS-COV-2 COVID-19 MODERNA 12+ YRS VACCINE Unknown Completed [facility] Influenza High Dose Quad Unknown Completed [facility] SARS-COV-2 COVID-19 MODERNA 12+ YRS VACCINE Unknown Completed [facility] SARS-COV-2 COVID-19 MODERNA 12+ YRS VACCINE Unknown Completed [facility] Influenza High Dose Quad Unknown Completed [facility] SARS-COV-2 COVID-19 MODERNA 12+ YRS VACCINE Unknown Completed [facility] SARS-COV-2 COVID-19 MODERNA 12+ YRS VACCINE Unknown Completed [facility] Influenza High Dose Quad Unknown Completed [facility] SARS-COV-2 COVID-19 MODERNA 12+ YRS VACCINE Unknown Completed [facility] SARS-COV-2 COVID-19 MODERNA 12+ YRS VACCINE Unknown Completed [facility] Vital Signs Vital Name Observation Time Observation Value Comments S ource Body height 2023-10-19 19:06:00 157.5 cm [facility] Body weight 2023-10-19 19:06:00 79.833 kg [facility] BMI 2023-10-19 19:06:00 32.19 kg/m2 [facility] Systolic blood pressure 2023-10-12 21:26:00 125 mm[Hg] [facility] Diastolic blood pressure 2023-10-12 21:26:00 81 mm[Hg] [facility] Heart rate 2023-10-12 21:26:00 100 /min [facility] Body height 2023-10-12 21:26:00 157.5 cm [facility] Body weight 2023-10-12 21:26:00 79.833 kg [facility] BMI 2023-10-12 21:26:00 32.19 kg/m2 [facility] Oxygen saturation in Arterial blood by Pulse oximetry 2023-10-12 21:26:00 99 /min [facility] [place] Body height 2023-09-28 19:11:00 157.5 cm [facility] Body weight 2023-09-28 19:11:00 80.241 kg [facility] BMI 2023-09-28 19:11:00 32.36 kg/m2 [facility] Systolic blood pressure 2023-09-20 14:59:00 144 mm[Hg] Merlin o [facility] Diastolic blood pressure 2023-09-20 14:59:00 82 mm[Hg] [facility] Heart rate 2023-09-20 14:55:00 77 /min [facility] Respiratory rate 2023-09-20 14:55:00 20 /min [facility] Body height 2023-09-20 14:55:00 161.3 cm [facility] Body weight 2023-09-20 14:55:00 80.105 kg [facility] BMI 2023-09-20 14:55:00 30.79 kg/m2 [facility] Oxygen saturation in Arterial blood by Pulse oximetry 2023-09-20 14:55:00 95 /min [facility] Systolic blood pressure 2023-09-07 21:29:00 108 mm[Hg] [facility] Diastolic blood pressure 2023-09-07 21:29:00 77 mm[Hg] [facility] Heart rate 2023-09-07 21:29:00 94 /min [facility] Body height 2023-09-07 21:29:00 162.6 cm [facility] Body weight 2023-09-07 21:29:00 76.658 kg [facility] BMI 2023-09-07 21:29:00 29.01 kg/m2 [facility] Oxygen saturation in Arterial blood by Pulse oximetry 2023-09-07 21:29:00 97 /min [facility] Body height 2022-10-28 17:22:00 161.3 cm [facility] Body weight 2022-10-28 17:22:00 79.833 kg [facility] BMI 2022-10-28 17:22:00 30.69 kg/m2 [facility] Systolic blood pressure 2021-12-08 19:17:00 128 mm[Hg] [facility] Diastolic blood pressure 2021-12-08 19:17:00 85 mm[Hg] [facility] Heart rate 2021-12-08 19:17:00 79 /min [facility] Body weight 2021-12-08 19:17:00 83.263 kg [facility] BMI 2021-12-08 19:17:00 31.51 kg/m2 [facility] Oxygen saturation in Arterial blood by Pulse oximetry 2021-12-08 19:17:00 99 /min [facility] Procedures Procedure Date / Time Performed Performing Clinician Source XR KNEE 3 VW RIGHT 2023-10-19 19:22:38 Naresh James [facility] CBC WITH DIFF 2023-09-28 20:07:00 [facility]ST 1 VW 2023-09-28 19:53:54 Naresh Jmaes Un [facility] MEDICAL RELEASE/CLEARANCE FORMS 2023-09-16 06:01:00 Doctor Unassigned, [place] [facility] XR KNEE 3 VW RIGHT 2023-09-07 21:43:05 Naresh James [facility] ASSIGNMENT OF BENEFITS 2023-09-07 21:10:20 Docto r Unassigned, [place] [facility] REFERRAL- REQUEST/RESPONSE 2023-07-13 05:01:00 Doctor Unassigned, [place] [facility] AUTHORIZATION FOR RELEASE OF PHI 2023-06-06 05:01:00 Doctor Unassigned, [place] [facility] AUTHORIZATION TO RELEASE PHI TO [facility] 2023-03-01 05:01:00 Doctor Unassigned, [place] [facility] EXTERNAL PROVIDER RECORDS 2022-11-11 06:01:00 Doctor Unassigned, [place] [facility] CONSENT/REFUSAL FOR DIAGNOSIS AND TREATMENT 2021-12-14 18:47:31 Doctor Unassigned, [place] [facility] Encounters Start Date/Time End Date/Time Encounter Type Admission Type Attending Clinicians Care Facility Care Department Encounter ID Source 2021-08-07 11:33:25 Emergency [facility] [id number] [facility] 2023-10-19 13:15:57 2023-10-19 23:59:00 Outpatient R JAMES, NARESH LEW [facility] [id number] [facility] 2023-10-19 13:15:57 2023-10-19 23:59:00 Hospital En[facility] 1.2840.114 350.1.13.10 4.2.7.2.686 [id number] [facility] 2023-10-19 13:15:00 2023-10-19 14:03:04 Office Visit Naresh James [facility] 1.2840.114 350.1.13.10 4.2.7.2.686 [id number] [facility] 2023-10-12 16:15:00 2023-10-12 16:15:00 Office Visit Naresh James [facility] 1.2840.114 350.1.13.10 4.2.7.2.686 [id number] [facility] 2023-10-12 16:15:00 2023-10-12 15:48:36 Outpatient R ERIKA NARESH LEW [facility] [id number] [facility] 2023-10-05 16:21:00 2023-10-05 23:59:00 Hospital Encounter Naresh James [facility] [id number] 350.1.13.10 4.2.7.2.686 [id number] [facility] 2023-10-05 00:00:00 2023-10-05 23:59:00 Outpatient R NARESH JAMES CRAIG [facility] OUT [id number] [facility] 2023-10-05 00:00:00 2023-10-05 00:00:00 Telephone Naresh James [facility] 1.840.114 350.1.13.10 4.2.7.2.686 [id number] [facility] 2023-09-30 10:15:00 2023-09-30 11:30:11 Outpatient R NARESH JAMES CRAIG [facility] [id number] [facility] 2023-09-30 10:15:00 2023-09-30 11:30:11 Ancillary Visit Badlev Flanagan Craig [facility] BU[facility] 1.84.114 350.1.13.10 4.2.7.2.686 [id number] [facility] 2023-09-28 13:47:31 2023-09-28 23:59:00 Outpatient R NARESH JAMES CRAIG [facility] [id number] [facility] 2023-09-28 13:47:31 2023-09-28 23:59:00 Hospital Encounter Naresh James [facility] 1.84.114 350.1.13.10 4.2.7.2.686 [id number] [facility] 2023-09-28 14:15:00 2023-09-28 14:44:05 Nutrition Helper Visit Lab, Naresh Vizcaino [facility] 1.84.114 350.1.13.10 4.2.7.2.686 [id number] [facility] 2023-09-28 13:00:00 2023-09-28 13:58:49 Office Visit Narehs James [facility] 1.84.114 350.1.13.10 4.2.7.2.686 [id number] [facility] 2023-09-26 00:00:00 2023-09-26 00:00:00 Telephone Naresh James [facility] 1.84.114 350.1.13.10 4.2.7.2.686 [id number] [facility] 2023-09-20 09:00:00 2023-09-20 09:28:09 [id number] 2023-09-20 09:00:00 2023-09-20 09:28:09 [facility] 1.84.114 350.1.13.10 4.2.7.2.686 [id number] [facility] 2023-09-16 00:00:00 2023-09-16 00:00:00 Orders Only Doctor Unassigned, [place] [facility] 1..114 350.1.13.10 4.2.7.2.686 [id number] [facility] 2023-09-07 15:31:23 2023-09-07 23:59:00 Hospital Encounter Naresh James [facility] 1.84.114 350.1.13.10 4.2.7.2.686 [id number] [facility] 2023-09-07 15:30:00 2023-09-07 16:03:00 Outpatient R NARESH JAMES [facility] [id number] [facility] 2023-09-07 15:30:00 2023-09-07 16:03:00 Office Visit Naresh James [facility] 1.2840.114 350.1.13.10 4.2.7.2.686 [id number] [facility] 2023-09-07 00:00:00 2023-09-07 00:00:00 Orders Only Doctor Unassigned, [place] [facility] 1.20.114 350.1.13.10 4.2.7.2.686 [id number] [facility] 2023-09-07 00:00:00 2023-09-07 00:00:00 Telephone Norma Gal[facility] 1.84.114 350.1.13.10 4.2.7.2.686 [id number] [facility] 2023-08-12 11:15:00 2023-08-12 11:15:00 Outpatient R NARESH JAMES CRAIG [facility] [id number] [facility] 2023-07-13 00:00:00 2023-07-13 00:00:00 Orders Only Doctor Unassigned, [place] [facility] 1..114 350.1.13.10 4.2.7.2.686 [id number] [facility] Systems 2023-07-13 00:00:00 2023-07-13 00:00:00 Patient Secure Msg Doctor Unassigned, [place] [facility] 1.2.114 350.1.13.10 4.2.7.2.686 [id number] [facility] 2023-06-06 00:00:00 2023-06-06 00:00:00 Orders Only Doctor Unassigned, [place] [facility] 1.20.114 350.1.13.10 4.2.7.2.686 [id number] [facility] 2023-03-01 00:00:00 2023-03-01 00:00:00 Orders Only Doctor Unassigned, [place] [facility] 1.840.114 350.1.13.10 4.2.7.2.686 [id number] [facility] 2022-12-28 00:00:00 2022-12-28 00:00:00 Outpatient RANJITH_Zuhair doyle_ AO AO [id number] [facility] 2022-11-11 00:00:00 2022-11-11 00:00:00 Orders Only Doctor Unassigned, [place] [facility] 1..840.114 350.1.13.10 4.2.7.2.686 [id number] [facility] 2022-10-28 11:15:00 2022-10-28 11:57:52 Outpatient R NARESH JAMES [facility] [id number] [facility] 2022-10-28 11:15:00 2022-10-28 11:57:52 Office Visit Naresh James [facility] 1..840.114 350.1.13.10 4.2.7.2.686 [id number] [facility] 2022-09-24 09:15:00 2022-09-24 09:15:00 Outpatient R NARESH JAMES [facility] [id number] [facility] 2022-07-01 13:45:00 2022-07-01 13:45:00 Outpatient KENZIE MAGDALENO [facility] [id number] [facility] 2021-12-24 00:00:00 2021-12-24 00:00:00 Telephone Scottie Avila [facility] 1.2.840.114 350.1.13.10 4.2.7.2.686 [id number] [facility] 2021-12-17 15:00:00 2021-12-17 15:00:00 [facility] [id number] 2021-12-17 15:00:00 2021-12-17 15:00:00 Outpatient R [facility] [id number] [facility] 2021-12-15 00:00:00 2021-12-15 00:00:00 Patient Secure Msg Lenny [facility] BUILDING 1.84.114 350.1.13.10 4.2.7.2.686 [id number] [facility] 2021-12-14 15:00:00 2021-12-14 15:00:00 Outpatient R LENNY [facility] [id number] [facility] 2021-12-14 12:47:50 2021-12-14 12:47:50 Outpatient R LENNY [facility] [id number] [facility] 2021-12-14 00:00:00 2021-12-14 00:00:00 Orders Only Doctor Unassigned, [place] [facility] 1.84.114 350.1.13.10 4.2.7.2.686 [id number] [facility] 2021-12-08 13:20:00 2021-12-08 13:44:44 Outpatient R LENNY [facility] [id number] [facility] 2021-12-08 13:20:00 2021-12-08 13:44:44 Office Visit Lenny [facility] BUILDING 1.840.114 350.1.13.10 4.2.7.2.686 [id number] [facility] 2021-12-08 13:20:00 2021-12-08 13:44:44 [facility] [id number] [facility] 2021-04-28 15:20:00 2021-04-28 15:20:00 Outpatient R NORMA GALVEZ [facility] [id number] [facility] 2021-04-28 00:00:00 2021-04-28 00:00:00 Orders Only Doctor Unassigned, [place] [facility] 1.2840.114 350.1.13.10 4.2.7.2.686 [id number] [facility] 2021-04-23 00:00:00 2021-04-23 00:00:00 Patient Secure Msg Doctor Unassigned, [place] [facility] 1.2840.114 350.1.13.10 4.2.7.2.686 [id number] [facility] 2021-04-15 13:26:09 2021-04-15 23:59:00 Hospital Encounter Scottie Avila [facility] 1.2.840.114 350.1.13.10 4.2.7.2.686 [id number] [facility] 2021-04-15 13:10:00 2021-04-15 14:13:33 Outpatient R SCOTTIE AVILA [facility] [id number] [facility] 2021-04-15 12:58:36 2021-04-15 14:13:33 Office Visit Scottie Avila [facility] 1..840.114 350.1.13.10 4.2.7.2.686 [id number] [facility] 2021-04-15 13:10:00 2021-04-15 13:10:00 Outpatient R SCOTTIE AVILA [facility] [id number] [facility] 2021-04-09 12:49:16 2021-04-09 23:59:00 Hospital Encounter Scottie Avila [facility] 1.2.840.114 350.1.13.10 4.2.7.2.686 [id number] [facility] 2021-04-09 00:00:00 2021-04-09 00:00:00 Outpatient SCOTTIE MOISE [facility] [id number] [facility] 2021-04-01 14:40:00 2021-04-01 15:54:17 Outpatient R SCOTTIE AVILA [facility] [id number] [facility] 2021-04-01 13:55:52 2021-04-01 15:54:17 Office Visit Scottie Avila [facility] 1..840.114 350.1.13.10 4.2.7.2.686 [id number] [facility] 2021-04-01 14:40:00 2021-04-01 14:40:00 Outpatient R SCOTTIE AVILA [facility] [id number] [facility] 2021-03-18 13:20:00 2021-03-18 13:20:00 Outpatient SCOTTIE MOISE [facility] [id number] [facility] 2021-01-14 14:40:00 2021-01-14 15:08:56 Outpatient SCOTTIE MOISE [facility] [id number] [facility] 2021-01-14 14:07:41 2021-01-14 15:08:56 Office Visit Scottie Avila [facility] 1.2.840.114 350.1.13.10 4.2.7.2.686 [id number] [facility] 2021-01-14 14:40:00 2021-01-14 14:40:00 Outpatient SCOTTIE MOISE [facility] [id number] [facility] 2021-01-09 10:30:00 2021-01-09 10:30:00 Outpatient R SCOTTIE AVILA [facility] [id number] [facility] 2021-01-09 10:30:00 2021-01-09 10:30:00 Outpatient R SCOTTIE AVILA [facility] [id number] [facility] 2020-12-18 08:32:15 2020-12-18 23:59:00 Hospital Encounter Lenny [facility] 1.2.840.114 350.1.13.10 4.2.7.2.686 [id number] [facility] 2020-12-18 08:32:00 2020-12-18 08:32:00 Hospital Encounter Lenny, [facility] 1.2.840.114 350.1.13.10 4.2.7.2.686 [id number] [facility] 2020-12-18 08:31:42 2020-12-18 08:31:42 Hospital Encounter Lenny, [facility] 1.2.840.114 350.1.13.10 4.2.7.2.686 [id number] [facility] 2020-12-18 08:31:26 2020-12-18 08:31:26 [facility] [id number] [facility] 2020-12-18 08:31:26 2020-12-18 08:31:26 Hospital Encounter Lenny [facility] 1.2.840.114 350.1.13.10 4.2.7.2.686 [id number] [facility] 2020-12-18 00:00:00 2020-12-18 00:00:00 Outpatient LENNY [facility] [id number] [facility] 2020-12-08 00:00:00 2020-12-08 00:00:00 Patient Outreach Kar Parmjittoi Chapa [facility] 1..840.114 350.1.13.10 4.2.7.2.686 [id number] [facility] 2020-12-03 14:38:38 2020-12-03 15:40:37 [facility] 1..840.114 350.1.13.10 4.2.7.2.686 [id number] [facility] 2020-12-03 15:00:00 2020-12-03 15:00:00 [facility] [id number] [facility] 2020-12-03 00:00:00 2020-12-03 00:00:00 Orders Only Doctor Unassigned, [place] [facility] 1..840.114 350.1.13.10 4.2.7.2.686 [id number] [facility] 2020-11-10 15:20:00 2020-11-10 15:20:00 [facility] [id number] [facility] 2020-10-15 15:10:25 2020-10-15 16:25:25 Office Visit Scottie Avila [facility] 1..840.114 350.1.13.10 4.2.7.2.686 [id number] [facility] 2020-10-15 13:00:00 2020-10-15 13:00:00 Out[facility] [id number] [facility] 2020-10-08 14:00:00 2020-10-08 14:00:00 Outpatient R SCOTTIE AVILA [facility] [id number] [facility] 2020-07-09 13:21:48 2020-07-09 23:59:00 Hospital Encounter Scottie Avila [facility] 1.2840.114 350.1.13.10 4.2.7.2.686 [id number] [facility] 2020-07-09 13:09:54 2020-07-09 17:36:54 Office Visit Scottie Avila [facility] 1.2840.114 350.1.13.10 4.2.7.2.686 [id number] [facility] 2020-07-09 14:00:00 2020-07-09 14:00:00 Outpatient R SCOTTIE AVILA [facility] [id number] [facility] 2020-05-19 12:48:00 2020-05-19 16:14:00 Emergency Melvin Carranza W[place] 1..114 350.1.13.10 4.2.7.2.686 [id number] [facility] 2020-05-19 00:00:00 2020-05-19 00:00:00 Orders Only Doctor Unassigned, [place] [facility] 1..114 350.1.13.10 4.2.7.2.686 [id number] [facility] 2020-05-06 14:15:00 2020-05-06 14:15:00 Outpatient R STEPHEN ELMORE [facility] [id number] [facility] 2020-04-30 00:00:00 2020-04-30 00:00:00 Orders Only Doctor Unassigned, [place] [facility] 1.0.114 350.1.13.10 4.2.7.2.686 [id number] [facility] 2020-02-13 14:05:00 2020-02-13 14:38:26 Office Visit Kenzie Aden [facility] 1..114 350.1.13.10 4.2.7.2.686 [id number] [facility] 2020-02-13 14:05:00 2020-02-13 14:38:26 Office Visit Kenzie Aden Toi [facility] Surgical Specialti tia Lopez 1.2.840.114 350.1.13.10 4.2.7.2.686 [id number] 2020-02-13 14:30:00 2020-02-13 14:30:00 Outpatient KENZIE MAGDALENO [facility] [id number] [facility] 2020-01-03 11:17:06 2020-01-03 14:12:00 Emergency X PETR GORMAN [facility] ERT [id number] [facility] 2020-01-03 11:17:06 2020-01-03 14:12:00 Emergency Petr Gorman [facility] ([facility]) 1.2.840.114 350.1.13.10 4.2.7.2.686 [id number] [facility] 2019-12-31 00:00:00 2019-12-31 00:00:00 Telephone Karlos Farris [facility] 1.2.840.114 350.1.13.10 4.2.7.2.686 [id number] [facility] 2019-10-25 00:00:00 2019-10-25 00:00:00 Outpatient NORMA JEAN BAPTISTE [facility] [id number] [facility] 2019-10-01 14:16:06 2019-10-01 14:33:00 Outpatient COLLEEN GARCIA [facility] [id number] [facility] 2019-09-18 14:30:00 2019-09-18 16:10:17 Outpatient NARESH KENNEDY [facility] [id number] [facility] 2019-06-25 13:15:00 2019-06-25 13:48:46 Office Visit Stephen Elmore [facility] 1.2.840.114 350.1.13.10 4.2.7.2.686 [id number] [facility] 2019-06-14 00:00:00 2019-06-14 00:00:00 Telephone Stephen Elmore [facility] 1.2.840.114 350.1.13.10 4.2.7.2.686 [id number] [facility] 2019-06-13 10:03:00 2019-06-13 19:18:00 Hospital Encounter Stephen Elmore Navid [facility] ([facility]) 1.2840.114 350.1.13.10 4.2.7.2.686 [id number] [facility] 2019-06-13 00:00:00 2019-06-13 00:00:00 Orders Only Doctor Unassigned, [place] [facility] 1.2.840.114 350.1.13.10 4.2.7.2.686 [id number] [facility] 2019-06-08 00:00:00 2019-06-08 00:00:00 Case Management Odilia Quinonez [facility] 1.2840.114 350.1.13.10 4.2.7.2.686 [id number] [facility] 2019-05-24 14:55:19 2019-05-24 23:59:00 Hospital Encounter Tonny Og [facility] 1.2.840.114 350.1.13.10 4.2.7.2.686 [id number] [facility] 2019-05-24 00:00:00 2019-05-24 00:00:00 Case Management Santi Saravia [facility] 1.2.840.114 350.1.13.10 4.2.7.2.686 [id number] [facility] 2019-05-24 00:00:00 2019-05-24 00:00:00 Orders Only Doctor Unassigned, [place] [facility] 1.2.840.114 350.1.13.10 4.2.7.2.686 [id number] [facility] 2019-05-23 00:00:00 2019-05-23 00:00:00 Telephone Karlos Farris [facility] 1.2.840.114 350.1.13.10 4.2.7.2.686 [id number] [facility] 2019-05-23 00:00:00 2019-05-23 00:00:00 Telephone Stephen Elmore [facility] 1.2.840.114 350.1.13.10 4.2.7.2.686 [id number] [facility] 2019-05-18 00:00:00 2019-05-18 00:00:00 Telephone Carlton Mari [facility] 1.2.840.114 350.1.13.10 4.2.7.2.686 [id number] [facility] 2019-05-16 10:30:00 2019-05-16 23:59:00 Hospital Encounter Karlos Farris [facility] 1.2.840.114 350.1.13.10 4.2.7.2.686 [id number] [facility] 2019-05-08 15:18:19 2019-05-15 14:53:40 Nutrition Helper Visit Vls-Lab Karlos Farris [facility] [place] [facility] 1.2.840.114 350.1.13.10 4.2.7.2.686 [id number] [facility] 2019-05-15 09:45:25 2019-05-15 10:00:25 Nutrition Helper Visit 1, Adc Lab Karlos Farris [facility] 1.2840.114 350.1.13.10 4.2.7.2.686 [id number] [facility] 2019-05-08 14:02:11 2019-05-08 15:07:43 Office Visit Karlos Farris [facility] [place] [facility] 1.2840.114 350.1.13.10 4.2.7.2.686 [id number] [facility] 2019-05-08 00:00:00 2019-05-08 00:00:00 Orders Only Doctor Unassigned, [place] [facility] 1.2840.114 350.1.13.10 4.2.7.2.686 [id number] [facility] 2019-05-08 00:00:00 2019-05-08 00:00:00 Telephone Karlos Farris [facility] 1.840.114 350.1.13.10 4.2.7.2.686 [id number] [facility] 2019-05-04 00:00:00 2019-05-04 00:00:00 Telephone Norma Galvez [facility] 1.2840.114 350.1.13.10 4.2.7.2.686 [id number] [facility] 2019-05-04 00:00:00 2019-05-04 00:00:00 Telephone Stephen Elmore [facility] 1.2840.114 350.1.13.10 4.2.7.2.686 [id number] [facility] 2019-05-03 00:00:00 2019-05-03 00:00:00 Telephone Stephen Elmore [facility] 1.2.840.114 350.1.13.10 4.2.7.2.686 [id number] [facility] 2019-02-20 15:41:05 2019-02-20 23:59:00 Outpatient Hortensia STEPHEN ELMORE [facility] [id number] [facility] 2019-01-23 13:05:16 2019-01-23 13:28:00 Outpatient STEPHEN GUADARRAMA [facility] [id number] [facility] 2019-01-11 10:14:20 2019-01-11 23:59:00 Outpatient NARESH JAMES [facility] [id number] [facility] 2018-08-23 00:00:00 2018-08-23 00:00:00 Orders Only Doctor Unassigned, [place] [facility] 1.2.840.114 350.1.13.10 4.2.7.2.686 [id number] [facility] Results Test Description Test Time Test Comments Results Resul t Comments Source XR KNEE 3 VW RIGHT 2023-10-10 1 04:18:39 EXAM: ?XR KNEE 3 VW RIGHT DATE OF SERVICE: ?10/19/2023 01:25 PM ORDERING PHYSICIAN: ?NARESH JAMES REASON FOR EXAM: ?73 years old, Female ; ?sp rt tkr RM3 TECHNIQUE: ?3 view right knee COMPARISON: ? XR KNEE 3 VW RIGHT on 09/07/2023, XR KNEE 3 VW RIGHT on 07/09/2020 FINDINGS: ?Total knee prosthesis. Anatomic alignment. While circumscribed lucency in the distal femur is new when compared to study from 09/07/23. This is of uncertain etiology but may be postoperative. [facility] Notes Date/Time Note Provider Source 2023-09-28 14:15:00 [id number]:15:00F ormatting of this note is different from the original.Images from the original note were not included.Venipuncture collection performed by clean technique on the left anticubitus. Total of 1 attempts were made. Slight pressure and a bandage/dressing were applied to the site(s). The patient experienced no complications. The following specimens were processed according to instructions and sent to [facility] laboratories per lab order on 09/28/2023:LT BLUESST 1 LT GreenREDLAV 1PPTDK GREEN (LiHep)DK GREEN (SodH)GRAYDK BLUE (K2)DK BLUE (S)ACDBlood CultureNIPT/NTD [id number] [id number]:12:31Nurse [id number] 9|[id number] for patient [id number] NoteLNNARRATIVEFormatted C-CDA narrative text[address] Iu[id number] [id number]:12:311.2.840 .902577.1.72.3.15|1.2.840.786650.1.13.104. 2.7.2.727879_[id number] [facility]"
[2024-04-18] MEDS ORDERED: NA CHLORIDE 0.9% 1,000 ML ONE (17:22)
[2024-04-18 17:43] LABS: Absolute Basophils 0.1 K/uL (0-0.5); Absolute Eosinophils 0.3 K/uL (0-0.5); Absolute Lymphocytes (CBC) 4.1 K/uL (0.7-4.9); Absolute Monocytes 0.7 K/uL (0.1-1.3); Absolute Neutrophil 2.9 K/uL (1.8-8.0); Basophils % 1.1 % (0-1.3); Eosinophils % 3.3 % (0-4.4); Hematocrit 31.9 % (36.0-45.0); Hemoglobin 11.1 g/dL (12.0-15.0); Lymphocytes % 51.2 % (15.3-44.8); MCH 30.7 pg (27.0-35.0); MCHC 34.7 g/dL (32.0-36.0); MCV 88.4 fL (80-100); MPV 7.8 fL (7.6-11.3); Monocytes % 8.5 % (3.3-12.3); Neutrophils % 35.9 % (41.7-73.7); Nucleated Red Blood Cells % 0.2 % (0-0); Platelets 334 thou/uL (152-406); RBC Red Blood Cell Count 3.61 M/uL (3.86-4.86); Red Cell Distribution Width 14.2 % (12.1-15.2)
[2024-04-18 17:45] LABS: PT Prothrombin Time 12.9 SECONDS (9.4-12.5); Protime INR 1.18
[2024-04-18 17:53] LABS: ALT/SGPT 18 U/L (13-56); AST/SGOT 14 U/L (15-37); Albumin 3.1 g/dL (3.4-5.0); Alkaline Phosphatase 76 U/L (45-117); BUN Blood Urea Nitrogen 19 mg/dL (7-18); Bicarbonate 25 mEq/L (21-32); Bilirubin Total 0.4 mg/dL (0.2-1.0); Glomerular Filtration Rate 58 ml/min (=/>90); Glucose Level 137 mg/dL (74-106); Magnesium 1.7 mg/dL (1.6-2.4); NT PRO-BNP 47 pg/mL (<125); Protein, Total 6.1 g/dL (6.4-8.2); Sodium Level 140 mEq/L (136-145); Troponin High Sensitivity 3.2 pg/mL (<58.9)
[2024-04-18 17:54] LABS: Bilirubin Direct < 0.2 mg/dL (0-0.2); Bilirubin Indirect, Calculated 0.2 mg/dL (0.2-0.8)
--- NOTE | 2024-04-18 18:02 | RAD REPORT ---
EXAM DESCRIPTION: CT - Head Brain Wo Cont - 04/18/2024 5:46 pm CLINICAL HISTORY: SYNCOPE COMPARISON: Facial Bones W/ Mpr dated 08/15/2021 TECHNIQUE: All CT scans are performed using dose optimization technique as appropriate and may inclu de automated exposure control or mA/KV adjustment according to patient size. FINDINGS: No intracranial hemorrhage, hydrocephalus or extra-axial fluid collection.No areas of brai n edema or evidence of midline shift. The paranasal sinuses and mastoids are clear. The calvarium is intact. IMPRESSION: No acute intracranial abnormality.
--- NOTE | 2024-04-18 18:05 | RAD REPORT ---
EXAM DESCRIPTION: RAD - Chest Single View - 04/18/2024 5:45 pm CLINICAL HISTORY: syncope COMPARISON: Chest Single View dated 07/16/2018; Chest Pa And Lat (2 Views) dated 12/30/2016; Chest Sin gle View dated 01/11/2016; CHEST PA AND LAT 2 VIEW dated 01/08/2008 FINDINGS: Lines: None. Lungs: No evidence of edema or pneumonia. Vascular congestion. Pleural: No significant pleural effusions or pneumothorax. Cardiac: The heart size is within normal limits. Mediastinum: Within normal limits. Bones: No acute fractures. Left proximal humerus plate and screw fixation hardware. Other: None IMPRESSION: Vascular congestion but no alveolar edema or evidence of consolidative airspace disease.
[2024-04-18] MEDS ORDERED: POTASSIUM 25 MEQ EFFERV TAB ONE (20:21)
--- NOTE | 2024-04-18 21:43 | EDPHYS ---
Physician Documentation [facility] Name: Jeny Barraza Age: 73 yrs Sex: Female : 1950 Arrival Date: 04/18/2024 Time: 17:06 Bed 15 Private MD: ED Physician Lloyd Lozada HPI: 04/18 17:19 This 73 yrs old Female presents to ER via EMS with complaints of Syncope. pm1 17:19 The patient has experienced syncope. Onset: The symptoms/episode began/occurred just pm1 prior to arrival. Duration: This was a single episode, that lasted an unknown period of time. Context: the episode(s) was witnessed, by a friend, occurred at a friend's home, occurred while the patient was sitting on a porch swing. Just prior to the episode the patient experienced no apparent symptoms. Associated injury: The patient did not suffer any apparent associated injury. Associated signs and symptoms: Pertinent negatives: abdominal pain, chest pain, dizziness, headache, nausea, seizure, shortness of breath, vomiting. Current symptoms: Currently, the patient is not experiencing any symptoms. The patient has not experienced similar symptoms in the past. The patient has not recently seen a physician. The patient was sitting on her friends porch swing and she passed out. She did not fall off the porch swing. She has no complaints except for passing out. She was hypotensive on EMS arrival and was given IV fluids 1000 mL in route. Historical: - Allergies: 17:10 Celexa; mb9 - Home Meds: 17:10 lisinopril Oral [Active]; hydrocodone-acetaminophen 7.5-325 mg Oral tab 1 tab every 4 mb9 hours [Active]; Lasix Oral [Active]; - PMHx: 17:10 Colitis; high heart rate; Hypertensive disorder; mb9 - PSHx: 17:10 Ligation of fallopian tube; right knee; mb9 - Immunization history:: Adult Immunizations up to date. - Infectious Disease History:: Denies. - Social history:: Smoking status: Patient denies any tobacco usage or history of. ROS: 17:19 Constitutional: Negative for fever, chills, and weight loss, Cardiovascular: Negative pm1 for chest pain, palpitations, and edema, Respiratory: Negative for shortness of breath, cough, wheezing, and pleuritic chest pain, Abdomen/GI: Negative for abdominal pain, nausea, vomiting, diarrhea, and constipation, Back: Negative for injury and pain, MS/Extremity: Negative for injury and deformity, Skin: Negative for injury, rash, and discoloration, 17:19 Neuro: Positive for syncope, Negative for dizziness, headache, numbness, tingling, weakness, 17:19 All other systems are negative, Exam: 17:15 ECG was reviewed by the Attending Physician. pm1 17:19 Constitutional: This is a well developed, well nourished patient who is awake, alert, pm1 and in no acute distress. Head/Face: Normocephalic, atraumatic. 17:19 Eyes: Exam is negative for acute changes, 17:19 Cardiovascular: Exam negative for acute changes, Rate: normal, Rhythm: regular, Pulses: no pulse deficits are appreciated, Heart sounds: normal, normal S1and S2, 17:19 Respiratory: Exam negative for acute changes, respiratory distress, shortness of breath, Breath sounds: are clear throughout, 17:19 Abdomen/GI: Exam negative for acute changes, Inspection: abdomen appears normal, Palpation: abdomen is soft and non-tender, in all quadrants, 17:19 Musculoskeletal/extremity: Exam is negative for acute changes, 17:19 Neuro: Exam negative for acute changes, focal neuro deficits, Orientation: is normal, Mentation: is normal, Cranial nerves: CN II- XII are normal as tested, Cerebellar function: normal finger to nose testing, Motor: moves all fours, strength is 5/5 in all extremities, Sensation: no obvious gross deficits, Vital Signs: 17:07 BP 94 / 52; Pulse 81; Resp 16; Temp 97.5(O); Pulse Ox 97% on R/A; Weight 76.2 kg; mb9 Height 5 ft. 3 in. ; Pain 0/10; 17:37 BP 102 / 65; Pulse 79; Resp 16; Pulse Ox 100% on R/A; mb9 18:28 BP 101 / 60; Pulse 86; Resp 16; Pulse Ox 98% on R/A; mb9 19:25 BP 109 / 92; Pulse 84; Resp 17; Pulse Ox 100% ; jj7 20:19 BP 106 / 68; Pulse 82; Resp 16; Pulse Ox 100% ; jj7 21:30 BP 105 / 71; Pulse 80; Resp 16; Temp 97.8; Pulse Ox 100% ; Pain 0/10; jj7 17:07 Body Mass Index 29.76 (76.20 kg, 160.02 cm) mb9 17:07 Pain Scale: Adult mb9 21:30 Pain Scale: Adult jj7 MDM: 17:08 Patient medically screened. pm1 17:36 ECG was reviewed by the Attending Physician. pm1 21:39 Data reviewed: vital signs. pm1 21:39 ED course: Patient up and walking without any difficulty. I walked with her. No pm1 dizziness present. Discussed with her nutrition and proper hydration. Patient without chest pain and negative troponin x 2. . 21:39 Care significantly affected by the following chronic conditions: Hypertension. pm1 21:39 Counseling: I had a detailed discussion with the patient and/or guardian regarding the pm1 historical points, exam findings, and any diagnostic results supporting the discharge/admit diagnosis, lab results, radiology results, the need for outpatient follow up, to return to the emergency department if symptoms worsen or persist or if there are any questions or concerns that arise at home. 04/18 17:19 Order name: Basic Metabolic Panel; Complete Time: 18:30 pm1 04/18 17:19 Order name: CBC with Diff; Complete Time: 17:50 pm04/18 17:19 Order name: LFT's; Complete Time: 18:30 pm04/18 17:19 Order name: Magnesium; Complete Time: 18:30 pm04/18 17:19 Order name: NT PRO-BNP; Complete Time: 18:30 pm04/18 17:19 Order name: PT-INR; Complete Time: 17:50 pm04/18 17:19 Order name: Troponin HS; Complete Time: 18:30 pm04/18 20:07 Order name: Troponin HS; Complete Time: 21:03 [facility] 04/18 17:19 Order name: CT Head Brain wo Cont; Complete Time: 18:30 pm04/18 17:19 Order name: XRAY Chest (1 view); Complete Time: 18:30 pm04/18 17:19 Order name: Cardiac monitoring; Complete Time: 17:19 pm04/18 17:19 Order name: EKG - Nurse/Tech; Complete Time: 17:19 pm04/18 17:19 Order name: IV Saline Lock; Complete Time: 17:19 pm1 04/18 17:19 Order name: Labs collected and sent; Complete Time: 17:19 pm1 04/18 17:19 Order name: O2 Per Protocol; Complete Time: 17:19 pm1 04/18 17:19 Order name: O2 Sat Monitoring; Complete Time: 17:19 pm1 EC:15 Rate is 78 beats/min. Rhythm is regular, Normal Sinus Rhythm. QRS [place] is Normal. MA pm1 interval is normal. QRS interval is normal. QT interval is normal. No Q waves. T waves are Normal. No ST changes noted. Clinical impression: Normal ECG. 17:36 Rate is 78 beats/min. Rhythm is regular. QRS [place] is Normal. MA interval is normal. QRS pm1 interval is normal. QT interval is normal. No Q waves. T waves are Normal. No ST changes noted. Clinical impression: Normal ECG. Administered Medications: 17:20 Drug: NS 0.9% IV 1000 ml IV at 1 bolus Per protocol; 1000 mL bolus Route: IV; Rate: 1 mb9 bolus; Site: left antecubital; 19:37 Follow up: IV Status: Completed infusion jj7 20:50 Drug: Potassium PO Effervescent Tablet 50 mEq PO once; dissolve in 4 ounces of water or jj7 juice Route: PO; Disposition: 04/19 09:01 Co-signature as Attending Physician, Lloyd Lozada MD I reviewed the patient's care rn provided by the Advanced Practice Provider and agree with the diagnosis and treatment plan. Disposition Summary: 04/18/24 21:43 Discharge Ordered Notes: Location: Home pm1 Problem: new pm1 Symptoms: have improved pm1 Condition: Stable pm1 Diagnosis - Dehydration pm1 - Heat exhaustion, unspecified pm1 Followup: pm1 - With: Emergency Department - When: As needed - Reason: Worsening of condition Followup: pm1 - With: Private Physician - When: 2 - 3 days - Reason: Recheck today's complaints, Continuance of care, Re-evaluation by your physician Discharge Instructions: - Discharge Summary Sheet pm1 - Dehydration, Elderly pm1 - Syncope pm1 - Heat Exhaustion pm1 - Rehydration, Elderly pm1 Forms: - Medication Reconciliation Form pm1 - Antibiotic Education pm1 - Prescription Opioid Use pm1 - Patient Portal Instructions pm1 - Leadership Thank You Letter pm1 Signatures: Dispatcher [employer] EDMS Lloyd Lozada MD MD rn Figueroa Alston, ORTHOPEDIC RN ORTHOPEDIC RN pm1 Anais Waddell RN RN jj7 Zahra Mccann RN RN mb9 Corrections: (The following items were deleted from the chart) 04/18 20:07 20:07 Troponin High Sensitivity+C.LAB.BRZ ordered. EDMS EDMS 21:44 21:43 Heat syncope pm1 pm1
--- NOTE | 2024-04-18 21:43 | ER ---
Nurse's Notes [facility] Name: Jeny Barraza Age: 73 yrs Sex: Female : 1950 Arrival Date: 04/18/2024 Time: 17:06 Bed 15 Private MD: Diagnosis: Dehydration;Heat exhaustion, unspecified Presentation: 04/18 17:07 Chief complaint: EMS states: "toned out for syncopal episode and possible seizure. Pt mb9 went limp, started shaking, pale, and diaphoretic. Pts BP 89/58, BGL 148, 18 g left AC, and gave 1 liter of 0.9% NS.". Coronavirus screen: Vaccine status: Patient reports receiving the 2nd dose of the covid vaccine. Ebola Screen: No symptoms or risks identified at this time. Initial Sepsis Screen: Does the patient meet any 2 criteria? No. Patient's initial sepsis screen is negative. Does the patient have a suspected source of infection? No. Patient's initial sepsis screen is negative. Risk Assessment: Do you want to hurt yourself or someone else? Patient reports no desire to harm self or others. Onset of symptoms was April 18, 2024. 17:07 Method Of Arrival: EMS: [facility] mb9 17:07 Acuity: KESHA 2 mb9 17:07 Care prior to arrival: Medication(s) given: Normal saline infusion, 1000 mL, zofran 4 mb9 mg, IV initiated. 18 GA, in the left antecubital area, Glucose check: 148 Oxygen administered. via nasal cannula. Triage Assessment: 17:12 General: Appears uncomfortable, Behavior is calm, cooperative. Pain: Denies pain. EENT: mb9 No signs and/or symptoms were reported regarding the EENT system. Neuro: [place] Agitation-Sedation Scale (RASS): 0 - Alert and Calm Level of Consciousness is awake, Oriented to person, place, time, situation, Appropriate for age. Cardiovascular: Heart tones S1 S2 present Patient's skin is warm and dry. Respiratory: Airway is patent Respiratory effort is even, unlabored, Respiratory pattern is regular, symmetrical, Breath sounds are clear bilaterally. GI: Abdomen is round non-distended, Bowel sounds present X 4 quads. Abd is soft and non tender X 4 quads. : No signs and/or symptoms were reported regarding the genitourinary system. Derm: Skin is intact, Skin is clammy, Skin is pale. Musculoskeletal: Range of motion: intact in all extremities. Historical: - Allergies: 17:10 Celexa; mb9 - Home Meds: 17:10 lisinopril Oral [Active]; hydrocodone-acetaminophen 7.5-325 mg Oral tab 1 tab every 4 mb9 hours [Active]; Lasix Oral [Active]; - PMHx: 17:10 Colitis; high heart rate; Hypertensive disorder; mb9 - PSHx: 17:10 Ligation of fallopian tube; right knee; mb9 - Immunization history:: Adult Immunizations up to date. - Infectious Disease History:: Denies. - Social history:: Smoking status: Patient denies any tobacco usage or history of. Screenin:13 [facility] ED Fall Risk Assessment (Adult) History of falling in the last 3 months, mb9 including since admission Yes- single mechanical fall (1 pt) Confusion or Disorientation No (0 pts) Intoxicated or Sedated No (0 pts) Impaired Gait Yes (1 pt) Mobility Assist Device Used No (0 pt) Altered Elimination No (0 pt) Score/Fall Risk Level 3 or more points = High Risk Oriented to surroundings, Maintained a safe environment, Educated pt \\T\\ family on fall prevention, incl call for assistance when getting out of bed. Abuse screen: Denies threats or abuse. Nutritional screening: No deficits noted. Tuberculosis screening: No symptoms or risk factors identified. Assessment: 17:13 Reassessment: see triage assessment. mb9 19:25 Reassessment: ASSUMED CARE OF PT. PT LYING IN BED. STATES SHE FEELS MUCH BETTER. STILL jj7 FEELING A LITTLE DIZZY. STATES SHE IS READY TO GO. VS STABLE. FAMILY AT BEDSIDE. CALL OSMAN IN REACH. 19:25 General: Appears in no apparent distress. comfortable, Behavior is calm, cooperative, jj7 appropriate for age. Neuro: Level of Consciousness is awake, alert, obeys commands, Oriented to person, place, time, situation, Appropriate for age Reports dizziness. Vital Signs: 17:07 BP 94 / 52; Pulse 81; Resp 16; Temp 97.5(O); Pulse Ox 97% on R/A; Weight 76.2 kg; mb9 Height 5 ft. 3 in. ; Pain 0/10; 17:37 BP 102 / 65; Pulse 79; Resp 16; Pulse Ox 100% on R/A; mb9 18:28 BP 101 / 60; Pulse 86; Resp 16; Pulse Ox 98% on R/A; mb9 19:25 BP 109 / 92; Pulse 84; Resp 17; Pulse Ox 100% ; jj7 20:19 BP 106 / 68; Pulse 82; Resp 16; Pulse Ox 100% ; jj7 21:30 BP 105 / 71; Pulse 80; Resp 16; Temp 97.8; Pulse Ox 100% ; Pain 0/10; jj7 17:07 Body Mass Index 29.76 (76.20 kg, 160.02 cm) mb9 17:07 Pain Scale: Adult mb9 21:30 Pain Scale: Adult [facility] ED Course: 17:07 Patient arrived in ED. mb9 17:07 Arm band placed on. mb9 17:08 Figueroa Alston NP is PHCP. pm1 17:08 Lloyd Lozada MD is Attending Physician. pm1 17:09 Triage completed. mb9 17:11 Maintain EMS IV. Dressing intact. Good blood return noted. Site clean \\T\\ dry. Gauge \\T\\ mb 9 site: 18 g left AC. 17:12 Placed in gown. Bed in low position. Call light in reach. Side rails up X 1. Provided mb9 Education on: press call light if needing anything. Client placed on continuous cardiac and pulse oximetry monitoring. NIBP monitoring applied. playground monitor on. 17:13 Zahra Mccann RN is Primary Nurse. mb9 17:14 EKG done, by ED staff, reviewed by Figueroa Alston NP. mb9 17:47 XRAY Chest (1 view) In Process Unspecified. EDMS 17:48 CT Head Brain wo Cont In Process Unspecified. EDMS 19:00 Report given to ROLANDO VICTORIA. mb9 19:25 No provider procedures requiring assistance completed. jj7 20:11 Troponin HS Sent. jj7 21:50 IV discontinued, intact, bleeding controlled, No redness/swelling at site. Pressure vk dressing applied. 22:05 IV discontinued. jj7 Administered Medications: 17:20 Drug: NS 0.9% IV 1000 ml IV at 1 bolus Per protocol; 1000 mL bolus Route: IV; Rate: 1 mb9 bolus; Site: left antecubital; 19:37 Follow up: IV Status: Completed infusion jj7 20:50 Drug: Potassium PO Effervescent Tablet 50 mEq PO once; dissolve in 4 ounces of water or jj7 juice Route: PO; Medication: 17:13 VIS not applicable for this client. mb9 Outcome: 21:43 Discharge ordered by . pm1 21:51 Discharged to home ambulatory, with family, ramiro 21:51 Condition: improved 21:51 Discharge instructions given to patient, Instructed on discharge instructions, Demonstrated understanding of instructions, 22:05 Patient left the ED. jj7 Signatures: Dispatcher [employer] EDMS Figueroa Alston NP CUFFING MACHINE OPERATOR pm1 Anais Waddell RN RN Zahra Toribio RN RN mb9 Mary Ellis Corrections: (The following items were deleted from the chart) 17:14 17:11 Maintain EMS IV. Dressing intact. Good blood return noted. Site clean \\T\\ dry. mb9 Gauge \\T\\ site: 181g left AC. mb9
[2024-04-19 04:07] VITALS: BP 105/71; TEMP 97.8; O2SAT 100
--- NOTE | 2024-04-20 12:08 | EKG ---
Test Date: 2024-04-18 Test Time: 17:08:25 Supply Chain Coordinator: MB MEASUREMENT RESULTS: Intervals: Rate: 78 TN: 144 QRSD: 78 QT: 384 QTc: 437 [place]: P: 70 TN: 144 QRS: 47 T: 62 INTERPRETIVE STATEMENTS: Normal sinus rhythm Normal ECG Compared to ECG 08/23/2018 19:27:06 No significant changes Electronically Signed On 04-20-24 12:02:44 CDT by Alexander Fenton
== END 2024-04-18 22:05 | disposition home or self-care (01) ==
LOC: ER 17:06
DX: E86.0 Dehydration (principal); T67.5XXA Heat exhaustion, unspecified, initial encounter
CPT/HCPCS: 96361; 93005; 85025; 80048; 36415; 83735; 85610; 80076; 84484 ×2; 83880; 70450; 71045; 96360; 99285; J7030

== ENCOUNTER 2024-06-06 09:09 | Emergency (ER) | payer OTHER ==
--- OUTSIDE RECORDS SUMMARY | 2024-06-06 10:10 | XMS REPORT | Continuity of Care Document ---
Author Name Unknown Address [address] [facility] [address] [place] [address] [facility] Address [address] [facility] [address] [place] [address] Care Team Providers Care Director Employee Communications Name Role Phone SERGEI TOLBERT Primary Care Physician Unavaila NORMA Ulloa Attending Clinician Unavailable Norma Galvez MD Attending Clinician [phone] Naresh James MD Attending Clinician [phone] Lab, Ang - Db Attending Clinician Unavailable NARESH JAMES Attending Clinician UnavailNARESH Mack Attending Clinician UnavailNaresh Mack MD Attending Clinician [phone] Baldev Flanagan PTA Attending Clinician Unavaila ble Lab, Ang - Db Attending Clinician Unavailable Norma Galvez MD Attending Clinician [phone] Doctor Unassigned, [place] Attending Clinician U navailanshul KASPER_Woo_Baldev_ Attending Clinician Unavaila KEZNIE Kline S Attending Clinician Unavailable Scottie Avila MD Attending Clinician [phone] SCOTTIE AVILA Attending Clinician Unavailable Parmjit Lakhani DO Attending Clinician [phone] Melvin Carranza MD Attending Clinician [phone] Alphonso Ramos MD Attending Clinician [phone] STEPHEN ELMORE Attending Clinician Unav ailKenzie Azul Attending Clinician [phone] PETR GORMAN Attending Clinician Unavailable Petr Gorman MD Attending Clinician [phone] Kaleigh MATHUR, Karlos Chew Attending Clinician [phone] COLLEEN PRAKASH Attending Clinician Unavailafrica Elmore MD, Stephen Shoemaker Attending Clinician + Odilia Quinonez PT Attending Clinician Unavailable Tonny Og DO Attending Clinician [phone] Rani MATHUR, [facility] Karon Attending Clinician [phone] Carlton Mari MD Attending Clinician [phone] [facility] Attending Clinician Unavailable 1, [facility] Attending Clinician Unavailable RANJITH_Woo_Baldev_ Admitting Clinician UnavailPETR Plunkett Admitting Clinician Unavailable COLLEEN PRAKASH Admitting Clinician Unavailafrica Elmore MD, Stephen Shoemaker Admitting Clinician + STEPHEN ELMORE Admitting Clinician Unav ailable Payers Payer Name Policy Type Policy Number Effective Date Expirati on Date Source MEDICARE PART A \T\ B [id number] 2016 00:00:00 [place] [id number] 2015 00:00:00 [facility] STAR PLUS [id number] 00:00:00 [facility] DUAL COMP CHOICE PPO DSNP [id number] 2023 00:00:00 [place] [employer] [id number] 2016 00:00:00 [facility] [place] - [place] [id number] Problems Condition Name Condition Details Condition Category Status Onset Date Resolution Date Last Treatment Date Treating Clinician Comments Source Leg edema Leg edema Disease Active 05-18 00:00: 00 [facility] Palpitatio ns Palpitatio ns Disease Active 05-18 00:00: 00 [facility] Syncope and collapse Syncope and collapse Disease Active 05-18 00:00: 00 [facility] Preop cardiovasc ular exam Preop cardiovasc ular exam Disease Active 2022-10 00:00: 00 [facility] Venous insufficie ncy Venous insufficie ncy Disease Active 2022-10 00:00: 00 [facility] Obesity (BMI 30-39.9) Obesity (BMI 30-39.9) Disease Active 2022-10 00:00: 00 [facility] Arthritis of right knee Arthritis of right knee Disease Active 07-09 00:00: 00 [facility] Multiple thyroid nodules Multiple thyroid nodules Disease Active 03-15 00:00: 00 [facility] Osteoporos is Osteoporos is Disease Active Overview: Formattin g of this note might be different from the original. ICD10 Diagnosis Term [employer] [facility] Rheumatoid arthritis Rheumatoid arthritis Disease Active Overview: Formattin g of this note might be different from the original. ICD10 Diagnosis Term [employer] [facility] Symptomati c menopausal or female climacteri c states Symptomati c menopausal or female climacteri c states Disease Active [facility] Headache Headache Disease Active Overv iew: Formattin g of this note might be different from the original. ICD10 Diagnosis Term [employer] [facility] Essential hypertensi on Essential hypertensi on Disease Active Overview: Formattin g of this note might be different from the original. ICD10 Diagnosis Term [employer] [facility] Type 2 diabetes mellitus without complicati ons Type 2 diabetes mellitus without complicati ons Disease Resolve d 2018-10-11 00:00:00 2022-04-25 00:12:34 [facility] Allergies, Adverse Reactions, Alerts Allergy Name Allergy Type Status Severity Reaction(s) Onset Date Inactive Date Treating Clinician Comments Source CITALOPR AM DRUG INGREDI Active Other-Cmnt 12-07 00:00: 00 [facility] Citalopr am Propensi ty to adverse reaction s Active Other - See comments 12-07 00:00: 00 Patient states she felt like she was going to pass out [facility] Social History Social Habit Start Date Stop Date Quantity Comments Source Gender identity [facility] Alcoholic beverage intake 2024-05-30 00:00:00 2024-05-30 00:00:00 0 /d [facility] Alcohol intake 2023-10-12 00:00:00 2023-10-12 00:00:00 0 /d [facility] History of Social function 2023-09-28 00:00:00 2023-09-28 00:00:00 [facility] Exposure to SARS-CoV-2 (event) 2022-10-18 00:00:00 2022-10-28 11:20:00 Not sure [facility] Tobacco use and exposure 2022-10-28 00:00:00 2022-10-28 00:00:00 Smokeless tobacco non-user [facility] Sex assigned at 1950 00:00:00 1950 00:00:00 [facility] Smoking Status Start Date Stop Date Source Never smoked tobacco [facility] Medications Ordered Medication Name Filled Medication Name Start Date Stop Date Current Medication? Ordering Clinician Indication Dosage Frequency Signature (SIG) Comments Components Source tc 99m-tetrofo smin (MYOVIEW) injection 44.6 millicurie 05-31 16:15: 00 05-31 16:08 :00 No [id number] 44.6mCi 44.6 millicurie , Intravenou s, ONCE, 1 dose, On Tue05/31/24 at 1115, Routine [facility] regadenoson (LEXISCAN) injection 0.4 mg 05-31 16:12: 00 05-31 16:42 :00 No [id number] .4mg 0.4 mg, IV Push, ONCE, 1 dose, On Tue05/31/24 at 1115, Routine [facility] tc 99m-tetrofo smin (MYOVIEW) injection 15.1 millicurie 05-31 15:30: 00 05-31 15:21 :00 No [id number] 15.1mCi 15.1 millicurie , Intravenou s, ONCE, 1 dose, On Tue05/31/24 at 1030, Routine [facility] methylPREDN ISolone (MEDROL, NOEL,) 4 mg tablets 8 00:00: 00 Yes [id number] 05 84mg Take 21 tablets by mouth SEE-INSTRU CTIONS. follow package directions [facility] HYDROcodone -acetaminop hen (NORCO) 10-325 mg tablet 2022-10 00:00: 00 10-13 05:59 :00 No [id number] 1{tbl} Take 1 tablet by mouth every 6 (six) hours as needed for Pain (scale 4-6) for up to 7 days. Indication s: acute pain [facility] ibuprofen 800 mg tablet 2022-10 08:58: 42 Yes 800mg Take 1 tablet by mouth every 6 (six) hours as needed. [facility] MULTIVITAMI N ORAL 2022-10 14:45: 16 09-13 00:00 :00 No Take by mouth. [facility] docosahexan oic acid/epa (FISH OIL ORAL) 2022-10 14:44: 57 09-13 00:00 :00 No Take by mouth. [facility] Ascorbic Acid (VITAMIN C) 1,000 mg TbSR 2022-10 14:44: 38 09-13 00:00 :00 No Take by mouth. [facility] docosahexan oic acid/epa (FISH OIL ORAL) 12-08 13:19: 59 Yes Take by mouth. [facility] Ascorbic Acid (VITAMIN C) 1,000 mg TbSR 12-08 13:19: 59 Yes Take by mouth. [facility] HYDROcodone -acetaminop hen 7.5-325 mg per tablet 12-08 13:19: 59 Yes 1{tbl} Take 1 tablet by mouth every 6 (six) hours as needed for Pain. [facility] ibuprofen 800 mg tablet 12-08 13:19: 59 Yes 800mg Take 800 mg by mouth every 6 (six) hours as needed. [facility] potassium chloride 10 mEq CR tablet 12-08 13:19: 59 Yes [facility] ondansetron (ZOFRAN) 4 mg tablet 810 00:00: 00 Yes [id number] 4mg Take 1 tablet by mouth every 8 (eight) hours as needed for Nausea and Vomiting (N/V). [facility] clonazePAM 1 mg tablet 2017-10 2 00:00: 00 09-13 00:00 :00 No TAKE ONE (1) TABLET(S) BY MOUTH TWICE A DAY NEEDED FOR ANXIETY. [facility] furosemide 40 mg tablet 2017-10 0 00:00: 00 Yes TAKE ONE (1) TABLET(S) BY MOUTH ONCE A DAY. [facility] lidocaine 5 % (700 mg/patch) patch 14 00:00: 00 09-13 00:00 :00 No APPLY 1 PATCH D. LEAVE ON FOR 12 H AND OFF FOR 12 H. [facility] lisinopril- hydrochloro thiazide 20-12.5 mg per tablet 11-05 00:00: 00 Yes TK 1 T PO QAM. [facility] cyclobenzap rine 10 mg tablet 10-26 00:00: 00 Yes TK 1 T PO BID [facility] Immunizations Ordered Immunization Name Filled Immunization Name Date Status Comments Source Influenza High Dose Quad 2020-07-05 00:00:00 Completed [facility] Influenza High Dose Quad 2020-07-05 00:00:00 Completed [facility] Influenza High Dose Quad 2020-07-05 00:00:00 Completed [facility] Influenza High Dose Quad 2020-07-05 00:00:00 Completed [facility] Influenza High Dose Quad 2020-07-05 00:00:00 Completed [facility] Influenza High Dose Quad 2020-07-05 00:00:00 Completed [facility] Influenza High Dose Quad 2020-07-05 00:00:00 Completed [facility] Influenza High Dose Quad 2020-07-05 00:00:00 Completed [facility] Influenza High Dose Quad Unknown Completed [facility] Influenza High Dose Quad Unknown Completed [facility] Influenza High Dose Quad Unknown Completed [facility] Influenza High Dose Quad Unknown Completed [facility] Influenza High Dose Quad Unknown Completed [facility] SARS-COV-2 COVID-19 MODERNA 12+ YRS VACCINE Unknown Completed [facility] SARS-COV-2 COVID-19 MODERNA 12+ YRS VACCINE Unknown Completed [facility] Influenza High Dose Quad Unknown Completed [facility] SARS-COV-2 COVID-19 MODERNA 12+ YRS VACCINE Unknown Completed [facility] SARS-COV-2 COVID-19 MODERNA 12+ YRS VACCINE Unknown Completed [facility] Influenza High Dose Quad Unknown Completed [facility] SARS-COV-2 COVID-19 MODERNA 12+ YRS VACCINE Unknown Completed [facility] SARS-COV-2 COVID-19 MODERNA 12+ YRS VACCINE Unknown Completed [facility] Influenza High Dose Quad Unknown Completed [facility] SARS-COV-2 COVID-19 MODERNA 12+ YRS VACCINE Unknown Completed [facility] SARS-COV-2 COVID-19 MODERNA 12+ YRS VACCINE Unknown Completed [facility] Influenza High Dose Quad Unknown Completed [facility] SARS-COV-2 COVID-19 MODERNA 12+ YRS VACCINE Unknown Completed [facility] SARS-COV-2 COVID-19 MODERNA 12+ YRS VACCINE Unknown Completed [facility] Influenza High Dose Quad Unknown Completed [facility] SARS-COV-2 COVID-19 MODERNA 12+ YRS VACCINE Unknown Completed [facility] SARS-COV-2 COVID-19 MODERNA 12+ YRS VACCINE Unknown Completed [facility] Influenza High Dose Quad Unknown Completed [facility] SARS-COV-2 COVID-19 MODERNA 12+ YRS VACCINE Unknown Completed [facility] SARS-COV-2 COVID-19 MODERNA 12+ YRS VACCINE Unknown Completed [facility] Influenza High Dose Quad Unknown Completed [facility] SARS-COV-2 COVID-19 MODERNA 12+ YRS VACCINE Unknown Completed [facility] SARS-COV-2 COVID-19 MODERNA 12+ YRS VACCINE Unknown Completed [facility] Influenza High Dose Quad Unknown Completed [facility] SARS-COV-2 COVID-19 MODERNA 12+ YRS VACCINE Unknown Completed [facility] SARS-COV-2 COVID-19 MODERNA 12+ YRS VACCINE Unknown Completed [facility] Influenza High Dose Quad Unknown Completed [facility] SARS-COV-2 COVID-19 MODERNA 12+ YRS VACCINE Unknown Completed [facility] SARS-COV-2 COVID-19 MODERNA 12+ YRS VACCINE Unknown Completed [facility] Influenza High Dose Quad Unknown Completed [facility] SARS-COV-2 COVID-19 MODERNA 12+ YRS VACCINE Unknown Completed [facility] SARS-COV-2 COVID-19 MODERNA 12+ YRS VACCINE Unknown Completed [facility] Influenza High Dose Quad Unknown Completed [facility] SARS-COV-2 COVID-19 MODERNA 12+ YRS VACCINE Unknown Completed [facility] SARS-COV-2 COVID-19 MODERNA 12+ YRS VACCINE Unknown Completed [facility] Influenza High Dose Quad Unknown Completed [facility] SARS-COV-2 COVID-19 MODERNA 12+ YRS VACCINE Unknown Completed [facility] SARS-COV-2 COVID-19 MODERNA 12+ YRS VACCINE Unknown Completed [facility] Influenza High Dose Quad Unknown Completed [facility] SARS-COV-2 COVID-19 MODERNA 12+ YRS VACCINE Unknown Completed [facility] SARS-COV-2 COVID-19 MODERNA 12+ YRS VACCINE Unknown Completed [facility] Influenza High Dose Quad Unknown Completed [facility] SARS-COV-2 COVID-19 MODERNA 12+ YRS VACCINE Unknown Completed [facility] SARS-COV-2 COVID-19 MODERNA 12+ YRS VACCINE Unknown Completed [facility] Influenza High Dose Quad Unknown Completed [facility] SARS-COV-2 COVID-19 MODERNA 12+ YRS VACCINE Unknown Completed [facility] SARS-COV-2 COVID-19 MODERNA 12+ YRS VACCINE Unknown Completed [facility] Influenza High Dose Quad Unknown Completed [facility] SARS-COV-2 COVID-19 MODERNA 12+ YRS VACCINE Unknown Completed [facility] SARS-COV-2 COVID-19 MODERNA 12+ YRS VACCINE Unknown Completed [facility] Influenza High Dose Quad Unknown Completed [facility] SARS-COV-2 COVID-19 MODERNA 12+ YRS VACCINE Unknown Completed [facility] SARS-COV-2 COVID-19 MODERNA 12+ YRS VACCINE Unknown Completed [facility] Influenza High Dose Quad Unknown Completed [facility] SARS-COV-2 COVID-19 MODERNA 12+ YRS VACCINE Unknown Completed [facility] SARS-COV-2 COVID-19 MODERNA 12+ YRS VACCINE Unknown Completed [facility] Influenza High Dose Quad Unknown Completed [facility] SARS-COV-2 COVID-19 MODERNA 12+ YRS VACCINE Unknown Completed [facility] SARS-COV-2 COVID-19 MODERNA 12+ YRS VACCINE Unknown Completed [facility] Influenza High Dose Quad Unknown Completed [facility] SARS-COV-2 COVID-19 MODERNA 12+ YRS VACCINE Unknown Completed [facility] SARS-COV-2 COVID-19 MODERNA 12+ YRS VACCINE Unknown Completed [facility] Influenza High Dose Quad Unknown Completed [facility] SARS-COV-2 COVID-19 MODERNA 12+ YRS VACCINE Unknown Completed [facility] SARS-COV-2 COVID-19 MODERNA 12+ YRS VACCINE Unknown Completed [facility] Influenza High Dose Quad Unknown Completed [facility] SARS-COV-2 COVID-19 MODERNA 12+ YRS VACCINE Unknown Completed [facility] SARS-COV-2 COVID-19 MODERNA 12+ YRS VACCINE Unknown Completed [facility] Influenza High Dose Quad Unknown Completed [facility] SARS-COV-2 COVID-19 MODERNA 12+ YRS VACCINE Unknown Completed [facility] SARS-COV-2 COVID-19 MODERNA 12+ YRS VACCINE Unknown Completed [facility] Influenza High Dose Quad Unknown Completed [facility] SARS-COV-2 COVID-19 MODERNA 12+ YRS VACCINE Unknown Completed [facility] SARS-COV-2 COVID-19 MODERNA 12+ YRS VACCINE Unknown Completed [facility] Influenza High Dose Quad Unknown Completed [facility] SARS-COV-2 COVID-19 MODERNA 12+ YRS VACCINE Unknown Completed [facility] SARS-COV-2 COVID-19 MODERNA 12+ YRS VACCINE Unknown Completed [facility] Influenza High Dose Quad Unknown Completed [facility] SARS-COV-2 COVID-19 MODERNA 12+ YRS VACCINE Unknown Completed [facility] SARS-COV-2 COVID-19 MODERNA 12+ YRS VACCINE Unknown Completed [facility] Influenza High Dose Quad Unknown Completed [facility] SARS-COV-2 COVID-19 MODERNA 12+ YRS VACCINE Unknown Completed [facility] SARS-COV-2 COVID-19 MODERNA 12+ YRS VACCINE Unknown Completed [facility] Influenza High Dose Quad Unknown Completed [facility] SARS-COV-2 COVID-19 MODERNA 12+ YRS VACCINE Unknown Completed [facility] SARS-COV-2 COVID-19 MODERNA 12+ YRS VACCINE Unknown Completed [facility] Influenza High Dose Quad Unknown Completed [facility] SARS-COV-2 COVID-19 MODERNA 12+ YRS VACCINE Unknown Completed [facility] SARS-COV-2 COVID-19 MODERNA 12+ YRS VACCINE Unknown Completed [facility] Influenza High Dose Quad Unknown Completed [facility] SARS-COV-2 COVID-19 MODERNA 12+ YRS VACCINE Unknown Completed [facility] SARS-COV-2 COVID-19 MODERNA 12+ YRS VACCINE Unknown Completed [facility] Influenza High Dose Quad Unknown Completed [facility] SARS-COV-2 COVID-19 MODERNA 12+ YRS VACCINE Unknown Completed [facility] SARS-COV-2 COVID-19 MODERNA 12+ YRS VACCINE Unknown Completed [facility] Influenza High Dose Quad Unknown Completed [facility] SARS-COV-2 COVID-19 MODERNA 12+ YRS VACCINE Unknown Completed [facility] SARS-COV-2 COVID-19 MODERNA 12+ YRS VACCINE Unknown Completed [facility] Influenza High Dose Quad Unknown Completed [facility] SARS-COV-2 COVID-19 MODERNA 12+ YRS VACCINE Unknown Completed [facility] SARS-COV-2 COVID-19 MODERNA 12+ YRS VACCINE Unknown Completed [facility] Vital Signs Vital Name Observation Time Observation Value Comments S ource Systolic blood pressure 2024-05-30 18:27:00 128 mm[Hg] [facility] Diastolic blood pressure 2024-05-30 18:27:00 76 mm[Hg] [facility] Heart rate 2024-05-30 18:27:00 87 /min [facility] Body height 2024-05-30 18:27:00 160 cm [facility] Body weight 2024-05-30 18:27:00 75.887 kg [facility] BMI 2024-05-30 18:27:00 29.64 kg/m2 [facility] Oxygen saturation in Arterial blood by Pulse oximetry 2024-05-30 18:27:00 96 /min [facility] Systolic blood pressure 2024-05-18 17:58:00 135 mm[Hg] [facility] Diastolic blood pressure 2024-05-18 17:58:00 79 mm[Hg] [facility] Heart rate 2024-05-18 17:58:00 89 /min [facility] Respiratory rate 2024-05-18 17:58:00 20 /min [facility] Body height 2024-05-18 17:58:00 160 cm [facility] Body weight 2024-05-18 17:58:00 75.433 kg [facility] BMI 2024-05-18 17:58:00 29.46 kg/m2 [facility] Oxygen saturation in Arterial blood by Pulse oximetry 2024-05-18 17:58:00 90 /min [facility] Body height 2023-10-19 19:06:00 157.5 cm [facility] Body weight 2023-10-19 19:06:00 79.833 kg [facility] BMI 2023-10-19 19:06:00 32.19 kg/m2 [facility] Systolic blood pressure 2023-10-12 21:26:00 125 mm[Hg] [facility] Diastolic blood pressure 2023-10-12 21:26:00 81 mm[Hg] [facility] Heart rate 2023-10-12 21:26:00 100 /min [facility] Body height 2023-10-12 21:26:00 157.5 cm [facility] Body weight 2023-10-12 21:26:00 79.833 [facility] 2023-10-12 21:26:00 32.19 kg/m2 [facility] Oxygen saturation in Arterial blood by Pulse oximetry 2023-10-12 21:26:00 99 /min [facility] Body height 2023-09-28 19:11:00 157.5 cm [facility] Body weight 2023-09-28 19:11:00 80.241 kg [facility] BMI 2023-09-28 19:11:00 32.36 kg/m2 [facility] Systolic blood pressure 2023-09-20 14:59:00 144 mm[Hg] [facility] Diastolic blood pressure 2023-09-20 14:59:00 82 mm[Hg] [facility] Heart rate 2023-09-20 14:55:00 77 /min [facility] Respiratory rate 2023-09-20 14:55:00 20 /min [facility] Body height 2023-09-20 14:55:00 161.3 cm [facility] weight 2023-09-20 14:55:00 80.105 kg [facility] BMI 2023-09-20 14:55:00 30.79 kg/m2 [facility] Oxygen saturation in Arterial blood by Pulse oximetry 2023-09-20 14:55:00 95 /min [facility] Systolic blood pressure 2023-09-07 21:29:00 108 mm[Hg] [facility] Diastolic blood pressure 2023-09-07 21:29:00 77 mm[Hg] [facility] Heart rate 2023-09-07 21:29:00 94 /min [facility] Body height 2023-09-07 21:29:00 162.6 cm [facility] Body weight 2023-09-07 21:29:00 76.658 kg Univ [facility] BMI 2023-09-07 21:29:00 29.01 kg/m2 [facility] Oxygen saturation in Arterial blood by Pulse oximetry 2023-09-07 21:29:00 97 /min [facility] Body height 2022-10-28 17:22:00 161.3 cm [facility] Body weight 2022-10-28 17:22:00 79.833 kg [facility] BMI 2022-10-28 17:22:00 30.69 kg/m2 [facility] Systolic blood pressure 2021-12-08 19:17:00 128 mm[Hg] [facility] Diastolic blood pressure 2021-12-08 19:17:00 85 mm[Hg] [facility] Heart rate 2021-12-08 19:17:00 79 /min [facility] Body weight 2021-12-08 19:17:00 83.263 kg [facility] BMI 2021-12-08 19:17:00 31.51 kg/m2 [facility] Oxygen saturation in Arterial blood by Pulse oximetry 2021-12-08 19:17:00 99 /min [facility] Procedures Procedure Date / Time Performed Performing Clinician Source CT MYOCARDIUM PERFUSION STRESS AND REST 2024-05-31 17:45:00 Lenny [facility] MYOCARDIUM PERFUSION STRESS AND REST 2024-05-31 17:45:00 [facility] MYOCARDIUM PERFUSION STRESS AND REST 2024-05-31 17:45:00 [facility] MYOCARDIUM PERFUSION STRESS AND REST 2024-05-31 17:45:00 [facility] TRANSTHORACIC ECHO (TTE) COMPLETE 2024-05-31 14:42:00 Lenny [facility] SEDIMENTATION RATE 2024-05-30 19:22:00 Naresh James [facility] CBC WITH DIFF 2024-05-30 19:22:00 [facility]W RIGHT 2023-10-19 19:22:38 Naresh James [facility] CBC WITH DIFF 2023-09-28 20:07:00 [facility] CHEST 1 VW 2023-09-28 19:53:54 [facility] MEDICAL RELEASE/CLEARANCE FORMS 2023-09-16 06:01:00 Doctor Unassigned, [place] [facility] XR KNEE 3 VW RIGHT 2023-09-07 21:43:05 Naresh James [facility] ASSIGNMENT OF BENEFITS 2023-09-07 21:10:20 Docto r Unassigned, [place] [facility] REFERRAL- REQUEST/RESPONSE 2023-07-13 05:01:00 Doctor Unassigned, [place] [facility] AUTHORIZATION FOR RELEASE OF PHI 2023-06-06 05:01:00 Doctor Unassigned, [place] [facility] AUTHORIZATION TO RELEASE PHI TO [facility] 2023-03-01 05:01:00 Doctor Unassigned, [place] [facility] EXTERNAL PROVIDER RECORDS 2022-11-11 06:01:00 Doctor Unassigned, [place] [facility] CONSENT/REFUSAL FOR DIAGNOSIS AND TREATMENT 2021-12-14 18:47:31 Doctor Unassigned, [place] [facility] Encounters Start Date/Time End Date/Time Encounter Type Admission Type Attending [facility] Care Department Encounter ID Source 2021-08-07 11:33:25 Emergency [facility] [id number] [facility] 2024-05-31 08:47:40 2024-05-31 23:59:00 Outpatient R NORMA GALVEZ [facility] [id number] [facility] 2024-05-31 08:47:40 2024-05-31 23:59:00 [facility] ..840.114 350.1.13.10 4.2.7.2.686 [id number] [facility] 2024-05-31 08:46:22 2024-05-31 08:46:22 [facility] ..840.114 350.1.13.10 4.2.7.2.686 [id number] [facility] 2024-05-31 08:45:49 2024-05-31 08:45:49 [facility] 1.2.840.114 350.1.13.10 4.2.7.2.686 [id number] [facility] 2024-05-31 08:45:19 2024-05-31 08:45:19 Hospital Encounter Norma Galvez [facility] 1.2.840.114 350.1.13.10 4.2.7.2.686 [id number] [facility] 2024-05-31 08:43:57 2024-05-31 08:44:00 [facility] 1.2.840.114 350.1.13.10 4.2.7.2.686 [id number] [facility] 2024-05-31 08:42:12 2024-05-31 08:42:12 Hospital Encounter Norma Galvez [facility] 1.2.840.114 350.1.13.10 4.2.7.2.686 [id number] [facility] 2024-05-30 13:45:25 2024-05-30 23:59:[address] Naresh James 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 MEDICAL OFFICE BUILDING 1.2840.114 350.1.13.10 4.2.7.2.686 [id number] [facility] 2024-05-30 13:45:00 2024-05-30 14:11:42 Outpatient R NARESH JAMES CRAIG [facility] [id number] [facility] 2024-05-30 13:45:00 2024-05-30 14:11:42 Office Visit [facility] 1.2.840.114 350.1.13.10 4.2.7.2.686 [id number] [facility] 2024-05-22 00:00:00 2024-05-22 08:16:23 [facility] 1.2.840.114 350.1.13.10 4.2.7.2.686 [id number] [facility] 2024-05-18 13:00:00 2024-05-18 13:30:24 Outpatient R [facility] [id number] [facility] 2024-05-18 13:00:00 2024-05-18 13:20:00 Office Visit Lenny [facility] BUILDING 1..840.114 350.1.13.10 4.2.7.2.686 [id number] [facility] 2023-10-19 13:15:57 2023-10-19 23:59:00 Hospital Encounter [facility] 1.2.840.114 350.1.13.10 4.2.7.2.686 [id number] [facility] 2023-10-19 13:15:00 2023-10-19 14:03:04 Outpatient [facility] [id number] [facility] 2023-10-19 13:15:00 2023-10-19 14:03:04 Office Visit Erika Naresh Armendariz [facility] 1.2.840.114 350.1.13.10 4.2.7.2.686 [id number] [facility] 2023-10-12 16:15:00 2023-10-12 16:15:00 Office [address] Naresh James [facility] OFFICE BUILDING 1.114 350.1.13.10 4.2.7.2.686 [id number] [facility] 2023-10-12 16:15:00 2023-10-12 15:48:36 Outpatient R NARESH JAMES [facility] [id number] [facility] 2023-10-05 16:21:00 2023-10-05 23:59:00 Hospital Encounter Naresh James [facility] 1..114 350.1.13.10 4.2.7.2.686 [id number] [facility] 2023-10-05 00:00:00 2023-10-05 23:59:00 Outpatient R NARESH JAMES C[facility]IG [facility] OUT [id number] [facility] 2023-10-05 00:00:00 2023-10-05 00:00:[address] [facility] MEDICAL OFFICE BUILDING 1.84.114 350.1.13.10 4.2.7.2.686 [id number] [facility] 2023-09-30 10:15:00 2023-09-30 11:30:11 Outpatient R NARESH JAMES [facility] [id number] [facility] 2023-09-30 10:15:00 2023-09-30 11:30:11 Ancillary Visit Baldev Flanagan Craig L [facility] 1.84.114 350.1.13.10 4.2.7.2.686 [id number] [facility] 2023-09-28 13:47:31 2023-09-28 23:59:00 Outpatient R NARESH JAMES [facility] [id number] [facility] 2023-09-28 13:47:31 2023-09-28 23:59:00 Hospital Encounter Naresh James [facility] MEDICAL OFFICE BUILDING 1..840.114 350.1.13.10 4.2.7.2.686 [id number] [facility] 2023-09-28 14:15:00 2023-09-28 14:44:05 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, 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 - Ulisses Naresh James [facility] MED[facility] OFFICE BUILD[facility] 1..840.114 350.1.13.10 4.2.7.2.686 [id number] [facility] 2023-09-28 13:00:00 2023-09-28 13:58:49 Office Visit [facility]resh [facility] 1..840.114 350.1.13.10 4.2.7.2.686 [id number] [facility] 2023-09-26 00:00:00 2023-09-26 00:00:00 Telephone Naresh [facility] MED[facility] OFF[facility] BU[facility] 1..840.114 350.1.13.10 4.2.7.2.686 [id number] [facility] 2023-09-20 09:00:00 2023-09-20 09:28:09 Outpatient R NORMA GALVEZ [facility] [id number] [facility] 2023-09-20 09:00:00 2023-09-20 09:28:09 Office Visit Norma Galvez [facility] N[facility] BUILD[facility] 1.840.114 350.1.13.10 4.2.7.2.686 [id number] [facility] 2023-09-16 00:00:00 2023-09-16 00:00:00 Orders Only Doctor Unassigned, [place] [facility] 1.2.840.114 350.1.13.10 4.2.7.2.686 [id number] [facility] 2023-09-07 15:31:23 2023-09-07 23:59:00 Outpatient R NARESH JAMES [facility] [id number] [facility] 2023-09-07 15:31:23 2023-09-07 23:59:[address] [facility] MEDICAL OFFICE BUILDING 1.840.114 350.1.13.10 4.2.7.2.686 [id number] [facility] 2023-09-07 15:30:00 2023-09-07 16:03:00 Office [address] Naresh James [facility] MEDICAL OFFICE BUILDING 1.2840.114 350.1.13.10 4.2.7.2.686 [id number] [facility] 2023-09-07 00:00:00 2023-09-07 00:00:00 Orders Only Doctor Unassigned, [place] [facility] 1.2840.114 350.1.13.10 4.2.7.2.686 [id number] [facility] 2023-09-07 00:00:00 2023-09-07 00:00:00 Telephone Norma Galvez [facility] 1.2840.114 350.1.13.10 4.2.7.2.686 [id number] [id number] [facility] 2023-08-12 11:15:00 2023-08-12 11:15:00 Outpatient NARESH KENNEDY [facility]IG [facility] [id number] [facility] 2023-07-13 00:00:00 2023-07-13 00:00:00 Orders Only Doctor Unassigned, [place] [facility] 1.2.840.114 350.1.13.10 4.2.7.2.686 [id number] [facility] 2023-07-13 00:00:00 2023-07-13 00:00:00 Patient Secure Msg Doctor Unassigned, [place] [facility] 1.2.840.114 350.1.13.10 4.2.7.2.686 [id number] [facility] 2023-06-06 00:00:00 2023-06-06 00:00:00 Orders Only Doctor Unassigned, [place] [facility] 1.2.840.114 350.1.13.10 4.2.7.2.686 [id number] [facility] 2023-03-01 00:00:00 2023-03-01 00:00:00 Orders Only Doctor Unassigned, [place] [facility] 1.2.840.114 350.1.13.10 4.2.7.2.686 [id number] [facility] 2022-12-28 00:00:00 2022-12-28 00:00:00 Outpatient RANJITH_Zuhair doyle_ AOSM AOSM [id number] [facility] 2022-11-11 00:00:00 2022-11-11 00:00:00 Orders Only Doctor Unassigned, [place] [facility] 1.2.840.114 350.1.13.10 4.2.7.2.686 [id number] [facility] 2022-10-28 11:15:00 2022-10-28 11:57:52 Outpatient R ERIKA NARESH [facility] [id number] [facility] 2022-10-28 11:15:00 2022-10-28 11:57:52 Office Visit Naresh James [facility] 1..840.114 350.1.13.10 4.2.7.2.686 [id number] [facility] 2022-09-24 09:15:00 2022-09-24 09:15:00 Outpatient R ERIKA NARESH [facility] [id number] [facility] 2022-07-01 13:45:00 2022-07-01 13:45:00 Outpatient KENZIE MAGDALENO [facility] [id number] [facility] 2021-12-24 00:00:00 2021-12-24 00:00:00 Telephone Scottie Avila [facility] 1..840.114 350.1.13.10 4.2.7.2.686 [id number] [facility] 2021-12-17 15:00:00 2021-12-17 15:00:00 Outpatient JESSICA [facility]AN [facility] [id number] [facility] 2021-12-17 15:00:00 2021-12-17 15:00:00 Outpatient JESSICA [facility] [id number] [facility] 2021-12-15 00:00:00 2021-12-15 00:00:00 [facility] 1..840.114 350.1.13.10 4.2.7.2.686 [id number] [facility] 2021-12-14 15:00:00 2021-12-14 15:00:00 Outpatient JESSICA [facility]AN [facility] [id number] [facility] 2021-12-14 12:47:50 2021-12-14 12:47:50 Outpatient R [facility]ESSICA [facility] [id number] [facility] 2021-12-14 00:00:00 2021-12-14 00:00:00 Orders Only Doctor Unassigned, [place] [facility] 1.2840.114 350.1.13.10 4.2.7.2.686 [id number] [facility] 2021-12-08 13:20:00 2021-12-08 13:44:44 Outpatient R LENNY [facility] [id number] [facility] 2021-12-08 13:20:00 2021-12-08 13:44:44 Office Visit Lenny [facility] 1.840.114 350.1.13.10 4.2.7.2.686 [id number] [facility] 2021-12-08 13:20:00 2021-12-08 13:44:44 Outpatient R LENNY [facility] [id number] [facility] 2021-04-28 15:20:00 2021-04-28 15:20:00 Outpatient R LENNY [facility] [id number] [facility] 2021-04-28 00:00:00 2021-04-28 00:00:00 Orders Only Doctor Unassigned, [place] [facility] 1.2840.114 350.1.13.10 4.2.7.2.686 [id number] [facility] 2021-04-23 00:00:00 2021-04-23 00:00:00 Patient Secure Msg Doctor Unassigned, [place] [facility] 1.2840.114 350.1.13.10 4.2.7.2.686 [id number] [facility] 2021-04-15 13:26:09 2021-04-15 23:59:00 Hospital Encounter Scottie Avila [facility] 1..840.114 350.1.13.10 4.2.7.2.686 [id number] [facility] 2021-04-15 13:10:00 2021-04-15 14:13:33 Outpatient R SCOTTIE AVILA [facility] [id number] [facility] 2021-04-15 12:58:36 2021-04-15 14:13:33 Office Visit Scottie Avila [facility] 1..840.114 350.1.13.10 4.2.7.2.686 [id number] [facility] 2021-04-15 13:10:00 2021-04-15 13:10:00 Outpatient R SCOTTIE AVILA [facility] [id number] [facility] 2021-04-09 12:49:16 2021-04-09 23:59:00 Hospital Encounter Scottie Avila [facility] 1..840.114 350.1.13.10 4.2.7.2.686 [id number] [facility] 2021-04-09 00:00:00 2021-04-09 00:00:00 Outpatient R SCOTTIE AVILA [facility] [id number] [facility] 2021-04-01 14:40:00 2021-04-01 15:54:17 Outpatient R SCOTTIE AVILA [facility] [id number] [facility] 2021-04-01 13:55:52 2021-04-01 15:54:17 Office Visit Scottie Avila [facility] 1.2.840.114 350.1.13.10 4.2.7.2.686 [id number] [facility] 2021-04-01 14:40:00 2021-04-01 14:40:00 Outpatient R SCOTTIE AVILA [facility] [id number] [facility] 2021-03-18 13:20:00 2021-03-18 13:20:00 Outpatient R SCOTTIE AVILA [facility] [id number] [facility] 2021-01-14 14:40:00 2021-01-14 15:08:56 Outpatient SCOTTIE MOISE [facility] [id number] [facility] 2021-01-14 14:07:41 2021-01-14 15:08:56 Office Visit Scottie Avila [facility] 1..840.114 350.1.13.10 4.2.7.2.686 [id number] [facility] 2021-01-14 14:40:00 2021-01-14 14:40:00 Outpatient SCOTTIE MOISE [facility] [id number] [facility] 2021-01-09 10:30:00 2021-01-09 10:30:00 Outpatient SCOTTIE MOISE [facility] [id number] [facility] 2021-01-09 10:30:00 2021-01-09 10:30:00 Outpatient SCOTTIE MOISE [facility] [id number] [facility] 2020-12-18 08:32:15 2020-12-18 23:59:00 Hospital Encounter Lenny [facility] 1.2.840.114 350.1.13.10 4.2.7.2.686 [id number] [facility] 2020-12-18 08:32:00 2020-12-18 08:32:00 Hospital Encounter Lenny [facility] 1.2.840.114 350.1.13.10 4.2.7.2.686 [id number] [facility] 2020-12-18 08:31:42 2020-12-18 08:31:42 [facility] 1.840.114 350.1.13.10 4.2.7.2.686 [id number] [facility] 2020-12-18 08:31:26 2020-12-18 08:31:26 Outpatient R LENNY [facility] [id number] [facility] 2020-12-18 08:31:26 2020-12-18 08:31:26 Hospital Encounter Lenny [facility] 1.0.114 350.1.13.10 4.2.7.2.686 [id number] [facility] 2020-12-18 00:00:00 2020-12-18 00:00:00 Outpatient LENNY [facility] [id number] [facility] 2020-12-08 00:00:00 2020-12-08 00:00:00 Patient Outreach Parmjit Lakhani [facility] 1..114 350.1.13.10 4.2.7.2.686 [id number] [facility] 2020-12-03 14:38:38 2020-12-03 15:40:37 Office Visit Lenny [facility] 1..114 350.1.13.10 4.2.7.2.686 [id number] [facility] 2020-12-03 15:00:00 2020-12-03 15:00:00 Outpatient R LENNY [facility] [id number] [facility] 2020-12-03 00:00:00 2020-12-03 00:00:00 Orders Only Doctor Unassigned, [place] [facility] 1.840.114 350.1.13.10 4.2.7.2.686 [id number] [facility] 2020-11-10 15:20:00 2020-11-10 15:20:00 Outpatient Hortensia NORMA GALVEZ [facility] [id number] [facility] 2020-10-15 15:10:25 2020-10-15 16:25:25 Office Visit Scottie Avila [facility] 1.2.840.114 350.1.13.10 4.2.7.2.686 [id number] [facility] 2020-10-15 13:00:00 2020-10-15 13:00:00 Outpatient Hortensia GALVEZ NORMA [facility] [id number] [facility] 2020-10-08 14:00:00 2020-10-08 14:00:00 Outpatient Hortensia AVILA [facility] [id number] [facility] 2020-07-09 13:21:48 2020-07-09 23:59:00 Hospital Encounter Scottie Avlia [facility] 1.2.840.114 350.1.13.10 4.2.7.2.686 [id number] [facility] 2020-07-09 13:09:54 2020-07-09 17:36:54 Office Visit Scottie Avila [facility] 1.2.840.114 350.1.13.10 4.2.7.2.686 [id number] [facility] 2020-07-09 14:00:00 2020-07-09 14:00:00 Outpatient R IRIS [facility] [id number] [facility] 2020-05-19 12:48:00 2020-05-19 16:14:00 Emergency Melvin Carranza W[facility] 1.2.840.114 350.1.13.10 4.2.7.2.686 [id number] [facility] 2020-05-19 00:00:00 2020-05-19 00:00:00 Orders Only Doctor Unassigned, [place] [facility] 1.2.840.114 350.1.13.10 4.2.7.2.686 [id number] [facility] 2020-05-06 14:15:00 2020-05-06 14:15:00 Outpatient R STEPHEN ELMORE [facility] [id number] [facility] 2020-04-30 00:00:00 2020-04-30 00:00:00 Orders Only Doctor Unassigned, [place] [facility] 1.2.840.114 350.1.13.10 4.2.7.2.686 [id number] [facility] 2020-02-13 14:05:00 2020-02-13 14:38:26 Office Visit Gayatri [facility] tia Lopez 1.2.840.114 350.1.13.10 4.2.7.2.686 [id number] [facility] 2020-02-13 14:05:00 2020-02-13 14:38:26 Office Visit Gayatri [facility] tia Lopez 1.2.840.114 350.1.13.10 4.2.7.2.686 [id number] 2020-02-13 14:30:00 2020-02-13 14:30:00 Outpatient R GAYATRI [facility] [id number] [facility] 2020-01-03 11:17:06 2020-01-03 14:12:00 Emergency X PETR GORMAN [facility] ERT [id number] [facility] 2020-01-03 11:17:06 2020-01-03 14:12:[address] [facility] ([facility]) 1.2.840.114 350.1.13.10 4.2.7.2.686 [id number] [facility] 2019-12-31 00:00:00 2019-12-31 00:00:00 Telephone Karlos Farris [facility] 1.2.840.114 350.1.13.10 4.2.7.2.686 [id number] [facility] 2019-10-25 00:00:00 2019-10-25 00:00:00 Outpatient R NORMA GALVEZ [facility] [id number] [facility] 2019-10-01 14:16:06 2019-10-01 14:33:00 Outpatient R COLLEEN PRAKASH [facility] [id number] [facility] 2019-09-18 14:30:00 2019-09-18 16:10:17 Outpatient R NARESH JAMES [facility] [id number] [facility] 2019-06-25 13:15:00 2019-06-25 13:48:46 Office Visit Stephen Elmore Navid [facility] 1.2840.114 350.1.13.10 4.2.7.2.686 [id number] [facility] 2019-06-14 00:00:00 2019-06-14 00:00:00 Telephone Stephen Elmore Navid [facility] 1.2840.114 350.1.13.10 4.2.7.2.686 [id number] [facility] 2019-06-13 10:03:00 2019-06-13 19:18:00 Hospital Encounter Stephen Elmore Navid [facility] ([facility]) 1.2.840.114 350.1.13.10 4.2.7.2.686 [id number] [facility] 2019-06-13 00:00:00 2019-06-13 00:00:00 Orders Only Doctor Unassigned, [place] [facility] 1.2.840.114 350.1.13.10 4.2.7.2.686 [id number] [facility] 2019-06-08 00:00:00 2019-06-08 00:00:00 Case Management Odilia Quinonez [facility] 1.2.840.114 350.1.13.10 4.2.7.2.686 [id number] [facility] 2019-05-24 14:55:19 2019-05-24 23:59:00 Hospital Encounter Tonny Og [facility] 1.2.840.114 350.1.13.10 4.2.7.2.686 [id number] [facility] 2019-05-24 00:00:00 2019-05-24 00:00:00 Case Management Santi Saravia [facility] 1.2.840.114 350.1.13.10 4.2.7.2.686 [id number] [facility] 2019-05-24 00:00:00 2019-05-24 00:00:00 Orders Only Doctor Unassigned, [place] [facility] 1.2.840.114 350.1.13.10 4.2.7.2.686 [id number] [facility] 2019-05-23 00:00:00 2019-05-23 00:00:00 Telephone Karlos Farris [facility] 1.2.840.114 350.1.13.10 4.2.7.2.686 [id number] [facility] 2019-05-23 00:00:00 2019-05-23 00:00:00 Telephone Stephen Elmore [facility] 1.2.840.114 350.1.13.10 4.2.7.2.686 [id number] [facility] 2019-05-18 00:00:00 2019-05-18 00:00:00 Telephone Carlton Mari [facility] 1.2.840.114 350.1.13.10 4.2.7.2.686 [id number] [facility] 2019-05-16 10:30:00 2019-05-16 23:59:00 Hospital Encounter KaleighKarlos [facility] 1.2.840.114 350.1.13.10 4.2.7.2.686 [id number] [facility] 2019-05-08 15:18:19 2019-05-15 14:53:40 [employer] Operator [facility] 1.2.840.114 350.1.13.10 4.2.7.2.686 [id number] [facility] 2019-05-15 09:45:25 2019-05-15 10:00:25 [employer] Operator Visit 1, [facility] 1.2.840.114 350.1.13.10 4.2.7.2.686 [id number] [facility] [facility] 14:02:11 2019-05-08 15:07:43 Office Visit Kaleigh Karlos [facility] [id number] 350.1.13.10 4.2.7.2.686 [id number] [facility] 2019-05-08 00:00:00 2019-05-08 00:00:00 Orders Only Doctor Unassigned, [place] [facility] 1.2.840.114 350.1.13.10 4.2.7.2.686 [id number] [facility] 2019-05-08 00:00:2019-05-08 00:00:00 Telephone Karlos Farris [facility] 1.0.114 350.1.13.10 4.2.7.2.686 [id number] [facility] 2019-05-04 00:00:00 2019-05-04 00:00:00 Telephone Jessica Galvezmaria estheropal [facility] Jessica Lopes [facility] 1..114 350.1.13.10 4.2.7.2.686 [id number] [facility] 2019-05-04 00:00:00 2019-05-04 00:00:00 Telephone Stephen Elmore Navid [facility] 1..114 350.1.13.10 4.2.7.2.686 [id number] [facility] 2019-05-03 00:00:00 2019-05-03 00:00:00 Telephone Stephen Elmoer Navid [facility] 1..114 350.1.13.10 4.2.7.2.686 [id number] [facility] 2019-02-20 15:41:05 2019-02-20 23:59:00 Outpatient STEPHEN GUADARRAMA [facility] [id number] [facility] 2019-01-23 13:05:16 2019-01-23 13:28:00 Outpatient STEPHEN GUADARRAMA [facility] [id number] [facility] 2019-01-11 10:14:20 2019-01-11 23:59:00 Outpatient NARESH JAMES [facility] [id number] [facility] 2018-08-23 00:00:00 2018-08-23 00:00:00 Orders Only Doctor Unassigned, [place] [facility] 1..114 350.1.13.10 4.2.7.2.686 [id number] [facility] Results Test Description Test Time Test Comments Results Result Co [id number] 21:34:20* Test Item Value Reference Range Interpretation Comme nts ESR (test code = 86287-6) 14 0-20 Lab Interpretation (test cod e = 58820-9) [facility] [id number] 20:57:42* Test Item Value Reference Range Interpretation Comme nts WBC (test code = 6690-2) 8.19 4.30-11.10 RBC (test code = 789-8) 4.31 3.93-5.25 HGB (test code = 718-7) 12.8 g/dL 11.6-15.0 HCT (test code = 4544-3) 40.3 % 35.7-45.2 MCV (test code = 787-2) 93.5 fL 80.6-95.5 MCH (test code = 785-6) 29.7 pg 25.9-32.8 MCHC (test code = 786-4) 31.8 g/dL 31.6-35.1 RDW-SD (test code = 88932-7) 45.5 fL 39.0-49.9 RDW-CV (test code = 788-0) 13.3 % 12.0-15.5 PLT (test code = 777-3) 360 166-358 H MPV (test code = 66641-0) 10.2 fL 9.5-12.9 NRBC/100 WBC (test code = 6355027515) 0.0 0.0-10.0 NRBC x10^3 (test code = 6442527884) See_Comment [Automated messa ge] The system which generated this result transmitted reference range: 10*3/?L. The reference range was not used to interpret this result as normal/abnormal. GRAN MAT (NEUT) % (test code = 770-8) 45.3 % IMM GRAN % (test code = 8730468793) 0.20 % LYMPH % (test code = 736-9) 40.3 % MONO % (test code = 5905-5) 8.4 % EOS % (test code = 713-8) 4.8 % BASO % (test code = 706-2) 1.0 % GRAN MAT x10^3(ANC) (test code = 4496615999) 3.71 10*3/uL 1.88-7.09 IMM GRAN x10^3 (test code = 0773183936) 0.00-0.06 LYMPH x10^3 (test code = 731-0) 3.30 10*3/uL 1.32-3.29 H MONO x10^3 (test code = 742-7) 0.69 10*3/uL 0.33-0.92 EOS x10^3 (test code = 711-2) 0.39 10*3/uL 0.03-0.39 BASO x10^3 (test code = 704-7) 0.08 10*3/uL 0.01-0.07 H Lab Interpretation (test code = 38309-6) [facility]normal [facility] [id number] 04:18:39EXAM: ?XR KNEE 3 VW RIGHT DATE OF [...] of uncertain etiology but may be postoperative. [facility] Notes Date/Time Note Provider Source 2024-05-31 11:13:40 Jeny Barraza is a 74 year old female received to Nuclear Medicine for Stress Test. Pt is AAOx4 and is in NAD. Pt identified using Name & . Pt endorses being NPO since 05/30/24. Indication for this Stress Test is Syncope. Last caffeine intake @ 05/30/24 2300 NM Tech monitoring is Janusz Supervising physician Hank obtained consent at 1128 Time out completed 1115 Lexiscan 0.4mg/5mL injected at 1142, followed by 5mL NS flush. Pre Stress Test vitals are: BP 137/83 HR 72 Resp 16 O2 sat 98 Injection vitals are: BP 111/65 HR 90 Resp 18 O2 sat 98 Recovery vitals are: BP 131/65 HR 94 Resp 16 O2 sat 99 [facility] 2024-05-30 14:30:00 Images from the original note were not included. Venipuncture collection performed by clean technique on the left anticubitus. Total of 1 attempts were made. Slight pressure and a bandage/dressing were applied to the site(s). The patient experienced no complications. The following specimens were processed according to instructions and sent to [facility] laboratories per lab order on 05/30/2024 : LT BLUE SST 1 RED LAV 1 PPT DK GREEN (LiHep) DK GREEN (SodH) HERNANDEZ DK BLUE (K2) DK BLUE (S) ACD Blood Culture NIPT/NTD [facility] 2024-05-22 08:16:07 Pt scheduled. T Darion De La Paz [facility] 2024-05-22 08:09:08 Patient calling needing to schedule her monitor hookup for possibly 05/31 for afternoon. Please advise Heather Chaidez [facility] 2023-09-28 14:15:00 Images from the original note were not included. Venipuncture collection performed by clean technique on the left anticubitus. Total of 1 attempts were made. Slight pressure and a bandage/dressing were applied to the site(s). The patient experienced no complications. The following specimens were processed according to instructions and sent to [facility] laboratories per lab order on 09/28/2023 : LT BLUE SST 1 LT Green RED LAV 1 PPT DK GREEN (LiHep) DK GREEN (SodH) HERNANDEZ DK BLUE (K2) DK BLUE (S) ACD Blood Culture NIPT/NTD [facility]
--- NOTE | 2024-06-06 10:46 | RAD REPORT ---
EXAM DESCRIPTION: RAD - Knee Right 3 View - 06/06/2024 10:27 am CLINICAL HISTORY: Right knee pain status post injury FINDINGS: No fracture or dislocation is seen. Knee prosthesis in good position.
--- NOTE | 2024-06-06 10:47 | RAD REPORT ---
EXAM DESCRIPTION: RAD - Tib Fib Right - 06/06/2024 10:27 am CLINICAL HISTORY: Right leg pain FINDINGS: Old fracture lateral malleolus No acute fracture seen
--- NOTE | 2024-06-06 11:00 | ER ---
Nurse's Notes [facility] Name: Jeny Barraza Age: 74 yrs Sex: Female : 1950 Arrival Date: 06/06/2024 Time: 09:09 Bed 10 Private MD: Diagnosis: Contusion of right knee;Effusion, right knee Presentation: 06/06 09:17 Chief complaint: Patient states: passed out yesterday due to her colitis , I must have iw fell on my right knee because it is painful, swollen, can't bend it, had knee surgery [address] Whitman. Coronavirus screen: At this time, the client does not indicate any symptoms associated with coronavirus-19. Ebola Screen: No symptoms or risks identified at this time. Initial Sepsis Screen: Does the patient meet any 2 criteria? No. Patient's initial sepsis screen is negative. Does the patient have a suspected source of infection? No. Patient's initial sepsis screen is negative. Risk Assessment: Do you want to hurt yourself or someone else? Patient reports no desire to harm self or others. Onset of symptoms was June 05, 2024. 09:17 Method Of Arrival: Ambulatory iw 09:17 Acuity: KESHA 3 iw Triage Assessment: 11:07 General: Appears in no apparent distress. Behavior is calm, cooperative, appropriate ll1 for age. Injury Description: Bruise. Historical: - Allergies: 09:18 Celexa; iw - PMHx: 09:18 Colitis; high heart rate; Hypertensive disorder; iw - PSHx: 09:18 Ligation of fallopian tube; right knee; iw - Immunization history:: Adult Immunizations not up to date. - Infectious Disease History:: Denies. - Social history:: Smoking status: Patient/guardian denies using tobacco, but has a distant history of tobacco abuse. - Family history:: not pertinent. - Hospitalizations: : No recent hospitalization is reported. Screenin:07 [facility] ED Fall Risk Assessment (Adult) History of falling in the last 3 months, ll1 including since admission Yes- physiologic fall (2 pts) Confusion or Disorientation No (0 pts) Intoxicated or Sedated No (0 pts) Impaired Gait No (0 pts) Mobility Assist Device Used No (0 pt) Altered Elimination No (0 pt) Score/Fall Risk Level 0 - 2 = Low Risk Maintained a safe environment, Hourly rounding (assess needs \T\ fall precautionary measures) done. Abuse screen: Denies threats or abuse. Nutritional screening: No deficits noted. Tuberculosis screening: No symptoms or risk factors identified. Assessment: 11:05 General: Appears in no apparent distress. Behavior is calm, cooperative, appropriate ll1 for age. Pain: Complains of pain in right knee. Derm:. Musculoskeletal: Circulation, motion, and sensation intact. Capillary refill < 3 seconds, Reports pain in right knee. Injury Description: Bruise. Vital Signs: 09:17 BP 125 / 69; Pulse 86; Resp 16; Temp 97.5; Pulse Ox 100% on R/A; Weight 75.3 kg; Height iw 5 ft. 3 in. ; Pain 10/10; 11:06 BP 144 / 81; Pulse 81; Resp 17; Pulse Ox 100% ; iw 09:17 Body Mass Index 29.41 (75.30 kg, 160.02 cm) iw 09:17 Pain Scale: Adult iw ED Course: 09:12 Patient arrived in ED. ra3 09:18 Lloyd Lozada MD is Attending Physician. rn 09:18 Triage completed. iw 09:19 Arm band placed on. iw 09:53 Priyanka Morton RN is Primary Nurse. iw 10:29 XRAY Knee RIGHT 3 view In Process Unspecified. EDMS 10:29 XRAY Tib Fib RIGHT In Process Unspecified. EDMS 11:07 No provider procedures requiring assistance completed. Patient did not have IV access ll1 during this emergency room visit. 11:17 Patient has correct armband on for positive identification. Provided Education on: ll1 return to ED for worsening symptoms. Administered Medications: No medications were administered Medication: 11:18 VIS not applicable for this client. ll1 Outcome: 10:59 Discharge ordered by . rn 11:07 Patient left the ED. ll1 11:07 Discharged to home ambulatory, ll1 11:07 Condition: stable 11:07 Discharge instructions given to patient, Instructed on discharge instructions, follow up and referral plans. Demonstrated understanding of instructions, follow-up care, Signatures: Dispatcher [employer] EDMS Priyanka Morton, ROLANDO RN iw Lloyd Lozada MD MD rn Lewis, Lynsay, RN RN ll1 Elyssa Polo ra3
--- NOTE | 2024-06-06 11:00 | EDPHYS ---
Physician Documentation [facility] Name: Jeny Barraza Age: 74 yrs Sex: Female : 1950 Arrival Date: 06/06/2024 Time: 09:09 Bed 10 Private MD: ED Physician Lloyd Lozada HPI: 06/06 10:33 This 74 yrs old Female presents to ER via Ambulatory with complaints of Leg Pain, Knee rn Injury. 10:33 The patient presents with an injury, pain. The complaints affect the right knee. rn 10:33 Onset: The symptoms/episode began/occurred yesterday. Modifying factors: The symptoms rn are alleviated by remaining still, the symptoms are aggravated by movement. 10:40 Severity of symptoms: At their worst the symptoms were moderate, in the emergency rn department the symptoms are unchanged. The patient has experienced similar episodes in the past. Patient reports right knee pain after fall yesterday. States fell and landed on knees. Right knee hurts to bend it. 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 No pain with extension. Mild swelling to right knee. Reports knee replacement within the last year with Dr. Schmidt in the knee "never took right ". Has been having trouble with the knee since the surgery but increased pain since the fall. No fever or chills. Does not feel ill.. Historical: - Allergies: 09:18 Celexa; iw - PMHx: 09:18 Colitis; high heart rate; Hypertensive disorder; iw - PSHx: 09:18 Ligation of fallopian tube; right knee; iw - Immunization history:: Adult Immunizations not up to date. - Infectious Disease History:: Denies. - Social history:: Smoking status: Patient/guardian denies using tobacco, but has a distant history of tobacco abuse. - Family history:: not pertinent. - Hospitalizations: : No recent hospitalization is reported. ROS: 10:40 Constitutional: Negative for fever, chills, and weight loss, MS/Extremity: Positive for rn right knee injury and pain with swelling Exam: 10:40 Constitutional: This is a well developed, well nourished patient who is awake, alert, rn and in no acute distress. MS/ Extremity: Mild right knee effusion with swelling and pain with flexion. No open wounds. No warmth or erythema. No pain with extension of knee. No focal bony tenderness. Vital Signs: 09:17 BP 125 / 69; Pulse 86; Resp 16; Temp 97.5; Pulse Ox 100% on R/A; Weight 75.3 kg; Height iw 5 ft. 3 in. ; Pain 10/10; 11:06 BP 144 / 81; Pulse 81; Resp 17; Pulse Ox 100% ; iw 09:17 Body Mass Index 29.41 (75.30 kg, 160.02 cm) iw 09:17 Pain Scale: Adult iw MDM: 09:18 Patient medically screened. rn 10:58 Differential diagnosis: closed fracture, contusion. Data reviewed: vital signs, nurses rn notes, radiologic studies, plain films, and as a result, I will discharge patient. Counseling: I had a detailed discussion with the patient and/or guardian regarding the historical points, exam findings, and any diagnostic results supporting the discharge/admit diagnosis, radiology results, the need for outpatient follow up, to return to the emergency department if symptoms worsen or persist or if there are any questions or concerns that arise at home. Special discussion: I discussed with the patient/guardian in detail that at this point there is no indication for admission to the hospital. It is understood, however, that if the symptoms persist or worsen the patient needs to return immediately for re-evaluation. Further emergent ED testing is not indicated at this point in time. I discussed with the patient/guardian in detail the need to arrange with the PCP or specialist further outpatient testing, MRI, Based on the history and exam findings, there is no indication for further emergent testing or inpatient evaluation. I discussed with the patient/guardian the need to see the orthopedic surgeon for further evaluation of the symptoms. ED course: No acute findings in x-ray of right knee or tib-fib. Patient states her knee was at baseline for months and denies infection. Patient reports pain followed fall and trauma to the knee. Recommend orthopedic follow-up and outpatient MRI if still symptomatic. Already takes [place] 10 mg, will discharge home with continuation of her normal home medication.. 06/06 09:41 Order name: XRAY Knee RIGHT 3 view rn 06/06 09:41 Order name: XRAY Tib Fib RIGHT rn Administered Medications: No medications were administered Disposition Summary: 06/06/24 10:59 Discharge Ordered Notes: Location: Home rn Problem: new rn Symptoms: have improved rn Condition: Stable rn Diagnosis - Contusion of right knee rn - Effusion, right knee rn Followup: rn - With: Private Physician - When: As needed - Reason: Recheck today's complaints, Re-evaluation by your physician Discharge Instructions: - Discharge Summary Sheet rn - Contusion rn - Knee Effusion rn Forms: - Medication Reconciliation Form rn - Antibiotic furnace maintenance - Prescription Opioid Use rn - Patient Portal Instructions rn - Leadership Thank You Letter rn Signatures: Dispatcher [employer] Priyanka Mondragon RN RN Lloyd Brewer MD MD rn
[2024-06-06 11:16] VITALS: BP 125/69; TEMP 97.5; O2SAT 100
== END 2024-06-06 11:07 | disposition home or self-care (01) ==
LOC: ER 09:09
DX: S80.01XA Contusion of right knee, initial encounter (principal); M25.461 Effusion, right knee; Z96.651 Presence of right artificial knee joint